=== PATIENT | male | born 1945 | race Caucasian/White ===

== ENCOUNTER 2022-07-24 19:42 | Emergency (ER) | payer OTHER, MEDICARE, SELFPAY ==
[2022-07-24] VITALS (28 sets, daily range): BP systolic 84–120; BP diastolic 57–84; PULSE 60–117; RESP 9–24; O2SAT 95–98; BMI 21.3
--- NOTE | 2022-07-24 20:47 | CRLHL7_ITS ---
For Patients: As a result of the Century Cures Act, medical imaging exams and procedure reports are released immediately into your electronic medical record. You may view this report before your referring provider. If you have questions, please contact your health care provider. INDICATION: Atrial fibrillation. TECHNIQUE: Chest 1 views. COMPARISON: December 2019. FINDINGS: Lungs: Normal lung volume. No consolidation. The tracheobronchial tree and hilar structures are unremarkable. Pleura: No pleural effusion or pneumothorax. Heart and Mediastinum: Normal heart size. The great vessels of the thorax are unremarkable. Bones: No acute displaced osseous process. IMPRESSION: No consolidation. Dictated by Hank Orr MD @ 07/24/2022 9:52:06 PM (Electronically Signed)
[2022-07-24 21:13] LABS: Basophils Absolute Auto 0.01 K/uL (0.00-0.30); Basophils Percent Auto 0.2 % (0.0-3.0); Eosinophils Absolute Auto 0.09 K/uL (0.00-0.50); Eosinophils Percent Auto 1.6 % (0.0-7.0); Hematocrit 46.2 % (37.0-53.0); Hemoglobin* 15.6 gm/dL (13.5-17.5); Lymphocytes Absolute Auto 1.78 K/uL (0.90-2.90); Lymphocytes Percent Auto 31.3 % (20-44); Mean Corpuscular HGB Conc 34 gm/dL (32-36); Mean Corpuscular Hemoglobin 31 pg (26-34); Mean Corpuscular Volume 92 fL (80-100); Monocytes Percent Auto 10.2 % (0.0-11.0); Neutrophils Absolute Auto 3.23 K/uL (1.7-7.0); Neutrophils Percent Auto 56.7 % (42.0-72.0); Platelet Count* 108 K/uL (140-440); RDW Coefficient of Variation % 12.1 % (11.5-15.5); Red Blood Count 5.05 m/uL (4.30-5.90); White Blood Count* 5.69 K/uL (4.50-11.00)
[2022-07-24 21:25] LABS: Chloride* 106 mmol/L (96-114); Sodium* 136 mmol/L (135-149)
[2022-07-24 21:26] LABS: Potassium* 4.2 mmol/L (3.6-5.1)
[2022-07-24 21:27] LABS: Slide Review Reflex No
[2022-07-24 21:28] LABS: Carbon Dioxide* 27 mmol/L (20-32); Creatinine* 0.8 mg/dL (0.5-1.5); Est. Creatinine Clearance* 54.68; Estimated Glomerular Filt Rate 91 ml/min
--- OUTSIDE RECORDS SUMMARY | 2022-07-24 21:28 | XMS_ITS | Clinical Summary ---
:1945 Author Organization [facility] [place] [address] Care Team Providers Name Role Phone Zachary Solano MD Primary Care Provider Allergies No known active allergies Medications Medication Sig Dispensed Refills Start Date End Date Status atorvastatin (LIPITOR) Take 1 tablet by 90 tablet 3 10/27/2019 Active 20 mg mouth at bedtime. tabletIndications: Other hyperlipidemia rivaroxaban (XARELTO) Take 1 tablet by 90 tablet 3 10/30/2019 Active 20 mg mouth once daily tabletIndications: with evening meal. Paroxysmal atrial fibrillation (HC), Anticoagulation monitoring, INR range 2-3 aspirin (ECOTRIN) 81 Take 1 tablet by 0 01/07/2020 Active mg enteric coated mouth once daily tablet with a meal. vit Take 1 capsule by 0 02/05/2020 A ctive C,L-Vm-gzmcm-lutein-ze mouth 2 times axan (PRESERVISION daily. AREDS-2) capsule metoprolol succinate Take 1 tablet by 90 tablet 3 02/06/2020 Active (TOPROL XL) 25 mg mouth once daily. Sustained-Release tabletIndications: Chronic atrial fibrillation (HC) furosemide (LASIX) 20 TAKE ONE TABLET BY 0 1 Active mg tablet MOUTH DAILY FOR HEART FAILURE. lisinopriL (PRINIVIL; TAKE ONE TABLET BY 0 1 Active ZESTRIL) 5 mg tablet MOUTH DAILY FOR HEART FAILURE. sildenafil citrate TAKE ONE-HALF 0 04/04/2021 Active (VIAGRA) 100 mg tablet TABLET BY MOUTH EVERY DAY NEEDED FOR ERECTIONS - TAKE 1 HOUR BEFORE ANTICIPATED SEXUAL ACTIVITY--MAXIMUM 4 DOSES FOR 30-DAY SUPPLY. Active Problems Problem Noted Date Agent orange exposure 10/27/2019 Overview: He had minimal exposure to Agent [place]. [facility] stated the following diseases are more likely with Agent [place] exposure: Amyloidosis, Chronic B-cell Leukemia, Chloracne, Type 2 Diabetes, Hogkin's Disease, Ischemic Heart Disease, Multiple Myel sabina, Non-Hodgkin's Lymphoma, Parkinson's Disease, Peripheral Neuropathy, Porphyria Cutanea Tarda, Prostate Cancer, Respiratory Cancers, Soft Tissue Sarcomas (other than osteosarcoma, chondrosarcoma, Kaposi's sarcoma or Mesothelioma). 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 Referral to sleep specialist generated. Hyperlipidemia 09/03/2015 Paroxysmal atrial fibrillation 08/27/2015 Overview: Armando reports he can tell when he is in atrial fibrillation and as of 10/27/2019 this happens 1-3 times per week and each episode lasts for a few seconds. 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 07/28/2013 Family history of colonic polyps 11/10/2010 Overview: Colonoscopy 10/2010 normal repeat in 5 ye ars Colonoscopy 12/2015 normal, no follow up needed Erectile dysfunction 10/15/2009 Resolved Problems Problem Noted Date Resolved Date Other chest pain 10/14/2008 Immunizations Name Administration Dates Next Due HepA-HepB (Twinrix) 12/11/2012, 07/12/2012, 07/05/2010 Hepatitis A (Adult) 10/16/2016, 11/04/2003 Influenza A (H1N1), Inactivated 08/25/2009 Influenza Virus, Unspecified 07/10/2017 Influenza, High-dose Inactivated 05/27/2019, 05/27/2018, 08/2015, 05/28/2015 Influenza, IIV3 (Age >=3 years) 07/14/2013, 04/23/2012, 05/13, 07/29/2004 Meningococcal Vaccine (Menomune) 06/13/2008 Pneumococcal Poly,23-Valent 10/16/2016, 08/13/2003 (Pneumovax) Pneumococcal conj 13-Valent (Prevnar 09/03/2015 13) Td (Age >=7 Years) 08/13/2005 Tdap 07/12/2012 Zoster (Shingrix-RZV, recombinant) 12/04/2018, 10/07/2018 Zoster (Zostavax-ZVL, live) 03/04/2012 Family History Medical History Relation Name Comments Heart Disease Brother 1 Hank Other Father embolism after f racture/ of Pneumonia at 88 Other Mother Aneurysm/ at 80 of weakness and old age Relation Name Status Comments Brother 1 Hank Alive Brother 2 Alive Father Mother Sister Alive Social History Tobacco Use Types Packs/Day Years Used Date Smoking Tobacco: Never Smokeless Tobacco: Never Tobacco Cessation: Counseling Given: Yes Alcohol Use Standard Drinks/Week Comments Yes 1.7 (1 standard drink = 0.6 oz pure alco hol) 2 drinks a month Sex Assigned at Date Recorded Not on file Obstetrics History Last Filed Vital Signs Vital Sign Reading Time Taken Comments Blood Pressure 124/76 06/16/2021 7:39 AM CDT Pulse 68 06/16/2021 7:39 AM CDT Temperature 36.8 ??C (98.2 ??F) 05/12/2020 2:37 PM CDT Respiratory Rate 12 06/20/2018 2:49 PM 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 Saturation 97% 06/16/2021 7:39 AM CDT Inhaled Oxygen Concentration - - Weight 68.5 kg (151 lb) 06/16/2021 7:39 AM CDT Height 172.7 cm (5' 8) 06/16/2021 7:39 AM CDT Body Mass Index 22.96 06/16/2021 7:39 AM CDT Plan of Treatment Health Maintenance Due Date Last Done Comments COVID-19 vaccine series (#1) 1945 Medicare Wellness for age 65+ 10/26/2020 10/27/2019, 2017, 10/16/2016 Depression screening for age 12+ 10/29/2020 10/30/2019, , 10/30/2019, Additional history exists Influenza for age 65+ 04/13/2022 05/27/2019, 05/27/2018, 07/10/2017, Additional history exists BMI (ht and wt on same day) for 06/16/2022 06/16/2021, 04/15, age 18+ 10/27/2019, Additional history exists Tetanus booster 07/12/2022 07/12/2012, 08/13/2005 Tdap Completed 07/12/2012 Hepatitis C screening for age Completed 10/16/2016 18-79 Pneumococcal series for age 65+ Completed 10/16/2016, 08/14, 08/13/2003 Zoster (shingles) series for age Completed 12/04/2018, , 50+ 03/04/2012 Results Not on filefrom Last 3 Months Insurance Payer Benefit Plan / Subscriber ID Effective Phone Address T ype Group Dates 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 [id number] 2008-Prese [phone] [id number] [place] [address] 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 [id number] 2010-[place] [address] [id number] [place] [address] MEDICARE PART MEDICARE PART B [id number] 2012-[place]S B - HB USE HB ONLY nt [address] [place] [facility] [address] MEDICARE PART MEDICARE PART A [id number] 2009-[place] - [place] USE [place] ONLY nt [address] [place] [address] BLUE CROSS MR BL[employer]OSS [id number] 2020-Prese [address] MEDICARE nt [id number] [employer] [address] EMERY SOLOMONALESHA [id number] (Home) W [phone] [place] ([place] [phone] ArnieArmando [employer] Workers Comp Self 1945 [address] (Home) W [phone] [place], [place] ([place]) [phone] Advance Directives Latest Code Status on File Code Status Date Activated Date Inactivated Comments Full Code 10/15/2014 9:14 AM 10/15/2014 3:07 PM Code Status History Code Status Date Activated Date Inactivated Comments Full Code 10/15/2014 6:33 AM 10/15/2014 9:14 AM Care Teams Solution Design Engineer Relationship Specialty Start Date End Date Zachary Solano MD PCP - General Family Practice 10/26/10 [address] [place], [place] [id number]
[2022-07-24 21:29] LABS: Blood Urea Nitrogen* 23 mg/dL (7-30); Calcium* 8.8 mg/dL (8.4-10.6); Glucose* 101 mg/dL (60-115)
--- OUTSIDE RECORDS SUMMARY | 2022-07-24 21:29 | XMS_ITS | Encounter Summary ---
:1945 Author Organization [facility] Address [address] [place] [id number] Support Name Relationship Address Phone BANG MANN Unavailable [address] [place] [address] BANG MANN MEENAKSHI Unavailable [address] [place] [address] Insurance Providers: All historical and current Section Date Range: From patient's date of to the date document was created.This section includes the names of all active insurance providers for the patient. Insurance Type of Plan Start of End of Group Member Insurance Policy P atient's Provider Coverage Name Policy Policy Number ID Provider's Tanner's Relationship Coverage Coverage Telephone Name to Policy Number Tanner [place] MEDIC Aug 13, [id number] VENESS,BECERRA P ATIENT [facility] (WNR) ADVANTAGE ARE 2020 5 [id number] [phone] ROLD ADVAN 1 MOUSTAPHA C [place] MED[place] MCR Aug 13, [id number] VENESS,BECERRA P ATIENT [facility] (WNR) ADVANTAGE (WNR) 2020 7 [id number] [phone] [place] 1 [place] Aug 13, [id number] [phone] VENESS ,BECERRA PATIENT [facility] (WNR) ADVANTAGE (WNR) 2021 5 [id number] ROLD 1 MEDICARE MEDICARE PART Sep 13, PART B [id number] Jesusita CONKLIN (WNR) (M) B 2012 [id number] [phone] [facility] MEDICARE MEDICARE PART Mar 13, PART A 800 Jesusita CONKLIN (WNR) (M) A [phone] [place] MEDIC[place] MEDICARE PART Mar 13, PART A [id number] Jesusita CONKLIN (WNR) (M) Rosalinda 2008 [id number] [phone] [place] Selected Encounter This section includes the information on record at [place] for the Encounter. Date/Time Encounter Type Encounter Reason Provider Source Description Dec 06, 2021 OFFICE O/P EST PRIMARY ICD-10-CM PANCHO GUTIERREZ 10:00 AM MOD 30-39 MIN CARE/MEDICINE M25.552 Pain N E in left hip with Provider Comments: Pain in left Hip IHE Encounter Template Text not used by [facility] Assessments - Encounter Diagnoses This section includes the primary and secondary diagnoses documented for the Encounter. Date/Time Primary/Secondary Diagnosis Name Provider Source Diagnosis Dec 06, 2021 PRIMARY Pain in left PANCHO GUTIERREZ [place] A 12:02 PM hip N E [facility] Plan of Treatment: Future Appointments (+ 6 months) and Future Tests (+/- 45 days) The Plan of Treatment section includes future care activities for the patient from all [place] treatmentfacilities. This section includes future appointments and future orders which are active, pending orscheduled.Future Appointments This section includes appointments that were scheduled to occur 6 months from the date of the Encounter, up to a maximum of 20 appointments. The data comes from all [place] treatment facilities. Appointment Date/Time Appointment Type Appointment Facili ty Name December 16, 2021 09:00 AM AMBULATORY - REHAB MEDICINE [facility] December 16, 2021 09:45 AM AMBULATORY - MEDICINE [facility] December 16, 2021 10:30 AM AMBULATORY - MEDICINE [facility] December 23, 2021 12:15 PM AMBULATORY - NONE [facility] December 23, 2021 12:16 PM AMBULATORY - NONE [facility] December 26, 2021 01:30 PM AMBULATORY - MEDICINE [facility] January 02, 2022 05:00 PM AMBULATORY - REHAB MEDICINE [facility] January 10, 2022 08:30 AM AMBULATORY - MEDICINE [facility] Feb 02, 2022 10:00 AM AMBULATORY - PSYCHIATRY [facility] Feb 03, 2022 12:12 PM AMBULATORY - NONE [facility] Feb 09, 2022 10:00 AM AMBULATORY - PSYCHIATRY [facility] Feb 09, 2022 01:30 PM AMBULATORY - SURGERY [facility] Feb 16, 2022 10:00 AM AMBULATORY - PSYCHIATRY [facility] Feb 23, 2022 10:00 AM AMBULATORY - PSYCHIATRY [facility] Mar 02, 2022 10:00 AM AMBULATORY - PSYCHIATRY [facility] Mar 08, 2022 08:45 AM AMBULATORY - MEDICINE [facility] Mar 08, 2022 09:00 AM AMBULATORY - MEDICINE [facility] Mar 08, 2022 09:30 AM AMBULATORY - MEDICINE [facility] Mar 08, 2022 10:00 AM AMBULATORY - MEDICINE [facility] Mar 13, 2022 09:00 AM AMBULATORY - MEDICINE [facility] Lab Results: +/- 30 days of the encounter This section includes the Chemistry and Hematology Lab Results on record with [place] for the patient. Radiology Reports and Pathology Reports are provided separately, in subsequent sections.Lab Results This section contains the Chemistry/Hematology Results that were resulted 30 days before or 30 daysafter the date of the Encounter. Date/Time Source Result Type Result - Unit Interpretation Reference Range Comment December 16, 2021 09:56 AM [facility] BNP Specim en Type: PLASMA No comment enter ed. Ordering Provid er: DRAKE MCNULTY Report Released Date/Time: Nov 08, 2021 10:58 AM Reporting Lab: [facility] [id number] Performing Lab: [facility] [id number] BNP 35 <99 December 16, 2021 [facility] COMPREHENSIVE Specimen Typ e: PLASMA 09:56 AM METABOLIC PANEL+MG No comment en tered. Ordering Provid er: DRAKE MCNULTY Report Released Date/Time: Nov 08, 2021 10:58 AM Reporting Lab: [facility] [id number] Performing Lab: [facility] [id number] CREATININE 0.8 0.7-1.2 UREA NITROGEN 14 8-26 GLUCOSE 75 74-100 SODIUM 137 136-145 POTASSIUM 4.4 3.5-5.1 CHLORIDE 106 98-107 CO2 28 22-29 CALCIUM 9.2 8.4-10.2 PROTEIN,TOTAL 6.6 6.0-8.3 ALBUMIN 3.9 3.5-5.2 BILIRUBIN, TOTAL 0.8 0.2-1.2 MAGNESIUM 2.3 1.6-2.6 ANION GAP 3 L 5-15 ALKALINE PHOSPHATASE 60 40-150 ALT/SGPT 26 <55 AST/SGOT 28 <34 CREAT EGFR(CKD-EPI) >90 >60 Nov 11, 2021 [facility] COVID-19 AND FLU/RSV DIAG Sp ecimen Type: NASOPHARYNGEAL 09:34 AM PANEL(CEPHEID) Comment: Rufus rhoades GeneXpert (618) Ordering Provid er: JEREMIAH ACKERMAN Report Released Date/Time: Nov 08, 2021 02:19 PM Reporting Lab: [facility] [id number] Performing Lab: [facility] [address] [facility] [address] COVID-19 (CEPHEID) Not Detected Not Dete cted INFLUENZA A (PCR) Not Detected Not Detec heydi INFLUENZA B (PCR) Not Detected Not Detec heydi RSV (PCR) Not Detected Not Detected Nov 08, 2021 10:11 AM [facility] BNP Specim en Type: PLASMA No comment enter ed. Ordering Provid er: DRAKE MCNULTY Report Released Date/Time: Sep 05, 2021 10:57 AM Reporting Lab: [facility] [id number] Performing Lab: [facility] [id number] BNP 28 <99 Nov 08, 2021 10:11 AM [facility] CBC Specim en Type: BLOOD No comment enter ed. Ordering Provid er: DRAKE MCNULTY Report Released Date/Time: Sep 05, 2021 10:57 AM Reporting Lab: [facility] [address] [facility] [address] Performing Lab: [facility] [address] WBC 4.77 4.0-11.0 RBC 4.33 L 4.6-6.2 HGB 13.7 13.5-17.9 HCT 41.0 41-54 MCV 94.7 80-100 MCH 31.6 27-33 MCHC 33.4 32.0-37.5 PLT 128 L 150-400 MPV 9.4 7.4-10.4 RDW 13.0 11.5-14.5 Nov 08, 2021 [facility] COMPREHENSIVE Specimen Typ e: PLASMA 10:11 AM METABOLIC PANEL+MG No comment en tered. Ordering Provid er: DRAKE MCNULTY Report Released Date/Time: Sep 05, 2021 10:57 AM Reporting Lab: [facility] [address] [facility] [address] Performing Lab: [facility] [address] [facility] [address] CREATININE 0.8 0.7-1.2 UREA NITROGEN 20 8-26 GLUCOSE 85 74-100 SODIUM 136 136-145 POTASSIUM 4.0 3.5-5.1 CHLORIDE 105 98-107 CO2 28 22-29 CALCIUM 9.4 8.4-10.2 PROTEIN,TOTAL 6.7 6.0-8.3 ALBUMIN 4.0 3.5-5.2 BILIRUBIN, TOTAL 0.9 0.2-1.2 MAGNESIUM 2.0 1.6-2.6 ANION GAP 3 L 5-15 ALKALINE PHOSPHATASE 68 40-150 ALT/SGPT 27 <55 AST/SGOT 25 <34 CREAT EGFR(CKD-EPI) >90 >60 Vital Signs: All taken on the encounter date This section contains inpatient and outpatient Vital Signs collected on the date of the Encounter. Date/Time Temperature Pulse Blood Respiratory SP02 Pain Height Weight Dionisio dy Source Pressure Rate Mass Index Dec 06, 97.6 F 66 119/68 16 /min 97 % 2 68 in 155 lb 24 [place] 2021 09:58 /min mm[Hg] [facility] Social History: Smoking Status (Most current) and Tobacco Use (All prior to encounter date) This section includes the most current, and the historical, smoking and tobacco-related health factors from the [place] facility where the Encounter took place.Current Smoking Status This section includes the most current smoking, or tobacco-related health factor, from the [place] facility where the Encounter took place. Date/Time Current Smoking Status Comment Facility Apr 04, 2021 10:00 AM [place]-TOBACCO NEVER USED [facility] Encounter Notes: All associated encounter notes This section contains the clinical notes associated to the Encounter. Date/Time Encounter Note(s) Provider Source Dec 06, 2021 11:33 INTERNAL MEDICINE NOTE: KVNG GONZALEZDanny [facility] TITLE: MEDICINE CLINIC NOTE STANDARD TITLE: INTERNAL MEDICINE NOTE DATE OF NOTE: DEC 06, 2021@11:33 ENTRY DATE: DEC 06, 2021@11:33:44 AUTHOR: KVNG GONZALEZ EXP COSIGNER: URGENCY: STATUS: COMPLETED MEDICINE CLINIC NOTE Has ADDENDA YOUSIF MANN is a 76 year old MALE here today with the following complaints: left hip pain Nurse's note and prior clinic notes reviewed. Current concerns/HPI: Patient states since October 2020 he has had left hip pain at night. Initially pain was bilateral but always more intesnse on l eft side. Right side pain has since resolved after a coupl e of months. Onset was not related to any injury or change in activity. He does state it occured 3 d ays after his first COVID vaccine. The pain is located on lateral left hip is dull ache in nature. Occasionally radiates down leg. Denies any weakness in leg. P ain only occurs at night when lying on his left side. It r esolves with changing of position to right side. He does not have pain at any other times du ring day. He can not reproduce pain on palpating his hip. He has never had imaging of his hip. No previous injuries to his hip. He is not taking anything for the pain. No brusing, erythe ma, edema of hip. No knee issues. He has recently changed his bed mattress . He also for past 6 months becerra s had sensation of hockey puck in his LLQ. This is a sharp pain that is deeper in his abdomen. It o nly occurs at night and never during day. Pain is relieved with changing posit ion in bed. The pain can wake hip up from sleep. Frequency is occasional (1-2 times per week). No change in nature or frequency in past 6 months. States he has BM 1-2x per day and these are normal for him. No melen a or hematochezia. No change in pain with BM. No n/v or changes in dietary habits. No weight changes. He had colon cancer screening completed prior to transitioning care to [place]. Per [facility] appears his last colonoscopy was normal and then aged out of rout ine screening. Review of Systems: Complete ROS negative except for as noted above. Past medical history/Active Problems: Active problems - Computerized Problem List is t he source for the followin. Atrial fibrillation 2. Hyperlipidemia 3. Age related macular degeneration 4. Hearing loss 5. Tinnitus 6. Tremor 7. Obstructive sleep apnea - Non-compliant with CPAP. 8. Erectile dysfunction 9. Heart failure with reduced ejection fraction 10. Ingrown toenail Surgical History: SURGERIES - NONE FOUND Allergies: Patient has answered NKA Active Outpatient Medications (excluding Supplie s): Outpatient Medications Status 1) ATORVASTATIN CALCIUM 20MG TAB TAKE ONE TABLET BY ACTIVE MOUTH AT BEDTIME FOR CHOLESTEROL 2) CARVEDILOL 3.125MG TAB TAKE ONE TABLET BY OMER TH TWO ACTIVE TIMES A DAY WITH FOOD. FOR HEART. 3) DOFETILIDE 500MCG CAP TAKE ONE CAPSULE BY OMER TH TWO ACTIVE TIMES A DAY TO KEEP A NORMAL HEART BEAT 4) EMPAGLIFLOZIN 25MG TAB TAKE ONE-HALF TABLET B Y MOUTH ACTIVE EVERY MORNING 5) LISINOPRIL 5MG TAB TAKE ONE TABLET BY MOUTH T WO TIMES ACTIVE A DAY FOR HEART FAILURE. 6) PEG 400 0.4%/PROP GLYCOL 0.3% OPH SOLN INSTIL L 1 DROP ACTIVE IN BOTH EYES FOUR TIMES A DAY FOR EYE IRRITATION/DRYNESS 7) RIVAROXABAN 20MG TAB TAKE ONE TABLET BY MOUTH EVERY ACTIVE DAY WITH THE LARGEST MEAL OF THE DAY TO PREVENT BLOOD CLOTS & STROKE 8) SILDENAFIL CITRATE 100MG TAB TAKE ONE-HALF TA BLET BY ACTIVE MOUTH EVERY DAY NEEDED FOR ERECTIONS - TAKE 1 HOUR BEFORE ANTICIPATED SEXUAL ACTIVITY--MAXIMU M 4 DOSES FOR 30-DAY SUPPLY. EXAM: VS: Temp: 97.6 F [36.4 C] (12/06/2021 09:58) BP: 119/68 (12/06/2021 09:58) Pulse:66 (12/06/2021 09:58) Resp: 16 (12/06/2021 09:58) Pain: 2 (12/06/2021 09:58) Weight: WEIGHTS IN LAST 6 MONTHS - NONE FOUND O2 sat: 97% (12/06/2021 09:58) General: Alert, well developed, NAD Abdomen: Soft, nontender, nondistended, no tomás s palpated, no rebound or guarding MSK: Left hip without any sk in changes or edema. No pain on palpation of greater trochanter. Passive ROM full without any pain in bilateral hips. Knees non- tender to palpation with full ROM. Hip strenght 5/5 bilaterally. Gait normal Data/Labs Reviewed: . LAB RESULTS LAST 48 HRS - NONE FOUND ASSESSMENT & PLAN: YOUSIF MANN is a 76 year old MALE with the following active issues today: #Left hip pain, likely brusitis Pain for past 1+ year in left hip only w ith lying on left hip at night. Unable to reproduce pain on palpation today in clinic. Most concerning for bursitis, less likely OA. Recommend physical therapy which patient is in agreement. Did briefly discuss steroid injection but wi thout pain on palpation on examination unsure of benefit of injection. No indication fo r imaging, could consider if does not improve with treatment of brusitis. - [facility] ([facility]ner and walk-in option) - Per patient request will p [facility] referral for PT. They understand their drive time may not qualify them for this option. #LLQ Pain Pain is only nocturnal and unchanged over past 6 months. No changes in bowel movemetns or weight. No conc erning findings on examination. Last colonoscopy in [facility] reported as normal (prio r to discontinuation of screening 2/2 age). Does not appear to be related to left hip pain. Since this is unchanged in past 6 months, only nocturnal and no red flag symptoms do not feel that imaging is warranted. Etiology of symptoms could be related to bowels/ constipation. - Encouraged patient to increase fiber intake an d water intake - Monitor bowel movements, weight, and any roach e in symptoms. Follow-up with PCP if changes occcur Advanced Directive: None Future Appointments: DEC 06, 2021@10:00 Clinic: [facility] APACT F RES 01 WH 4F DECEMBER 16, 2021@09:45 Clinic: [facility] 3[facility] BLOOD DRAW CLI ALBA DECEMBER 16, 2021@10:30 Clinic: [facility] CHF PERIDOT 3D Patient staffed with Dr. Rhys Gonzalez MD Internal Medicine Resident Physician MEDICATION RECONCILIATION: The medication list above was reviewed with the patient/surrogate at today's visit. I have indicated discrepanci es under each medication that is not being taken as prescribed. I have reviewed the medication list for possible drug:drug interactions or contraindications prior to ordering NEW medicati ons during this visit. (x) Patient ( )Family Member ( )Caregiver indica heydi readiness to learn and has been instructed on action, dose, frequency and side effects of the new medication and I noted new medication on pa los's copy of the medication list. (x) Verbalizes understanding of instructions. ( ) Needs additional reinforcement of instructi ons(sent to Pharmacist). EDUCATION ON TREATMENT PLAN: Patient indicates readiness to learn, verbalizes understanding, agreement and satisfaction with the treatment plan. All questi ons addressed. /tanner/ KVNG GONZALEZ MD RESIDENT Signed: 12/06/2021 11:58 Receipt Acknowledged By: 12/06/2021 12:02 /tanner/ HERNANDEZ GUTIERREZ MD PHYSICIAN * AWAITING SIGNATURE * ELAN RODRIGUEZ 12/06/2021 ADDENDUM STATUS: COMPLETED Does not qualify for community care due to his d rive distance. Called and updated patient that he will need to be seen at [place] for his PT /es/ KVNG GONZALEZ MD RESIDENT Signed: 12/06/2021 12:04 Dec 06, 2021 10:37 INTERNAL MEDICINE NOTE: HERNANDEZ GUTIERREZ [facility] LOCAL TITLE: MEDICINE CLINIC NOTE STANDARD TITLE: INTERNAL MEDICINE NOTE DATE OF NOTE: DEC 06, 2021@10:37 ENTRY DATE: DEC 06, 2021@10:37:18 AUTHOR: HERNANDEZ GUTIERREZ EXP COSIGNER: URGENCY: STATUS: COMPLETED I have reviewed this patient's history (obtained by the resident), pertinent physical examination (performed by the resident) , and, when obtained and available, pertinent laboratory, radiologic or o ther diagnostic tests with the Internal Medicine Resident evaluating this p atient. I agree with the treatment plan as outlined. This plan was review ed with the resident on the date of the clinical encounter. PT for hip/leg sx; reassuran ce + caution about red flag sx for ill defined rare overnight abd discomforts wi thotu associated n/v, stool changes, weight loss, or any other concerning features. f/u with PCP if b ecomes more frequent or bothersome. /tanner/ HERNANDEZ GUTIERREZ MD PHYSICIAN Signed: 12/06/2021 12:02 Dec 06, 2021 09:59 INTERNAL MEDICINE OUTPATIENT NOTE: LUCI BEDOLLA [facility] LOCAL TITLE: MEDICINE CLINIC NURSING NOTE STANDARD TITLE: INTERNAL MEDICINE OUTPATIENT NOT E DATE OF NOTE: DEC 06, 2021@09:59 ENTRY DATE: DEC 06, 2021@09:59:58 AUTHOR: DC BEDOLLA EXP COSIGNER: URGENCY: STATUS: COMPLETED TYPE OF VISIT: Appointment Check In Type of appointment: In-person appointment REASON FOR VISIT: left hip pain ALLERGIES: Patient has answered NKA VITAL SIGNS: Blood Pressure: 119/68 (12/06/2021 09:58) Pulse: 66 (12/06/2021 09:58) Respiration: 16 (12/06/2021 09:58) Temperature: 97.6 F [36.4 C] (12/06/2021 09:58) Weight: 155 lb [70.31 kg] (12/06/2021 09:58) Height: 68 in [172.7 cm] (12/06/2021 09:58) BMI: 23.6 O2 Sat: 97% (12/06/2021 09:58) Pain: 2 (12/06/2021 09:58) PAIN SCREEN: Patient is not having significant pain that the y wish to discuss with their provider today. MEDICATION Over the Counter/Herbal Medications: The patient denies taking any outside medicatio ns or herbals. COVID-19 Immunization: The patient declines an additional dose of vacc ine at this time. Comment: personal preference /es/ DC BEDOLLA LPN Signed: 12/06/2021 10:03 Dec 06, 2021 09:55 ADVANCE DIRECTIVE: MADDIE SMITH [facility] TITLE: AD NOTIFICATION AND SCREENING STANDARD TITLE: ADVANCE DIRECTIVE DATE OF NOTE: DEC 06, 2021@09:55 ENTRY DATE: DEC 06, 2021@09:55:22 AUTHOR: MADDIE SMITH EXP COSIGNER: URGENCY: STATUS: COMPLETED ADVANCE DIRECTIVE NOTIFICATION: I was unable to give the patient written notifi cation of the following rights because: Comment: declined ADVANCE DIRECTIVE SCREENING: Does patient have an Advance Directive? Unknown to Patient and/or textiles sales representative. Socia l work consult will be placed to assist . /tanner/ MADDIE SMITH ADVANCED MSA Signed: 12/06/2021 09:55
--- OUTSIDE RECORDS SUMMARY | 2022-07-24 21:29 | XMS_ITS | Continuity of Care Document ---
:[address] [facility] Care Team Providers Name Role Phone [facility] Unavailable Unavailable Problems Combined list of problems from Department of Defense and [facility] Affairs facilities. It does not include entries that were removed or entered in error. 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 Heart failure with Active Condition [place] reduced ejection [facility] fraction Hyperlipidemia [facility] Ingrown [facility]enail Active Condition [place] [facility] Obstructive sleep Active Condition Apr 04 M [place] apnea 2020 [facility] Entered By: ALBA RODRIGUEZ Comment: Non-compli ant with CPAP. [facility]inn[facility] Tremor [facility] Diagnosis: ICD-10-CM Active Diagnosis [place] I48.91 Unspecified V A [facility] atrial fibrillationwith Provider Comments: Atrial fibrillation ([facility] [id number]) Diagnosis: ICD-10-CM Active Diagnosis [place] Z13.6 Encounter for [facility] screening for cardiovascular disorderswith Provider Comments: Encounter for Screening for Cardiovascular Disorders Diagnosis: ICD-10-CM Active Diagnosis [place] [facility], Z01.01 Encounter for [place] exam of eyes and [place] vision w abnormal findingswith Provider Comments: Eye/Vision Exam w/ Abnormal Findings Diagnosis: ICD-10-CM Active Diagnosis [place] Z01.00 Encounter for [facility] exam of eyes and vision w/o abnormal findingswith Provider Comments: Encounter for Examination of Eyes and Vision without Abnormal Findings Diagnosis: ICD-10-CM Active Diagnosis [place] I50.20 Unspecified V A [facility] systolic (congestive) heart failurewith Provider Comments: Heart failure with reduced ejection fraction (SCT [id number]) Diagnosis: ICD-10-CM Active Diagnosis [place] F51.04 [facility] Psychophysiologic insomniawith Provider Comments: Psychophysiologic insomnia Diagnosis: ICD-10-CM Active Diagnosis [place] F51.04 [facility] Psychophysiologic insomniawith Provider Comments: Psychophysiologic Insomnia (ICD-10-CM F51.04) Diagnosis: ICD-10-CM Active Diagnosis [place] L60.0 Ingrowing [facility] nailwith Provider Comments: Ingrowing nail Diagnosis: ICD-10-CM Active Diagnosis [place] F51.04 [facility] Psychophysiologic insomniawith Provider Comments: Psychophysiologic Insomnia Diagnosis: ICD-10-CM Active Diagnosis [place] G47.33 Obstructive V A [facility] sleep apnea (adult) (pediatric)with Provider Comments: Obstructive sleep apnea (SCT [id number]) Diagnosis: ICD-10-CM Active Diagnosis [place] M25.552 Pain in left [facility] hipwith Provider Comments: Pain in left Hip Diagnosis: ICD-10-CM Active Diagnosis [place] G47.33 Obstructive V A [facility] sleep apnea (adult) (pediatric)with Provider Comments: Obstructive sleep apnea (adult) (pediatric) Diagnosis: ICD-10-CM Active Diagnosis [place] L60.0 Ingrowing [facility] nailwith Provider Comments: Ingrown toenail (SCT [id number]) Diagnosis: ICD-10-CM Active Diagnosis [place] L60.0 [facility]growing [facility] nailwith Provider Comments: Ingrown toenail (SNOMED CT [id number]) Diagnosis: ICD-10-CM Active Diagnosis [place] Z01.01 Encounter for [facility] exam of eyes and vision w abnormal findingswith Provider Comments: Encounter for Examination of Eyes and Vision with Abnormal Findings Diagnosis: ICD-10-CM Active Diagnosis [place] Z71.89 Other [facility] specified counselingwith Provider Comments: Other specified counseling Diagnosis: ICD-10-CM Active Diagnosis [place] 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: 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 Diagnosis: ICD-10-CM Active Diagnosis [place] Z71.81 Spiritual or [facility] rastafari counselingwith Provider Comments: Spiritual or rastafari counseling Admit Reason: A-FIB Active Diagnosis [place] DOFETILIDE LOADING V A HCS Diagnosis: ICD-10-CM Active Diagnosis [place] R06.00 Dyspnea, [facility] unspecifiedwith Provider Comments: Dyspnea, unspecified Diagnosis: ICD-10-CM Active Diagnosis [place] N52.9 Male erectile [facility] dysfunction, unspecifiedwith Provider Comments: Erectile dysfunction ([facility] [id number]) Diagnosis: ICD-10-CM Active Diagnosis [place] Z46.1 Encounter for [facility] fitting and adjustment of hearing aidwith Provider Comments: Encounter for fitting and adjustment of hearing aid Medications Combined list of outpatient medications from Department of Defense and Veterans Affairs facilities. Medications provided include 1) outpatient medications from the last 15 months, and 2) patient-reported medications. Medication Details Route Status Patient Prescription Prescription Last Ordering Order Source Instructions Expires Number Dispense Provider Date Date ATORVASTATI TAKE ONE ORALLY ACTIVE 11/09/2022 [id number] CANDSterling,KECIA 11/08/ [place] 20MG TABLET 2 E 2021 [place] [facility] TAB BY [facility]TH H[facility] AT BEDTIME FOR CHOLESTE ROL ATORVASTATI TAKE ONE ORALLY DISCONT 04/05/2022 [id number] MICHAEL,NI 06/06/ [place] 20MG TABLET INUED 1 CHOLAS 2020 [place] [facility] TAB BY MOUTH GWEN HCS AT BEDTIME FOR CHOLESTE ROL CARVEDILOL TAKE ONE ORALLY ACTIVE 11/09/2022 [id number] K ASKAVITC 11/08/ [place] 3.125MG TAB TABLET 2 H,CAROL 2021 [facility] BY MOUTH IE K HCS TWO TIMES A DAY WITH FOOD. FOR HEART. CARVEDILOL TAKE ONE ORALLY DISCONT 11/08/2021 [id number] A TKINSON, 08/10/ [place] 3.125MG TAB TABLET INUED 1 TREVON2020 [place] [facility] BY MOUTH J HCS TWO TIMES A DAY WITH FOOD. FOR HEART. CARVEDILOL TAKE ONE ORALLY DISCONT 10/12/2021 [id number] A TKINSON, 07/14/ [place] 3.125MG TAB TABLET INUE 1 TREVON 2021 [place] [facility] BY MOUTH J HCS TWO TIMES A DAY WITH FOOD. FOR HEART. CARVEDILOL TAKE ORALLY DISCONT 10/12/2021 [id number] ATKINS ON, 07/14/ [place] 6.25MG TAB ONE-HALF INUED 1 2020 [place] [facility] TABLET (EDIT) J HCS BY MOUTH TWO TIMES A DAY WITH FOOD. FOR HEART. CEPHALEXIN TAKE ONE ORALLY 03/11/2022 [id number] R AMPETSRE 02/09/ [place] 500MG CAP CAPSULE 2 ITER,RACHELLE 2021 [place] [facility] BY MOUTH HEW C HCS THREE TIMES A DAY DOFETILIDE TAKE ONE ORALLY ACTIVE 11/05/2022 [id number] GL AUSER,N 11/07/ [place] 500MCG CAP CAPSULE 2 ORA N 2021 [place] [facility] BY MOUTH HCS TWO TIMES A DAY TO KEEP A NORMAL HEART BEAT DOFETILIDE TAKE ONE ORALLY DISCONT 07/16/2022 [id number] G LAUSER,N 07/15/ [place] 500MCG CAP CAPSULE INUED 1 ORA N 2020 [place] [facility] BY MOUTH (EDIT) HCS TWO TIMES A DAY TO KEEP A NORMAL HEART BEAT DOFETILIDE TAKE ONE ORALLY DISCONT 10/12/2021 [id number] A TKINSON, 07/14/ [place] 500MCG CAP CAPSULE INUED 1 TREVON 2020 [place] [facility] BY MOUTH (EDIT) J HCS TWO TIMES A DAY TO KEEP A NORMAL HEART BEAT EMPAGLIFLOZ TAKE ORALLY ACTIVE 11/09/2022 [id number] KASKAV ITC 11/08/ [place] IN 25MG TAB ONE-HALF 2 H,CAROL2021 [place] [facility] TABLET IE K HCS BY MOUTH EVERY MORNING FUROSEMIDE TAKE ONE ORALLY DISCONT 06/11/2022 [id number] H ALSTROM, 06/10/ [place] 20MG TAB TABLET INUED 1 ARAVIND D 2020 [place] [facility] BY MOUTH HCS DAILY FOR HEART FAILURE. LISINOPRIL TAKE ORALLY DISCONT 07/28/2022 [id number] KASKAV ITC 07/28/ [place] 10MG TAB ONE-HALF INUED 1 H,CAROL2020 [place] [facility] TABLET (EDIT) IE K HCS BY MOUTH TWO TIMES A DAY FOR HEART FAILURE. LISINOPRIL TAKE ONE ORALLY ACTIVE 07/11/2023 [id number] R AMAKRISH 07/26/ [place] 5MG TAB TABLET 2 NAN,PAVIT 2021 [place] [facility] BY MOUTH HRA HCS TWO TIMES A DAY FOR HEART FAILURE. LISINOPRIL TAKE ONE ORALLY DISCONT 08/11/2022 [id number] K ASKAVITC 08/10/ [place] 5MG TAB TABLET INUED 2 H,CAROL 2020 [place] [facility] BY MOUTH IE K HCS TWO TIMES A DAY FOR HEART FAILURE. LISINOPRIL TAKE ONE ORALLY DISCONT 06/11/2022 [id number] H ALSTROM, 07/21/ [place] 5MG TAB TABLET INUED 1 ARAVIND D 2020 [place] [facility] BY MOUTH (EDIT) HCS DAILY FOR HEART FAILURE. LISINOPRIL TAKE ONE ORALLY DISCONT 06/11/2022 [id number] H ALSTROM, 06/10/ [place] 5MG TAB TABLET INUE 1 ARAVIND D 2020 [place] [facility] BY MOUTH HCS DAILY FOR HEART FAILURE. METOPROLOL TAKE ORALLY DISCONT 06/28/2022 [id number] GLAUSE R,N 06/28/ [place] SUCCINATE ONE-HALF INUED 1 ORA N 2020 [place] [facility] 100MG TABLET HCS TAB,SA BY MOUTH EVERY DAY FOR ATRIAL FIBRILLA TION METOPROLOL TAKE ONE ORALLY DISCONT 04/05/2022 [id number] MICHAELVALERIA 06/06/ [place] SUCCINATE TABLET INUED 1 CHOLAS 2020 [place] 25MG TAB,SA BY MOUTH (EDIT) PSYCHIATRIC EVERY DAY FOR ATRIAL FIBRILLA TION MULTIVIT/OP TAKE 1 ORALLY ACTIVE 05/06/2023 [id number] SMI TH,[place] 05/09/ [place] HTH CAP/TAB 2 RGE R 2021 [place] [facility] AREDS2/LUTE BY MOUTH HCS IN/ZEAXANTH TWICE A IN CAP/TAB DAY PEG-400 INSTILL BOTH ACTIVE 05/06/2023 [id number] GURPREET KANG 05/09/ [place] 0.4%/PROPYL 1 DROP EYES 2 RGE R 2021 [place] [facility] ROBER GLYCOL IN BOTH HCS 0.3% EYES SOLN,OPH FOUR TIMES A DAY FOR EYE IRRITATI ON/DRYNE SS PEG-400 INSTILL BOTH DISCONT 11/05/2022 [id number] Marek DOUGHERTY 11/07/ [place] 0.4%/PROPYL 1 DROP EYES INUED 2 ENDRA C 2021 [place] ROBER GLYCOL IN BOTH HCS 0.3% EYES SOLN,OPH FOUR TIMES A DAY FOR EYE IRRITATI ON/DRYNE SS RIVAROXABAN TAKE ONE ORALLY ACTIVE 07/12/2023 [id number] Esther BARRIOS 07/12/ [place] 20MG TAB TABLET 2 INAH 2021 [place] [facility] BY [facility]TH HCS EVERY DAY WITH THE LARGEST MEAL OF THE DAY TO PREVENT BLOOD CLOTS and STROKE RIVAROXABAN TAKE ONE ORALLY DISCONT 08/04/2022 [id number] DEMARIO VILLEDA 08/10/ [place] 20MG TAB TABLET INUED 2 NIFER MEENAKSHI 2020 [place] A BY MOUTH HCS EVERY DAY WITH THE LARGEST MEAL OF THE DAY TO PREVENT BLOOD CLOTS and STROKE RIVAROXABAN TAKE ONE ORALLY DISCONT 08/06/2021 [id number] DESLAURIE 08/05/ [place] 20MG TAB TABLET INUE 1 RS,CATRACHITO 2019 [place] [facility] BY [facility]TH M HCS EVERY DAY WITH THE LARGEST MEAL OF THE DAY TO PREVENT BLOOD CLOTS and STROKE SILVER APPLY TO [place] ACTIVE 02/10/2023 [id number] RAMPETSR E 02/09/ [place] SULFADIAZIN AFFECTED LLY 2 ITER,RACHELLE 2021 [place] [facility] E 1% AREA HEW C HCS CREAM,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 [place] UNSPECIFIED 2021 ed [facility] [place] [facility] TDAP complet [place] 2021 ed [place] [facility] INFLUENZA, complet [place] UNSPECIFIED 2020 ed [place] [facility] FOR[facility] COVID-19 2 complet PFR; [place] (Garden Mate), 2020 ed [id number]; [place] [facility] MRNA, LNP-S, 02 HCS PF, 30 1 MCG/0.3 ML DOSE COVID-19 1 complet PFR; [place] (Garden Mate), 2020 ed [id number]; [place] [facility] MRNA, LNP-S, 02 HCS PF, 30 1 MCG/0.3 ML DOSE INFLUENZA, complet [place] UNSPECIFIED 2019 ed [place] [facility] ZOSTER 2 complet PER ROSALINDA VILLAR RECOMBINANT 2019 ed RECORD [facility] [place] [facility] ZOSTER 1 complet PER ROSALINDA Mota [place] RECOMBINANT 2019 ed RECORD [place] [facility] PNEUMOCOCCAL complet [place] POLYSACCHARID 2017 ed [place] [facility] E PPV23 HCS PNEUMOCOCCAL complet rosalinda IRELANDAP CONJUGATE PCV 2016 ed [place] [facility] 13 HCS Results Combined list of recent chemistry, hematology and other laboratory results from Department of Defense and Veterans Affairs, ranging from 15 months to all on record, depending upon the facility. Order Results Value Reference Date Interpretation Specimen Commen ts Source Name Range HEMOGLOB HEMOGLOBIN 5.3 4.0 - 6.0 07/10 Specimen T ype: BLOOD [place] IN A1C A1C/HEMOGL /2021 Comment: Hanny ues obtained from A1C measurements can vary. For typical A1C assays, a reported value of 7.0 could actually be between 6.7 and 7.3 if measured by a reference method. A reported value of 9.0 IS [facility] OBIN.TOTAL could actual ly be between 8.7 and 9.3. Ref: http://www.ngsp.org/CAPdata.asp IN BLOOD Ordering Provi keaton: KECIA COTTO Report Released Date/Time: January 10, 2022 09:00 AM Reporting Lab: [facility] [address] [place] [address] Performing Lab: [facility] [address] [place] [address] LIPID CHOLESTERO 150 <199 - 199 07/10 Specimen T ype: PLASMA [place] PANEL,NO L /2021 No comment ente red. IS [facility] N-FASTIN [MASS/VOLU Ordering Pr ovider: KECIA COTTO] IN Report Released Date/Time: January 10, 2022 09:00 AM SERUM OR Reporting Lab: [facility] [address] [place] [address] Performing Lab: [facility] [address] [place] [address] LIPID CHOLESTERO 47 40 07/10 Specimen Type : PLASMA [place] PANEL,NO L IN HDL /2021 No comment ent ered. IS [facility] N-FASTIN [MASS/VOLU Ordering Pr ovider: KECIA COTTO] IN Report Released Date/Time: January 10, 2022 09:00 AM SERUM OR Reporting Lab: [facility] PL[facility]MA [address] [place] [address] Performing Lab: [facility] [place] [address] LIPID CHOLESTERO 74 <99 - 99 07/10 Specimen Typ e: PLASMA [place] PANEL,NO L IN LDL /2021 No comment ent ered. IS [facility] N-FASTIN [MASS/VOLU Ordering Pr ovider: KECIA COTTO] IN Report Released Date/Time: January 10, 2022 09:00 AM SERUM OR Reporting Lab: [facility] BY [facility] [address] CALCULATIO Performing L ab: [facility] N [address] [facility] [address] LIPID CHOLESTERO 29 <29 - 29 07/10 Specimen Typ e: PLASMA [place] PANEL,NO L IN VLDL /2021 No comment en tered. IS [facility] N-FASTIN [MASS/VOLU Ordering Pr ovider: KECIA COTTO] IN Report Released Date/Time: January 10, 2022 09:00 AM SERUM OR Reporting Lab: [facility] [address] CALCULATIO Performing L ab: [facility] N [address] [facility] [address] LIPID CHOLESTERO 103 <129 - 129 07/10 Specimen T ype: PLASMA [place] PANEL,NO L NON HDL /2021 No comment en tered. IS [facility] N-FASTIN [MASS/VOLU Ordering Pr ovider: KECIA COTTO] IN Report Released Date/Time: January 10, 2022 09:00 AM SERUM OR Reporting Lab: [facility] [address] [facility] [address] Performing Lab: [facility] [address] [facility] [address] LIPID TRIGLYCERI 145 <149 - 149 07/10 Specimen T ype: PLASMA [place] PANEL,NO DE /2021 No comment ente red. IS [facility] N-FASTIN [MASS/VOLU Ordering Pr ovider: KECIA COTTO] IN Report Released Date/Time: January 10, 2022 09:00 AM SERUM OR Reporting Lab: [facility] [address] [facility] [address] Performing Lab: [facility] [address] [facility] [address] BASIC CREATININE 1.0 0.7 - 1.2 07/10 Specimen Ty pe: PLASMA [place] METABOLI [MASS/VOLU /2021 No comment e ntered. IS [facility] C ME] IN Ordering Provid er: CANDY,KEICA E PANEL+MG SERUM OR Report Releas ed Date/Time: January 10, 2022 09:00 AM PLASMA Reporting Lab: [facility] [address] [place] [address] Performing Lab: [facility] [address] [place] [address] BASIC UREA 18 8 - 26 07/10 Specimen Type: P LASMA [place] METABOLI No comment ent ered. IS [facility] C [MASS/VOLU Ordering Pro vider: CANDYKECIA E PANEL+MG ME] IN Report Release d Date/Time: January 10, 2022 09:00 AM SERUM OR Reporting Lab: [facility] [place] [address] Performing Lab: [facility] [place] [address] BASIC GLUCOSE 86 70 - 100 07/10 Specimen Type: PLASMA [place] METABOLI [MASS/VOLU /2021 No comment e ntered. IS [facility] C ME] IN Ordering Provid er: CANDKECIA Katz E PANEL+MG SERUM OR Report Releas ed Date/Time: January 10, 2022 09:00 AM PLASMA Reporting Lab: [facility] [address] [place] [address] Performing Lab: [facility] [place] [address] BASIC SODIUM 135 136 - 145 07/10 L Specimen Type: PLASMA [place] METABOLI [MOLES/VOL /2021 No comment e ntered. IS [facility] C UME] IN Ordering Provid er: CANDKECIA Katz E PANEL+MG SERUM OR Report Releas ed Date/Time: January 10, 2022 09:00 AM PLASMA Reporting Lab: [facility] [address] [facility] [address] Performing Lab: [facility] [address] [facility] [address] BASIC POTASSIUM 4.2 3.5 - 5.1 07/10 Specimen Typ e: PLASMA [place] METABOLI [MOLES/VOL /2021 No comment e ntered. IS [facility] C UME] IN Ordering Provid er: CANDYKECIA E PANEL+MG SERUM OR Report Releas ed Date/Time: January 10, 2022 09:00 AM PLASMA Reporting Lab: [facility] [address] [place] [address] Performing Lab: [facility] [address] [place] [address] BASIC CHLORIDE 102 98 - 107 07/10 Specimen Type: PLASMA [place] METABOLI [MOLES/VOL /2021 No comment e ntered. IS [facility] C UME] IN Ordering Provid er: CANDY,KECIA E PANEL+MG SERUM OR Report Releas ed Date/Time: January 10, 2022 09:00 AM PLASMA Reporting Lab: [facility] [address] [place] [address] Performing Lab: [facility] [address] [place] [address] BASIC CARBON 30 22 - 29 07/10 H Specimen Type: P LASMA [place] METABOLI DIOXIDE, /2021 No comment ent ered. IS [facility] C TOTAL Ordering Provid er: CANDY,KECIA E PANEL+MG [MOLES/VOL Report Rele ased Date/Time: January 10, 2022 09:00 AM UME] IN Reporting Lab: [facility] SERUM OR [address] [place] [facility] [address] PLASMA Performing Lab: [facility] [address] [facility] [address] BASIC CALCIUM 9.3 8.4 - 10.2 07/10 Specimen Type : PLASMA [place] METABOLI [MASS/VOLU /2021 No comment e ntered. IS [facility] C ME] IN Ordering Provid er: CANDY,KECIA E PANEL+MG SERUM OR Report Releas ed Date/Time: January 10, 2022 09:00 AM PLASMA Reporting Lab: [facility] [place] [address] Performing Lab: [facility] [address] [facility] [address] BASIC MAGNESIUM 2.1 1.6 - 2.6 07/10 Specimen Typ e: PLASMA [place] METABOLI [MASS/VOLU /2021 No comment e ntered. IS [facility] C ME] IN Ordering Provid er: CANDY,KECIA E PANEL+MG SERUM OR Report Releas ed Date/Time: January 10, 2022 09:00 AM PLASMA Reporting Lab: [facility] [place] [address] Performing Lab: [facility] [address] [facility] [address] BASIC ANION GAP 3 5 - 15 07/10 L Specimen Type: PLASMA [place] METABOLI IN SERUM /2021 No comment ent ered. IS [facility] C OR PLASMA Ordering Prov ider: CANDKECIA Katz E PANEL+MG Report Release d Date/Time: January 10, 2022 09:00 AM Reporting Lab: [facility] [place] [address] Performing Lab: [facility] [place] [address] BASIC GLOMERULAR 77 60 07/10 Specimen Type : PLASMA [place] METABOLI FILTRATION /2021 No comment e ntered. IS [facility] C RATE/1.73 Ordering Prov ider: CANDYKECIA E PANEL+MG SQ Report Release d Date/Time: January 10, 2022 09:00 AM M.PREDICTE Reporting La b: [facility] D [VOLUME [address] [employer] [address] [facility] [address] RATE/AREA] Performing L ab: [facility] IN SERUM, [address] [employer] [facility] [address] PLASMA OR BLOOD BY CREATININE -BASED FORMULA (CKD-EPI) BASIC CREATININE 0.8 0.7 - 1.2 06/16 Specimen Ty pe: PLASMA [place] METABOLI [MASS/VOLU /2021 No comment e ntered. IS [facility] C ME] IN Ordering Provid er: GLAUSERJORGITOA N PANEL+MG SERUM OR Report Releas ed Date/Time: Mar 13, 2022 09:19 AM PLASMA Reporting Lab: [facility] [address] [place] [address] Performing Lab: [facility] [place] [address] BASIC UREA 21 8 - 26 06/16 Specimen Type: P LASMA [place] METABOLI NITROGEN /2021 No comment ent ered. IS [facility] C [MASS/VOLU Ordering Pro vider: GLAUSER,ANNMARIE N PANEL+MG ME] IN Report Release d Date/Time: Mar 13, 2022 09:19 AM SERUM OR Reporting Lab: [facility] [place] [address] Performing Lab: [facility] [place] [address] BASIC GLUCOSE 66 70 - 100 06/16 L Specimen Type: PLASMA [place] METABOLI [MASS/VOLU /2021 No comment e ntered. IS [facility] C ME] IN Ordering Provid er: GLAUSER,ANNMARIE N PANEL+MG SERUM OR Report Releas ed Date/Time: Mar 13, 2022 09:19 AM PLASMA Reporting Lab: [facility] [address] [facility] [address] Performing Lab: [facility] [address] [place] [address] BASIC SODIUM 137 136 - 145 06/16 Specimen Type: PLASMA [place] METABOLI [MOLES/VOL /2021 No comment e ntered. IS [facility] C UME] IN Ordering Provid er: GLAUSER,ANNMARIE N PANEL+MG SERUM OR Report Releas ed Date/Time: Mar 13, 2022 09:19 AM PLASMA Reporting Lab: [facility] [address] [facility] [address] Performing Lab: [facility] [address] [place] [address] BASIC POTASSIUM 4.1 3.5 - 5.1 06/16 Specimen Typ e: PLASMA [place] METABOLI [MOLES/VOL /2021 No comment e ntered. IS [facility] C UME] IN Ordering Provid er: GLAUSER,ANNMARIE N PANEL+MG SERUM OR Report Releas ed Date/Time: Mar 13, 2022 09:19 AM PLASMA Reporting Lab: [facility] [address] [facility] [address] Performing Lab: [facility] [place] [address] BASIC CHLORIDE 104 98 - 107 06/16 Specimen Type: PLASMA [place] METABOLI [MOLES/VOL /2021 No comment e ntered. IS [facility] C UME] IN Ordering Provid er: GLAUSER,ANNMARIE N PANEL+MG SERUM OR Report Releas ed Date/Time: Mar 13, 2022 09:19 AM PLASMA Reporting Lab: [facility] [address] [facility] [address] Performing Lab: [facility] [address] [facility] [address] BASIC CARBON 29 22 - 29 06/16 Specimen Type: P LASMA [place] METABOLI DIOXIDE, /2021 No comment ent ered. IS [facility] C TOTAL Ordering Provid er: GLAUSER,ANNMARIE N PANEL+MG [MOLES/VOL Report Rele ased Date/Time: Mar 13, 2022 09:19 AM UME] IN Reporting Lab: [facility] SERUM OR [address] [place] [facility] [address] PLASMA Performing Lab: [facility] [address] [place] [address] BASIC CALCIUM 9.5 8.4 - 10.2 06/16 Specimen Type : PLASMA [place] METABOLI [MASS/VOLU /2021 No comment e ntered. IS [facility] C ME] IN Ordering Provid er: GLAUSER,ANNMARIE N PANEL+MG SERUM OR Report Releas ed Date/Time: Mar 13, 2022 09:19 AM PLASMA Reporting Lab: [facility] [address] [facility] [facility] [address] Performing Lab: [facility] [address] [facility] [facility] [address] BASIC MAGNESIUM 2.2 1.6 - 2.6 06/16 Specimen Typ e: PLASMA [place] METABOLI [MASS/VOLU /2021 No comment e ntered. IS [facility]] IN Ordering Provid er: GLAUSER,ANNMARIE N PANEL+MG SERUM OR Report Releas ed Date/Time: Mar 13, 2022 09:19 AM PLASMA Reporting Lab: [facility] [address] [facility] [id number] Performing Lab: [facility] [place] [address] BASIC ANION GAP 4 5 - 15 06/16 L Specimen Type: PLASMA [place] METABOLI IN SERUM /2021 No comment ent ered. IS [facility] OR PLASMA Ordering Prov ider: GLAUSER,ANNMARIE N PANEL+MG Report Release d Date/Time: Mar 13, 2022 09:19 AM Reporting Lab: [facility] [address] [facility] [id number] Performing Lab: [facility] [address] [facility] [address] BASIC GLOMERULAR >90 60 06/16 Specimen Type : [place] FILTRATION /2021 No comment e ntered. IS [facility] RATE/1.73 Ordering Prov ider: GLAUSER,ANNMARIE N PANEL+MG SQ Report Release d Date/Time: Mar 13, 2022 09:19 AM M.PREDICTE Reporting La b: [facility] [VOLUME ONE [employer] [facility] [address] RATE/AREA] Performing L ab: [facility] IN SERUM, ONE [employer] [facility] [place] [address] PLASMA OR BLOOD BY CREATININE -BASED FORMULA (CKD-EPI) BASIC CREATININE 0.8 0.7 - 1.2 03/08 Specimen Ty pe: PLASMA [place] MET[place]I [MASS/VOLU /2021 No comment e ntered. IS [facility] ME] IN Ordering Provid er: GLAUSER,ANNMARIE N PANEL+MG SERUM OR Report Releas ed Date/Time: Nov 04, 2021 10:15 AM PLASMA Reporting Lab: [facility] [address] [place] [address] Performing Lab: [facility] [address] [place] [address] BASIC UREA 18 8 - 26 03/08 Specimen Type: P LAS[place] NITROGEN /2021 No comment ent ered. IS [facility] [MASS/VOLU Ordering Pro vider: GLAUSER,ANNMARIE N PANEL+MG ME] IN Report Release d Date/Time: Nov 04, 2021 10:15 AM SERUM OR Reporting Lab: [facility] [place] [address] Performing Lab: [facility] [place] [address] BASIC GLUCOSE 80 74 - 100 03/08 Specimen Type: PLASMA [place] MET[place]I [MASS/VOLU /2021 No comment e ntered. IS [facility] ME] IN Ordering Provid er: GLAUSER,ANNMARIE N PANEL+MG SERUM OR Report Releas ed Date/Time: Nov 04, 2021 10:15 AM PLASMA Reporting Lab: [facility] [address] [place] [address] Performing Lab: [facility] [place] [address] BASIC SODIUM 138 136 - 145 03/08 Specimen Type: PLASMA [place] MET[place]I [MOLES/VOL /2021 No comment e ntered. IS [facility] UME] IN Ordering Provid er: GLAUSER,ANNMARIE N PANEL+MG SERUM OR Report Releas ed Date/Time: Nov 04, 2021 10:15 AM PLASMA Reporting Lab: [facility] [address] [place] [address] Performing Lab: [facility] [address] [facility] [address] BASIC POTASSIUM 3.9 3.5 - 5.1 03/08 Specimen Typ e: PLASMA [place] MET[place]I [MOLES/VOL /2021 No comment e ntered. IS [facility] UME] IN Ordering Provid er: GLAUSER,ANNMARIE N PANEL+MG SERUM OR Report Releas ed Date/Time: Nov 04, 2021 10:15 AM PLASMA Reporting Lab: [facility] [address] [place] [address] Performing Lab: [facility] [address] [place] [address] BASIC CHLORIDE 106 98 - 107 03/08 Specimen Type: PLASMA [place] MET[place]OLI [MOLES/VOL /2021 No comment e ntered. IS [facility] UME] IN Ordering Provid er: GLAUSER,ANNMARIE N PANEL+MG SERUM OR Report Releas ed Date/Time: Nov 04, 2021 10:15 AM PLASMA Reporting Lab: [facility] [address] [place] [address] Performing Lab: [facility] [address] [place] [address] BASIC CARBON 27 22 - 29 03/08 Specimen Type: P LASMA [place] DIOXIDE, /2021 No comment ent ered. IS [facility] TOTAL Ordering Provid er: GLAUSER,ANNMARIE N PANEL+MG [MOLES/VOL Report Rele ased Date/Time: Nov 04, 2021 10:15 AM UME] IN Reporting Lab: [facility] SERUM OR [address] [place] [facility] [address] PLASMA Performing Lab: [facility] [place] [address] BASIC CALCIUM 9.1 8.4 - 10.2 03/08 Specimen Type : PLASMA [place] MET[place]I [MASS/VOLU /2021 No comment e ntered. IS [facility] ME] IN Ordering Provid er: GLAUSER,ANNMARIE N PANEL+MG SERUM OR Report Releas ed Date/Time: Nov 04, 2021 10:15 AM PLASMA Reporting Lab: [facility] [address] [facility] [address] Performing Lab: [facility] [address] [facility] [address] BASIC MAGNESIUM 2.2 1.6 - 2.6 03/08 Specimen Typ e: PLASMA [place] MET[place]OLI [MASS/VOLU /2021 No comment e ntered. IS [facility] ME] IN Ordering Provid er: GLAUSER,ANNMARIE N PANEL+MG SERUM OR Report Releas ed Date/Time: Nov 04, 2021 10:15 AM PLASMA Reporting Lab: [facility] [place] [address] Performing Lab: [facility] [address] [facility] [address] BASIC ANION GAP 5 5 - 15 03/08 Specimen Type: PLASMA [place] MET[place]OLI IN SERUM /2021 No comment ent ered. IS [facility] OR PLASMA Ordering Prov ider: GLAUSER,ANNMARIE N PANEL+MG Report Release d Date/Time: Nov 04, 2021 10:15 AM Reporting Lab: [facility] [address] [facility] [address] Performing Lab: [facility] [address] [facility] [address] BASIC GLOMERULAR >90 60 03/08 Specimen Type : PLASMA [place] METABOLI FILTRATION /2021 No comment e ntered. IS [facility] RATE/1.73 Ordering Prov ider: GLAUSER,ANNMARIE N PANEL+MG SQ Report Release d Date/Time: Nov 04, 2021 10:15 AM M.PREDICTE Reporting La b: [facility] [VOLUME ONE [employer] [address] [facility] [address] RATE/AREA] Performing L ab: [facility] IN SERUM, [facility] [employer] [facility] [address] PLASMA OR BLOOD BY CREATININE -BASED FORMULA (CKD-EPI) BNP NATRIURETI 27 <99 - 99 03/08 Specimen Typ e: PL[place]MA [place] C PEPTIDE /2021 No comment ent ered. IS [facility] B Ordering Provid er: DRAKE MCNULTY [MASS/VOLU Report Relea sed Date/Time: December 16, 2021 10:37 AM ME] IN Reporting Lab: [facility] SERUM OR [address] [facility] [address] PLASMA Performing Lab: [facility] [address] [facility] [address] COMPREHE CREATININE 0.8 0.7 - 1.2 03/08 Specimen T ype: PLASMA [place] NSIVE [MASS/VOLU /2021 No comment en tered. IS [facility] METABOLI ME] IN Ordering Provi keaton: DRAKE MCNULTY C SERUM OR Report Release d Date/Time: December 16, 2021 10:37 AM PANEL+MG PLASMA Reporting Lab: [facility] [address] [facility] [address] Performing Lab: [facility] [address] [facility] [address] COMPREHE UREA 18 8 - 26 03/08 Specimen Type: [place] NSIVE No comment ente red. [place] [facility] [place] [MASS/VOLU Ordering Pr ovider: DRAKE MCNULTY] IN Report Released Date/Time: December 16, 2021 10:37 AM PANEL+MG SERUM OR Reporting Lab : [facility] [address] [facility] [address] Performing Lab: [facility] [address] [place] [facility] [address] COMPREHE GLUCOSE 77 74 - 100 03/08 Specimen Type: PLASMA [place] NSIVE [MASS/VOLU /2021 No comment en tered. [place] [facility] [place] ME] IN Ordering Provi keaton: DRAKE MCNULTY SERUM OR Report Release d Date/Time: December 16, 2021 10:37 AM PANEL+MG PLASMA Reporting Lab: [facility] [address] [facility] [address] Performing Lab: [facility] [address] [facility] [address] COMPREHE SODIUM 138 136 - 145 03/08 Specimen Type : PLASMA [place] NSIVE [MOLES/VOL No comment en tered. IS [facility] METABOLI UME] IN Ordering Provi keaton: DRAKE MCNULTY SERUM OR Report Release d Date/Time: December 16, 2021 10:37 AM PANEL+MG PLASMA Reporting Lab: [facility] [address] [facility] [address] Performing Lab: [facility] [address] [facility] [address] COMPREHE POTASSIUM 3.9 3.5 - 5.1 03/08 Specimen Ty pe: PLASMA [place] NSIVE [MOLES/VOL /2021 No comment [place] tered. [place] [facility] [place] UME] IN Ordering Provi keaton: DRAKE MCNULTY SERUM OR Report Release d Date/Time: December 16, 2021 10:37 AM PANEL+MG PLASMA Reporting Lab: [facility] [address] [facility] [address] Performing Lab: [facility] [address] [facility] [address] COMPREHE CHLORIDE 106 98 - 107 03/08 Specimen Type : PLASMA [place] NSIVE [MOLES/VOL No comment en tered. [facility] UME] IN Ordering Provi keaton: DRAKE MCNULTY SERUM OR Report Release d Date/Time: December 16, 2021 10:37 AM PANEL+MG PLASMA Reporting Lab: [facility] [address] [place] [facility] [address] Performing Lab: [facility] [address] [place] [facility] [address] COMPREHE CARBON 27 22 - 29 03/08 Specimen Type: PLASMA [place] NSIVE DIOXIDE /2021 No comment ente red. IS [facility] METABOLI TOTAL Ordering Provi keaton: DRAKE MCNULTY [MOLES/VOL Report Relea sed Date/Time: December 16, 2021 10:37 AM PANEL+MG UME] IN Reporting Lab: [facility] SERUM OR [facility] [address] PLASMA Performing Lab: [facility] [address] [facility] [address] COMPREHE CALCIUM 9.0 8.4 - 10.2 03/08 Specimen Typ e: PLASMA [place] NSIVE [MASS/VOLU No comment en tered. IS [facility] METABOLI ME] IN Ordering Provi keaton: DRAKE MCNULTY SERUM OR Report Release d Date/Time: December 16, 2021 10:37 AM PANEL+MG PLASMA Reporting Lab: [facility] [address] [place] [address] Performing Lab: [facility] [address] [facility] [facility] [address] COMPREHE PROTEIN 6.6 6.0 - 8.3 03/08 Specimen Type : PLASMA [place] NSIVE [MASS/VOLU /2021 No comment en tered. IS [facility] METABOLI ME] IN Ordering Provi keaton: DRAKE MCNULTY SERUM OR Report Release d Date/Time: December 16, 2021 10:37 AM PANEL+MG PLASMA Reporting Lab: [facility] [address] [facility] [address] Performing Lab: [facility] [address] [facility] [facility] [address] COMPREHE ALBUMIN 3.8 3.5 - 5.2 03/08 Specimen Type : PLASMA [place] NSIVE [MASS/VOLU /2021 No comment en tered. IS [facility] METABOLI ME] IN Ordering Provi keaton: DRAKE MCNULTY SERUM OR Report Release d Date/Time: December 16, 2021 10:37 AM PANEL+MG PLASMA Reporting Lab: [facility] [address] [facility] [facility] [address] Performing Lab: [facility] [address] [facility] [address] COMPREHE BILIRUBIN. 0.8 0.2 - 1.2 03/08 Specimen T ype: PLASMA [place] NSIVE TOTAL /2021 No comment enter ed. IS [facility] METABOLI [MASS/VOLU Ordering Pr ovider: DRAKE MCNULTY ME] IN Report Released Date/Time: December 16, 2021 10:37 AM PANEL+MG SERUM OR Reporting Lab : [facility] PLASMA [address] [place] [facility] [address] Performing Lab: [facility] [address] [facility] [address] COMPREHE MAGNESIUM 2.2 1.6 - 2.6 03/08 Specimen Ty pe: PLASMA [place] NSIVE [MASS/VOLU /2021 No comment en tered. IS [facility] METABOLI ME] IN Ordering Provi keaton: DRAKE MCNULTY SERUM OR Report Release d Date/Time: December 16, 2021 10:37 AM PANEL+MG PLASMA Reporting Lab: [facility] [address] [place] [facility] [address] Performing Lab: [facility] [address] [place] [facility] [address] COMPREHE ANION GAP 5 5 - 15 03/08 Specimen Type : PLASMA [place] NSIVE IN SERUM /2021 No comment ente red. IS [facility] METABOLI OR PLASMA Ordering Pro vider: DRAKE MCNULTY Report Released Date/Time: December 16, 2021 10:37 AM PANEL+MG Reporting Lab: [facility] [address] [facility] [address] Performing Lab: [facility] [address] [place] [facility] [address] COMPREHE ALKALINE 62 40 - 150 03/08 Specimen Type : PLASMA [place] NSIVE PHOSPHATAS /2021 No comment en tered. IS [facility] METABOLI E Ordering Provi keaton: DRAKE MCNULTY [ENZYMATIC Report Relea sed Date/Time: December 16, 2021 10:37 AM PANEL+MG ACTIVITY/V Reporting L ab: [facility] OLUME] IN [facility] [address] SERUM OR Performing Lab : [facility] PLASMA [address] [facility] [address] COMPREHE ALANINE 27 <55 - 55 03/08 Specimen Type: PLASMA [place] NSIVE AMINOTRANS /2021 No comment [place] tered. [place] [facility] [place] FERASE Ordering Provi keaton: DRAKE MCNULTY [ENZYMATIC Report Relea sed Date/Time: December 16, 2021 10:37 AM PANEL+MG ACTIVITY/V Reporting L ab: [facility] OLUME] IN ONE [facility] [address] [facility] [address] SERUM OR Performing Lab : [facility] PLASMA [address] [facility] [address] COMPREHE ASPARTATE 25 <34 - 34 03/08 Specimen Typ e: PLASMA [place] NSIVE AMINOTRANS /2021 No comment [place] tered. [place] [facility] [place] FERASE Ordering Provi keaton: DRAKE MCNULTY [ENZYMATIC Report Relea sed Date/Time: December 16, 2021 10:37 AM PANEL+MG ACTIVITY/V Reporting L ab: [facility] OLUME] IN ONE [facility] [address] SERUM OR Performing Lab : [facility] PLASMA ONE [address] [facility] [address] COMPREHE GLOMERULAR >90 60 03/08 Specimen Typ e: PLASMA [place] NSIVE FILTRATION /2021 No comment [place] tered. [place] [facility] [place] RATE/1.73 Ordering Pro vider: DRAKE MCNULTY SQ Report Released Date/Time: December 16, 2021 10:37 AM PANEL+MG M.PREDICTE Reporting L ab: [facility] D [VOLUME [facility] [address] RATE/AREA] Performing L ab: [facility] IN SERUM, ONE [facility] [address] PLASMA OR BLOOD BY CREATININE -BASED FORMULA (CKD-EPI) BNP NATRIURETI 35 <99 - 99 12/16 Specimen Typ e: [place] C PEPTIDE /2021 No comment ent ered. [place] [facility] B Ordering Provid er: DRAKE MCNULTY [MASS/VOLU Report Relea sed Date/Time: Nov 08, 2021 10:58 AM ME] IN Reporting Lab: [facility] SERUM OR ONE [address] Santana [place] [facility] [address] PLASMA Performing Lab: [facility] [address] [facility] [address] COMPREHE CREATININE 0.8 0.7 - 1.2 05 Specimen T ype: PLASMA [place] NSIVE [MASS/VOLU /2021 No comment en tered. IS [facility] METABOLI ME] IN Ordering Provi keaton: DRAKE MCNULTY SERUM OR Report Release d Date/Time: Nov 08, 2021 10:58 AM PANEL+MG PLASMA Reporting Lab: [facility] [address] [place] [facility] [address] Performing Lab: [facility] [address] [facility] [address] COMPREHE UREA 14 8 - 26 05 Specimen Type: PLASMA [place] NSIVE NITROGEN /2021 No comment ente red. IS [facility] METABOLI [MASS/VOLU Ordering Pr ovider: DRAKE MCNULTY] IN Report Released Date/Time: Nov 08, 2021 10:58 AM PANEL+MG SERUM OR Reporting Lab : [facility] PLASMA [address] [place] [facility] [address] Performing Lab: [facility] [address] [facility] [address] COMPREHE GLUCOSE 75 74 - 100 05/ Specimen Type: PLASMA [place] NSIVE [MASS/VOLU /2021 No comment en tered. IS [facility] METABOLI ME] IN Ordering Provi keaton: DRAKE MCNULTY SERUM OR Report Release d Date/Time: Nov 08, 2021 10:58 AM PANEL+MG PLASMA Reporting Lab: [facility] [address] [facility] [address] Performing Lab: [facility] [address] [facility] [address] COMPREHE SODIUM 137 136 - 145 05/06 Specimen Type : PLASMA [place] NSIVE [MOLES/VOL /2021 No comment en tered. IS [facility] METABOLI UME] IN Ordering Provi keaton: DRAKE MCNULTY SERUM OR Report Release d Date/Time: Nov 08, 2021 10:58 AM PANEL+MG PLASMA Reporting Lab: [facility] [address] [place] [facility] [address] Performing Lab: [facility] [address] [facility] [address] COMPREHE POTASSIUM 4.4 3.5 - 5.1 05 Specimen Ty pe: PLASMA [place] NSIVE [MOLES/VOL /2021 No comment en tered. IS [facility] METABOLI UME] IN Ordering Provi ketaon: DRAKE MCNULTY SERUM OR Report Release d Date/Time: Nov 08, 2021 10:58 AM PANEL+MG PLASMA Reporting Lab: [facility] [address] [place] [facility] [address] Performing Lab: [facility] [place] [address] COMPREHE CHLORIDE 106 98 - 107 05 Specimen Type : PLASMA [place] NSIVE [MOLES/VOL /2021 No comment en tered. IS [facility] METABOLI UME] IN Ordering Provi keaton: DRAKE MCNULTY SERUM OR Report Release d Date/Time: Nov 08, 2021 10:58 AM PANEL+MG PLASMA Reporting Lab: [facility] ONE [facility] [address] [facility] [address] Performing Lab: [facility] [address] [facility] [facility] [address] COMPREHE CARBON 28 22 - 29 12/16 Specimen Type: PLASMA [place] NSIVE DIOXIDE, /2021 No comment ente red. IS [facility] METABOLI TOTAL Ordering Provi keaton: DRAKE MCNULTY [MOLES/VOL Report Relea sed Date/Time: Nov 08, 2021 10:58 AM PANEL+MG UME] IN Reporting Lab: [facility] SERUM OR [address] [facility] [address] PLASMA Performing Lab: [facility] ONE [facility] [address] [facility] [address] COMPREHE CALCIUM 9.2 8.4 - 10.2 12/16 Specimen Typ e: PLASMA [place] NSIVE [MASS/VOLU /2021 No comment en tered. IS [facility] METABOLI ME] IN Ordering Provi keaton: DRAKE MCNULTY SERUM OR Report Release d Date/Time: Nov 08, 2021 10:58 AM PANEL+MG PLASMA Reporting Lab: [facility] [place] [address] Performing Lab: [facility] [address] [facility] [address] COMPREHE PROTEIN 6.6 6.0 - 8.3 05 Specimen Type : PLASMA [place] NSIVE [MASS/VOLU /2021 No comment en tered. [place] [facility] [place] ME] IN Ordering Provi keaton: DRAKE MCNULTY SERUM OR Report Release d Date/Time: Nov 08, 2021 10:58 AM PANEL+MG PLASMA Reporting Lab: [facility] [address] [place] [facility] [address] Performing Lab: [facility] [address] [facility] [address] COMPREHE ALBUMIN 3.9 3.5 - 5.2 05/06 Specimen Type : PLASMA [place] NSIVE [MASS/VOLU /2021 No comment en tered. IS [facility] METABOLI ME] IN Ordering Provi keaton: DRAKE MCNULTY SERUM OR Report Release d Date/Time: Nov 08, 2021 10:58 AM PANEL+MG PLASMA Reporting Lab: [facility] [address] [facility] [facility] [address] Performing Lab: [facility] [address] [place] [facility] [address] COMPREHE BILIRUBIN. 0.8 0.2 - 1.2 05/ Specimen T ype: PLASMA [place] NSIVE TOTAL /2021 No comment enter ed. IS [facility] METABOLI [MASS/VOLU Ordering Pr ovider: DRAKE MCNULTY ME] IN Report Released Date/Time: Nov 08, 2021 10:58 AM PANEL+MG SERUM OR Reporting Lab : [facility] PLASMA [address] [facility] [address] Performing Lab: [facility] [address] [facility] [address] COMPREHE MAGNESIUM 2.3 1.6 - 2.6 05 Specimen Ty pe: PLASMA [place] NSIVE [MASS/VOLU /2021 No comment en tered. IS [facility] METABOLI ME] IN Ordering Provi keaton: DRAKE MCNULTY SERUM OR Report Release d Date/Time: Nov 08, 2021 10:58 AM PANEL+MG PLASMA Reporting Lab: [facility] [address] [facility] [facility] [address] Performing Lab: [facility] [address] [facility] [address] COMPREHE ANION GAP 3 5 - 15 05/06 L Specimen Type : PLASMA [place] NSIVE IN SERUM /2021 No comment ente red. IS [facility] METABOLI OR PLASMA Ordering Pro vider: DRAKE MCNULTY Report Released Date/Time: Nov 08, 2021 10:58 AM PANEL+MG Reporting Lab: [facility] [address] [place] [address] Performing Lab: [facility] [address] [facility] [address] COMPREHE ALKALINE 60 40 - 150 05/06 Specimen Type : PLASMA [place] NSIVE PHOSPHATAS /2021 No comment en tered. IS [facility] METABOLI E Ordering Provi keaton: DRAKE MCNULTY [ENZYMATIC Report Relea sed Date/Time: Nov 08, 2021 10:58 AM PANEL+MG ACTIVITY/V Reporting L ab: [facility] OLUME] IN [address] [facility] [address] SERUM OR Performing Lab : [facility] PLASMA [address] [facility] [address] COMPREHE ALANINE 26 <55 - 55 05 Specimen Type: PLASMA [place] NSIVE AMINOTRANS /2021 No comment en tered. IS [facility] METABOLI FERASE Ordering Provi keaton: DRAKE MCNULTY [ENZYMATIC Report Relea sed Date/Time: Nov 08, 2021 10:58 AM PANEL+MG ACTIVITY/V Reporting L ab: [facility] OLUME] IN [address] [facility] [address] SERUM OR Performing Lab : [facility] PLASMA [address] [facility] [address] COMPREHE ASPARTATE 28 <34 - 34 05 Specimen Typ e: [place] NSIVE AMINOTRANS /2021 No comment en tered. [place] [facility] [place] FERASE Ordering Provi keaton: DRAKE MCNULTY [ENZYMATIC Report Relea sed Date/Time: Nov 08, 2021 10:58 AM PANEL+MG ACTIVITY/V Reporting L ab: [facility] OLUME] IN [address] [facility] [address] SERUM OR Performing Lab : [facility] PLASMA [address] [facility] [address] COMPREHE CREAT >90 60 05/06 Specimen Type: PLASMA [place] NSIVE EGFR(CKD-E /2021 No comment en tered. IS [facility] METABOLI PI) Ordering Provi keaton: DRAKE MCNULTY Report Released Date/Time: Nov 08, 2021 10:58 AM PANEL+MG Reporting Lab: [facility] [address] [facility] [address] Performing Lab: [facility] [address] [facility] [address] COVID-19 SARS-RELAT Not 11/11 Specimen Typ e: NASOPHARYNGEAL [place] AND ED Detected /2021 Comment: CepX[employer]ala id GeneXpert ([id number]) IS [facility] FLU/RSV CORONAVIRU Ordering Pro vider: JEREMIAH ACKERMAN S RNA Report Released Date/Time: Nov 08, 2021 02:19 PM PANEL(CE [PRESENCE] Reporting L ab: [facility] PHEID) IN [address] [facility] [address] RESPIRATOR Performing L ab: [facility] Y SPECIMEN [facility] [address] BY NIKOLAI WITH PROBE DETECTION COVID-19 INFLUENZA Not 11/11 Specimen Type : NASOPHARYNGEAL [place] AND VIRUS A Detected /2021 Comment: [employer] id [employer]pert ([id number]) IS [facility] FLU/RSV RNA Ordering Provid er: JEREMIAH ACKERMAN [PRESENCE] Report Relea sed Date/Time: Nov 08, 2021 02:19 PM PANEL(CE IN UPPER Reporting Lab : [facility] PHEID) RESPIRATOR [facility] [id number] Y SPECIMEN Performing L ab: [facility] BY NIKOLAI [address] [facility] [phone] WITH PROBE DETECTION COVID-19 INFLUENZA Not 11/11 Specimen Type : NASOPHARYNGEAL [place] AND VIRUS B Detected /2021 Comment: [facility]ep[facility] id GeneXpert (618) IS [facility] FLU/RSV RNA Ordering Provid er: JEREMIAH ACKERMAN [PRESENCE] Report Relea sed Date/Time: Nov 08, 2021 02:19 PM PANEL(CE IN UPPER Reporting Lab : [facility] PHEID) RESPIRATOR [facility] [address] Y SPECIMEN Performing L ab: [facility] BY NIKOLAI [address] [facility] [address] WITH PROBE DETECTION COVID-19 RESPIRATOR Not 11/11 Specimen Typ e: NASOPHARYNGEAL [place] AND Y Detected /2021 Comment: [facility]ep[facility] id GeneXpert (618) IS [facility] FLU/RSV SYNCYTIAL Ordering Prov ider: JEREMIAH ACKERMAN VIRUS RNA Report Releas ed Date/Time: Nov 08, 2021 02:19 PM PANEL(CE [PRESENCE] Reporting L ab: [facility] PHEID) IN UPPER [address] [facility] [id number] RESPIRATOR Performing L ab: [facility] Y SPECIMEN [address] [facility] [address] BY NIKOLAI WITH PROBE DETECTION Vital Signs Combined list of inpatient and outpatient Vital Signs from [facility] of Defense and [facility] Affairs, ranging from 12 months to all on record, depending upon the facility. Vital Sign Value Date Comments Source SYSTOLIC BLOOD PRESSURE 115 07/10/2022 13:08:31 [facility] DIASTOLIC BLOOD PRESSURE 66 07/10/2022 13:08:31 [facility] PULSE OXIMETRY 96% 07/10/2022 13:08:31 [facility] WEIGHT 148 07/10/2022 13:08:31 [place] [facility] BMI 22kg/m2 07/10/2022 13:08:31 [place] [facility] PAIN 0 07/10/2022 13:08:31 [place] [facility] HEIGHT 68.8 07/10/2022 13:08:31 [place] [facility] PULSE 63 07/10/2022 13:08:31 [place] [facility] RESPIRATION 16 07/10/2022 13:08:31 [place] [facility] SYSTOLIC BLOOD PRESSURE 113 06/16/2022 09:53:38 [facility] DIASTOLIC BLOOD PRESSURE 68 06/16/2022 09:53:38 [facility] PULSE OXIMETRY 93% 06/16/2022 09:53:38 [place] [facility] WEIGHT 149.7 06/16/2022 09:53:38 [place] [facility] BMI 22kg/m2 06/16/2022 09:53:38 [place] [facility] PAIN 0 06/16/2022 09:53:38 [place] [facility] TEMPERATURE 97.6 06/16/2022 09:53:38 [place] [facility] PULSE 56 06/16/2022 09:53:38 [place] [facility] RESPIRATION 16 06/16/2022 09:53:38 [place] [facility] SYSTOLIC BLOOD PRESSURE 124 03/08/2022 09:08:33 [facility] DIASTOLIC BLOOD PRESSURE 74 03/08/2022 09:08:33 [facility] PULSE OXIMETRY 100% 03/08/2022 09:08:33 [place] [facility] WEIGHT 151.1 03/08/2022 09:08:33 [place] [facility] BMI 22kg/m2 03/08/2022 09:08:33 [place] [facility] PAIN 0 03/08/2022 09:08:33 [place] [facility] TEMPERATURE 96.8 03/08/2022 09:08:33 [place] [facility] PULSE 58 03/08/2022 09:08:33 [place] [facility] RESPIRATION 16 03/08/2022 09:08:33 [place] [facility] SYSTOLIC BLOOD PRESSURE 135 12/16/2021 10:03:43 [facility] DIASTOLIC BLOOD PRESSURE 76 12/16/2021 10:03:43 [facility] PULSE OXIMETRY 100% 12/16/2021 10:03:43 [place] [facility] WEIGHT 154.7 12/16/2021 10:03:43 [place] [facility] BMI 23kg/m2 12/16/2021 10:03:43 [place] [facility] PAIN 0 12/16/2021 10:03:43 [place] [facility] HEIGHT 68.898 12/16/2021 10:03:43 [place] [facility] TEMPERATURE 96.4 12/16/2021 10:03:43 [place] [facility] PULSE 57 12/16/2021 10:03:43 [place] [facility] RESPIRATION 16 12/16/2021 10:03:43 [place] [facility] SYSTOLIC BLOOD PRESSURE 119 12/06/2021 09:58:19 [facility] DIASTOLIC BLOOD PRESSURE 68 12/06/2021 09:58:19 [facility] PULSE OXIMETRY 97% 12/06/2021 09:58:19 [place] [facility] WEIGHT 155 12/06/2021 09:58:19 [place] [facility] BMI 24kg/m2 12/06/2021 09:58:19 [place] [facility] PAIN 2 12/06/2021 09:58:19 [place] [facility] HEIGHT 68 12/06/2021 09:58:19 [place] [facility] TEMPERATURE 97.6 12/06/2021 09:58:19 [place] [facility] PULSE 66 12/06/2021 09:58:19 [facility] RESPIRATION 16 12/06/2021 09:58:19 [facility] Encounters Combined list of: 1) Encounters from Department of Veterans Affairs facilities going back up to the last 18 months. 2) Encounters from the Department of Defense facilities going back up to 280 months. Location Location Encounter Encounter Reason Attending ADM DC Stat us Disposition Source Details Type Number For Provider Date Date Visit Outpatient 83156-3 ADÁN MORRELL 02/04 [place] Encounter [id number] MBLY [facility] SELF-MGMT 00099-6 Diagnos STEVE SOSA 03/28 [place] EDUC & [id number] is: EXANDRA E [facility] TRAIN 1 PT ICD-10- HCS CM Z46.1 Encount er for fitting and adjustm ent of hearing aid<br/ >with Provide r Comment s: Encount er for fitting and adjustm ent of hearing aid OFFICE O/P 96435-3 Diagnos ALBA RODRIGUEZ 04/04 [place] [id number] is: [facility] 40-54 MIN ICD-10- [facility] CM N52.9 Male erectil e dysfunc tion, unspeci fied
with Provide r Comment s: Erectil e dysfunc tion ([facility] [id number] 02) HC PRO 69335-0. Diagnos PARRISH SCHOFIELD 05[facility]20 [facility] [phone] is: AY [facility] 11-20 MIN ICD-10- HCS CM Z71.89 Other specifi ed admitting counselor ing<br/ >with Provide r Comment s: Other specifi ed admitting counselor ing Outpatient 50324-0 Diagnos ALBA RODRIGUEZ 05/30 [place] Encounter [id number] is: HOL [facility] ICD-10- [facility] CM I48.91 Unspeci fied atrial fibrill ation<b r/>with Provide r Comment s: Atrial fibrill ation (SCT 5370627 4) Outpatient 91595-3 10/ [place] Encounter [id number] [facility] HCS ELECTROCAR 65602-5.61 Diagnos CHANDRASHE 06/10 [place] DIOGRAM [id number] is: KHAR,Y S [facility] ICD-10- HCS CM Z13.6 Encount er for screeni ng for cardiov ascular disorde rs
with Provide r Comment s: Encount er for Screeni ng for Cardiov ascular Disorde rs Outpatient 39768-961 06/10 [place] Encounter [id number] /2021 [facility] Out[facility] 28273-461 06/10 [place] En[place] [id number] /2021 [facility] TTE 07455-161 Diagnos HUBERS,SCO 06/10 [place] W/DOPPLER [id number] is: TT A [facility] ICD-10- HCS CM R06.00 Dyspnea , unspeci fied
with Provide r Comment s: Dyspnea , unspeci fied OFFICE O/P 73207-761 Diagnos FLOREA,PASCUAL 06/10 [place] [id number] is: REL [facility] 60-74 MIN ICD-10- HCS CM I48.91 Unspeci fied atrial fibrill ation<b r/>with Provide r Comment s: Atrial fibrill ation (SCT 4685379 4) ELECTROCAR 13282-661 Diagnos MATTEO KOROMAE 06/24 [place] DIOGRAM [id number] is: [place] [facility] ICD-10- HCS CM Z13.6 Encount er for screeni ng for cardiov ascular disorde rs
with Provide r Comment s: Encount er for Screeni ng for Cardiov ascular Disorde rs OFFICE 23895-561 Diagnos GLAUSER,NO 06/24 [place] [facility] [id number] is: RA N [facility] ICD-10- HCS CM I50.20 Unspeci fied systoli c (conges tive) heart failure
Provide r Comment s: Heart failure with reduced ejectio n fractio n (SCT 2412742 07) Outpatient 29425-607/05 [place] Encounter [id number] [facility] Outpatient 71208-3.61 SYSTEM,CIS 07/10 [place] Encounter [id number] -[place] [facility] Outpatient 98844-0.61 SYSTEM,CIS 07/11 [place] Encounter [id number] -[place] [facility] Outpatient 12181-5.61 07/11 [place] En[place] [id number] /2020 [facility] ELECTROCAR 46025-5.61 Diagnos PREET KOROMA 07/11 [place] DIOGRAM [id number] is: [place] [facility] ICD-10- HCS CM Z13.6 Encount er for screeni ng for cardiov ascular disorde rs
with Provide r Comment s: Encount er for Screeni ng for Cardiov ascular Disorde rs Outpatient 63568-9.61 07/11 [place] En[place] [id number] /2020 [facility] Out[place] 23241-6.61 07/11 [place] En[place] [id number] /2020 [facility] OFFICE O/P 33705-8.61 Diagnos GLAUSER,NO 07/11 [place] EST LOW [id number] is: RA [facility] 20- MIN ICD-10- HCS CM I48.91 Unspeci fied atrial fibrill ation<b r/>with Provide r Comment s: Atrial fibrill ation (SCT 0247750 4) Inpatient 82416-2.61 Admit TEAM,CARDS 07/11 07/14 [place] Encounter [id number] Reason: ONE /2020 [facility] DOFETIL FRANCIE LOADING
Inpatient 64048-9.61 07/11 07/11 [place] En[place] [id number] /2020 [facility] Inpatient 78797-3.61 07/11 07/11 [place] Encounter [id number] /2020 [facility] Inpatient 00864-3.61 07/11 07/11 [place] Encounter [id number] /2020 [facility] INPATIENT 62080-3.61 Diagnos BENITO,Svetlana 07/11 07/11 [place] CONSULTATI [id number] is: HANANE M /2020 [facility] ICD-10- HCS CM I48.91 Unspeci fied atrial fibrill ation<b r/>with Provide r Comment s: Atrial fibrill ation (SCT 5957617 4) Inpatient 56724-9.61 07/11 07/11 [place] Encounter [id number] /2020 [facility] Inpatient 56516-7.61 SYSTEM,CIS 07/12 07/12 [place] En[place] [id number] -ARK /2020 [facility] Inpatient 54323-9.61 07/12 07/12 [place] Encounter [id number] /2020 [facility] Inpatient 00128-4.61 07/12 07/12 [place] Encounter [id number] /2020 [facility] Inpatient 72654-2.61 07/12 07/12 [place] Encounter [id number] /2020 [facility] [address]-0.61 Diagnos MARGARET POPE 07/12 07/12 [place] 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 [id number] is: EMERY O /2020 [facility] 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 ICD-10- HCS INDIVIDU CM Z71.81 Spiritu al or religio us admitting counselor ing<br/ >with Provide r Comment s: Spiritu al or religio us admitting counselor ing Inpatient 61947-6.61 07/12 07/12 [place] En[place] [id number] /2020 [facility] Inpatient 38833-0.61 SYSTEM,CIS 07/13 07/13 [place] Encounter [id number] -ARK /2020 [facility] Inpatient 27890-4.61 07/13 07/13 [place] Encounter [id number] /2020 [facility] Inpatient 11511-9.61 07/13 07/13 [place] Encounter [id number] /2020 [facility] Inpatient 69424-9.61 07/13 07/13 [place] Encounter [id number] /2020 [facility] Inpatient 95366-1.61 07/13 07/13 [place] Encounter [id number] /2020 [facility] Inpatient 22221-7.61 07/14 07/14 [place] Encounter [id number] /2020 [facility] Inpatient 27494-2.61 SYSTEM,CIS 07/14 07/14 [place] Encounter [id number] -ARK /2020 [facility] Inpatient 70406-9.61 07/14 07/14 [place] Encounter [id number] /2020 [facility] Inpatient 25984-9.61 07/14 [place] Encounter [id number] /2020 [facility] Inpatient 60619-4.61 07/14 07/14 [place] Encounter [id number] /2020 [facility] Inpatient 61238-4.61 07/14 07/14 [place] Encounter [id number] /2020 [facility] Inpatient 75745-9.61 07/14 07/14 [place] Encounter [id number] /2020 [facility] 82565-7.61 Diagnos ADABAG,GUILLERMINA 07/14 [place] DISCHARGE [id number] is: CUK /2020 [facility] DAY ICD-10- HCS CM I48.91 Unspeci fied atrial fibrill ation<b r/>with Provide r Comment s: Atrial fibrill ation (SCT 4804787 4) Outpatient 96980-1.61 07/15 [place] En[place] [id number] /2020 [facility] Outpatient 69896-8.61 Diagnos PARADISE,H 07/18 [place] Encounter [id number] is: SUE CASTELLANO /2020 [facility] ICD-10- HCS CM I48.91 Unspeci fied atrial fibrill ation<b r/>with Provide r Comment s: Atrial fibrill ation (SCT 1939317 4) [place] [address]-3.61 Diagnos SINNER,KIR 07/19 [place] DIG [id number] is: GAYLA Mota [facility] ASSMT&MGMT ICD-10- HCS 11-20 CM Z79.01 nursing home (curren t) use of anticoa gulants
wi th Provide r Comment s: nursing home (curren t) use of anticoa gulants OFFICE O/P Diagnos LIZZETTE RODRÍGUEZ 07/27 [place] EST [id number] is: LLE [facility] MINIMAL ICD-10- HCS PROB CM I50.20 Unspeci fied systoli c (conges tive) heart failure
wi th Provide r Comment s: Heart failure with reduced ejectio n fractio n (SCT 3698759 07) OFFICE O/P Diagnos KASLILAVITCH 07/27 [place] [id number] is: , [facility] 60-74 MIN ICD-10- K HCS CM I50.20 Unspeci fied systoli c (conges tive) heart failure
wi th Provide r Comment s: Heart failure with reduced ejectio n fractio n (SCT 9380600 07) Outpatient Diagnos RAYSHAWNTCH 09/05 [place] Encounter [id number] is: , [facility] ICD-10- [facility] HCS CM I50.20 Unspeci fied systoli c (conges tive) heart failure
wi th Provide r Comment s: Heart failure with reduced ejectio n fractio n (SCT 5136611 07) HC PRO 28862-2 Diagnos ANKUR KHOURY 10/31 M [facility] PHONE CALL [id number] is: ZAYNAB [facility] 5-10 MIN ICD-10- HCS CM Z71.89 Other specifi ed admitting counselor ing<br/ >with Provide r Comment s: Other specifi ed admitting counselor ing ELECTROCAR 93254-3 Diagnos PREET KOROMA 11/04 [place] DIOGRAM 8.27880266 is: [facility] ICD-10- HCS CM Z13.6 Encount er for screeni ng for cardiov ascular disorde rs
with Provide r Comment s: Encount er for Screeni ng for Cardiov ascular Disorde rs OFFICE O/P 59568-7.61 Diagnos GLAUSER,NO 11/04 [place] [id number] is: RA N /2021 [facility] 40-54 MIN ICD-10- HCS CM I50.20 Unspeci fied systoli c (conges tive) heart failure
Provide r Comment s: Heart failure with reduced ejectio n fractio n (SCT 9395474 07) IMG RTA 48359-0. Diagnos VO,LUCI V 11/04 [place] DETC/MNTR 8.63771011 is: /2021 [facility] DS PHY/QHP ICD-10- HCS CM Z01.01 Encount er for exam of eyes and vision w abnorma l finding s
w ith Provide r Comment s: Encount er for Examina tion of Eyes and Vision with Abnorma l Finding s CPTR OPHTH 58914-5.63 Diagnos POLO DOUGHERTY 11/04 [place] 6.06672141 is: NDRA C [facility], POST SEGMT 8 ICD-10- [place] CM DIVISIO Z01.01 N Encount er for exam of eyes and vision w abnorma l finding s
w ith Provide r Comment s: Eye/Vis ion Exam w/ Abnorma l Finding s OFFICE O/P Diagnos SUSAN, 11/08 [place] EST LOW [id number] is: TIM F [facility] 20-29 MIN ICD-10- HCS CM L60.0 Ingrowi ng nail
with Provide r Comment s: Ingrown toenail (SNOMED CT 1253367 09) OFFICE O/P Diagnos KASKAVITCH 11/08 [place] EST MOD [id number] is: CAROLDRAKE [facility] 30-39 MIN ICD-10- K HCS CM I50.20 Unspeci fied systoli c (conges tive) heart failure
wi Provide r Comment s: Heart failure with reduced ejectio n fractio n (SCT 3712930 07) OFFICE Diagnos LISANDRA SANCHEZ 11/08 [place] [facility] 8.43741329 is: /2021 [facility] ICD-10- HCS CM G47.33 Obstruc tive sleep apnea (adult) ([facility])
with Provide r Comment s: Obstruc tive sleep apnea (adult) ([facility]) OFFICE 61481-5 Diagnos NEELAREI 11/11 [facility] CONSULTATI [id number] is: ARABELLA KEITA /2021 [facility] ICD-10- W C HCS CM L60.0 Ingrowi ng nail
with Provide r Comment s: Ingrown toenail ([facility] 3551115 09) Outpatient 44371-9.61 11/11 [place] Encounter [id number] /2021 [facility] Outpatient 82560-911/14 [place] Encounter [id number] /2021 [facility] POLYSOM 53740-0 Diagnos CARLTON SNELL 11/14 [place] 6/> YRS 8.36519411 is: AHAT [facility] 4/> BRAULIO ICD-10- HCS CM G47.33 Obstruc tive sleep apnea (adult) ([facility])
with Provide r Comment s: Obstruc tive sleep apnea (adult) ([facility]) HC PRO 81299-9 Diagnos MICHELLE SAWYER 11/17 [facility] PHONE CALL [id number] is: R MARLON O [facility] 11-20 MIN ICD-10- HCS CM G47.33 Obstruc tive sleep apnea (adult) ([facility])
with Provide r Comment s: Obstruc tive sleep apnea (adult) ([facility]) Outpatient 46315-5 Diagnos ALBA RODRIGUEZ 11/28 [place] Encounter [id number] is: HOLAS [facility] ICD-10- [facility] HCS CM I50.20 Unspeci fied systoli c (conges tive) heart failure
th Provide r Comment s: Heart failure with reduced ejectio n fractio n (SCT 8712442 07) Outpatient 89007-2. 04 [place] En[place] [id number] /2021 [facility] HC PRO 94722-6.61 Diagnos JENNY SAWYERAngela 12/02 [place] PHONE CALL [id number] is: R MARLON /2021 [facility] 21-30 MIN ICD-10- HCS CM G47.33 Obstruc tive sleep apnea (adult) ([facility])
with Provide r Comment s: Obstruc tive sleep apnea (adult) ([facility]) OFFICE O/P 85002-661 Diagnos CELESTINO GUTIERREZ 12/06 [place] EST MOD [id number] is: RTSON E /2021 [facility] 30-39 MIN ICD-10- HCS CM M25.552 Pain in left hip<br/ >with Provide r Comment s: Pain in left Hip THERAPEUTI 18025-361 Diagnos Xi VINCENT 12/16 [place] C [id number] is: ENNIFER E [facility] EXERCISES ICD-10- HCS CM M25.552 Pain in left hip<br/ >with Provide r Comment s: Pain in left Hip OFFICE O/P 66855-561 Diagnos KASKAVITCH 12/16 [place] EST MOD [id number] is: ,DRAKE /2021 [facility] 30-39 MIN ICD-10- K HCS CM I50.20 Unspeci fied systoli c (conges tive) heart failure
Provide r Comment s: Heart failure with reduced ejectio n fractio n (SCT 9501691 07) Outpatient 83430-8.61 12/19 [place] Encounter [id number] /2021 [facility] Outpatient 78145-0.61 12/23 [place] Encounter [id number] /2021 [facility] Outpatient 29711-3.61 Michelle BYRNES 12/23 [place] Encounter [id number] ERRY /2021 [facility] Outpatient 80832-4.61 12/23 [place] Encounter [id number] /2021 [facility] Outpatient 12703-3.61 Diagnos LISANDRA SANCHEZ 12/26 [place] Encounter [id number] is: /2021 [facility] ICD-10- HCS CM G47.33 Obstruc tive sleep apnea (adult) (pediat [facility])
with Provide r Comment s: Obstruc tive sleep apnea ([facility] 2954022 9) HC PRO 27266-4.61 Diagnos VAN 12/28 [place] PHONE CALL [id number] is: ZHANE PEDRAZA /2021 [facility] 21-30 MIN ICD-10- L HCS CM I50.20 Unspeci fied systoli c (conges tive) heart failure
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
w ith Provide r Comment s: Psychop hysiolo gic Insomni a Outpatient 79466-6.61 01/02 [place] En[place] [id number] /2021 [facility] 44028-3.61 05/24 [place] Encounter [id number] /2021 [facility] Out[facility] 01166-0.61 05/ [place] Encounter [id number] /2021 [facility] Outpatient 53598-861 Diagnos KECIA OCTTO 01/10 [place] Encounter [id number] is: E /2021 [place] ICD-10- HCS CM I50.20 Unspeci fied systoli c (conges tive) heart failure
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
w ith Provide r Comment s: Psychop [place] [address]-8.61 Diagnos RAMPETSREI 02/09 [place] NAIL BED 8.95598906 is: ARABELLA KEITA /2021 [facility] ICD-10- W C HCS CM L60.0 Ingrowi ng nail
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
w ith Provide r Comment s: Psychop hysiolo gic insomni a ELECTROCAR Diagnos BURKE,PEG 03/08 [place] DIOGRAM [id number] is: FAN [facility] COMPLETE ICD-10- HCS CM Z13.6 Encount er for screeni ng for cardiov ascular disorde rs
with Provide r Comment s: Encount er for Screeni ng for Cardiov ascular Disorde rs OFFICE O/P 88960-5 Diagnos KASKAVITCH 03/08 [place] EST MOD 8.76606479 is: ,DRAKE [facility] 30-39 MIN ICD-10- K HCS CM I50.20 Unspeci fied systoli c (conges tive) heart failure
wi Provide r Comment s: Heart failure with reduced ejectio n fractio n ([facility] 1347579 07) Outpatient 86877-803/08 [place] Encounter [id number] [facility] TTE 19153-2 Diagnos MBAI,PREET 03/08 [place] W/DOPPLER 8.90053223 is: [place] [facility] COMPLETE ICD-10- HCS CM I50.20 Unspeci fied systoli c (conges tive) heart failure
wi Provide r Comment s: Heart failure with reduced ejectio n fractio n ([facility] 7696804 07) Outpatient 76375-503/09 [place] Encounter [id number] [facility] Outpatient 74490-4 Diagnos GLAUSER,NO 03/13 [place] Encounter [id number] is: RA N [place] ICD-10- HCS CM I48.91 Unspeci fied atrial fibrill ation<b r/>with Provide r Comment s: Atrial fibrill ation (SCT 8483058 4) Outpatient 55303-761 04/18 [place] Encounter [id number] [facility] IMG RTA 41053-5 Diagnos SHIMON,ANG 05/03 [place] DETCJ/MNTR 8.09509183 is: GERHARD L /2021 [facility] DS STAFF ICD-10- HCS CM Z01.00 Encount er for exam of eyes and vision w/o abnorma l finding s
w ith Provide r Comment s: Encount er for Examina tion of Eyes and Vision without Abnorma l Finding s CPTR OPHTH 30556-9.63 Diagnos JORGE LUISKRISSY 05/05 [place] 6.90130852 is: GE R /2021 [facility], POST SEGMT 0 ICD-10- [place] CM DIVISIO Z01.01 N Encount er for exam of eyes and vision w abnorma l finding s
w ith Provide r Comment s: Eye/Vis ion Exam w/ Abnorma l Finding s Outpatient 96070-7.61 05/11 [place] Encounter [id number] /2022 [facility] 62249-3.61 05/29 [place] Encounter [id number] /2022 [facility] ELECTROCAR 16160-3.61 Diagnos AGUILERA,SE 06/16 [place] DIOGRAM 8.03912932 is: LMA D /2021 [facility] COMPLETE ICD-10- HCS CM Z13.6 Encount er for screeni ng for cardiov ascular disorde rs
with Provide r Comment s: Encount er for Screeni ng for Cardiov ascular Disorde rs OFFICE O/P [id number] Diagnos GLAUSER,NO 06/16 [place] EST HI [id number] is: RA N [facility] 40-54 MIN ICD-10- HCS CM I48.91 Unspeci fied atrial fibrill ation<b r/>with Provide r Comment s: Atrial fibrill ation (SCT [id number]) OFFICE O/P 30539-5.61 Diagnos RAMAKRISHN 07/10 [place] EST SF [id number] is: TANYA SIDDIQIR /2021 [facility] 10-19 MIN ICD-10- A HCS CM I48.91 Unspeci fied atrial fibrill ation<b r/>with Provide r Comment s: Atrial fibrill ation (SCT [id number]) Outpatient [id number] LISANDRA SANCHEZ 07/24 [place] Encounter [id number] [facility] Outpatient [id number] Vianney RAI 07/24 [place] Encounter [id number] [facility] Social History Combined list of available smoking, tobacco, and other social [facility]. Social History Type Response Date Comment Source Tobacco smoking status [facility]-TOBACCO NEVER USED 07/10/2022 [facility] History of tobacco use [place]-TOBACCO NEVER USED 04/04/2021 [facility] Plan of Care List of future care activities from [facility] facilities. Additional future care activities may be listed in the Assessment and Plan section. Date/Time Care Activity Care Activity Detail Facility 07/24/2022 AMB[facility] - MEDICINE [facility]
--- OUTSIDE RECORDS SUMMARY | 2022-07-24 21:29 | XMS_ITS | Encounter Summary ---
:1945 Author Organization [facility] Address [address] [place] [address] Support Name Relationship Address Phone BANG MANN MEENAKSHI Unavailable [phone] [facility] [phone] [place] [address] BANG MANN MEENAKSHI Unavailable [phone] [facility] [phone] [place] [address] Insurance Providers: All historical and current Section Date Range: From patient's date of to the date document was created.This section includes the names of all active insurance providers for the patient. Insurance Type of Plan Start of End of Group Member Insurance Policy P atient's Provider Coverage Name Policy Policy Number ID Provider's Tanner's Relationship Coverage Coverage Telephone Name to Policy Number Tanner [facility] MEDICARE MEDIC Aug 13, [id number] VENESS,BECERRA P ATIENT [facility] (WNR) ADVANTAGE ARE 2020 5 [id number] [phone] [place] ADVAN 1 TAGE C [place] MEDICARE MCR Aug 13, [id number] VENESS,BECERRA P ATIENT [facility] (WNR) ADVANTAGE (WNR) 2020 7 [id number] [phone] ROLD 1 [facility] MEDICARE [facility] Aug 13, [id number] [phone] VENESS ,BECERRA PATIENT MCR (WNR) ADVANTAGE (WNR) 2021 5 [id number] ROLD 1 MEDICARE MEDICARE PART Sep 13, PART B [id number] 800 Jesusita CONKLIN (WNR) (M) B 2012 [id number] [phone] [facility] MEDIC[facility] MEDICARE PART Mar 13, PART A 800 Jesusita CONKLIN (WNR) (M) A [phone] [facility] MEDICARE MEDICARE PART Mar 13, PART A [id number] 800 Jesusita CONKLIN (WNR) (M) Rosalinda 2008 [id number] [phone] [facility] Selected Encounter This section includes the information on record at [place] for the Encounter. Date/Time Encounter Type Encounter Reason Provider Source Description Nov 04, 2021 CPTR OPHTH DX OPHTHALMOLOGY ICD-10-CM KARLENE DOUGHERTY 12:35 PM IMG POST SEGMT Z01.01 C Encounter for exam of eyes and vision w abnormal findings with Provider Comments: Eye/Vision Exam w/ Abnormal Findings IHE Encounter Template Text not used by [place] Assessments - Encounter Diagnoses This section includes the primary and secondary diagnoses documented for the Encounter. Date/Time Primary/Secondary Diagnosis Name Provider Source Diagnosis Nov 04, 2021 PRIMARY Encounter for KARLENE DOUGHERTY [facility], 01:03 PM exam of eyes and [place] vision w abnormal findings Nov 04, 2021 SECONDARY Cataract KARLENE DOUGHERTY [facility], 01:03 PM extraction [place] status, left eye Nov 04, 2021 SECONDARY Cataract KARLENE DOUGHERTY [facility], 01:03 PM extraction [place] status, right eye Nov 04, 2021 SECONDARY [facility] of bilateral [place] lacrimal glands Nov 04, 2021 SECONDARY [facility] 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 This section includes future appointments and future orders which are active, pending orscheduled.Future Appointments This section includes appointments that were scheduled to occur 6 months from the date of the Encounter, up to a maximum of 20 appointments. The data comes from all [place] treatment facilities. Appointment Date/Time Appointment Type Appointment Facili ty Name Nov 08, 2021 09:00 AM AMBULATORY - MEDICINE [facility] Nov 08, 2021 11:00 AM AMBULATORY - MEDICINE [facility] Nov 08, 2021 12:00 PM AMBULATORY - MEDICINE [facility] Nov 08, 2021 01:00 PM AMBULATORY - MEDICINE [facility] Nov 11, 2021 08:30 AM AMBULATORY - SURGERY [facility] S Nov 11, 2021 10:01 AM AMBULATORY - NEUROLOGY [facility] Nov 14, 2021 09:00 PM AMBULATORY - MEDICINE [facility] Nov 28, 2021 03:30 PM AMBULATORY - MEDICINE [facility] Dec 06, 2021 10:00 AM AMBULATORY - MEDICINE [facility] December 16, 2021 09:00 AM AMBULATORY - REHAB [facility] December 16, 2021 09:45 AM AMBULATORY - MEDICINE [facility] December 16, 2021 10:30 AM AMBULATORY - MEDICINE [facility] December 23, 2021 12:15 PM AMBULATORY - NONE [facility] December 23, 2021 12:16 PM AMBULATORY - NONE [facility] December 26, 2021 01:30 PM AMBULATORY - MEDICINE [facility] January 02, 2022 05:00 PM AMBULATORY - REHAB MEDIC[facility] January 10, 2022 08:30 AM AMBULATORY - MEDICINE [facility] Feb 02, 2022 10:00 AM AMBULATORY - PSYCHIATRY [facility] Feb 03, 2022 12:12 PM AMBULATORY - NONE [facility] Feb 09, 2022 10:00 AM AMBULATORY - PSYCHIATRY [facility] Lab Results: +/- 30 days of the encounter This section includes the Chemistry and Hematology Lab Results on record with [facility] for the patient. Radiology Reports and Pathology Reports are provided separately, in subsequent sections.Lab Results This section contains the Chemistry/Hematology Results that were resulted 30 days before or 30 daysafter the date of the Encounter. Date/Time Source Result Type Result - Unit Interpretation Reference Range Comment Nov 11, 2021 [facility] COVID-19 AND FLU/RSV DIAG Sp ecimen Type: NASOPHARYNGEAL 09:34 AM PANEL(CEPHEID) Comment: Rufus rhoades GeneXpert (618) Ordering Provid er: JEREMIAH ACKERMAN Report Released Date/Time: Nov 08, 2021 02:19 PM Reporting Lab: [facility] [address] [facility] [address] [facility] [address] Performing Lab: [facility] [address] COVID-19 (CEPHEID) Not Detected Not Dete cted INFLUENZA A (PCR) Not Detected Not Detec heydi INFLUENZA B (PCR) Not Detected Not Detec heydi RSV (PCR) Not Detected Not Detected Nov 08, 2021 10:11 AM [facility] BNP Specim en Type: PLASMA No comment enter ed. Ordering Provid er: DRAKE MCNULTY Report Released Date/Time: Sep 05, 2021 10:57 AM Reporting Lab: [facility] [address] [facility] [address] Performing Lab: [facility] [address] BNP 28 <99 Nov 08, 2021 10:11 AM [facility] CBC Specim en Type: BLOOD No comment enter ed. Ordering Provid er: DRAKE MCNULTY Report Released Date/Time: Sep 05, 2021 10:57 AM Reporting Lab: [facility] [address] Performing Lab: [facility] [address] WBC 4.77 4.0-11.0 RBC 4.33 L 4.6-6.2 HGB 13.7 13.5-17.9 HCT 41.0 41-54 MCV 94.7 80-100 MCH 31.6 27-33 MCHC 33.4 32.0-37.5 PLT 128 L 150-400 MPV 9.4 7.4-10.4 RDW 13.0 11.5-14.5 Nov 08, 2021 [facility] COMPREHENSIVE Specimen Typ e: PLASMA 10:11 AM METABOLIC PANEL+MG No comment en tered. Ordering Provid er: DRAKE MCNULTY Report Released Date/Time: Sep 05, 2021 10:57 AM Reporting Lab: [facility] [address] [facility] [address] Performing Lab: [facility] [address] CREATININE 0.8 0.7-1.2 UREA NITROGEN 20 8-26 GLUCOSE 85 74-100 SODIUM 136 136-145 POTASSIUM 4.0 3.5-5.1 CHLORIDE 105 98-107 CO2 28 22-29 CALCIUM 9.4 8.4-10.2 PROTEIN,TOTAL 6.7 6.0-8.3 ALBUMIN 4.0 3.5-5.2 BILIRUBIN, TOTAL 0.9 0.2-1.2 MAGNESIUM 2.0 1.6-2.6 ANION GAP 3 L 5-15 ALKALINE PHOSPHATASE 68 40-150 ALT/SGPT 27 <55 AST/SGOT 25 <34 CREAT EGFR(CKD-EPI) >90 >60 Nov 04, 2021 08:59 [facility] BASIC METABOLIC Specimen Type: PLASMA AM PANEL+MG No comment enter ed. Ordering Provid er: ANNMARIE WALKER Report Released Date/Time: Jul 15, 2021 08:27 AM Reporting Lab: [facility] [address] [facility] [address] Performing Lab: [facility] [address] [facility] [address] [facility] [address] CREATININE 0.8 0.7-1.2 UREA NITROGEN 15 8-26 GLUCOSE 69 L 74-100 SODIUM 141 136-145 POTASSIUM 4.0 3.5-5.1 CHLORIDE 106 98-107 CO2 29 22-29 CALCIUM 9.1 8.4-10.2 MAGNESIUM 2.0 1.6-2.6 ANION GAP 6 5-15 CREAT EGFR(CKD-EPI) >90 >60 Encounter Notes: All associated encounter notes This section contains the clinical notes associated to the Encounter. Date/Time Encounter Note(s) Provider Source Nov 04, 2021 01:02 PM OPHTHALMOLOGY ATTENDING NOTE: YVETTE DOUGHERTY RA [facility] [place] LOCAL TITLE: OPHTHALMOLOGY ATTENDING NOTE DIVISION STANDARD TITLE: OPHTHALMOLOGY ATTENDING NOTE DATE OF NOTE: NOV 04, 2021@13:02 ENTRY DATE: NOV 04, 2021@13:02:19 AUTHOR: KARLENE DOUGHERTY EXP COSIGNER: URGENCY: STATUS: COMPLETED See [place] notes for this date available in [facility]. /es/ KARLENE DOUGHERTY Clinical Nurse Occupational Medicine Signed: 11/04/2021 13:03
--- OUTSIDE RECORDS SUMMARY | 2022-07-24 21:29 | XMS_ITS | Encounter Summary ---
:1945 Author Organization [facility] Address [address] [place] [address] Support Name Relationship Address Phone BANG MANN Unavailable [address] [facility] [place] [address] BANG MANN MEENAKSHI Unavailable [phone] [facility] [phone] [place] [address] Insurance Providers: All historical and current Section [...] Tanner [place] MED[place] Aug 13, [id number] VENESS,BECERRA P ATIENT [facility] (WNR) ADVANTAGE ARE 2020 5 [id number] [phone] [place] ADVAN 1 [place] C BC[place] MEDICARE MCR Aug 13, [id number] VENESS,BECERRA P ATIENT M[facility] (WNR) ADVANTAGE (WNR) 2020 7 [id number] [phone] [place] 1 [place] MED[place] M[place] Aug 13, [id number] [phone] VENESS ,BECERRA PATIENT MCR (WNR) ADVANTAGE (WNR) 2022 5 [id number] 2 ROLD 1 MEDICARE MEDICARE PART Sep 13, PART B [id number] 800 Jesusita CONKLIN (WNR) (M) B 2012 VN81 [phone] [facility] MEDICARE MEDICARE PART Mar 13, PART A 800 Jesusita CONKLIN (WNR) (M) A [phone] [facility] MEDICARE MEDICARE PART Mar 13, PART A [id number] 800 Jesusita CONKLIN (WNR) (M) A 2008 VN81 [phone] [facility] Selected Encounter This section includes the information on record at [place] for the Encounter. Date/Time Encounter Type Encounter Reason Provider Source Description Dec 02, 2021 HC PRO PHONE TELEPHONE/MEDICIN ICD-10-CM G47.33 PATO SAWYER MARGIE 09:07 AM CALL 21-30 MIN E Obstructive sleep MARLON apnea (adult) (pediatric) with Provider Comments: Obstructive sleep apnea (adult) (pediatric) IHE Encounter Template Text not used by [facility] Assessments - Encounter Diagnoses This section includes the primary and secondary diagnoses documented for the Encounter. Date/Time Primary/Secondary Diagnosis Name Provider Source Diagnosis Dec 02, 2021 PRIMARY Obstructive sleep MAGGIE SAWYER [facility] 09:07 AM apnea (adult) [facility] Plan of Treatment: Future Appointments (+ 6 months) and Future Tests (+/- 45 days) The Plan of Treatment section includes future care activities for the patient from all [place] treatmentfacilities. This section includes future appointments and future orders which are active, pending orscheduled.Future Appointments This section includes appointments that were scheduled to occur 6 months from the date of the Encounter, up to a maximum of 20 appointments. The data comes from all [place] treatment facilities. Appointment Date/Time Appointment Type Appointment Facili ty Name Dec 06, 2021 10:00 AM AMBULATORY - MEDICINE [facility] December 16, 2021 09:00 AM AMBULATORY - REHAB MEDICINE [facility] December 16, 2021 09:45 AM AMBULATORY - MEDICINE [facility] December 16, 2021 10:30 AM AMBULATORY - MEDICINE [facility] December 23, 2021 12:15 PM AMBULATORY - NONE [facility] December 23, 2021 12:16 PM AMBULATORY - NONE [facility] December 26, 2021 01:30 PM AMBULATORY - MEDICINE [facility] January 02, 2022 05:00 PM AMBULATORY - REHAB MEDICINE [facility] January 10, 2022 08:30 AM AMBULATORY - MEDICINE [facility] Feb 02, 2022 10:00 AM AMBULATORY - PSYCHIATRY [facility] Feb 03, 2022 12:12 PM AMBULATORY - NONE [facility] Feb 09, 2022 10:00 AM AMBULATORY - PSYCHIATRY [facility] Feb 09, 2022 01:30 PM AMBULATORY - SURGERY [facility] S Feb 16, 2022 10:00 AM AMBULATORY - PSYCHIATRY [facility] Feb 23, 2022 10:00 AM AMBULATORY - PSYCHIATRY [facility] Mar 02, 2022 10:00 AM AMBULATORY - PSYCHIATRY [facility] Mar 08, 2022 08:45 AM AMBULATORY - MEDICINE [facility] CS Mar 08, 2022 09:00 AM AMBULATORY - MEDICINE [facility] Mar 08, 2022 09:30 AM AMBULATORY - MEDICINE [facility] Mar 08, 2022 10:00 AM AMBULATORY - MEDICINE [facility] Lab Results: +/- 30 days of the encounter This section includes the Chemistry and Hematology Lab Results on record with [place] for the patient. Radiology Reports and Pathology Reports are provided separately, in subsequent sections.Lab Results This section contains the Chemistry/Hematology Results that were resulted 30 days before or 30 daysafter the date of the Encounter. Date/Time Source Result Type Result - Unit Interpretation Reference Range Comment December 16, 2021 09:56 AM [facility] BNP Specim en Type: PLASMA No comment enter ed. Ordering Provid er: DRAKE MCNULTY Report Released Date/Time: Nov 08, 2021 10:58 AM Reporting [facility] [address] Performing Lab: [facility] [address] BNP 35 <99 December 16, 2021 [facility] COMPREHENSIVE Specimen Typ e: PLASMA 09:56 AM METABOLIC PANEL+MG No comment en tered. Ordering Provid er: DRAKE MCNULTY Report Released Date/Time: Nov 08, 2021 10:58 AM Reporting Lab: [facility] [address] Performing Lab: [facility] [address] CREATININE 0.8 0.7-1.2 UREA NITROGEN 14 8-26 GLUCOSE 75 74-100 SODIUM 137 136-145 POTASSIUM 4.4 3.5-5.1 CHLORIDE 106 98-107 CO2 28 22-29 CALCIUM 9.2 8.4-10.2 PROTEIN,TOTAL 6.6 6.0-8.3 ALBUMIN 3.9 3.5-5.2 BILIRUBIN, TOTAL 0.8 0.2-1.2 MAGNESIUM 2.3 1.6-2.6 ANION GAP 3 L 5-15 ALKALINE PHOSPHATASE 60 40-150 ALT/SGPT 26 <55 AST/SGOT 28 <34 CREAT EGFR(CKD-EPI) >90 >60 Nov 11, 2021 [facility] COVID-19 AND FLU/RSV DIAG Sp ecimen Type: NASOPHARYNGEAL 09:34 AM PANEL(CEPHEID) Comment: Rufus rhoades GeneXpert (618) Ordering Provid er: JEREMIAH ACKERMAN Report Released Date/Time: Nov 08, 2021 02:19 PM Reporting Lab: [facility] [address] [facility] [address] Performing Lab: [facility] [address] [facility] [address] COVID-19 (CEPHEID) Not Detected Not Dete cted INFLUENZA A (PCR) Not Detected Not Detec heydi INFLUENZA B (PCR) Not Detected Not Detec heydi RSV (PCR) Not Detected Not Detected Nov 08, 2021 10:11 AM [facility] BNP Specim en Type: PLASMA No comment enter ed. Ordering Provid er: DRAKE MCNULTY Report Released Date/Time: Sep 05, 2021 10:57 AM Reporting Lab: [facility] [address] [facility] [address] Performing Lab: [facility] [address] [facility] [address] BNP 28 <99 Nov 08, 2021 10:11 AM [facility] CBC Specim en Type: BLOOD No comment enter ed. Ordering Provid er: DRAKE MCNULTY Report Released Date/Time: Sep 05, 2021 10:57 AM Reporting Lab: [facility] [address] [facility] [address] Performing Lab: [facility] [address] [facility] [address] WBC 4.77 4.0-11.0 RBC 4.33 L 4.6-6.2 HGB 13.7 13.5-17.9 HCT 41.0 41-54 MCV 94.7 80-100 MCH 31.6 27-33 MCHC 33.4 32.0-37.5 PLT 128 L 150-400 MPV 9.4 7.4-10.4 RDW 13.0 11.5-14.5 Nov 08, 2021 [facility] COMPREHENSIVE Specimen Typ e: PLASMA 10:11 AM METABOLIC PANEL+MG No comment en tered. Ordering Provid er: DRAKE MCNULTY Report Released Date/Time: Sep 05, 2021 10:57 AM Reporting Lab: [facility] [address] [facility] [address] Performing Lab: [facility] [address] CREATININE 0.8 0.7-1.2 UREA NITROGEN 20 8-26 GLUCOSE 85 74-100 SODIUM 136 136-145 POTASSIUM 4.0 3.5-5.1 CHLORIDE 105 98-107 CO2 28 22-29 CALCIUM 9.4 8.4-10.2 PROTEIN,TOTAL 6.7 6.0-8.3 ALBUMIN 4.0 3.5-5.2 BILIRUBIN, TOTAL 0.9 0.2-1.2 MAGNESIUM 2.0 1.6-2.6 ANION GAP 3 L 5-15 ALKALINE PHOSPHATASE 68 40-150 ALT/SGPT 27 <55 AST/SGOT 25 <34 CREAT EGFR(CKD-EPI) >90 >60 Nov 04, 2021 08:59 [facility] BASIC METABOLIC Specimen Type: PLASMA AM PANEL+MG No comment enter ed. Ordering Provid er: ANNMARIE WALKER Report Released Date/Time: Jul 15, 2021 08:27 AM Reporting Lab: [facility] [address] Performing Lab: [facility] [address] CREATININE 0.8 0.7-1.2 UREA NITROGEN 15 8-26 GLUCOSE 69 L 74-100 SODIUM 141 136-145 POTASSIUM 4.0 3.5-5.1 CHLORIDE 106 98-107 CO2 29 22-29 CALCIUM 9.1 8.4-10.2 MAGNESIUM 2.0 1.6-2.6 ANION GAP 6 5-15 CREAT EGFR(CKD-EPI) >90 >60 Social History: Smoking Status (Most current) and Tobacco Use (All prior to encounter date) This section includes the most current, and the historical, smoking and tobacco-related health factors from the [place] facility where the Encounter took place.Current Smoking Status This section includes the most current smoking, or tobacco-related health factor, from the [place] facility where the Encounter took place. Date/Time Current Smoking Status Comment Facility Apr 04, 2021 10:00 AM VA-TOBACCO NEVER USED [facility] Encounter Notes: All associated encounter notes This section contains the clinical notes associated to the Encounter. Date/Time Encounter Note(s) Provider Source Dec 02, 2021 09:07 AM SLEEP MEDICINE NOTE: MAGGIE SAWYER [place] [facility] LOCAL TITLE: SLEEP MEDICINE NOTE STANDARD TITLE: SLEEP MEDICINE NOTE DATE OF NOTE: DEC 02, 2021@09:07 ENTRY DATE: DEC 02, 2021@09:07:57 AUTHOR: MAGGIE SAWYER EXP COSIGNER: URGENCY: STATUS: COMPLETED Received voicemail from patient requesting call back. Patient reports he has been trying his positional bumper belt for the treatment of his sleep apnea. States it's a little hard to get used to, whenever I try to roll to my other side at night it's uncomfortabl e. Insists that he will continue to try it out. Reviewed results of sleep st udy, as patient had several questions. Interested to know what other treatments m ay be available for him. Encouraged patient to make a follow-up appointment with his sleep provider. Patient agreeable. -Co-signing MSA to assist patient in scheduling. /tanner/ MAGGIE SAWYER RN REGISTERED NURSE Signed: 12/02/2021 09:21 Receipt Acknowledged By: * AWAITING SIGNATURE * PADMINI STEPHENS
--- OUTSIDE RECORDS SUMMARY | 2022-07-24 21:29 | XMS_ITS | Encounter Summary ---
:1945 Author Organization [facility] Address [address] [place] [address] Support Name Relationship Address Phone BANG MANN MEENAKSHI Unavailable [phone] [place] [address] BANG MANN MEENAKSHI Unavailable [address] [place] [address] Insurance Providers: All historical and current Section [...] Tanner [place] Aug 13, [id number] VENESS,BECERRA P ATIENT [facility] (WNR) ADVANTAGE ARE 2020 5 [id number] [phone] ROLD ADVAN 1 MOUSTAPHA C [place] Aug 13, [id number] VENESS,BECERRA P ATIENT MCR (WNR) ADVANTAGE (WNR) 2020 7 [id number] [phone] ROLD 1 [place] Aug 13, [id number] [phone] VENESS ,BECERRA PATIENT MCR (WNR) ADVANTAGE (WNR) 2022 5 [id number] ROLD 1 MEDICARE MEDICARE PART Sep 13, PART B [id number] 800 Jesusita CONKLIN (WNR) (M) B 2012 [id number] [phone] [facility] MEDICARE MEDICARE PART Mar 13, PART A [id number] 800 Jesusita CONKLIN (WNR) (M) A 2008 [id number] [phone] [facility] MEDICARE MEDICARE PART Mar 13, PART A 800 Jesusita CONKLIN (WNR) (M) A [phone] [facility] Selected Encounter This section includes the information on record at [place] for the Encounter. Date/Time Encounter Type Encounter Description Reason Provider Source December 19, 2021 02:59 Outpatient Encounter PHYSICAL THERAPY PM IHE Encounter Template Text not used by [place] Plan of Treatment: Future Appointments (+ 6 months) and Future Tests (+/- 45 days) The Plan of Treatment section includes future care activities for the patient from all [place] treatmentfacilities. This section includes future appointments and future orders which are active, pending orscheduled.Future Appointments This section includes appointments that were scheduled to occur 6 months from the date of the Encounter, up to a maximum of 20 appointments. The data comes from all [place] treatment facilities. Appointment Date/Time Appointment Type Appointment Facili ty Name December 23, 2021 12:15 PM AMBULATORY - NONE [facility] December 23, 2021 12:16 PM AMBULATORY - NONE [facility] December 26, 2021 01:30 PM AMBULATORY - MEDICINE [facility] January 02, 2022 05:00 PM AMBULATORY - REHAB MEDICINE [facility] January 10, 2022 08:30 AM AMBULATORY - MEDICINE [facility] Feb 02, 2022 10:00 AM AMBULATORY - PSYCHIATRY [facility] Feb 03, 2022 12:12 PM AMBULATORY - NONE [facility] Feb 09, 2022 10:00 AM AMBULATORY - PSYCHIATRY [facility] Feb 09, 2022 01:30 PM AMBULATORY - SURGERY [facility] Feb 16, 2022 10:00 AM AMBULATORY - PSYCHIATRY [facility] Feb 23, 2022 10:00 AM AMBULATORY - PSYCHIATRY [facility] Mar 02, 2022 10:00 AM AMBULATORY - PSYCHIATRY [facility] Mar 08, 2022 08:45 AM AMBULATORY - MEDICINE [facility] Mar 08, 2022 09:00 AM AMBULATORY - MEDICINE [facility] Mar 08, 2022 09:30 AM AMBULATORY - MEDICINE [facility] Mar 08, 2022 10:00 AM AMBULATORY - MEDICINE [facility] Mar 13, 2022 09:00 AM AMBULATORY - MEDICINE [facility] May 03, 2022 09:00 AM AMBULATORY - NONE [facility] Jun 16, 2022 09:30 AM AMBULATORY - MEDICINE [facility] Jun 16, 2022 10:00 AM AMBULATORY - MEDICINE [facility] Lab Results: +/- 30 days of the encounter This section includes the Chemistry and Hematology Lab Results on record with [place] for the patient. Radiology Reports and Pathology Reports are provided separately, in subsequent sections.Lab Results This section contains the Chemistry/Hematology Results that were resulted 30 days before or 30 daysafter the date of the Encounter. Date/Time Source Result Type Result - Unit Interpretation Reference Range Comment December 16, 2021 09:56 AM [facility] BNP Specim en Type: PLASMA No comment enter ed. Ordering Provid er: DRAKE MCNULTY Report Released Date/Time: Nov 08, 2021 10:58 AM Reporting Lab: [facility] [address] [facility] [id number] Performing Lab: [facility] [address] [facility] [id number] BNP 35 <99 December 16, 2021 [facility] COMPREHENSIVE Specimen Typ e: PLASMA 09:56 AM METABOLIC PANEL+MG No comment en tered. Ordering Provid er: DRAKE MCNULTY Report Released Date/Time: Nov 08, 2021 10:58 AM Reporting Lab: [facility] [address] [facility] [id number] Performing Lab: [facility] [address] [facility] [address] CREATININE 0.8 0.7-1.2 UREA NITROGEN 14 8-26 GLUCOSE 75 74-100 SODIUM 137 136-145 POTASSIUM 4.4 3.5-5.1 CHLORIDE 106 98-107 CO2 28 22-29 CALCIUM 9.2 8.4-10.2 PROTEIN,TOTAL 6.6 6.0-8.3 ALBUMIN 3.9 3.5-5.2 BILIRUBIN, TOTAL 0.8 0.2-1.2 MAGNESIUM 2.3 1.6-2.6 ANION GAP 3 L 5-15 ALKALINE PHOSPHATASE 60 40-150 ALT/SGPT 26 <55 AST/SGOT 28 <34 CREAT EGFR(CKD-EPI) >90 >60 Social History: Smoking Status (Most current) and Tobacco Use (All prior to encounter date) This section includes the most current, and the historical, smoking and tobacco-related health factors from the [place] facility where the Encounter took place.Current Smoking Status This section includes the most current smoking, or tobacco-related health factor, from the [place] facility where the Encounter took place. Date/Time Current Smoking Status Comment Facility Apr 04, 2021 10:00 AM [place]-TOBACCO NEVER USED [facility] Encounter Notes: All associated encounter notes This section contains the clinical notes associated to the Encounter. Date/Time Encounter Note(s) Provider Source December 19, 2021 02:59 PM REPORT OF CONTACT: BRYANT REGAN LOVEDanny [facility] LOCAL TITLE: APPOINTMENT SCHEDULING NOTE STANDARD TITLE: REPORT OF CONTACT DATE OF NOTE: DECEMBER 19, 2021@14:59 ENTRY DATE: DECEMBER 19, 2021@14:59:33 AUTHOR: BRYANT REGAN EXP COSIGNER: URGENCY: STATUS: COMPLETED Attempt to schedule return to clinic 1st Contact: Called [place] at: M [place] wants to call back to schedule. 2nd Contact: Sent letter by regular [place] mail to address on YOUSIF Johnson [address] [place] [address] Additional information/contact attempts: Appointment added to [facility] for scheduli ng reminder. If calls back, schedule appointment for : Return to [facility] on or around ( Milagro azar 2021 ) for a total of 1 appointment(s) 30 min Is the RTC marked as no later than? Valorie /tanner/ Bryant MAI 23 PM&R MSA Signed: 12/19/2021 15:00
--- OUTSIDE RECORDS SUMMARY | 2022-07-24 21:29 | XMS_ITS | Encounter Summary ---
:1945 Author Organization [facility] Address [address] [place] [address] Support Name Relationship Address Phone BANG MANN MEENAKSHI Unavailable [address] [facility] [place] [address] BANG MANN MEENAKSHI Unavailable [address] [facility] [place] [address] Insurance Providers: All historical and current Section [...] [place]anner [place] Aug 13, [id number] VENESS,BECERRA P ATIENT [facility] (WNR) ADVANTAGE ARE 2020 5 [id number] [phone] [place] ADVAN 1 MOUSTAPHA C [place] Aug 13, [id number] VENESS,BECERRA P ATIENT [facility] (WNR) ADVANTAGE (WNR) 2020 7 [id number] [phone] R[place] 1 [place] Aug 13, [id number] [phone] VENESS ,BECERRA PATIENT MCR (WNR) ADVANTAGE (WNR) 2022 5 [id number] 2 ROLD 1 MEDICARE MEDICARE PART Sep 13, PART B [id number] 800 Jesusita CONKLIN (WNR) (M) B 2012 VN81 [phone] [facility] MEDICARE MEDICARE PART Mar 13, PART A 800 Jesusita CONKLIN (WNR) (M) A [phone] [facility] MEDICARE MEDICARE PART Mar 13, PART A [id number] 800 Jesusita CONKLIN (WNR) (M) A 2008 VN81 [phone] [facility] Selected Encounter This section includes the information on record at [place] for the Encounter. Date/Time Encounter Type Encounter Reason Provider Source Description December 16, 2021 THERAPEUTIC PHYSICAL THERAPY ICD-10-CM RASHAAD VINCENT 09:00 AM EXERCISES M25.552 Pain CONSTANTINE E in left hip with Provider Comments: Pain in left Hip IHE Encounter Template Text not used by [facility] Assessments - Encounter Diagnoses This section includes the primary and secondary diagnoses documented for the Encounter. Date/Time Primary/Secondary Diagnosis Name Provider Source Diagnosis December 16, 2021 PRIMARY Pain in left RASHAAD VINCENT V A 12:12 PM hip CONSTANTINE E [facility] Plan of Treatment: Future Appointments (+ 6 months) and Future Tests (+/- 45 days) The Plan of Treatment section includes future care activities for the patient from all [place] treatmentfacilities. This section includes future appointments and future orders which are active, pending orscheduled.Future Appointments This section includes appointments that were scheduled to occur 6 months from the date of the Encounter, up to a maximum of 20 appointments. The data comes from all [place] treatment facilities. Appointment Date/Time Appointment Type Appointment Facili ty Name December 23, 2021 12:15 PM AMBULATORY - NONE [facility] December 23, 2021 12:16 PM AMBULATORY - NONE [facility] December 26, 2021 01:30 PM AMBULATORY - MEDICINE [facility] January 02, 2022 05:00 PM AMBULATORY - REHAB MEDICINE [facility] January 10, 2022 08:30 AM AMBULATORY - MEDICINE [facility] Feb 02, 2022 10:00 AM AMBULATORY - PSYCHIATRY [facility] Feb 03, 2022 12:12 PM AMBULATORY - NONE [facility] Feb 09, 2022 10:00 AM AMBULATORY - PSYCHIATRY [facility] Feb 09, 2022 01:30 PM AMBULATORY - SURGERY [facility] Feb 16, 2022 10:00 AM AMBULATORY - PSYCHIATRY [facility] Feb 23, 2022 10:00 AM AMBULATORY - PSYCHIATRY [facility] Mar 02, 2022 10:00 AM AMBULATORY - PSYCHIATRY [facility] Mar 08, 2022 08:45 AM AMBULATORY - MEDICINE [facility] Mar 08, 2022 09:00 AM AMBULATORY - MEDICINE [facility] Mar 08, 2022 09:30 AM AMBULATORY - MEDICINE [facility] Mar 08, 2022 10:00 AM AMBULATORY - MEDICINE [facility] Mar 13, 2022 09:00 AM AMBULATORY - MEDICINE [facility] May 03, 2022 09:00 AM AMBULATORY - NONE [facility] Jun 16, 2022 09:30 AM AMBULATORY - MEDICINE [facility] Jun 16, 2022 10:00 AM AMBULATORY - MEDICINE [facility] Lab Results: +/- 30 days of the encounter This section includes the Chemistry and Hematology Lab Results on record with [place] for the patient. Radiology Reports and Pathology Reports are provided separately, in subsequent sections.Lab Results This section contains the Chemistry/Hematology Results that were resulted 30 days before or 30 daysafter the date of the Encounter. Date/Time Source Result Type Result - Unit Interpretation Reference Range Comment December 16, 2021 09:56 AM [facility] BNP Specim en Type: PLASMA No comment enter ed. Ordering Provid er: DRAKE MCNULTY Report Released Date/Time: Nov 08, 2021 10:58 AM Reporting Lab: [facility] [address] [facility] [id number] Performing Lab: [facility] [address] BNP 35 <99 December 16, 2021 [facility] COMPREHENSIVE Specimen Typ e: PLASMA 09:56 AM METABOLIC PANEL+MG No comment en tered. Ordering Provid er: DRAKE MCNULTY Report Released Date/Time: Nov 08, 2021 10:58 AM Reporting Lab: [facility] [address] [facility] [address] Performing Lab: [facility] [address] CREATININE 0.8 0.7-1.2 UREA NITROGEN 14 8-26 GLUCOSE 75 74-100 SODIUM 137 136-145 POTASSIUM 4.4 3.5-5.1 CHLORIDE 106 98-107 CO2 28 22-29 CALCIUM 9.2 8.4-10.2 PROTEIN,TOTAL 6.6 6.0-8.3 ALBUMIN 3.9 3.5-5.2 BILIRUBIN, TOTAL 0.8 0.2-1.2 MAGNESIUM 2.3 1.6-2.6 ANION GAP 3 L 5-15 ALKALINE PHOSPHATASE 60 40-150 ALT/SGPT 26 <55 AST/SGOT 28 <34 CREAT EGFR(CKD-EPI) >90 >60 Vital Signs: All taken on the encounter date This section contains inpatient and outpatient Vital Signs collected on the date of the Encounter. Date/Time Temperature Pulse Blood Respiratory SP02 Pain Height Weight Dionisio dy Source Pressure Rate Mass Index December 16 96.4 F 57 135/76 16 /min 100 % 0 68.898 154.7 MINNE2021 10:03 /min mm[Hg] in lb [facility] Social History: Smoking Status (Most current) and Tobacco Use (All prior to encounter date) This section includes the most current, and the historical, smoking and tobacco-related health factors from the [place] facility where the Encounter took place.Current Smoking Status This section includes the most current smoking, or tobacco-related health factor, from the [place] facility where the Encounter took place. Date/Time Current Smoking Status Comment Facility Apr 04, 2021 10:00 AM [place]-TOBACCO NEVER USED [facility] Encounter Notes: All associated encounter notes This section contains the clinical notes associated to the Encounter. Date/Time Encounter Note(s) Provider Source December 16, 2021 08:28 AM PHYSICAL THERAPY INITIAL EVALUATION NO TE: [facility] VINCENT [facility] LOCAL TITLE: PT-EVALUATION NOTE STANDARD TITLE: PHYSICAL THERAPY INITIAL EVALUAT ION NOTE DATE OF NOTE: DECEMBER 16, 2021@08:28 ENTRY DATE: DECEMBER 16, 2021@08:28:06 AUTHOR: [facility] VINCENT EXP COSIGNER: URGENCY: STATUS: COMPLETED PT tx: PT eval- low complex 20', Ther ex 15' PT dx: L hip pain Evaluation Date: December Direct Access/ Date: 03/16/22 # of VISITS: 1 # of CX/NS: 0 [place] Screen Due: NO Name Used: Yousif SUBJECTIVE: Relevant PMH/personal factors impacting rehab: A -Fib, age related macular degeneration, hearing loss, tremor, 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 Initially pain was located BL hips but the righ t one improved and left one has not. Does not bother him to walk. Only at night w hen laying on it. Denies any back pain. Occasionally pain travels to mid lateral thigh. 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 Denies any UE or LE progressive weakness, unexplained weight loss, loss of bowel /bladder control, pain with rest, fevers, chills, infections. (+) numbness R UE 2/2 CTS Patient's Goal: to be pain free RELEVANT IMAGING: none OBJECTIVE: - PROMIS 6B: 8 Baseline PROMIS Pain Interference 6b PROMIS Pain Interference - short form 6b In the past 7 days... How much did pain interfere with your enjoyment of life? A little bit (2) How much did pain interfere with your ability t o concentrate? A little bit (2) How much did pain interfere with your day to da y activities? Not at all (1) How much did pain interfere with your enjoyment of recreational activities? Not at all (1) How much did pain interfere with doing your tas ks away from home (e.g., getting groceries, running errands)? Not at all (1) How often did pain keep you from socializing wi th others? Never (1) Total RAW Score: 8 RAW SCORE CONVERSION TO T-SCORE: T-score value indicates how score relates to no rmative samples (a standardized score with a mean of 50 and a alissa dard deviation (SD)of 10). T-Scores >=60 indicate patient is outsi de the normal range, being 1+ SD worse than average. RAW T-SCORE RAW T-SCORE 6 41 19 62.7 7 48.5 20 63.6 8 50.8 21 64.5 9 52.5 22 65.5 10 53.8 23 66.4 11 55 24 67.4 12 56.1 25 68.5 13 57.1 26 69.6 14 58.1 27 70.9 15 59.1 28 72.4 16 60 29 74.4 17 60.9 30 78.3 18 61.8 T-Score: 50.8 - PSFS: (patient specific functional scale) 1. Sleep quality, 3 Total Score: 3 OBSERVATION: - ambulates to PT without AD, normal nancy VITALS: Taken by PACT nursing prior tp PC and PT appointment Blood Pressure: 119/68 Heart Rate: 64 O2 Sats: 97 FOCUSED NEUROMUSCULAR EXAM: myotomes 5/5 B LEs, dermatomes intact to light touch B LEs. No neurological concern, will compl ete further neuro exam as indicated. RANGE OF MOTION: Standing Lumbar AROM: Flexion: WFL Extension: WFL Sidebend: WFL Rotation: WFL Quality of Motion: no guarding or hesit ation to movement; spinal movements do not reproduce hip symptoms PALPATION: no tenderness to palpation L hip or lumbar spine; mild tendereness L piriformis region in comparrison to R. SEGMENTAL MOBILITY: n/t Hip screen ROM: WFL BL FADIR: (-) BL HEENA: (-) BL Weight-bearing hip rotation: (-) BL PT INTERVENTIONS: risks/benefits reviewed and ve rbal consent obtained for interventions Ther ex: - education on HEP with handout provided with r ecs for sets, reps, frequency and appropriate response/progression for exercis e. - supine twist/lateral hip stretch; recs for 3 x 10 sec hold 2 x/day - supine bridge w/ green band; recs for 12 reps 2 x/day 4 x/wk - s/l clamshell w/ green band; recs for 12 reps 2 x/day 4 x/wk - standing hip abd w/ green band around knees; recs for 12 reps 2 x/day 4 x/wk - discussed with an ticipated pathophysiology, role of initial HEP, and POC going forward with PT. Response to Treatment: correct return demo of ex ercises without c/o inc pain GOALS: 1. Pt will be I in HEP for self-management of lo w back pain in 4 visits. 2. Pt will demonstrate impro vita sleep quality as evident by increase in PSFS by 2 points for total score in 3-4 visits. ASSESSMENT: is a 76 y/o M presenting to PT with concern for chronic L hip pain for over a year. Pain focal to lateral hip and only bothering him at night predominantly when laying on his left side . No difficulty with ADLs/walking. Unable to spec ifically reproduce symptoms in clinic but anticipate hip pain to be related to some degree of muscle imbalances. Provided HEP to focus on hip strength/mobili ty without adverse effect. If no change in symptoms, may refer back to PC for further medical screen. REHAB POTENTIAL: good CLINICAL PRESENTATION: stable PLAN: Follow up in ~ 1 month over [facility]. Assess HE P in symptom management and progress as indicated. -Will obtain orders from PCP for ongoing PT if P OC should exceed 90 days -Present note will serve as d/c note if vet does not present for follow-up within 8 wks Patient Education on Treatment Plan: PT role, PO C, rehab expectations. Patient indicated readiness to learn, verbalizes understanding, agreement and satisfaction with the treatment plan. Denies fur ther questions. /tanner/ [facility] VINCENT PT, DPT Signed: 12/16/2021 12:12
--- OUTSIDE RECORDS SUMMARY | 2022-07-24 21:29 | XMS_ITS | Encounter Summary ---
:1945 Author Organization [facility] Address [address] [place] [address] Support Name Relationship Address Phone BANG MANN MEENAKSHI Unavailable [address] [facility] [place] [address] BANG MANN MEENAKSHI Unavailable [address] [facility] [phone] [place] [address] Insurance Providers: All historical and current Section [...] to Policy Number Tanner [place] Aug 13, [id number] VENESS,BECERRA P ATIENT [facility] (WNR) ADVANTAGE (WNR) 2020 7 [id number] [phone] ROLD 1 [place] MED[place] Aug 13, [id number] VENESS,BECERRA P ATIENT [facility] (WNR) ADVANTAGE ARE 2020 5 [id number] [phone] ROLD ADVAN 1 TAGE C [place] Aug 13, [id number] [phone] VENESS ,BECERRA PATIENT MCR (WNR) ADVANTAGE (WNR) 2022 5 [id number] ROLD 1 MEDICARE MEDICARE PART Sep 13, PART B [id number] 800 Jesusita CONKLIN (WNR) (M) B 2012 [id number] [phone] [facility] MEDICARE MEDICARE PART Mar 13, PART A 800 Jesusita CONKLIN (WNR) (M) A [phone] [place] MEDICARE MEDICARE PART Mar 13, PART A [id number] 800 Jesusita CONKLIN (WNR) (M) A 2008 [id number] [phone] AR[place] Selected Encounter This section includes the information on record at [place] for the Encounter. Date/Time Encounter Type Encounter Description Reason Provider Source Nov 30, 2021 02:21 Outpatient Encounter TELEPHONE TRIAGE PM IHE Encounter Template Text not used by [place] Plan of Treatment: Future Appointments (+ 6 months) and Future Tests (+/- 45 days) The Plan of Treatment section includes future care activities for the patient from all [place] treatmentfacilities. This section includes future appointments and future orders which are active, pending orscheduled.Future Appointments This section includes appointments that were scheduled to occur 6 months from the date of the Encounter, up to a maximum of 20 appointments. The data comes from all [place] treatment facilities. Appointment Date/Time Appointment Type Appointment Facili ty Name Dec 06, 2021 10:00 AM AMBULATORY - MEDICINE [facility] December 16, 2021 09:00 AM AMBULATORY - REHAB MEDICINE [facility] December 16, 2021 09:45 AM AMBULATORY - MEDICINE [facility] December 16, 2021 10:30 AM AMBULATORY - MEDICINE [facility] December 23, 2021 12:15 PM AMBULATORY - NONE [facility] December 23, 2021 12:16 PM AMBULATORY - NONE [facility] December 26, 2021 01:30 PM AMBULATORY - MEDICINE [facility] January 02, 2022 05:00 PM AMBULATORY - REHAB MEDICINE [facility] January 10, 2022 08:30 AM AMBULATORY - MEDICINE [facility] Feb 02, 2022 10:00 AM AMBULATORY - PSYCHIATRY [facility] Feb 03, 2022 12:12 PM AMBULATORY - NONE [facility] Feb 09, 2022 10:00 AM AMBULATORY - PSYCHIATRY [facility] Feb 09, 2022 01:30 PM AMBULATORY - SURGERY [facility] Feb 16, 2022 10:00 AM AMBULATORY - PSYCHIATRY [facility] Feb 23, 2022 10:00 AM AMBULATORY - PSYCHIATRY [facility] Mar 02, 2022 10:00 AM AMBULATORY - PSYCHIATRY [facility] Mar 08, 2022 08:45 AM AMBULATORY - MEDICINE [facility] Mar 08, 2022 09:00 AM AMBULATORY - MEDICINE [facility] Mar 08, 2022 09:30 AM AMBULATORY - MEDICINE [facility] Mar 08, 2022 10:00 AM AMBULATORY - MEDICINE [facility] Lab Results: +/- 30 days of the encounter This section includes the Chemistry and Hematology Lab Results on record with [place] for the patient. Radiology Reports and Pathology Reports are provided separately, in subsequent sections.Lab Results This section contains the Chemistry/Hematology Results that were resulted 30 days before or 30 daysafter the date of the Encounter. Date/Time Source Result Type Result - Unit Interpretation Reference Range Comment December 16, 2021 09:56 AM [facility] BNP Specim en Type: PLASMA No comment enter ed. Ordering Provid er: DRAKE MCNULTY Report Released Date/Time: Nov 08, 2021 10:58 AM Reporting Lab: [facility] [address] [facility] [address] Performing Lab: [facility] [address] BNP 35 <99 December 16, 2021 [facility] COMPREHENSIVE Specimen Typ e: PLASMA 09:56 AM METABOLIC PANEL+MG No comment en tered. Ordering Provid er: DRAKE MCNULTY Report Released Date/Time: Nov 08, 2021 10:58 AM Reporting Lab: [facility] [address] [facility] [address] CREATININE 0.8 0.7-1.2 UREA NITROGEN 14 8-26 GLUCOSE 75 74-100 SODIUM 137 136-145 POTASSIUM 4.4 3.5-5.1 CHLORIDE 106 98-107 CO2 28 22-29 CALCIUM 9.2 8.4-10.2 PROTEIN,TOTAL 6.6 6.0-8.3 ALBUMIN 3.9 3.5-5.2 BILIRUBIN, TOTAL 0.8 0.2-1.2 MAGNESIUM 2.3 1.6-2.6 ANION GAP 3 L 5-15 ALKALINE PHOSPHATASE 60 40-150 ALT/SGPT 26 <55 AST/SGOT 28 <34 CREAT EGFR(CKD-EPI) >90 >60 Nov 11, 2021 [facility] COVID-19 AND FLU/RSV DIAG Sp ecimen Type: NASOPHARYNGEAL 09:34 AM PANEL(CEPHEID) Comment: Rufus rhoades GeneXpert (618) Ordering Provid er: JEREMIAH ACKERMAN Report Released Date/Time: Nov 08, 2021 02:19 PM Reporting Lab[facility] [address] Performing Lab: [facility] [place] [address] COVID-19 (CEPHEID) Not Detected Not Dete cted INFLUENZA A (PCR) Not Detected Not Detec heydi INFLUENZA B (PCR) Not Detected Not Detec heydi RSV (PCR) Not Detected Not Detected Nov 08, 2021 10:11 AM [facility] BNP Specim en Type: PLASMA No comment enter ed. Ordering Provid er: DRAKE MCNULTY Report Released Date/Time: Sep 05, 2021 10:57 AM Reporting Lab: [facility] [address] Performing Lab: [facility] [address] BNP 28 <99 Nov 08, 2021 10:11 AM [facility] CBC Specim en Type: BLOOD No comment enter ed. Ordering Provid er: DRAKE MCNULTY Report Released Date/Time: Sep 05, 2021 10:57 AM Reporting Lab: [facility] [address] Performing Lab: [facility] [address] WBC 4.77 4.0-11.0 RBC 4.33 L 4.6-6.2 HGB 13.7 13.5-17.9 HCT 41.0 41-54 MCV 94.7 80-100 MCH 31.6 27-33 MCHC 33.4 32.0-37.5 PLT 128 L 150-400 MPV 9.4 7.4-10.4 RDW 13.0 11.5-14.5 Nov 08, 2021 [facility] COMPREHENSIVE Specimen Typ e: PLASMA 10:11 AM METABOLIC PANEL+MG No comment en tered. Ordering Provid er: DRAKE MCNULTY Report Released Date/Time: Sep 05, 2021 10:57 AM Reporting Lab: [facility] [address] Performing Lab: [facility] [address] CREATININE 0.8 0.7-1.2 UREA NITROGEN 20 8-26 GLUCOSE 85 74-100 SODIUM 136 136-145 POTASSIUM 4.0 3.5-5.1 CHLORIDE 105 98-107 CO2 28 22-29 CALCIUM 9.4 8.4-10.2 PROTEIN,TOTAL 6.7 6.0-8.3 ALBUMIN 4.0 3.5-5.2 BILIRUBIN, TOTAL 0.9 0.2-1.2 MAGNESIUM 2.0 1.6-2.6 ANION GAP 3 L 5-15 ALKALINE PHOSPHATASE 68 40-150 ALT/SGPT 27 <55 AST/SGOT 25 <34 CREAT EGFR(CKD-EPI) >90 >60 Nov 04, 2021 08:59 [facility] BASIC METABOLIC Specimen Type: PLASMA AM PANEL+MG No comment enter ed. Ordering Provid er: ANNMARIE WALKER Report Released Date/Time: Jul 15, 2021 08:27 AM Reporting Lab: [facility] [address] [facility] [address] Performing Lab: [facility] [address] [facility] [address] CREATININE 0.8 0.7-1.2 UREA NITROGEN 15 8-26 [...] smoking and tobacco-related health factors from the [place] facility where the Encounter took place.Current Smoking Status This section includes the most current smoking, or tobacco-related health factor, from the [place] facility where the Encounter took place. Date/Time Current Smoking Status Comment Facility Apr 04, 2021 10:00 AM [place]-TOBACCO NEVER USED [facility] Encounter Notes: All associated encounter notes This section contains the clinical notes associated to the Encounter. Date/Time Encounter Note(s) Provider Source Nov 30, 2021 02:21 PM REPORT OF CONTACT: EVERETT SALAMANCA [facility] LOCAL TITLE: PATIENT CONTACT NOTE STANDARD TITLE: REPORT OF CONTACT DATE OF NOTE: NOV 30, 2021@14:21 ENTRY DATE: NOV 30, 2021@14:21:34 AUTHOR: EVERETT SALAMANCA EXP COSIGNER: URGENCY: STATUS: COMPLETED PATIENT CONTACT NOTE Has ADDENDA Primary Care Call Center Phone number verified as correct. [phone] calling with follow up questions regardi ng possible X-ray for hip. [place] can be reached at number above. Thank yo u! /es/ EVERETT MAI [address] [facility] AMSA Signed: 11/30/2021 14:23 Receipt Acknowledged By: 11/30/2021 15:32 /es/ Jyotsna Tsang RN Registered Nurse 11/30/2021 ADDENDUM STATUS: COMPLETED Returned call to pt, he continues to be bothered by hip pain and is requesting xray. Reviewed PCP note, [facility] recommends in person eval and will consider xray if appropriate. Reviewed pt' s s/sx, seems there has not any trauma or reason to believe the hip was fractured or broken, especia lly since pain is relieved entirely with repositioning. Explained t hat xray would not be most appropriate type of imaging for soft tis patrick injuries and he would be best served by having a provider evaluation to deter mine next steps and imaging if appropriate. Pt v/u, would like to be seen sooner than PCP's first av ailable appt on 12/19. Pt agreeable to see another pro vider, was rescheduled for 12/[address] Gonzalez. Pt will call back with any othe r questions or concerns. FYI to providers. 12/[address] Rodriguez cancelled. /es/ Jyotsna Tsang, RN Registered Nurse Signed: 11/30/2021 16:36 Receipt Acknowledged By: * AWAITING SIGNATURE * KVNG GONZALEZ * AWAITING SIGNATURE * ELAN RODRIGUEZ
--- OUTSIDE RECORDS SUMMARY | 2022-07-24 21:29 | XMS_ITS | Encounter Summary ---
:1945 Author Organization [facility] Address [address] [place] [address] Support Name Relationship Address Phone BANG MANN Unavailable [address] [facility] [phone] [place] [address] BANG MANN MEENAKSHI Unavailable [address] [place] [address] Insurance Providers: All historical and current Section [...] Tanner [place] Aug 13, [id number] VENESS,BECERRA P ATIENT [facility] (WNR) ADVANTAGE ARE 2020 5 [id number] [phone] ROLD ADVAN 1 MOUSTAPHA C [place] MED[place] MCR Aug 13, [id number] VENESS,BECERRA P ATIENT [facility] (WNR) ADVANTAGE (WNR) 2020 7 [id number] [phone] R[place] 1 [place] Aug 13, [id number] [phone] VENESS ,BECERRA PATIENT [facility] (WNR) ADVANTAGE (WNR) 2021 5 [id number] 2 ROLD 1 MEDICARE MEDICARE PART Sep 13, PART B [id number] 800 Jesusita CONKLIN (WNR) (M) B 2012 [id number] [phone] [facility] MEDICARE MEDICARE PART Mar 13, PART A 800 Jesusita CONKLIN (WNR) (M) A [phone] [place] MEDICARE MEDICARE PART Mar 13, PART A [id number] 800 Jesusita CONKLIN (WNR) (M) Rosalinda 2008 [id number] [phone] [place] Selected Encounter This section includes the information on record at [place] for the Encounter. Date/Time Encounter Type Encounter Reason Provider Source Description December 16, 2021 OFFICE O/P EST CARDIOLOGY ICD-10-CM I50.20 ST Angela MCNULTY 10:30 AM MOD 30-39 MIN Unspecified PHANIE K systolic (congestive) heart failure with Provider Comments: Heart failure with reduced ejection fraction ([facility] [id number]) IHE Encounter Template Text not used by [place] Assessments - Encounter Diagnoses This section includes the primary and secondary diagnoses documented for the Encounter. Date/Time Primary/Secondary Diagnosis Name Provider Source Diagnosis December 16, [address] COTY MCNULTY [place] 02:38 PM systolic EPHANIE K [facility] (congestive) heart failure December 16, 2021 SECONDARY Hyperlipidemia, [facility] C[facility] [place] 02:38 PM unspecified EPHANIE K [facility] December 16, [address] [facility] [place] [facility] PM apnea (adult) EPHANIE K [facility] (pediatric) December 16, [address] [facility] [place] 02:38 PM fibrillation EPHANIE K [facility] Plan of Treatment: Future Appointments (+ 6 months) and Future Tests (+/- 45 days) The Plan of Treatment section includes future care activities for the patient from all [place] treatmentfacilities. This section includes future appointments and future orders which are active, pending orscheduled.Future Appointments This section includes appointments that were scheduled to occur 6 months from the date of the Encounter, up to a maximum of 20 appointments. The data comes from all [place] treatment facilities. Appointment Date/Time Appointment Type Appointment Facili ty Name December 23, 2021 12:15 PM AMBULATORY - NONE [facility] December 23, 2021 12:16 PM AMBULATORY - NONE [facility] December 26, 2021 01:30 PM AMBULATORY - MEDICINE [facility] January 02, 2022 05:00 PM AMBULATORY - REHAB MEDICINE [facility] January 10, 2022 08:30 AM AMBULATORY - MEDICINE [facility] Feb 02, 2022 10:00 AM AMBULATORY - PSYCHIATRY [facility] Feb 03, 2022 12:12 PM AMBULATORY - NONE [facility] Feb 09, 2022 10:00 AM AMBULATORY - PSYCHIATRY [facility] Feb 09, 2022 01:30 PM AMBULATORY - SURGERY [facility] Feb 16, 2022 10:00 AM AMBULATORY - PSYCHIATRY [facility] Feb 23, 2022 10:00 AM AMBULATORY - PSYCHIATRY [facility] Mar 02, 2022 10:00 AM AMBULATORY - PSYCHIATRY [facility] Mar 08, 2022 08:45 AM AMBULATORY - MEDICINE [facility] Mar 08, 2022 09:00 AM AMBULATORY - MEDICINE [facility] Mar 08, 2022 09:30 AM AMBULATORY - MEDICINE [facility] Mar 08, 2022 10:00 AM AMBULATORY - MEDICINE [facility] Mar 13, 2022 09:00 AM AMBULATORY - MEDICINE [facility] May 03, 2022 09:00 AM AMBULATORY - NONE [facility] Jun 16, 2022 09:30 AM AMBULATORY - MEDICINE [facility] Jun 16, 2022 10:00 AM AMBULATORY - MEDICINE [facility] Lab Results: +/- 30 days of the [...] Range Comment December 16, 2021 09:[address] [facility] BNP Specim en Type: PLASMA No comment enter ed. Ordering Provid er: LILIANA MCNULTY Report Released Date/Time: Nov 08, 2021 10:58 AM Reporting Lab: [facility] [address] [facility] [address] Performing Lab: [facility] [address] [facility] [address] BNP 35 <99 December 16, 2021 [facility] COMPREHENSIVE Specimen Typ e: PLASMA 09:56 AM METABOLIC PANEL+MG No comment en tered. Ordering Provid er: LILIANA MCNULTY Report Released Date/Time: Nov 08, 2021 10:58 AM Reporting Lab: [facility] [address] [facility] [address] Performing Lab: [facility] [address] [facility] [address] CREATININE 0.8 0.7-1.2 UREA NITROGEN 14 8-26 [...] 16 /min 100 % 0 68.898 154.7 23 [place] 2021 10:03 /min mm[Hg] in lb [facility] Social History: Smoking Status (Most current) and Tobacco Use (All prior to encounter date) This section includes the most current, and the historical, smoking and tobacco-related health factors from the [place] facility where the Encounter took place.Current Smoking Status This section includes the most current smoking, or tobacco-related health factor, from the [place] facility where the Encounter took place. Date/Time Current Smoking Status Comment Facility Apr 04, 2021 10:00 AM [place]TOBACCO [facility] Encounter Notes: All associated encounter notes This section contains the clinical notes associated to the Encounter. Date/Time Encounter Note(s) Provider Source December 16, 2021 10:45 AM CARDIOLOGY ATTENDING OUTPATIENT NOTE: ALANA LAY [facility] LOCAL TITLE: CARDIOLOGY CLINIC NOTE E K STANDARD TITLE: CARDIOLOGY ATTENDING OUTPATIENT NOTE DATE OF NOTE: DECEMBER 16, 2021@10:45 ENTRY DATE: DECEMBER 16, 2021@10:45:17 AUTHOR: ALANA MCNULTY EXP COSIGNER: URGENCY: STATUS: COMPLETED CHF Clinic Follow Up HPI:YOUSIF MANN 76y/o male w ith a past medical history significant for heart failure with reduced EF, NICM, chronic atrial fibrillation on anticoagulation, hearing loss, ROSA non-compliant with CPAP, HLD and ED who presents to the heart failure clinic today for c ontinued medication optimization. He presents to clinic today ambulatory in good spirits. At her last visit about a month ago we initiated emp agliflozin 12.5 mg daily and stopped his furosemide. He is tolerating this withou t issue. He brings in his blood pressure and weight logs today, both of been stable. His blood press ure ranges between 100-115 systolic, he denies any orthostatic symptoms. 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 He denies any limiting sym ptoms. He lives with his who is also independent. He has been watching hi s overall sodium and fluid intake. He denies any chest pains, p alpitations, PND, orthopnea, lower leg edema, early satiety or syncope. He has no concerns today. ROS: All other systems were reviewed and are neg ative other than in the HPI. Active Problems: Active problems - Computerized Problem List is t he source for the followin. Atrial fibrillation 2. Hyperlipidemia 3. Age related macular degeneration 4. Hearing loss 5. Tinnitus 6. Tremor 7. Obstructive sleep apnea - Non-compliant with CPAP. 8. Erectile dysfunction 9. Heart failure with reduced ejection fraction 10. Ingrown toenail Allergies: Patient has answered NKA Medications: Active Outpatient Medications (incl uding Supplies): Active Outpatient Medications Status 1) ATORVASTATIN CALCIUM 20MG [...] ACTIVITY--MAXIMU M 4 DOSES FOR 30-DAY SUPPLY. MEDICATION RECONCILIATION: The medication list above was reviewed with the patient/surrogate and if changes are indicated they are listed ab ove. Vitals: Temperature: 96.4 F [35.8 C] (12/16/2021 10:03) Pulse: 57 (12/16/2021 10:03) Respirations: 16 (12/16/2021 10:03) Blood Pressure: 135/76 (12/16/2021 10:03) Pain: 0 (12/16/2021 10:03) RR: unlabored at rest O2 Sat:100% (12/16/2021 10:03) Weight: 154.7 lb [70.17 kg] (12/16/2021 10:03) PERTINENT EXAM: General: NAD, A/Ox3 HEENT: Atraumatic and normocephalic. NECK: Supple. Neck veins flat. LUNGS: clear throughout, normal expansion HEART: s1, s2, no murmur, rub or gallop ABDOMEN: Soft and nontender. EXTREMITIES: no edema, pulses present bilaterall y PSYCHOLOGICAL: Normal affect. LABS: GLUCOSE: 75 UREA NITROGEN: 14 CREATININE: 0.8 SODIUM: 137 POTASSIUM: 4.4 CHLORIDE: 106 CO2: 28 CALCIUM: 9.2 PROTEIN,TOTAL: 6.6 ALBUMIN: 3.9 BILIRUBIN,TOTAL: 0.8 MAGNESIUM: 2.3 ANION GAP: 3 L ALKALINE PHOSPHATASE(37C): 60 SGOT(37C): 28 SGPT(37C): 26 CREATININE EGFR (CKD-EPI): >90 B-TYPE NATRIURETIC PEPTIDE: 35 ------- Assessment/Plan: ------- # Heart failure: Currently stable without eviden ce of decompensation on exam. His blood pressure log today shows borderline hy potension will hold off on further medication titration at this time MRA not indicated with EF greater than 40. Plans for repeat echocardiogram next month a fter rhythm control. We will follow up in 2 months to determine next steps. 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 -- Instructed patient to monitor weight at home, advised to notify CHF clinic with weight gain of >3lbs overnight or >5 lbs in a week or increased signs/symptoms of fluid retention -- Reviewed signs/symptoms of worsening HF and i nstructed to notify clinic if any develop. Assessment and plan discussed with in fu ll detail with all questions answered. Total time spent with gloria leon including chart review/diagnostic and testing review, patient interview/examination, counselin g and documentation was @31 minutes. Thank you for allowing me to participate in the care of YOUSIF MANN. Please contact me with any q uestions or concerns. Liliana Mcnulty NP [facility] Failure [facility] // LILIANA MCNULTY APRN NURSE PRACTITIONER Signed: 12/16/2021 14:38 December 16, 2021 10:06 AM INTERNAL MEDICINE OUTPATIENT NOTE: Arabella STANLEY [facility] LOCAL TITLE: MEDICINE CLINIC NURSING NOTE STANDARD TITLE: INTERNAL MEDICINE OUTPATIENT NOT E DATE OF NOTE: DECEMBER 16, 2021@10:06 ENTRY DATE: DECEMBER 16, 2021@10:06:42 AUTHOR: MAGDA STANLEY EXP COSIGNER: URGENCY: STATUS: COMPLETED TYPE OF VISIT: Appointment Check In Type of appointment: In-person appointment REASON FOR VISIT: scheduled ALLERGIES: Patient has answered NKA VITAL SIGNS: Blood Pressure: 135/76 (12/16/2021 10:03) Pulse: 57 (12/16/2021 10:03) Respiration: 16 (12/16/2021 10:03) Temperature: 96.4 F [35.8 C] (12/16/2021 10:03) Weight: 154.7 lb [70.17 kg] (12/16/2021 10:03) Height: 68.898 in [175.0 cm] (12/16/2021 10:03) BMI: 23.0 O2 Sat: 100% (12/16/2021 10:03) Pain: 0 (12/16/2021 10:03) PAIN SCREEN: Patient is not having significant pain that the y wish to discuss with their provider today. MEDICATION Over the Counter/Herbal Medications: The patient denies taking any outside medicatio ns or herbals. Congestive Heart Failture (CHF) Clinic Does have a home scale? Yes Cal[place]'s weight this mornin lbs Does [place] weigh themselves every morning? Ye s Does have shortness of breath? No How many pillows are under the Calhan's head a t night? 1 Does sleep in a recliner? No Does [place] use a wedge while sleeping? No Does [place] wake up during the night due to sh ortness of breath? No Does [place] have a cough? No Does [place] ever notice fluid in their legs? No Does [place] have chest pain? No Does [place] experience lightheadedness/dizzine ss? No Does use a salt shaker at the table/whe n cooking? No Does [place] have Home Telehealth CHF monitorin g: No: Given Home Telehealth brochure to review an d discuss with provider /tanner/ MAGDA STANLEY LPN, LPN Signed: 12/16/2021 10:11
--- OUTSIDE RECORDS SUMMARY | 2022-07-24 21:30 | XMS_ITS | Encounter Summary ---
:1945 Author Organization [facility] Address [address] [place] [id number] Support Name Relationship Address Phone BANG MANN MEENAKSHI Unavailable [id number] [place] [address] BANG MANN MEENAKSHI Unavailable [id number] [place] [address] Insurance Providers: All historical and current Section [...] [place]anner [place] Aug 13, [id number] VENESS,BECERRA P ATIENT MCR (WNR) ADVANTAGE ARE 2020 5 [id number] [phone] ROLD ADVAN 1 MOUSTAPHA C [place] Aug 13, [id number] VENESS,BECERRA P ATIENT MCR (WNR) ADVANTAGE (WNR) 2020 7 [id number] [phone] ROLD 1 [place] Aug 13, [id number] [phone] VENESS ,BECERRA PATIENT MCR (WNR) ADVANTAGE (WNR) 2022 5 [id number] ROLD 1 MEDICARE MEDICARE PART Sep 13, PART B [id number] Jesusita CONKLIN (WNR) (M) B 2012 [id number] [phone] [facility] MEDICARE MEDICARE PART Mar 13, PART A [id number] 800 Jesusita CONKLIN (WNR) (M) A 2008 [id number] [phone] [facility] MEDICARE MEDICARE PART Mar 13, PART A 800 Jesusita CONKLIN (WNR) (M) A [phone] AROLD Selected Encounter This section includes the information on record at ME for the Encounter. Date/Time Encounter Type Encounter Reason Provider Source Description Nov 14, 2021 POLYSOM 6/> YRS SLEEP STUDY ICD-10-CM G47.33 FIOR SNELL 09:00 PM 4/> BRAULIO Obstructive sleep apnea (adult) (pediatric) with Provider Comments: Obstructive sleep apnea (adult) (pediatric) IHE Encounter Template Text not used by [facility] Assessments - Encounter Diagnoses This section includes the primary and secondary diagnoses documented for the Encounter. Date/Time Primary/Secondary Diagnosis Name Provider Source Diagnosis Nov 15, 2021 PRIMARY Obstructive sleep KHANH SNELL [facility] 10:28 AM apnea (adult) T HCS (pediatric) Nov 15, 2021 SECONDARY Other KHANH SNELL [facility] 10:28 AM abnormalities of T HCS breathing Plan of Treatment: Future Appointments (+ 6 months) and Future Tests (+/- 45 days) The Plan of Treatment section includes future care activities for the patient from all [facility] treatmentfacilities. This section includes future appointments and future orders which are active, pending orscheduled.Future Appointments This section includes appointments that were scheduled to occur 6 months from the date of the Encounter, up to a maximum of 20 appointments. The data comes from all [place] treatment facilities. Appointment Date/Time Appointment Type Appointment Facili ty Name Nov 28, 2021 03:30 PM AMBULATORY - MEDICINE [facility] Dec 06, 2021 10:00 AM AMBULATORY - MEDICINE [facility] December 16, 2021 09:00 AM AMBULATORY - REHAB MEDICINE [facility] December 16, 2021 09:45 AM AMBULATORY - MEDICINE [facility] December 16, 2021 10:30 AM AMBULATORY - MEDICINE [facility] December 23, 2021 12:15 PM AMBULATORY - NONE [facility] December 23, 2021 12:16 PM AMBULATORY - NONE [facility] December 26, 2021 01:30 PM AMBULATORY - MEDICINE [facility] January 02, 2022 05:00 PM AMBULATORY - REHAB MEDICINE [facility] January 10, 2022 08:30 AM AMBULATORY - MEDICINE [facility] Feb 02, 2022 10:00 AM AMBULATORY - PSYCHIATRY [facility] Feb 03, 2022 12:12 PM AMBULATORY - NONE [facility] Feb 09, 2022 10:00 AM AMBULATORY - PSYCHIATRY [facility] Feb 09, 2022 01:30 PM AMBULATORY - SURGERY [facility] Feb 16, 2022 10:00 AM AMBULATORY - PSYCHIATRY [facility] Feb 23, 2022 10:00 AM AMBULATORY - PSYCHIATRY [facility] Mar 02, 2022 10:00 AM AMBULATORY - PSYCHIATRY [facility] Mar 08, 2022 08:45 AM AMBULATORY - MEDICINE [facility] Mar 08, 2022 09:00 AM AMBULATORY - MEDICINE [facility] Mar 08, 2022 09:30 AM AMBULATORY - MEDICINE [facility] Lab Results: +/- 30 days of the encounter This section includes the Chemistry and Hematology Lab Results on record with ME for the patient. Radiology Reports and Pathology Reports are provided separately, in subsequent sections.Lab Results This section contains the Chemistry/Hematology Results that were resulted 30 days before or 30 daysafter the date of the Encounter. Date/Time Source Result Type Result - Unit Interpretation Reference Range Comment Nov 11, 2021 [facility] COVID-19 AND FLU/RSV DIAG Sp ecimen Type: NASOPHARYNGEAL 09:34 AM PANEL(CEPHEID) Comment: Cephei d GeneXpert (618) Ordering Provid er: JEREMIAH MAE Report Released Date/Time: Nov 08, 2021 02:19 PM Reporting Lab: [facility] [address] [facility] [address] Performing Lab: [facility] [address] [facility] [address] COVID-19 (CEPHEID) Not Detected Not Dete cted INFLUENZA A (PCR) Not Detected Not Detec heydi INFLUENZA B (PCR) Not Detected Not Detec heydi RSV (PCR) Not Detected Not Detected Nov 08, 2021 10:11 AM [facility] BNP Specim en Type: PLASMA No comment enter ed. Ordering Provid er: DRAKE MCNULTY Report Released Date/Time: Sep 05, 2021 10:57 AM Reporting Lab: [facility] [address] [facility] [address] Performing Lab: [facility] [address] [facility] [address] BNP 28 <99 Nov 08, 2021 10:11 AM [facility] CBC Specim en Type: BLOOD No comment enter ed. Ordering Provid er: DRAKE MCNULTY Report Released Date/Time: Sep 05, 2021 10:57 AM Reporting Lab: [facility] [address] Performing Lab: [facility] [id number] WBC 4.77 4.0-11.0 RBC 4.33 L 4.6-6.2 HGB 13.7 13.5-17.9 HCT 41.0 41-54 MCV 94.7 80-100 MCH 31.6 27-33 MCHC 33.4 32.0-37.5 PLT 128 L 150-400 MPV 9.4 7.4-10.4 RDW 13.0 11.5-14.5 Nov 08, 2021 [facility] COMPREHENSIVE Specimen Typ e: PLASMA 10:11 AM METABOLIC PANEL+MG No comment en tered. Ordering Provid er: DRAKE MCNULTY Report Released Date/Time: Sep 05, 2021 10:57 AM Reporting Lab: [facility] [address] Performing Lab: [facility] [address] CREATININE 0.8 0.7-1.2 UREA NITROGEN 20 8-26 GLUCOSE 85 74-100 SODIUM 136 136-145 POTASSIUM 4.0 3.5-5.1 CHLORIDE 105 98-107 CO2 28 22-29 CALCIUM 9.4 8.4-10.2 PROTEIN,TOTAL 6.7 6.0-8.3 ALBUMIN 4.0 3.5-5.2 BILIRUBIN, TOTAL 0.9 0.2-1.2 MAGNESIUM 2.0 1.6-2.6 ANION GAP 3 L 5-15 ALKALINE PHOSPHATASE 68 40-150 ALT/SGPT 27 <55 AST/SGOT 25 <34 CREAT EGFR(CKD-EPI) >90 >60 Nov 04, 2021 08:59 [facility] BASIC METABOLIC Specimen Type: PLASMA AM PANEL+MG No comment enter ed. Ordering Provid er: ANNMARIE WALKER Report Released Date/Time: Jul 15, 2021 08:27 AM Reporting Lab: [facility] [address] Performing Lab: [facility] [address] CREATININE 0.8 0.7-1.2 UREA NITROGEN 15 8-26 [...] smoking and tobacco-related health factors from the ME facility where the Encounter took place.Current Smoking Status This section includes the most current smoking, or tobacco-related health factor, from the ME facility where the Encounter took place. Date/Time Current Smoking Status Comment Facility Apr 04, 2021 10:00 AM ME-TOBACCO NEVER USED [facility] Encounter Notes: All associated encounter notes This section contains the clinical notes associated to the Encounter. Date/Time Encounter Note(s) Provider Source Nov 15, 2021 12:33 PM PULMONARY PROCEDURE NOTE: [facility] LOCAL TITLE: CP SLEEP STUDY PROCEDURE STANDARD TITLE: PULMONARY PROCEDURE NOTE DATE OF NOTE: NOV 15, 2021@12:33:21 ENTRY DATE: NOV 15, 2021@12:33:21 AUTHOR: CLINICAL,DEVICE PRO EXP COSIGNER: URGENCY: STATUS: COMPLETED PROCEDURE SUMMARY CODE: Machine Resulted DATE/TIME PERFORMED: NOV 14, 2021@22:59:2 DOCUMENT IN VISTA IMAGING SEE FULL REPORT IN VISTA IMAGING SIGNATURE NOT REQUIRED SEE SIGNATURE IN VISTA IMAGING ([employer] PSG Bi) AUTO-INSTRUMENT DIAGNOS IS Procedure: PSG POLYSOMNOGRAM REPORT (DIAGNOSTIC STUDY) Date of Study: 11/14/2021 23:04:55 Requesting Provider: JEREMIAH MAE, Interpreting Physician: RICHARD SNELL MD, Rhoda Mae MD Scoring Technologist: Eric Veloz, ------CLINICAL PRESENTATION------ The [age] year [age] male with a BMI o f 23.6, and Ogema Sleepiness Scale value of 6 who presents with th e following indications for PSG: Sleep-related disordered breathing. ------ASSESSMENT------ - This is a diagnostic study. - Sleep architecture is significant for decrease d sleep efficiency and increased wake after onset of sleep. Elevated pe riodic limb movements were observed that did not correlated with arousals. - Mild sleep apnea predominently seen during pat kavon's supine sleep in later half of the study with AHI of 8.29 with dense pr evalence of central and transitional centrals associated with arousals a nd sleep stage cycling between N1 and N2 seen in to 802 along with sleep fragmentation and duration of these events is suggestive of period ic breathing/Alex-Oconnell. Clinical correlation is advised. - Sleep-related hypoxemia and/or hypoventilation was not present. ------RECOMMENDATIONS------ - Recommend nightly use of positional therapy to control sleep-related breathing disorder for the entire duration of sl eep - clinical significance and correlation is indic ated - Suggest optimizing sleep hygiene, avoiding sle ep deprivation, and advise against drowsy driving/hazardous situations. - The results of the sleep study will be discuss ed with the patient. Follow-up in Sleep Clinic will be recommended to assess response to therapy. ------POLYSOMNOGRAPHIC DATA------ Full-night diagnostic study with standard montag e. ------SLEEP ARCHITECTURE------ - The total sleep time was 354 minutes . Sleep l atency was 20 minutes . REM latency was 37 minutes . There were 122 arousals with an arousal index of 17.6. Sleep efficiency was 83.2%. Wake after sle ep onset was 51 minutes. The patient spent 10.0% of total sleep time in Stage N1, 63.0% in Stage N2, 8.5% in Stage N3, and 18.3% in REM. ------CARDIORESPIRATORY PARAMETERS------ - Average SpO2 during sleep was 96.0% on room ai r, and SpO2 ole was 88.0% during sleep on room air. - Events: Apnea/Hypopnea index was 8.3. With res piratory effort related arousals (RERAs) added, the total respiratory di sturbance index (RDI) was 8.3. The obstructive apnea/hypopnea index was 1. 9, central apnea/hypopnea index was 6.4, and the mixed apnea/hypopnea inde x was 0.0. - Sustained sleep associated hypoventilation was not assessed with transcutaneous CO2 monitoring during this PSG. - Cardiac Summary: The heart rate ranged from 57 to 94 with the following dysrhythmias noted 0.0. ------MOVEMENT ACTIVITY------ - Limb activity: There were 452 limb movements r ecorded. The PLM index was76.5 per hour, and the PLM arousal index was 5.8. - Behavior: None was observed. Stage REM sleep w as expressed with normal muscle atonia. - Bruxism: None was observed. ------SLEEP ARCHITECTURE------ Start Time: 11/14/2021 22:59:25 End Time: 11/15/2021 06:10:59 Total Recording Time 426 minutes Sleep Efficiency 83.22% Initial sleep latency 20 minutes Initial REM latency 37 minutes Wake after sleep onset 51 minutes % TST Stage N1 35 minutes 10.0% Stage N2 223 minutes 63.0% Stage N3 30 minutes 8.5% Stage REM 65 minutes 18.3% Supine Sleep 96 minutes 27.2% Total Sleep Time (TST) 354 minutes ------DISORDERED BREATHING PROFILE------ NREM REM TST Obstructive Events Index 1.5 3.7 1.86 Apnea Index 0.6 0.0 0.51 Hypopnea Index 0.8 3.7 1.35 Central Events Index 7.9 0.0 6.43 Apnea Index 7.9 0.0 6.43 Hypopnea Index 0.0 0.0 0.00 Mixed Events Index 0.0 0.0 0.00 Apnea Index 0.0 0.0 0.00 Hypopnea Index 0.0 0.0 0.00 Overall Apnea/Hypopnea Index 9.33 3.69 8.29 RERA 0.0 0.0 0.0 Respiratory Disturbance Index 9.3 3.7 8.3 -----POSITION PROFILE------ Supine Left Right Prone AHI 24.9 0.0 2.2 0.0 RDI 24.9 0.0 2.2 0.0 ------AROUSAL PROFILE------ Arousal Index (#/hr) Movement Related (%) Breath ing Related (%) 17.6 0.3 0.4 NREM Index 19.1 REM Index 11.1 ------PERIODIC LIMB MOVEMENT PROFILE------ PLM Index 76.5 PLM Arousal Index 5.8 ------OXYGEN SATURATION------ Awake Baseline 96.0% Sleep Baseline 96.0% NREM Ole 88.0% REM Ole 92.0% Overall Ole 88.0% > 90% 81 ?? 90% 71 ?? 80% 61 ?? 70% < 61% %TST 99.6% 0.4% 0.0% 0.0% 0.0% Time Spent < 88% 0.0% 0.1 Minutes ------HEART RATE------ Max HR (Wake) 100bpm Max HR (TST) 94bpm Mean HR (TST) 69bpm -----TCM OF CO2 WAS NOT UTILIZED DURING THIS PSG ----- 0.0 TECHNOLOGIST COMMENTS: Patient was scheduled for a split night study. He did not qualify for PAP therapy. He has an AHI of 1. 8 lateral obstructive in nature and transitional centrals when asked to g o supine. All stages of sleep are seen with increased WASO. Patient slept on h is right side and slept supine when asked. No sleep aide was taken. Covi d screening was conducted and patient denies any related symptoms. Juan Pablo piña reviewed chart and a covid negative test was posted. Monitored: Frontal, central and occipital EEG, E OG, submentalis EMG, oronasal thermocouple, nasal pressure, ECG, thoracic and abdominal inductance plethysmography, right and left anterior tibiali s EMG, snore sensor, plethysmography, pulse oximetry, and audio and v ideo recording. An epoch by epoch review of the entire study was performed sara nelson a board-certified/board-eligible sleep physician francisco grossman signature appears below the interpretation.Scoring: The AASM Manual for the Scoring of Sleep and Associated Events: Rules, Terminology and Techni gertrude Specifications v 2.4.0 2017. The AHI in this report uses a hypopnea def inition of 4% SpO2 desaturation. The AHI is consistent with the tom murrietat hypopnea definition according to AASM criteria Report Digitally Signed By: RICHARD SNELL MD (11/15/2021 12:29:42 PM) [INVALI D SIGNATURE] RICHARD SNELL MD (11/15/2021 12:33:13 PM) Administrative Closure: 11/15/2021 by: CLINICAL,DEVICE PROXY SERVICE Nov 15, 2021 12:29 PM PULMONARY PROCEDURE NOTE: [facility] LOCAL TITLE: CP SLEEP STUDY PROCEDURE STANDARD TITLE: PULMONARY PROCEDURE NOTE DATE OF NOTE: NOV 15, 2021@12:29:49 ENTRY DATE: NOV 15, 2021@12:29:49 AUTHOR: CLINICAL,DEVICE PRO EXP COSIGNER: URGENCY: STATUS: COMPLETED PROCEDURE SUMMARY CODE: Machine Resulted DATE/TIME PERFORMED: NOV 14, 2021@22:59:2 DOCUMENT IN VISTA IMAGING SEE FULL REPORT IN VISTA IMAGING SIGNATURE NOT REQUIRED SEE SIGNATURE IN VISTA IMAGING ([employer] PSG Bi) AUTO-INSTRUMENT DIAGNOS IS Procedure: PSG POLYSOMNOGRAM REPORT (DIAGNOSTIC STUDY) Date of Study: 11/14/2021 23:04:55 Requesting Provider: JEREMIAH MAE, Interpreting Physician: RICHARD SNELL MD, Rhoda Mae MD Scoring Technologist: Eric Veloz, ------CLINICAL PRESENTATION------ The patient is a 76.6 year old male with a BMI o f 23.6, and Ogema Sleepiness Scale value of 6 who presents with th e following indications for PSG: Sleep-related disordered breathing. ------ASSESSMENT------ - This is a diagnostic study. - Sleep architecture is significant for decrease d sleep efficiency and increased wake after onset of sleep. Elevated pe riodic limb movements were observed that did not correlated with arousals. - Mild sleep apnea predominently seen during pat ient's supine sleep in later half of the study with AHI of 8.29 with dense pr evalence of central and transitional centrals associated with arousals a nd sleep stage cycling between N1 and N2 seen in [id number] to 802 along with sleep fragmentation - Sleep-related hypoxemia and/or hypoventilation was not present. ------RECOMMENDATIONS------ - Recommend nightly use of positional therapy to control sleep-related breathing disorder for the entire duration of sl eep - clinical significance and correlation is indic ated - Suggest optimizing sleep hygiene, avoiding sle ep deprivation, and advise against drowsy driving/hazardous situations. - The results of the sleep study will be discuss ed with the patient. Follow-up in Sleep Clinic will be recommended to assess response to therapy. ------POLYSOMNOGRAPHIC DATA------ Full-night diagnostic study with standard montag e. ------SLEEP ARCHITECTURE------ - The total sleep time was 354 minutes . Sleep l atency was 20 minutes . REM latency was 37 minutes . There were 122 arousals with an arousal index of 17.6. Sleep efficiency was 83.2%. Wake after sle ep onset was 51 minutes. The patient spent 10.0% of total sleep time in Stage N1, 63.0% in Stage N2, 8.5% in Stage N3, and 18.3% in REM. ------CARDIORESPIRATORY PARAMETERS------ - Average SpO2 during sleep was 96.0% on room ai r, and SpO2 ole was 88.0% during sleep on room air. - Events: Apnea/Hypopnea index was 8.3. With res piratory effort related arousals (RERAs) added, the total respiratory di sturbance index (RDI) was 8.3. The obstructive apnea/hypopnea index was 1. 9, central apnea/hypopnea index was 6.4, and the mixed apnea/hypopnea inde x was 0.0. - Sustained sleep associated hypoventilation was not assessed with transcutaneous CO2 monitoring during this PSG. - Cardiac Summary: The heart rate ranged from 57 to 94 with the following dysrhythmias noted 0.0. ------MOVEMENT ACTIVITY------ - Limb activity: There were 452 limb movements r ecorded. The PLM index was76.5 per hour, and the PLM arousal index was 5.8. - Behavior: None was observed. Stage REM sleep w as expressed with normal muscle atonia. - Bruxism: None was observed. ------SLEEP ARCHITECTURE------ Start Time: 11/14/2021 22:59:25 End Time: 11/15/2021 06:10:59 Total Recording Time 426 minutes Sleep Efficiency 83.22% Initial sleep latency 20 minutes Initial REM latency 37 minutes Wake after sleep onset 51 minutes % TST Stage N1 35 minutes 10.0% Stage N2 223 minutes 63.0% Stage N3 30 minutes 8.5% Stage REM 65 minutes 18.3% Supine Sleep 96 minutes 27.2% Total Sleep Time (TST) 354 minutes ------DISORDERED BREATHING PROFILE------ NREM REM TST Obstructive Events Index 1.5 3.7 1.86 Apnea Index 0.6 0.0 0.51 Hypopnea Index 0.8 3.7 1.35 Central Events Index 7.9 0.0 6.43 Apnea Index 7.9 0.0 6.43 Hypopnea Index 0.0 0.0 0.00 Mixed Events Index 0.0 0.0 0.00 Apnea Index 0.0 0.0 0.00 Hypopnea Index 0.0 0.0 0.00 Overall Apnea/Hypopnea Index 9.33 3.69 8.29 RERA 0.0 0.0 0.0 Respiratory Disturbance Index 9.3 3.7 8.3 -----POSITION PROFILE------ Supine Left Right Prone AHI 24.9 0.0 2.2 0.0 RDI 24.9 0.0 2.2 0.0 ------AROUSAL PROFILE------ Arousal Index (#/hr) Movement Related (%) Breath ing Related (%) 17.6 0.3 0.4 NREM Index 19.1 REM Index 11.1 ------PERIODIC LIMB MOVEMENT PROFILE------ PLM Index 76.5 PLM Arousal Index 5.8 ------OXYGEN SATURATION------ Awake Baseline 96.0% Sleep Baseline 96.0% NREM Ole 88.0% REM Ole 92.0% Overall Ole 88.0% > 90% 81 ?? 90% 71 ?? 80% 61 ?? 70% < 61% %TST 99.6% 0.4% 0.0% 0.0% 0.0% Time Spent < 88% 0.0% 0.1 Minutes ------HEART RATE------ Max HR (Wake) 100bpm Max HR (TST) 94bpm Mean HR (TST) 69bpm -----TCM OF CO2 WAS NOT UTILIZED DURING THIS PSG ----- 0.0 TECHNOLOGIST COMMENTS: Patient was scheduled for a split night study. He did not qualify for PAP therapy. He has an AHI of 1. 8 lateral obstructive in nature and transitional centrals when asked to g o supine. All stages of sleep are seen with increased WASO. Patient slept on h is right side and slept supine when asked. No sleep aide was taken. Covi d screening was conducted and patient denies any related symptoms. Eric and Rosalinda piña reviewed chart and a covid negative test was posted. Monitored: Frontal, central and occipital EEG, E OG, submentalis EMG, oronasal thermocouple, nasal pressure, ECG, thoracic and abdominal inductance plethysmography, right and left anterior tibiali s EMG, snore sensor, plethysmography, pulse oximetry, and audio and v ideo recording. An epoch by epoch review of the entire study was performed b leslie a board-certified/board-eligible sleep physician francisco grossman signature appears below the interpretation.Scoring: The AASM Manual for the Scoring of Sleep and Associated Events: Rules, Terminology and Techni gertrude Specifications v 2.4.0 2017. The AHI in this report uses a hypopnea def inition of 4% SpO2 desaturation. The AHI is consistent with the tom murrietat hypopnea definition according to AASM criteria Report Digitally Signed By: RICHARD SNELL MD (11/15/2021 12:29:42 PM) Administrative Closure: 11/15/2021 by: CLINICAL,DEVICE PROXY SERVICE Nov 15, 2021 07:16 AM SLEEP MEDICINE NOTE: [facility]IC [facility]EL[facility] LOCAL TITLE: SLEEP PSG HANDOFF STANDARD TITLE: SLEEP MEDICINE NOTE DATE OF NOTE: NOV 15, 2021@07:16 ENTRY DATE: NOV 15, 2021@07:16:57 AUTHOR: ERIC VELOZ EXP COSIGNER: URGENCY: STATUS: COMPLETED SLEEP PSG HANDOFF Has ADDENDA Sleep Lab to CPAP Clinic Polysomnography (PSG) H and-Off -Diagnostic Apnea-Hypopnea Index (AHI) 8.29 -Chief complaint/indication for PSG A-fib, heart failure, nonadherant to CPAP in past. Patient did not qualify for treatment. Comments: Split night study. He did not qualify for therapy. AHI lateral with obstructive events 1.8 N1, N2, N3 and REM were seen. Increased WASO SPO2 ole: 88%, average 96% Slept right lateral and supine when asked. Sayra marti does not sleep supine. No sleep aide was taken. Covid prescreening was condu cted and patient denies any covid related symptoms. Covid test was noted in [facility] as negative prior to admitting, this was verified by Beverly. /tanner/ ERIC VELOZ CUSHION BUILDER Signed: 11/15/2021 07:20 Receipt Acknowledged By: 11/15/2021 14:10 /tanner/ MAGGIE SAWYER RN REGISTERED NURSE 11/15/2021 10:26 /tanner/ RICHARD SNELL MD Staff: Pulmonary, Critical Care & Sleep Medicin e 11/15/2021 12:29 /tanner/ JEREMIAH MAE MD SLEEP MEDICINE FELLOW 11/16/2021 13:57 /tanner/ RASHID HIGHTOWER RRT REGISTERED RESPIRATORY THERAPIST 11/15/2021 ADDENDUM STATUS: COMPLETED Reviewed PSG. Mild sleep apnea predominently seen during patie nt's supine sleep in later half of the study with AHI of 8.29 with dense pr evalence of central and transitional centrals associated with arousals a nd sleep stage cycling between N1 and N2 seen in [id number] to 802 along with sleep fragmentation and duration of these events is suggestive of period ic breathing/Alex-Oconnell. Clinical correlation is advised. Recommend the following plan: - Positional therapy Formal polysomnography repor t will follow in the EMR. Please refer to the formal PSG report for details. Sleep CM will call discuss results with patient /tanner/ JEREMIAH MAE MD SLEEP MEDICINE FELLOW Signed: 11/15/2021 12:37 Receipt Acknowledged By: 11/17/2021 14:58 /tanner/ MAGGIE SAWYER RN REGISTERED NURSE 11/15/2021 14:03 /tanner/ RICHARD SNELL MD Staff: Pulmonary, Critical Care & Sleep Medicin e 11/17/2021 ADDENDUM STATUS: COMPLETED Attempted to call patient with PSG resul ts. Left message requesting call back. /ken SAWYER RN REGISTERED NURSE Signed: 11/17/2021 14:59
--- OUTSIDE RECORDS SUMMARY | 2022-07-24 21:30 | XMS_ITS | Encounter Summary ---
:1945 Author Organization [facility] Address [address] [place] [address] Support Name Relationship Address Phone BANG MANN MEENAKSHI Unavailable [id number] [facility] [place] [address] BANG MANN MEENAKSHI Unavailable [id number] [facility] [phone] [place] [address] Insurance Providers: All historical and current Section [...] [place]anner [place] MEDIC Aug 13, [id number] VENESS,BECERRA P ATIENT [facility] (WNR) ADVANTAGE ARE 2020 5 [id number] [phone] ROLD ADVAN 1 [place] C [place] MEDICARE MCR Aug 13, [id number] VENESS,BECERRA P ATIENT [facility] (WNR) ADVANTAGE (WNR) 2020 7 [id number] [phone] [place] 1 [place] Aug 13, [id number] [phone] VENESS ,BECERRA PATIENT [facility] (WNR) ADVANTAGE (WNR) 2022 5 [id number] ROLD 1 MEDICARE MEDICARE PART Sep 13, PART B [id number] Jesusita CONKLIN (WNR) (M) B 2012 [id number] [phone] [facility] MEDICARE MEDICARE PART Mar 13, PART A 800 Jesusita CONKLIN (WNR) (M) A [phone] [facility] MEDICARE MEDICARE PART Mar 13, PART A [id number] Jesusita CONKLIN (WNR) (Mandi Tellez 2008 [id number] [phone] [facility] Selected Encounter This section includes the information on record at [place] for the Encounter. Date/Time Encounter Type Encounter Reason Provider Source Description Nov 04, 2021 IMG RTA OPHTHALMOLOGY ICD-10-CM Z01.01 LUCI WHITING V 11:00 AM DETC/MNTR DS Encounter for PHY/QHP exam of eyes and vision w abnormal findings with Provider Comments: Encounter for Examination of Eyes and Vision with Abnormal Findings IHE Encounter Template Text not used by [facility] Assessments - Encounter Diagnoses This section includes the primary and secondary diagnoses documented for the Encounter. Date/Time Primary/Secondary Diagnosis Name Provider Source Diagnosis Nov 04, 2021 PRIMARY Encounter for LUCI WHITING V [facility] 11:00 AM exam of eyes and vision w abnormal findings Plan of Treatment: Future Appointments (+ 6 months) and Future Tests (+/- 45 days) The Plan of Treatment section includes future care activities for the patient from all [place] treatmentfacilities. This section includes future appointments and future orders which are active, pending orscheduled.Future Appointments This section includes appointments that were scheduled to occur 6 months from the date of the Encounter, up to a maximum of 20 appointments. The data comes from all [place] treatment facilities. Appointment Date/Time Appointment Type Appointment Facili ty Name Nov 08, 2021 09:00 AM AMBULATORY - MEDICINE [facility] Nov 08, 2021 11:00 AM AMBULATORY - MEDICINE [facility] Nov 08, 2021 12:00 PM AMBULATORY - MEDICINE [facility] Nov 08, 2021 01:00 PM AMBULATORY - MEDICINE [facility] Nov 11, 2021 08:30 AM AMBULATORY - SURGERY [facility] Nov 11, 2021 10:01 AM AMBULATORY - NEUROLOGY [facility] Nov 14, 2021 09:00 PM AMBULATORY - MEDICINE [facility] Nov 28, 2021 03:30 PM AMBULATORY - MEDICINE [facility] Dec 06, 2021 10:00 AM AMBULATORY - MEDICINE [facility] December 16, 2021 09:00 AM AMBULATORY - REHAB MEDICINE [facility] December 16, 2021 09:45 AM AMBULATORY - MEDICINE [facility] December 16, 2021 10:30 AM AMBULATORY - MEDICINE [facility] December 23, 2021 12:15 PM AMBULATORY - NONE [facility] December 23, 2021 12:16 PM AMBULATORY - NONE [facility] December 26, 2021 01:30 PM AMBULATORY - MEDICINE [facility] January 02, 2022 05:00 PM AMBULATORY - RE[facility] January 10, 2022 08:30 AM AMBULATORY - MEDICINE [facility] Feb 02, 2022 10:00 AM AMBULATORY - PSYCHIATRY [facility] Feb 03, 2022 12:12 PM AMBULATORY - NONE [facility] Feb 09, 2022 10:00 AM AMBULATORY - PSYCHIATRY [facility] Lab Results: +/- 30 days of the encounter This section includes the Chemistry and Hematology Lab Results on record with [place] for the patient. Radiology Reports and Pathology Reports are provided separately, in subsequent sections.Lab Results This section contains the Chemistry/Hematology Results that were resulted 30 days before or 30 daysafter the date of the Encounter. Date/Time Source Result Type Result - Unit Interpretation Reference Range Comment Nov 11, 2021 [facility] COVID-19 AND FLU/RSV DIAG Sp ecimen Type: NASOPHARYNGEAL 09:34 AM PANEL(CEPHEID) Comment: Cepbrooklyni d GeneXpert (618) Ordering Provid er: JEREMIAH ACKERMAN Report Released Date/Time: Nov 08, 2021 02:19 PM Reporting Lab: [facility] [address] [facility] [address] Performing Lab: [facility] [address] [facility] [address] COVID-19 (CEPHEID) Not Detected Not Dete cted INFLUENZA A (PCR) Not Detected Not Detec heydi INFLUENZA B (PCR) Not Detected Not Detec heydi RSV (PCR) Not Detected Not Detected Nov 08, 2021 10:11 AM [facility] BNP Specim en Type: PLASMA No comment enter ed. Ordering Provid er: DRAKE MCNULTY Report Released Date/Time: Sep 05, 2021 10:57 AM Reporting Lab: [facility] [address] [facility] [address] Performing Lab: [facility] [address] [facility] [address] BNP 28 <99 Nov 08, 2021 [facility] COMPREHENSIVE Specimen Typ e: PLASMA 10:11 AM METABOLIC PANEL+MG No comment en tered. Ordering Provid er: DRAKE MCNULTY Report Released Date/Time: Sep 05, 2021 10:57 AM Reporting Lab: [facility] [address] [facility] [address] Performing Lab: [facility] [address] CREATININE 0.8 0.7-1.2 UREA NITROGEN 20 8-26 GLUCOSE 85 74-100 SODIUM 136 136-145 POTASSIUM 4.0 3.5-5.1 CHLORIDE 105 98-107 CO2 28 22-29 CALCIUM 9.4 8.4-10.2 PROTEIN,TOTAL 6.7 6.0-8.3 ALBUMIN 4.0 3.5-5.2 BILIRUBIN, TOTAL 0.9 0.2-1.2 MAGNESIUM 2.0 1.6-2.6 ANION GAP 3 L 5-15 ALKALINE PHOSPHATASE 68 40-150 ALT/SGPT 27 <55 AST/SGOT 25 <34 CREAT EGFR(CKD-EPI) >90 >60 Nov 08, 2021 10:11 AM [facility] CBC Specim en Type: BLOOD No comment enter ed. Ordering Provid er: DRAKE MCNULTY Report Released Date/Time: Sep 05, 2021 10:57 AM Reporting Lab: [facility] [address] Performing Lab: [facility] [address] WBC 4.77 4.0-11.0 RBC 4.33 L 4.6-6.2 HGB 13.7 13.5-17.9 HCT 41.0 41-54 MCV 94.7 80-100 MCH 31.6 27-33 MCHC 33.4 32.0-37.5 PLT 128 L 150-400 MPV 9.4 7.4-10.4 RDW 13.0 11.5-14.5 Nov 04, 2021 08:59 [facility] BASIC METABOLIC Specimen Type: PLASMA AM PANEL+MG No comment enter ed. Ordering Provid er: ANNMARIE WALKER Report Released Date/Time: Jul 15, 2021 08:27 AM Reporting Lab: [facility] [address] Performing Lab: [facility] [address] CREATININE 0.8 0.7-1.2 UREA NITROGEN 15 8-26 GLUCOSE 69 L 74-100 SODIUM 141 136-145 POTASSIUM 4.0 3.5-5.1 CHLORIDE 106 98-107 CO2 29 22-29 CALCIUM 9.1 8.4-10.2 MAGNESIUM 2.0 1.6-2.6 ANION GAP 6 5-15 CREAT EGFR(CKD-EPI) >90 >60 Vital Signs: All taken on the encounter date This section contains inpatient and outpatient Vital Signs collected on the date of the Encounter. Date/Time Temperature Pulse Blood Respiratory SP02 Pain Height Weight Dionisio dy Source Pressure Rate Mass Index Nov 04, 98.6 F 61 100/61 16 /min 99 % 0 156.7 24 [place] 2021 09:51 /min mm[Hg] lb [facility] Social History: Smoking Status (Most current) and Tobacco Use (All prior to encounter date) This section includes the most current, and the historical, smoking and tobacco-related health factors from the [place] facility where the Encounter took place.Current Smoking Status This section includes the most current smoking, or tobacco-related health factor, from the [place] facility where the Encounter took place. Date/Time Current Smoking Status Comment Facility Apr 04, 2021 10:00 AM [place]-TOBACCO NEVER USED [facility] Encounter Notes: All associated encounter notes This section contains the clinical notes associated to the Encounter. Date/Time Encounter Note(s) Provider Source Nov 04, 2021 01:01 PM LETTERS: KARLENE DOUGHERTY ELISA IS [facility] LOCAL TITLE: EYE TECS LETTERS STANDARD TITLE: LETTERS DATE OF NOTE: NOV 04, 2021@13:01 ENTRY DATE: NOV 04, 2021@13:01:23 AUTHOR: KARLENE DOUGHERTY EXP COSIGNER: URGENCY: STATUS: COMPLETED Oct YOUSIF MANN [address], [place] [address] Dear [place], Thank you for your recent visit to the Technolog y-Based Eye Care Services (TECS) Program visit at your local [facility] facility. The main goal of the TECS program is to screen for visually si gnificant eye conditions. Based on the review of your eye informat ion and the photos that were taken, we recommend an in-person follow-up evaluation by a n eye care provider. (Please see TECS exam note for this visit for full exam details. You can access this on My Pcssoet at [email or web address] if you w daleld like). You will receive a phone call from one of our [facility] members to schedule a follow-up evaluation. However, if you have not b een contacted within 30 days, please contact the clinic to schedule this follo w-up evaluation. If you notice any sudden changes in your vision, please contact the eye clinic immediately for earlier or urgent referral or go to the Emergency Department for urgent evaluation. If you have been seen by a non-VA eye ca re provider, please bring your records to your next [facility] appointment. Please try to keep your foll ow-up VA eye appointment or notify us if you cannot attend so other Veterans can receive access to e care services. Please contact [facility] [place]: [phone] if you have questions or require changes to your appointment date. We appreciate the opportunity to serve you. Nov 04, 2021 10:44 AM [facility]YE TECS ASSOCIATE PROFESSOR OF GEOLOGY CONSULT STANDARD TITLE: TELEHEALTH CONSULT DATE OF NOTE: NOV 04, 2021@10:44 ENTRY DATE: NOV 04, 2021@10:45:06 AUTHOR: LUCI WHITING V EXP COSIGNER: URGENCY: STATUS: COMPLETED EYE TECS ASSOCIATE PROFESSOR OF GEOLOGY CONSULT Has ADDENDA Technology-based Eye Care Services (TECS) Techni antonia Note PATIENT DEMOGRAPHICS: Patient Name: YOUSIF MANN SSN: [id number] Age: 76 TECH-UP AND VISION Chief Complaint: Patient presents for a routine eye exam, pt reports mild FB sensation OS since last eye exam ~ February 2021 an d mild decreased vision OU. History of Present Illness: Date of last eye exam: Less than 1 year ago Location of last eye exam: Outside of [place] System TECS HISTORY AND REVIEW OF SYSTEMS Decrease in vision Gradual- OU for 2 Years or more DIABETES Last A1c: No data available for: HEMOGLOBIN A1C TP HEMOGLOBIN A1C [place] HGB A1C POC HGB A1C The patient does NOT have diabetes EYE DISEASE HISTORY Cataracts - OU Macular Degeneration - DRY - OU PROCEDURE HISTORY Cataract Surgery with IOL - OU TRAUMA HISTORY No history of ocular trauma FAMILY HISTORY No family history of glaucoma, macular degenera tion, or blindness. MEDICATION HISTORY Active Outpatient Medications (including Supplie s): Active Outpatient Medications Status 1) ATORVASTATIN CALCIUM 20MG TAB TAKE ONE TABLET BY ACTIVE MOUTH AT BEDTIME FOR CHOLESTEROL 2) CARVEDILOL 3.125MG TAB TAKE ONE TABLET BY OMER TH TWO ACTIVE TIMES A DAY WITH FOOD. FOR HEART. 3) DOFETILIDE 500MCG CAP TAKE ONE CAPSULE BY OMER TH TWO ACTIVE TIMES A DAY TO KEEP A NORMAL HEART BEAT 4) FUROSEMIDE 20MG TAB TAKE ONE TABLET BY MOUTH DAILY ACTIVE FOR HEART FAILURE. 5) LISINOPRIL 5MG TAB TAKE ONE TABLET BY MOUTH T WO TIMES ACTIVE A DAY FOR HEART FAILURE. 6) RIVAROXABAN 20MG TAB TAKE ONE TABLET BY MOUTH EVERY ACTIVE DAY WITH THE LARGEST MEAL OF THE DAY TO PREVENT BLOOD CLOTS & STROKE 7) SILDENAFIL CITRATE 100MG TAB TAKE ONE-HALF TA BLET BY ACTIVE MOUTH EVERY DAY NEEDED FOR ERECTIONS - TAKE 1 HOUR BEFORE ANTICIPATED SEXUAL ACTIVITY--MAXIMU M 4 DOSES FOR 30-DAY SUPPLY. EYE MEDICATION(S): AREDS Vitamins - OU SOCIAL HISTORY No history of tobacco use Never REFRACTION AND VISION Wearing Rx (WRx): OD: -2.75 +2.25 x007 ADD: +2.50 OS: -2.50 +2.00 x170 ADD: +2.50 WRx VA: OD: 20/30+2 OS: 20/20-2 Auto Refraction (ARx): OD: -3.00 +3.00 x002 OS: -2.75 +2.50 x166 K Readings: K1 OD 40.50 @96 K2 OD 42.25 @006 K1 OS 40.50 @80 K2 OS 42.25 @170 Manifest Refraction (MRx): OD: -2.50 +2.75 x005 ADD: +2.50 OS: -2.50 +2.25 x165 ADD: +2.50 Final MRx VA: OD: 20/20 OS: 20/20 Final MRx: OD: -2.50 +2.75 x005 ADD: +2.50 OS: -2.50 +2.25 x165 ADD: +2.50 Pachymetry Past Results: No data available Intraocular Pressure (IOP) Method: Date/Time: Oct@10:59 Rebound Tonometer OD: 15 OS: 15 PUPILS/ANTERIOR CHAMBER (AC) Penlight or slit lamp (if available) exam unrem arkable Pupils are equal, round, and reactive to light No afferent defect Pupils are dilated Dilation and driving precautions reviewed with patient and patient expresses understanding. Medication: 1% Tropicamide, 2.5% Phenylephrine, 0.5% Propar acaine Which Eye? OU Data Management Comment: CVF: Full OU, oblique flashlight test : Open an gles OU Cataract surgery evaluation is not applicable fo r this patient The patient desires community care if needed Per , okay to leave message regarding res ults and plan of care. Telephone number and address verified. Yes /es/ LUCI Jarad WHITING SHUTTLER Signed: 11/04/2021 11:00 11/04/2021 ADDENDUM STATUS: COMPLETED Are pupils adequately dilated? Yes PHOTOGRAPHS Fundus photographs taken? Yes Are photos adequate for interpretation? Yes NERVE INTERPRETATION Cup-to-Disc ratio: OD: 0.3 OS: 0.2 Optic nerves appear unremarkable bilaterally. MACULA INTERPRETATION Findings: Macula shows drusen. OU greater than 15 soft drusen with some confluenc e OD; confluent soft drusen OS RETINA INTERPRETATION Retina appears to be unremarkable bilaterally. VESSELS INTERPRETATION Findings: Other vessels pathology: mild arteriolar attenuation OU EXTERNAL PHOTOGRAPH INTERPRETATION Yes Findings: External photo shows intraocular lens. OU OCT OCT done? Yes OCT Macula Abnormal: Drusen OU no fluid/CNVM PHYSICIAN ASSESSMENT/PLAN Intraocular Pressure(past entry): No data available TECS Exam Shows: Patient evaluated in Technology-based Eye Care Services (TECS). This assessment is based on an extensive history, di agnostic technology, and imaging. The TECS exam does not replace a face- to-face exam. Greater than 5 minutes but less than 30 minutes of time spent in care of this patient. Previous images and studies reviewed. Cataract: Presence of Intraocular Lens-Pseudophakia. OU Diabetes: No history of diabetes. Macular Degeneration: Intermediate OU - pt is on AREDS formula without zinc per pr ior recommendation. Recommend monocular home Amsler grid monitoring , no smoking, balanced diet, Optimal BP control, UV protection. f/u 6 months with mOCT Refractive error: A spectacle prescription was dispensed. Other (Physician Assess/Plan): foreign body sensation OS - no trichiasis or ap parent pathology on photos, trial ATs QID - will order today Follow Up: Follow up in TECS for 6 months v/t/d OCT macula Called patient and reviewed findings and treatm ent plan. All questions answered. Patient expresses understanding and c onsents to treatment plan. Letter sent. RTC order and /or consult placed a s needed for follow up. Appendix (abbreviations): AC (Anterior Chamber); AREDS (Age Related Eye Di sease Study); ARX (Auto Refraction); BID (Two Times Daily); C:D (Cup-to- Disc); CIC (Care In The Community); LEVERS LACE MACHINE OPERATOR (Cyclophotocoagulation); CSME (C linically Significant Macular Edema); DFE (Dilated Fundus Exam); Dorz/Timol (D orzolamide/Timolol); DSEK (Descemet's Stripping Endothelial Keratoplasty); FAF (Fundus Autofluorescence); F/U (Follow up); GCC (Ganglion Cell Complex); Go nio (Gonioscopy); H/O (History Of); HTN (Hypertension); HVF (Leon Visual Fi eld); IOL (Intraocular Lens); IOP (Intraocular Pressure); K (Keratometry); LAS IK (Laser-Assisted In Situ Keratomileusis); MD (Mean Deviation when used wi th visual field); dB (decibels); MRx (Manifest Refraction); NeoPolyDe x/Erythro (Neomycin Polymyxin B Dexamethasone/Erythromycin); NFL (Nerve Fiber La kimberly); NPDR (Nonproliferative Diabetic Retinopathy); OCT (Optical Coherence To [facility]); OD (Right Eye); OS (Left Eye); OU (Both Eyes); PDR (Proliferative D iabetic Retinopathy); PFATs (Preservative Free Artificial Tears); RK (Radial Keratotomy); RNFL (Retinal Nerve Fiber Layer); RTC (Return To Clinic); scVA (Visual Acuity Without Correction/Glasses); ISHMAEL (Thai Interactive T hreshold Algorithm); TID (Three Times Daily); UV (Ultraviolet); VA (Visual Acuit y); WRx (Prescription glasses currently worn); WRx VA (Visual Acuity With Pres cription Glasses); YAG (Yttrium Aluminum [place]) /tanner/ KARLENE DOUGHERTY Golf Cart Maker Signed: 11/04/2021 13:01 Receipt Acknowledged By: 11/04/2021 13:10 /tanner/ LUCI WHITING SHUTTLER
--- OUTSIDE RECORDS SUMMARY | 2022-07-24 21:30 | XMS_ITS | Encounter Summary ---
:1945 Author Organization [facility] Address [address] [place] [address] Support Name Relationship Address Phone BANG MANN Unavailable [address] [phone] [place] [address] BANG MANN MEENAKSHI Unavailable [address] [place] [address] Insurance Providers: All historical and current Section [...] Tanner [place] Aug 13, [id number] VENESS,BECER[place] P ATIENT [facility] (WNR) ADVANTAGE ARE 2020 5 [id number] [phone] ROLD ADVAN 1 MOUSTAPHA C [place] MCR Aug 13, [id number] VENESS,BECERRA P ATIENT [facility] (WNR) ADVANTAGE (WNR) 2020 7 [id number] [phone] [place] 1 [place] Aug 13, [id number] [phone] VENESS ,BECERRA PATIENT [facility] (WNR) ADVANTAGE (WNR) 2021 5 [id number] ROLD 1 MEDICARE MEDICARE PART Sep 13, PART B [id number] 800 Jesusita CONKLIN (WNR) (M) B 2012 [id number] [phone] [facility] MEDICARE MEDICARE PART Mar 13, PART A 800 Jesusita CONKLIN (WNR) (M) A [phone] [facility] MEDICARE MEDICARE PART Mar 13, PART A [id number] 800 Jesusita CONKLIN (WNR) (M) Rosalinda 2008 [id number] [phone] [place] Selected Encounter This section includes the information on record at [place] for the Encounter. Date/Time Encounter Type Encounter Reason Provider Source Description Nov 04, 2021 OFFICE O/P EST CARDIOLOGY ICD-10-CM I50.20 ANNMARIE WALKER 10:00 AM HI 40-54 MIN Unspecified systolic (congestive) heart failure with Provider Comments: Heart failure with reduced ejection fraction ([facility] [id number]) IHE Encounter Template Text not used by [place] Assessments - Encounter Diagnoses This section includes the primary and secondary diagnoses documented for the Encounter. Date/Time Primary/Secondary Diagnosis Name Provider Source Diagnosis Nov 04, 2021 PRIMARY Unspecified ANNMARIE WALKER [place] 02:29 PM systolic N HCS (congestive) heart failure Nov 04, 2021 SECONDARY Unspecified atrial ANNMARIE WALKER [place] 02:29 PM fibrillation N HCS Plan of Treatment: Future Appointments (+ 6 months) and Future Tests (+/- 45 days) The Plan of Treatment section includes future care activities for the patient from all [place] treatmentfacilities. This section includes future appointments and future orders which are active, pending orscheduled.Future Appointments This section includes appointments that were scheduled to occur 6 months from the date of the Encounter, up to a maximum of 20 appointments. The data comes from all [place] treatment facilities. Appointment Date/Time Appointment Type Appointment Facili ty Name Nov 08, 2021 09:00 AM AMBULATORY - MEDICINE [facility] Nov 08, 2021 11:00 AM AMBULATORY - MEDICINE [facility] Nov 08, 2021 12:00 PM AMBULATORY - MEDICINE [facility] Nov 08, 2021 01:00 PM AMBULATORY - MEDICINE [facility] CS Nov 11, 2021 08:30 AM AMBULATORY - SURGERY [facility] Nov 11, 2021 10:01 AM AMBULATORY - NEUROLOGY [facility] Nov 14, 2021 09:00 PM AMBULATORY - MEDICINE [facility] Nov 28, 2021 03:30 PM AMBULATORY - MEDICINE [facility] Dec 06, 2021 10:00 AM AMBULATORY - MEDICINE [facility] December 16, 2021 09:00 AM AMBULATORY - REHAB MEDICINE [facility] S [facility] December 16, 2021 09:45 AM AMBULATORY - MEDICINE [facility] CS December 16, 2021 10:30 AM AMBULATORY - MEDICINE [facility] December 23, 2021 12:15 PM AMBULATORY - NONE [facility] December 23, 2021 12:16 PM AMBULATORY - NONE [facility] December 26, 2021 01:30 PM AMBULATORY - MEDICINE [facility] January 02, 2022 05:00 PM AMBULATORY - REHAB MEDICINE [facility] January 10, 2022 08:30 AM AMBULATORY - MEDICINE [facility] Feb 02, 2022 10:00 AM AMBULATORY - PSYCHIATRY [facility] Feb 03, 2022 12:12 PM AMBULATORY - NONE [facility] Feb 09, 2022 10:00 AM AMBULATORY - PSYCHIATRY [facility] Lab Results: +/- 30 days of the encounter This section includes the Chemistry and Hematology Lab Results on record with [place] for the patient. Radiology Reports and Pathology Reports are provided separately, in subsequent sections.Lab Results This section contains the Chemistry/Hematology Results that were resulted 30 days before or 30 daysafter the date of the Encounter. Date/Time Source Result Type Result - Unit Interpretation Reference Range Comment Nov 11, 2021 [facility] COVID-19 AND FLU/RSV DIAG Sp ecimen Type: NASOPHARYNGEAL 09:34 AM PANEL(CEPHEID) Comment: Cephei d GeneXpert (618) Ordering Provid er: JEREMIAH ACKERMAN Report Released Date/Time: Nov 08, 2021 02:19 PM Reporting Lab: [facility] [address] [facility] [address] Performing Lab: [facility] [address] [facility] [address] COVID-19 (CEPHEID) Not Detected Not Dete cted INFLUENZA A (PCR) Not Detected Not Detec heydi INFLUENZA B (PCR) Not Detected Not Detec heydi RSV (PCR) Not Detected Not Detected Nov 08, 2021 10:11 AM [facility] BNP Specim en Type: PLASMA No comment enter ed. Ordering Provid er: DRAKE MCNULTY Report Released Date/Time: Sep 05, 2021 10:57 AM Reporting Lab: [facility] [address] [facility] [address] Performing Lab: [facility] [address] [facility] [address] BNP 28 <99 Nov 08, 2021 10:11 AM [facility] CBC Specim en Type: BLOOD No comment enter ed. Ordering Provid er: DRAKE MCNULTY Report Released Date/Time: Sep 05, 2021 10:57 AM Reporting Lab: [facility] [address] Performing Lab: [facility] [address] WBC 4.77 4.0-11.0 RBC 4.33 L 4.6-6.2 HGB 13.7 13.5-17.9 HCT 41.0 41-54 MCV 94.7 80-100 MCH 31.6 27-33 MCHC 33.4 32.0-37.5 PLT 128 L 150-400 MPV 9.4 7.4-10.4 RDW 13.0 11.5-14.5 Nov 08, 2021 [facility] COMPREHENSIVE Specimen Typ e: PLASMA 10:11 AM METABOLIC PANEL+MG No comment en tered. Ordering Provid er: DRAKE MCNULTY Report Released Date/Time: Sep 05, 2021 10:57 AM Reporting Lab: [facility] [address] Performing Lab: [facility] [address] CREATININE 0.8 0.7-1.2 UREA NITROGEN 20 8-26 GLUCOSE 85 74-100 SODIUM 136 136-145 POTASSIUM 4.0 3.5-5.1 CHLORIDE 105 98-107 CO2 28 22-29 CALCIUM 9.4 8.4-10.2 PROTEIN,TOTAL 6.7 6.0-8.3 ALBUMIN 4.0 3.5-5.2 BILIRUBIN, TOTAL 0.9 0.2-1.2 MAGNESIUM 2.0 1.6-2.6 ANION GAP 3 L 5-15 ALKALINE PHOSPHATASE 68 40-150 ALT/SGPT 27 <55 AST/SGOT 25 <34 CREAT EGFR(CKD-EPI) >90 >60 Nov 04, 2021 08:59 [facility] BASIC METABOLIC Specimen Type: PLASMA AM PANEL+MG No comment enter ed. Ordering Provid er: ANNMARIE WALKER Report Released Date/Time: Jul 15, 2021 08:27 AM Reporting Lab: [facility] [address] Performing Lab: [facility] [address] CREATININE 0.8 0.7-1.2 UREA NITROGEN 15 8-26 [...] dy Source Pressure Rate Mass Index Nov 04.6 F 61 100/61 16 /min 99 % 0 156.7 24 [place] 2021 09:51 /min mm[Hg] lb [facility] Social History: Smoking Status (Most current) and Tobacco Use (All prior to encounter date) This section includes the most current, and the historical, smoking and tobacco-related health factors from the [place] facility where the Encounter took place.Current Smoking Status This section includes the most current smoking, or tobacco-related health factor, from the [place] facility where the Encounter took place. Date/Time Current Smoking Status Comment Facility Apr 04, 2021 10:00 AM [place]-TOBACCO NEVER USED [facility] Encounter Notes: All associated encounter notes This section contains the clinical notes associated to the Encounter. Date/Time Encounter Note(s) Provider Source Nov 04, 2021 10:01 AM CARDIOLOGY DIAGNOSTIC STUDY NOTE: ANNMARIE WALKER [facility] LOCAL TITLE: CARDIOLOGY ELECTROPHYSIOLOGY NOTE STANDARD TITLE: CARDIOLOGY DIAGNOSTIC STUDY NOTE DATE OF NOTE: NOV 04, 2021@10:01 ENTRY DATE: NOV 04, 2021@10:01:10 AUTHOR: ANNMARIE WALKER EXP COSIGNER: URGENCY: STATUS: COMPLETED CARDIAC ELECTROPHYSIOLOGY CLINIC NOTE CC: F/U persistent atrial fibrillation, cardiomy opathy, dofetilide HPI: Patient is a 76 year-old male with past med ical history including HFmrEF, persistent atrial fibrillation, ROSA not on CPAP, HLD, macular degeneration, hearing loss and tinnitus. 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 He denies any hx antiarrhythmic drug use, cardioversions, or abla tions. He has been on anticoagulation with rivarox aban. He was having issues with shortness of breath fall 2020 and TTE was ordered showing mild-moder ately reduced LVEF. He was referred to EP for rhythm control and dofetilide was initiated during hospitalization 07/11-07/14/21. He converted to s inus rhythm after 1 dose of dofetilide and tolerate 500 mcg bid dosing. He returns to clinic today for routine dofetilid e f/u. He reports noticing perhaps some slightly improvement in energy and breathing. He denies current palpitations, chest pain/pressure, lightheadedne ss, dizziness, presyncope, syncope, orthopnea, PND, or LE edema. PAST MEDICAL HISTORY Active problems - Computerized Problem List is t he source for the followin. Atrial fibrillation 2. Hyperlipidemia 3. Age related macular degeneration 4. Hearing loss 5. Tinnitus 6. Tremor 7. Obstructive sleep apnea - Non-compliant with CPAP. 8. Erectile dysfunction 9. Heart failure with reduced ejection fraction -----PRIOR CARDIAC TESTING----- -TTE (06/10/21): 1. Normal left ventricular size with mildly redu olga systolic function. Estimated left ventricular ejection fraction 40- 45% with czgh-hi-[id number] variability due to atrial fibrillation. 2. Mild global hypokinesis. 3. Mild right ventricular enlargement with mildl y reduced systolic function. Estimated right ventricular systolic pressure 37 mm Hg. 4. Bi-atrial enlargement. 5. Mild mitral valve regurgitation. 6. Dilated inferior vena cava with reduced inspi ratory collapse. 7. Tiny posterior pericardial effusion. 8. No prior study for comparison. -Echocardiogram OSH 2019: 1. Normal LV size, mildly increased wall thickne ss, mildly reduced global systolic function with an estimated EF of 45%. 2. Right ventricular cavity size is normal, glob al systolic RV function is borderline reduced. 3. Trivial pericardial effusion. -PFTs OSH 2020: Normal spirometry. -Latest EKG (11/04/21): Sinus rhythm 66 bpm QTc 454 msecs ALLERGIES Patient has answered A FACILITY ALLERGY/ADR -------- No Remote Allergy/ADR Data available for this [facility] No Known Allergies MEDICATIONS Active and Recently Outpatient Medicatio ns (excluding Supplies): Active Outpatient Medications Status 1) ATORVASTATIN [...] ACTIVITY--MAXIMU M 4 DOSES FOR 30-DAY SUPPLY. No Active Remote Medications for this patient LABS SODIUM 141 (11/04/21) POTASSIUM 4.0 (11/04/21) MAGNESIUM 2.0 (11/04/21) UREA NITROGEN 15 (11/04/21) CREATININE 0.8 (11/04/21) GLUCOSE 69 L (11/04/21) WBC 4.39 (07/27/21) HGB 15.3 (07/27/21) PLT 111 L (07/27/21) Collection DT Specimen Test Name Result Units Re f Range 07/27/2021 10:32 PLASMA TSH 0.50 uIU/mL 0.35 - 4 .94 Collection DT Specimen Test Name Result Units Re f Range 04/04/2021 08:46 PLASMA BILIRUBIN, TOTAL 1.3 H m g/dL 0.2 - 1.2 04/04/2021 08:46 PLASMA ALKALINE PHOSPHAT 65 U/L 40 - 150 04/04/2021 08:46 PLASMA AST/SGOT 24 U/L Ref: <=3 4 04/04/2021 08:46 PLASMA ALT/SGPT 30 U/L Ref: <=5 5 VITALS Temp: 98.6 F [37.0 C] (11/04/2021 09:51) Pulse:61 (11/04/2021 09:51) BP: 100/61 (11/04/2021 09:51) Resp: 16 (11/04/2021 09:51) Weight: 156.7 lb [71.2 kg] (11/04/2021 09:51) Pain: 0 (11/04/2021 09:51) O2 Sat: 99% (11/04/2021 09:51) BMI: 23.8 EXAM GA: very pleasant, well-appearing, NAD; LUNGS: CTAB, no crackles, wheezes, or rhonchi CV: RRR; no murmurs, rubs, or gallops; no JVD EXT: no cyanosis, clubbing, or edema ASSESSMENT/PLAN 1. H/O persistent atrial fibrillation: S/P dofet ilide loading during admit 07/11-07/14/21 - converted with 1 dose dofetilide , discharged on 500 mcg bid. -He is maintaining sinus rhythm on dofetilide 50 0 mcg bid - EKG today with stable QTc WNL, labs stable with CrCl > 60 -His CHADSVASC score is 3 (a ge, CHF) and he is anticoagulated with rivaroxaban. He denies bleeding concerns -We had a long discussion about retirement treatme nt options including ongoing dofetilide vs PVI - for now happy to continue on dofetilide -We discussed risk factor modification for AFib including weight management, regular exercise, moderation of alcohol intake, control of blood pressure and treatment of any underlying ROSA - has upcoming a ppt w/ sleep medicine 2. Cardiomyopathy: Suspect tachycardia mediated LVEF 40-45%. Following in CHF clinic, no clinical CHF issu es. Continue lisinopril and carvedilol. F/U TTE January 2022 to see if LV function has normalized with r estoration of sinus rhythm. Follow up: 3 months or sooner as needed with ech o prior I spent a total of 45 minutes between preparat ion, review of testing, discussion with patient and documentation of enc emily /tanner/ ANNMARIE WALKER PA-C PHYSICIAN MAGNETO REPAIRER Signed: 11/04/2021 14:29 Nov 04, 2021 09:52 AM INTERNAL MEDICINE OUTPATIENT NOTE: SHERYL PERLA [facility] LOCAL TITLE: MEDICINE CLINIC NURSING NOTE STANDARD TITLE: INTERNAL MEDICINE OUTPATIENT NOT E DATE OF NOTE: NOV 04, 2021@09:52 ENTRY DATE: NOV 04, 2021@09:52:48 AUTHOR: SHERYL PERLA EXP COSIGNER: URGENCY: STATUS: COMPLETED TYPE OF VISIT: Appointment Check In Type of appointment: In-person appointment REASON FOR VISIT: Scheduled clinic visit ALLERGIES: Patient has answered NKA VITAL SIGNS: Blood Pressure: 100/61 (11/04/2021 09:51) Pulse: 61 (11/04/2021 09:51) Respiration: 16 (11/04/2021 09:51) Temperature: 98.6 F [37.0 C] (11/04/2021 09:51) Weight: 156.7 lb [71.2 kg] (11/04/2021 09:51) Height: 68.11 in [173.0 cm] (06/24/2021 09:58) BMI: 23.8 O2 Sat: 99% (11/04/2021 09:51) Pain: 0 (11/04/2021 09:51) PAIN SCREEN: Patient is not having significant pain that the y wish to discuss with their provider today. MEDICATION Active Outpatient Medications (including Suppli es): ATORVASTATIN CALCIUM 20MG TAB TAKE ONE TABLET B Y MOUTH AT ACTIVE BEDTIME FOR CHOLESTEROL CARVEDILOL 3.125MG TAB TAKE ONE TABLET BY MOUTH TWO TIMES ACTIVE A DAY WITH FOOD. FOR HEART. DOFETILIDE 500MCG CAP TAKE ONE CAPSULE BY MOUTH TWO TIMES ACTIVE A DAY TO KEEP A NORMAL HEART BEAT FUROSEMIDE 20MG TAB TAKE ONE TABLET BY MOUTH DA JEISON FOR ACTIVE HEART FAILURE. LISINOPRIL 5MG TAB TAKE ONE TABLET BY MOUTH TWO TIMES A ACTIVE DAY FOR HEART FAILURE. RIVAROXABAN 20MG TAB TAKE ONE TABLET BY MOUTH E VERY DAY ACTIVE WITH THE LARGEST MEAL OF THE DAY TO PREVENT BLO OD CLOTS & STROKE SILDENAFIL CITRATE 100MG TAB TAKE ONE-HALF TABL ET BY MOUTH ACTIVE EVERY DAY NEEDED FOR ERECTIONS - TAKE 1 HOUR BEFORE ANTICIPATED SEXUAL ACTIVITY--MAXIMUM 4 DOSES FO R 30-DAY SUPPLY. Over the Counter/Herbal Medications: The patient states that they take some outside medications and/or herbals. /tanner/ SHERYL PERLA LPN Licensed Practical Nurse Signed: 11/04/2021 09:54
--- OUTSIDE RECORDS SUMMARY | 2022-07-24 21:30 | XMS_ITS | Encounter Summary ---
:1945 Author Organization [facility] Address [address] [place] [address] Support Name Relationship Address Phone BANG MANN MEENAKSHI Unavailable [phone] [facility] [phone] [place] [address] BANG MANN MEENAKSHI Unavailable [address] [facility] [phone] [place] [address] Insurance Providers: All historical and current Section [...] Tanner [place] MED[place] Aug 13, [id number] VENESS,BECERRA P ATIENT [facility] (WNR) ADVANTAGE ARE 2020 5 [id number] [phone] [place] ADVAN 1 MOUSTAPHA C [place] MCR Aug 13, [id number] VENESS,BECERRA P ATIENT [facility] (WNR) ADVANTAGE (WNR) 2020 7 [id number] [phone] [place] 1 [place] Aug 13, [id number] [phone] VENESS ,BECERRA PATIENT [facility] (WNR) ADVANTAGE (WNR) 2022 5 [id number] ROLD 1 MEDICARE MEDICARE PART Sep 13, PART B [id number] 800 Jesusita CONKLIN (WNR) (M) B 2012 [id number] [phone] [facility] MEDICARE MEDICARE PART Mar 13, PART A 800 Jesusita CONKLIN (WNR) (M) A [phone] [facility] MEDICARE MEDICARE PART Mar 13, PART A [id number] 800 Jesusita CONKLIN (WNR) (M) A 2008 [id number] [phone] [place] Selected Encounter This section includes the information on record at [place] for the Encounter. Date/Time Encounter Type Encounter Reason Provider Source Description Nov 04, 2021 ELECTROCARDIOGRAM EKG ICD-10-CM Z13.6 MERE KOROMA 09:30 AM COMPLETE Encounter for screening for cardiovascular disorders with Provider Comments: Encounter for Screening for Cardiovascular Disorders IHE Encounter Template Text not used by [facility] Assessments - Encounter Diagnoses This section includes the primary and secondary diagnoses documented for the Encounter. Date/Time Primary/Secondary Diagnosis Name Provider Source Diagnosis Nov 04, 2021 PRIMARY Encounter for JOY CIFUENTES 02:21 PM screening for HCS cardiovascular disorders Plan of Treatment: Future Appointments (+ 6 months) and Future Tests (+/- 45 days) The Plan of Treatment section includes future care activities for the patient from all [place] treatmentfacilities. This section includes future appointments and future orders which are active, pending orscheduled.Future Appointments This section includes appointments that were scheduled to occur 6 months from the date of the Encounter, up to a maximum of 20 appointments. The data comes from all [place] treatment facilities. Appointment Date/Time Appointment Type Appointment Facili ty Name Nov 08, 2021 09:00 AM AMBULATORY - MEDICINE [facility] Nov 08, 2021 11:00 AM AMBULATORY - MEDICINE [facility] Nov 08, 2021 12:00 PM AMBULATORY - MEDICINE [facility] Nov 08, 2021 01:00 PM AMBULATORY - MEDICINE [facility] Nov 11, 2021 08:30 AM AMBULATORY - SURGERY [facility] Nov 11, 2021 10:01 AM AMBULATORY - NEUROLOGY [facility] Nov 14, 2021 09:00 PM [facility] Nov 28, 2021 03:30 PM [facility] Dec 06, 2021 10:00 AM [facility] December 16, 2021 09:00 AM AMBULATORY - REHAB [facility]ICINE [facility] December 16, 2021 09:45 AM [facility] December 16, 2021 10:30 AM AMBULATORY - MEDICINE [facility] December 23, 2021 12:15 PM AMBULATORY - NONE [facility] December 23, 2021 12:16 PM AMBULATORY - NONE [facility] December 26, 2021 01:30 PM [facility] January 02, 2022 05:00 PM [facility] January 10, 2022 08:30 AM AMBULATORY - MEDICINE [facility] Feb 02, 2022 10:00 AM AMBULATORY - PSYCHIATRY [facility] Feb 03, 2022 12:12 PM AMBULATORY - NONE [facility] Feb 09, 2022 10:00 AM AMBULATORY - PSYCHIATRY [facility] Lab Results: +/- 30 days of the encounter This section includes the Chemistry and Hematology Lab Results on record with [place] for the patient. Radiology Reports and Pathology Reports are provided separately, in subsequent sections.Lab Results This section contains the Chemistry/Hematology Results that were resulted 30 days before or 30 daysafter the date of the Encounter. Date/Time Source Result Type Result - Unit Interpretation Reference Range Comment Nov 11, 2021 [facility] COVID-19 AND FLU/RSV DIAG Sp ecimen Type: NASOPHARYNGEAL 09:34 AM PANEL(CEPHEID) Comment: Rufus rhoades GeneXpert (618) Ordering Provid er: JEREMIAH ACKERMAN Report Released Date/Time: Nov 08, 2021 02:19 PM Reporting Lab: [facility] [address] [facility] [address] Performing Lab: [facility] [address] [facility] [address] COVID-19 (CEPHEID) Not Detected Not Dete cted INFLUENZA A (PCR) Not Detected Not Detec heydi INFLUENZA B (PCR) Not Detected Not Detec heydi RSV (PCR) Not Detected Not Detected Nov 08, 2021 10:11 AM [facility] BNP Specim en Type: PLASMA No comment enter ed. Ordering Provid er: DRAKE MCNULTY Report Released Date/Time: Sep 05, 2021 10:57 AM Reporting Lab: [facility] [address] [facility] [address] Performing Lab: [facility] [address] [facility] [address] BNP 28 <99 Nov 08, 2021 10:11 AM [facility] CBC Specim en Type: BLOOD No comment enter ed. Ordering Provid er: DRAKE MCNULTY Report Released Date/Time: Sep 05, 2021 10:57 AM Reporting Lab: [facility] [address] [facility] [address] Performing Lab: [facility] [address] [facility] [address] WBC 4.77 4.0-11.0 RBC 4.33 L 4.6-6.2 HGB 13.7 13.5-17.9 HCT 41.0 41-54 MCV 94.7 80-100 MCH 31.6 27-33 MCHC 33.4 32.0-37.5 PLT 128 L 150-400 MPV 9.4 7.4-10.4 RDW 13.0 11.5-14.5 Nov 08, 2021 [facility] COMPREHENSIVE Specimen Typ e: PLASMA 10:11 AM METABOLIC PANEL+MG No comment en tered. Ordering Provid er: DRAKE MCNULTY Report Released Date/Time: Sep 05, 2021 10:57 AM Reporting Lab: [facility] [address] [facility] [address] Performing Lab: [facility] [address] CREATININE 0.8 0.7-1.2 UREA NITROGEN 20 8-26 GLUCOSE 85 74-100 SODIUM 136 136-145 POTASSIUM 4.0 3.5-5.1 CHLORIDE 105 98-107 CO2 28 22-29 CALCIUM 9.4 8.4-10.2 PROTEIN,TOTAL 6.7 6.0-8.3 ALBUMIN 4.0 3.5-5.2 BILIRUBIN, TOTAL 0.9 0.2-1.2 MAGNESIUM 2.0 1.6-2.6 ANION GAP 3 L 5-15 ALKALINE PHOSPHATASE 68 40-150 ALT/SGPT 27 <55 AST/SGOT 25 <34 CREAT EGFR(CKD-EPI) >90 >60 Nov 04, 2021 08:59 [facility] BASIC METABOLIC Specimen Type: PLASMA AM PANEL+MG No comment enter ed. Ordering Provid er: ANNMARIE WALKER Report Released Date/Time: Jul 15, 2021 08:27 AM Reporting Lab: [facility] [address] [facility] [address] Performing Lab: [facility] [address] [facility] [address] CREATININE 0.8 0.7-1.2 UREA NITROGEN 15 8-26 [...] Dionisio dy Source Pressure Rate Mass Index Mar 25, 98.6 F 61 100/61 16 /min 99 % 0 156.7 24 [place] 2021 09:51 /min mm[Hg] lb [facility] Social History: Smoking Status (Most current) and Tobacco Use (All prior to encounter date) This section includes the most current, and the historical, smoking and tobacco-related health factors from the [place] facility where the Encounter took place.Current Smoking Status This section includes the most current smoking, or tobacco-related health factor, from the [place] facility where the Encounter took place. Date/Time Current Smoking Status Comment Facility Apr 04, 2021 10:00 AM [place]-TOBACCO NEVER USED [facility]
--- OUTSIDE RECORDS SUMMARY | 2022-07-24 21:30 | XMS_ITS | Encounter Summary ---
:1945 Author Organization [facility] Address [address] [place] [id number] Support Name Relationship Address Phone BANG MANN Unavailable [id number] [facility] [place] [address] BANG MANN MEENAKSHI Unavailable [id number] [facility] [place] [address] Insurance Providers: All historical and current Section [...] Tanner [place] MEDIC Aug 13, [id number] VENESS,BECERRA P ATIENT [facility] (WNR) ADVANTAGE ARE 2020 5 [id number] [phone] ROLD ADVAN 1 MOUST[place] C [place] MEDICARE MCR Aug 13, [id number] VENESS,BECERRA P ATIENT MCR (WNR) ADVANTAGE (WNR) 2020 7 [id number] [phone] R[place] 1 [place] Aug 13, [id number] [phone] VENESS ,BECERRA PATIENT MCR (WNR) ADVANTAGE (WNR) 2022 5 [id number] ROLD 1 MEDICARE MEDICARE PART Sep 13, PART B [id number] Jesusita CONKLIN (WNR) (M) B 2012 [id number] [phone] [facility] MEDICARE MEDICARE PART Mar 13, PART A 800 Jesusita CONKLIN (WNR) (M) A [phone] [facility] MEDICARE MEDICARE PART Mar 13, PART A [id number] 800 Jesusita CONKLIN (WNR) (M) Rosalinda 2008 [id number] [phone] [place] Selected Encounter This section includes the information on record at [place] for the Encounter. Date/Time Encounter Type Encounter Reason Provider Source Description Sep 05, 2021 Outpatient TELEPHONE/MEDICIN ICD-10-CM I50.20 [facility] ,[facility] 10:30 AM Encounter E Unspecified DESIE K systolic (congestive) heart failure with Provider Comments: Heart failure with reduced ejection fraction ([facility] [id number]) IHE Encounter Template Text not used by [place] Assessments - Encounter Diagnoses This section includes the primary and secondary diagnoses documented for the Encounter. Date/Time Primary/Secondary Diagnosis Name Provider Source Diagnosis Sep 05, 2021 PRIMARY Unspecified [facility] [place] [facility] 10[place] AM systolic EPHANIE K [facility] (congestive) heart failure Sep 05, 2021 SECONDARY Obstructive sleep [facility] [place] [facility] 10:30 AM apnea (adult) E[facility]ANIE K [facility] (pediatric) Sep 05, 2021 SECONDARY Unspecified atrial [facility] [place] 10:30 AM fibrillation EPHANIE K [facility] Plan of Treatment: Future Appointments (+ 6 months) and Future Tests (+/- 45 days) The Plan of Treatment section includes future care activities for the patient from all [place] treatmentfacilities. This section includes future appointments and future orders which are active, pending orscheduled.Future Appointments This section includes appointments that were scheduled to occur 6 months from the date of the Encounter, up to a maximum of 20 appointments. The data comes from all [place] treatment facilities. Appointment Date/Time Appointment Type Appointment Facili ty Name Nov 04, 2021 08:45 AM AMBULATORY - MEDICINE [facility] Nov 04, 2021 09:30 AM AMBULATORY - MEDICINE [facility] Nov 04, 2021 10:00 AM AMBULATORY - MEDICINE [facility] Nov 04, 2021 11:00 AM AMBULATORY - NONE [facility] Nov 08, 2021 09:00 AM AMBULATORY - MEDICINE [facility] Nov 08, 2021 11:00 AM AMBULATORY - MEDICINE [facility] Nov 08, 2021 12:00 PM AMBULATORY - MEDICINE [facility] Nov 08, 2021 01:00 PM AMBULATORY - MEDICINE [facility] Nov 11, 2021 08:30 AM AM[facility]ULATORY - SURGERY [facility] Nov 11, 2021 10:01 AM AMBULATORY - NEUROLOGY [facility] Nov 14, 2021 09:00 PM AMBULATORY - MEDICINE [facility] Nov 28, 2021 03:30 PM AMBULATORY - MEDICINE [facility] Dec 06, 2021 10:00 AM AMBULATORY - MEDICINE [facility] December 16, 2021 09:00 AM AMBULATORY - REHAB [facility]IC[facility] December 16, 2021 09:45 AM AMBULATORY - MEDICINE [facility] December 16, 2021 10:30 AM AMBULATORY - MEDICINE [facility] December 23, 2021 12:15 PM AMBULATORY - NONE [facility] December 23, 2021 12:16 PM AMBULATORY - NONE [facility] December 26, 2021 01:30 PM AMBULATORY - MEDICINE [facility] January 02, 2022 05:00 PM AMBULATORY - REHAB MEDICINE [facility] Lab Results: +/- 30 days of the encounter This section includes the Chemistry and Hematology Lab Results on record with [place] for the patient. Radiology Reports and Pathology Reports are provided separately, in subsequent sections.Lab Results This section contains the Chemistry/Hematology Results that were resulted 30 days before or 30 daysafter the date of the Encounter. Date/Time Source Result Type Result - Unit Interpretation Reference Range Comment Aug 10, 2021 [facility] BASIC METABOLIC Specimen Typ e: PLASMA 10:04 AM PANEL+MG No comment enter ed. Ordering Provid er: DRAKE MCNULTY Report Released Date/Time: Jul 27, 2021 11:37 AM Reporting Lab: [facility] [id number] Performing Lab: [facility] [id number] CREATININE 0.8 0.7-1.2 UREA NITROGEN 17 8-26 GLUCOSE 82 74-100 SODIUM 141 136-145 POTASSIUM 4.1 3.5-5.1 CHLORIDE 105 98-107 CO2 32 H 22-29 CALCIUM 9.4 8.4-10.2 MAGNESIUM 2.0 1.6-2.6 ANION GAP 4 L 5-15 ESTIMATED GFR(eGFR) 94 >60 Social History: Smoking Status (Most current) and Tobacco Use (All prior to encounter date) This section includes the most current, and the historical, smoking and tobacco-related health factors from the [place] facility where the Encounter took place.Current Smoking Status This section includes the most current smoking, or tobacco-related health factor, from the [place] facility where the Encounter took place. Date/Time Current Smoking Status Comment Facility Apr 04, 2021 10:00 AM [place]-TOBACCO NEVER USED [facility] Encounter Notes: All associated encounter notes This section contains the clinical notes associated to the Encounter. Date/Time Encounter Note(s) Provider Source Sep 05, 2021 10:28 AM CARDIOLOGY ATTENDING OUTPATIENT NOTE: ALANA LAY [facility] LOCAL TITLE: CARDIOLOGY CLINIC NOTE E K STANDARD TITLE: CARDIOLOGY ATTENDING OUTPATIENT NOTE DATE OF NOTE: SEP 05, 2021@10:28 ENTRY DATE: SEP 05, 2021@10:28:25 AUTHOR: ALANA MCNULTY EXP COSIGNER: URGENCY: STATUS: COMPLETED CHF Clinic Phone Follow Up HPI:YOUSIF MANN 76y/o male w ith a past medical history significant for heart failure with reduced EF, NICM, chronic atr ial fibrillation on anticoagulation, hearing loss, ROSA non-compliant with CPAP, HLD and ED who was phoned today for continued heart failure man agement. Mr. Mann was seen in the cardiology consult cl [facility] in late May with Dr Pearson for dyspnea on exertion. He states he fee ls like over the last year he isn't able to get all him a ir out. An echocardiogram done showed an EF of 40- 45% in atrial fibrillation, EP was consulted for considerations of rhythm control. He was able to EP and was recen tly admitted for dofetilide initiation which was successful for con verting him to sinus rhythm. He states he thinks his dyspnea has improved with rhythm control. At our last visit, we increased his lisinopril w hich he has been tolerating without issue. He states his blood pressure has been 100-110 systolic. 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 He denies any chest pains, palpitatio ns, PND, orthpnea, lower leg edema or syncope. He has been closely monitoring his sodium and fl uid intake. His weights are stable. He has no concerns today. ROS: All [...] 9. Heart failure with reduced ejection fraction Allergies: Patient has answered NKA Medications: Active [...] are indicated they are listed ab ove. LABS: LAB RESULTS TODAY - NONE FOUND Collection DT Spec WBC HGB HCT PLT MCV NEUT LYMP HS 07/27/2021 10:32 BLOOD 4.39 15.3 45.8 111 L 93.3 63.3 25.3 07/12/2021 05:30 BLOOD 5.46 15.0 41.7 102 L 95.2 61.3 28.0 06/10/2021 08:57 BLOOD 4.79 14.6 45.1 102 L 94.7 ------- Assessment/Plan: ------- ------- # Heart failure: Currently stable without eviden ce of decompensation on exam. Will work to further optimize medical therapies. [place] is [place] Will hold off on changes until he returns in October. Plan to start SGlT2i and DC furosemide at next visit. 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 # AFib: Stable Follow up: 2 months, when he returns from [place] Assessment and plan discussed with in fu ll detail with all questions answered. Time spent on phone call was between 11-20 minut tanner Thank you for allowing me to participate in the care of YOUSIF MANN. Please contact me with any q uestions or concerns. Drake Mcnulty NP [facility] /tanner/ DRAKE MCNULTY APRN NURSE PRACTITIONER Signed: 09/05/2021 10:56
--- OUTSIDE RECORDS SUMMARY | 2022-07-24 21:30 | XMS_ITS | Encounter Summary ---
:1945 Author Organization [facility] Address [address] [place] [address] Support Name Relationship Address Phone BANG MANN Unavailable [id number] [facility] [address] BANG MANN MEENAKSHI Unavailable [id number] [phone] [place] [address] Insurance Providers: All historical and current Section [...] Tanner [place] MEDIC Aug 13, [id number] VENESS,BECERRA P ATIENT [facility] (WNR) ADVANTAGE ARE 2020 5 [id number] [phone] ROLD ADVAN 1 MOUSTAPHA C [place] MEDICARE MCR Aug 13, [id number] VENESS,BECERRA P ATIENT [facility] (WNR) ADVANTAGE (WNR) 2020 7 [id number] [phone] R[place] 1 [place] M[place] Aug 13, [id number] [phone] VENESS ,BECERRA PATIENT [facility] (WNR) ADVANTAGE (WNR) 2021 5 [id number] ROLD 1 MEDICARE MEDICARE PART Sep 13, PART B [id number] 800 Jesusita CONKLIN (WNR) (M) B 2012 [id number] [phone] [facility] MEDICARE MEDICARE PART Mar 13, PART A 800 Jesusita CONKLIN (WNR) (M) A [phone] [place] MEDICARE MEDICARE PART Mar 13, PART A [id number] 800 Jesusita CONKLIN (WNR) (M) Rosalinda 2008 [id number] [phone] [place] Selected Encounter This section includes the information on record at [place] for the Encounter. Date/Time Encounter Type Encounter Reason Provider Source Description Nov 08, 2021 OFFICE O/P EST CARDIOLOGY ICD-10-CM I50.20 ST Angela MCNULT[facility] 12:00 PM MOD 30-39 MIN Unspecified PHANIE K systolic (congestive) heart failure with Provider Comments: Heart failure with reduced ejection fraction ([facility] [id number]) IHE Encounter Template Text not used by [place] Assessments - Encounter Diagnoses This section includes the primary and secondary diagnoses documented for the Encounter. Date/Time Primary/Secondary Diagnosis Name Provider Source Diagnosis Nov 08, [address] [facility]OTY [facility] [place] 11:29 AM systolic EPHANIE K [facility] (congestive) heart failure Nov 08, 2021 SECONDARY Hyperlipidemia, [facility] [place] 11:29 AM unspecified EPHANIE K [facility] Nov 08, [address] [facility] [place] 11:29 AM apnea (adult) EPHANIE K H[facility] (pediatric) Nov 08, 2021 SECONDARY Unspecified atrial HAMLET,[facility] [place] 11:29 AM fibrillation EPHANIE K [facility] Plan of Treatment: Future Appointments (+ 6 months) and Future Tests (+/- 45 days) The Plan of Treatment section includes future care activities for the patient from all [place] treatmentfacilities. This section includes future appointments and future orders which are active, pending orscheduled.Future Appointments This section includes appointments that were scheduled to occur 6 months from the date of the Encounter, up to a maximum of 20 appointments. The data comes from all [place] treatment facilities. Appointment Date/Time Appointment Type Appointment Facili ty Name Nov 11, 2021 08:30 AM AMBULATORY - SURGERY [facility] Nov 11, 2021 10:01 AM AMBULATORY - NEUROLOGY [facility] Nov 14, 2021 09:00 PM AMBULATORY - MEDICINE [facility] Nov 28, 2021 03:30 PM AMBULATORY - MEDICINE [facility] Dec 06, 2021 10:00 AM AMBULATORY - MEDICINE [facility] December 16, 2021 09:00 AM AMBULATORY - REHAB [facility]IC[facility] December 16, 2021 09:45 AM AMBULATORY - MEDICINE [facility] December 16, 2021 10:30 AM AMBULATORY - MEDICINE [facility] CS December 23, 2021 12:15 PM AMBULATORY - NONE [facility] December 23, 2021 12:16 PM AMBULATORY - NONE [facility] December 26, 2021 01:30 PM AMBULATORY - MEDICINE [facility] January 02, 2022 05:00 PM AMBULATORY - REHAB MEDICINE [facility] January 10, 2022 08:30 AM AMBULATORY - MEDICINE [facility] Feb 02, 2022 10:00 AM AMBULATORY - PSYCHIATRY [facility] Feb 03, 2022 12:12 PM AMBULATORY - NONE [facility] Feb 09, 2022 10:00 AM AMBULATORY - PSYCHIATRY [facility] Feb 09, 2022 01:30 PM AMBULATORY - SURGERY [facility] Feb 16, 2022 10:00 AM AMBULATORY - PSYCHIATRY [facility] Feb 23, 2022 10:00 AM AMBULATORY - PSYCHIATRY [facility] Mar 02, 2022 10:00 AM AMBULATORY - PSYCHIATRY [facility] Lab Results: +/- 30 days of the encounter This section includes the Chemistry and Hematology Lab Results on record with [place] for the patient. Radiology Reports and Pathology Reports are provided separately, in subsequent sections.Lab Results This section contains the Chemistry/Hematology Results that were resulted 30 days before or 30 daysafter the date of the Encounter. Date/Time Source Result Type Result - Unit Interpretation Reference Range Comment Nov 11, 2021 [facility] COVID-19 AND FLU/RSV DIAG Sp ecimen Type: NASOPHARYNGEAL 09:34 AM PANEL(CEPHEID) Comment: Rufus rhoades GeneXpert (618) Ordering Provid er: JEREMIAH ACKERMAN Report Released Date/Time: Nov 08, 2021 02:19 PM Reporting Lab: [facility] [address] [facility] [address] Performing Lab: [facility] [address] [facility] [address] COVID-19 (CEPHEID) Not Detected Not Dete cted INFLUENZA A (PCR) Not Detected Not Detec heydi INFLUENZA B (PCR) Not Detected Not Detec heydi RSV (PCR) Not Detected Not Detected Nov 08, 2021 10:11 AM [facility] BNP Specim en Type: PLASMA No comment enter ed. Ordering Provid er: LILIANA MCNULTY Report Released Date/Time: Sep 05, 2021 10:57 AM Reporting Lab: [facility] [address] [facility] [address] Performing Lab: [facility] [address] [facility] [address] BNP 28 <99 Nov 08, 2021 10:11 AM [facility] CBC Specim en Type: BLOOD No comment enter ed. Ordering Provid er: LILIANA MCNULTY Report Released Date/Time: Sep 05, 2021 10:57 AM Reporting Lab: [facility] [address] Performing Lab: [facility] [address] WBC 4.77 4.0-11.0 RBC 4.33 L 4.6-6.2 HGB 13.7 13.5-17.9 HCT 41.0 41-54 MCV 94.7 80-100 MCH 31.6 27-33 MCHC 33.4 32.0-37.5 PLT 128 L 150-400 MPV 9.4 7.4-10.4 RDW 13.0 11.5-14.5 Nov 08, 2021 [facility] COMPREHENSIVE Specimen Typ e: PLASMA 10:11 AM METABOLIC PANEL+MG No comment en tered. Ordering Provid er: LILIANA MCNULTY Report Released Date/Time: Sep 05, 2021 10:57 AM Reporting Lab: [facility] [address] Performing Lab: [facility] [address] CREATININE 0.8 0.7-1.2 UREA NITROGEN 20 8-26 GLUCOSE 85 74-100 SODIUM 136 136-145 POTASSIUM 4.0 3.5-5.1 CHLORIDE 105 98-107 CO2 28 22-29 CALCIUM 9.4 8.4-10.2 PROTEIN,TOTAL 6.7 6.0-8.3 ALBUMIN 4.0 3.5-5.2 BILIRUBIN, TOTAL 0.9 0.2-1.2 MAGNESIUM 2.0 1.6-2.6 ANION GAP 3 L 5-15 ALKALINE PHOSPHATASE 68 40-150 ALT/SGPT 27 <55 AST/SGOT 25 <34 CREAT EGFR(CKD-EPI) >90 >60 Nov 04, 2021 08:59 [facility] BASIC METABOLIC Specimen Type: PLASMA AM PANEL+MG No comment enter ed. Ordering Provid er: ANNMARIE WALKER Report Released Date/Time: Jul 15, 2021 08:27 AM Reporting Lab: [facility] [address] [facility] [address] Performing Lab: [facility] [address] [facility] [address] CREATININE 0.8 0.7-1.2 UREA NITROGEN 15 8-26 [...] dy Source Pressure Rate Mass Index Nov 08 110/68 18 /min 98 % 156 lb 24 [place] 2021 10:40 /min mm[Hg] [facility] Nov 08 110/67 14 /min 98 % 0 68.11 156 lb 24 [place] 2021 09:07 /min mm[Hg] in [facility] Social History: Smoking Status (Most current) and Tobacco Use (All prior to encounter date) This section includes the most current, and the historical, smoking and tobacco-related health factors from the [place] facility where the Encounter took place.Current Smoking Status This section includes the most current smoking, or tobacco-related health factor, from the [place] facility where the Encounter took place. Date/Time Current Smoking Status Comment Facility Apr 04, 2021 10:00 AM VA-TOBACCO NEVER USED [facility] Encounter Notes: All associated encounter notes This section contains the clinical notes associated to the Encounter. Date/Time Encounter Note(s) Provider Source Nov 08, 2021 11:25 CARDIOLOGY ATTENDING OUTPATIENT NOTE: CAROL ESCALANTE [facility] LOCAL TITLE: CARDIOLOGY CLINIC NOTE IE K STANDARD TITLE: CARDIOLOGY ATTENDING OUTPATIENT NOTE DATE OF NOTE: NOV 08, 2021@11:25 ENTRY DATE: NOV 08, 2021@11:25:08 AUTHOR: ALANA MCNULTY EXP COSIGNER: URGENCY: STATUS: COMPLETED CHF Clinic Follow Up HPI:YOUSIF Rosalinda VENESS 76y/o male w ith a past medical history significant for heart failure with reduced EF, NICM, chronic atrial fibrillation on anticoagulation, hearing loss, ROSA non-compliant with CPAP, HLD and ED who presents to the heart failure clinic today for c ontinued medication optimization. Since our last visit, he has been doing well overall. He recently returned from [place] where he wang. He continues to closely monitor his blood pressure and weights, both have been stable. He bring s his blood pressure check in with him showing systolic blood pressures ranging from 11 0120s. He denies any postural lightheadedness or dizziness. He has no limiting symptoms, denies shortness of breath. Is able to ambulate from the parking gar age without issue. He has been closely monitored with electrophysio logy team, he is taking dofetilide for rhythm control. He denies any pal pitations or syncope. He continues to monitor his fluid and sodium intake . He has no concerns today. ROS: All [...] TO KEEP A NORMAL HEART BEAT 4) LISINOPRIL 5MG TAB TAKE ONE TABLET BY MOUTH T WO TIMES ACTIVE (S) A DAY FOR HEART FAILURE. 5) PEG 400 0.4%/PROP GLYCOL 0.3% OPH SOLN INSTIL L 1 DROP ACTIVE IN BOTH EYES FOUR TIMES A DAY FOR EYE IRRITATION/DRYNESS 6) RIVAROXABAN 20MG TAB TAKE ONE TABLET BY MOUTH EVERY ACTIVE (S) DAY WITH THE LARGEST MEAL OF THE DAY TO PREVENT BLOOD CLOTS & STROKE 7) SILDENAFIL CITRATE 100MG TAB TAKE ONE-HALF TA BLET BY ACTIVE MOUTH EVERY DAY NEEDED FOR ERECTIONS - TAKE 1 HOUR BEFORE ANTICIPATED SEXUAL ACTIVITY--MAXIMU M 4 DOSES FOR 30-DAY SUPPLY. Pending Outpatient Medications Status 1) ATORVASTATIN CALCIUM 20MG TAB TAKE ONE TABLET BY PENDING MOUTH AT BEDTIME FOR CHOLESTEROL 2) CARVEDILOL 3.125MG TAB TAKE ONE TABLET BY OMER TH TWO PENDING TIMES A DAY WITH FOOD. FOR HEART. 3) EMPAGLIFLOZIN 25MG TAB TAKE ONE-HALF TABLET B Y MOUTH PENDING EVERY MORNING 10 Total Medications MEDICATION RECONCILIATION: The medication list above was reviewed with the patient/surrogate and if changes are indicated they are listed ab ove. Vitals: Temperature: 98.6 F [37.0 C] (11/04/2021 09:51) Pulse: 63 (11/08/2021 10:40) Respirations: 18 (11/08/2021 10:40) Blood Pressure: 110/68 (11/08/2021 10:40) Pain: 0 (11/08/2021 09:07) RR: unlabored at rest O2 Sat:98% (11/08/2021 10:40) Weight: 156 lb [70.76 kg] (11/08/2021 10:40) PERTINENT EXAM: General: NAD, A/Ox3 HEENT: Atraumatic and normocephalic. NECK: Supple. Neck veins flat. LUNGS: clear throughout, normal expansion HEART: s1, s2, no murmur, rub or gallop ABDOMEN: Soft and nontender. EXTREMITIES: no edema, pulses present bilaterall y PSYCHOLOGICAL: Normal affect. LABS: WBC: 4.77 RBC: 4.33 L HGB: 13.7 HCT: 41.0 MCV: 94.7 MCH: 31.6 MCHC: 33.4 RDW: 13.0 PLT: 128 L MPV: 9.4 GLUCOSE: 85 UREA NITROGEN: 20 CREATININE: 0.8 SODIUM: 136 POTASSIUM: 4.0 CHLORIDE: 105 CO2: 28 CALCIUM: 9.4 PROTEIN,TOTAL: 6.7 ALBUMIN: 4.0 BILIRUBIN,TOTAL: 0.9 MAGNESIUM: 2.0 ANION GAP: 3 L ALKALINE PHOSPHATASE(37C): 68 SGOT(37C): 25 SGPT(37C): 27 CREATININE EGFR (CKD-EPI): >90 B-TYPE NATRIURETIC PEPTIDE: 28 Collection DT Spec WBC HGB HCT PLT MCV NEUT LYMP HS 11/08/2021 10:11 BLOOD 4.77 13.7 41.0 128 L 94.7 07/27/2021 10:32 BLOOD 4.39 15.3 45.8 111 L 93.3 63.3 25.3 07/12/2021 05:30 BLOOD 5.46 15.0 41.7 102 L 95.2 61.3 28.0 ------- Assessment/Plan: ------- # Heart failure: Currently stable without eviden ce of decompensation on exam. Will work to further optimize medical th erapies. Today we will stop furosemide in favor of starting empagliflozin 12.5 mg daily. Follow-up in 1 month. Unable to further titrate beta-bloc ker to bradycardia, heart rate readings at home 50s. 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 Time spent in person 30 minutes with over 50% sp ent in counseling and coordination of care. Thank you for allowing me to participate in the care of YOUSIF MANN. Please contact me with any q uestions or concerns. Liliana Mcnulty NP Heart Failure Clinic /es/ LILIANA MCNULTY APRN NURSE PRACTITIONER Signed: 11/08/2021 11:29 Nov 08, 2021 10:41 INTERNAL MEDICINE OUTPATIENT NOTE: DEVANG OLIVIER [facility] LOCAL TITLE: MEDICINE CLINIC NURSING NOTE STANDARD TITLE: INTERNAL MEDICINE OUTPATIENT NOT E DATE OF NOTE: NOV 08, 2021@10:41 ENTRY DATE: NOV 08, 2021@10:42 AUTHOR: AMADEO OLIVIER EXP COSIGNER: URGENCY: STATUS: COMPLETED TYPE OF VISIT: Appointment Check In Type of appointment: In-person appointment REASON FOR VISIT: follow up ALLERGIES: Patient has answered NKA VITAL SIGNS: Blood Pressure: 110/68 (11/08/2021 10:40) Pulse: 63 (11/08/2021 10:40) Respiration: 18 (11/08/2021 10:40) Temperature: 98.6 F [37.0 C] (11/04/2021 09:51) Weight: 156 lb [70.76 kg] (11/08/2021 10:40) Height: 68.11 in [173.0 cm] (11/08/2021 09:07) BMI: 23.7 O2 Sat: 98% (11/08/2021 10:40) Pain: 0 (11/08/2021 09:07) PAIN SCREEN: Patient is not having significant pain that the y wish to discuss with their provider today. MEDICATION Over the Counter/Herbal Medications: The patient denies taking any outside medicatio ns or herbals. Congestive Heart Failture (CHF) Clinic Does [place] have a home scale? Yes [place]'s weight this mornin lbs Does weigh themselves every morning? Ye s Does have shortness of breath? No How many pillows are under the 's head a t night? 1 Does [place] sleep in a recliner? No Does [place] use a wedge while sleeping? No Does wake up during the night due to sh ortness of breath? No Does [place] have a cough? No Does [place] ever notice fluid in their legs? Yes When? now Does ever wear support hose? No Does have chest pain? No Does experience lightheadedness/dizzine ss? No Does use a salt shaker at the table/whe n cooking? No Does [place] have Home Telehealth CHF monitorin g: No: Given Home Telehealth brochure to review an d discuss with provider /tanner/ AMADEO OLIVIER LPN LPN Signed: 11/08/2021 10:45
--- OUTSIDE RECORDS SUMMARY | 2022-07-24 21:30 | XMS_ITS | Encounter Summary ---
:1945 Author Organization [facility] Address [address] [place] [id number] Support Name Relationship Address Phone BANG MANN MEENAKSHI Unavailable [phone] [facility] [phone] [place] [address] BANG MANN MEENAKSHI Unavailable [phone] [facility] [place] [address] Insurance Providers: All historical and current Section [...] Tanner [place] Aug 13, [id number] VENESS,BECERRA P ATIENT MCR (WNR) ADVANTAGE ARE 2020 5 [id number] [phone] ROLD ADVAN 1 MOUSTAPHA C [place] Aug 13, [id number] VENESS,BECERRA P ATIENT MCR (WNR) ADVANTAGE (WNR) 2020 7 [id number] [phone] R[place] 1 [place] Aug 13, [id number] [phone] VENESS ,BECERRA PATIENT MCR (WNR) ADVANTAGE (WNR) 2022 5 [id number] ROLD 1 MEDICARE MEDICARE PART Sep 13, PART B [id number] 800 Merari CONKLIN (WNR) (M) B 2012 [id number] [phone] [facility] MEDICARE MEDICARE PART Mar 13, PART A [id number] 800 Merari CONKLIN (WNR) (M) A 2008 [id number] [phone] [facility] MEDICARE MEDICARE PART Mar 13, PART A 800 Merari CONKLIN (WNR) (M) A [phone] AROLD Selected Encounter This section includes the information on record at ID for the Encounter. Date/Time Encounter Type Encounter Reason Provider Source Description Nov 08, 2021 OFFICE SLEEP MEDICINE ICD-10-CM G47.33 LISANDRA SANCHEZ 01:00 PM CONSULTATION Obstructive sleep apnea (adult) (pediatric) with Provider Comments: Obstructive sleep apnea (adult) (pediatric) IHE Encounter Template Text not used by [facility] Assessments - Encounter Diagnoses This section includes the primary and secondary diagnoses documented for the Encounter. 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 This section includes future appointments and future orders which are active, pending orscheduled.Future Appointments This section includes appointments that were scheduled to occur 6 months from the date of the Encounter, up to a maximum of 20 appointments. The data comes from all ID treatment facilities. Appointment Date/Time Appointment Type Appointment Facili ty Name Nov 11, 2021 08:30 AM AMBULATORY - SURGERY [facility] S Nov 11, 2021 10:01 AM AMBULATORY - NEUROLOGY [facility] Nov 14, 2021 09:00 PM AMBULATORY - MEDICINE [facility] CS Nov 28, 2021 03:30 PM AMBULATORY - MEDICINE [facility] Dec 06, 2021 10:00 AM AMBULATORY - MEDICINE [facility] CS December 16, 2021 09:00 AM AMBULATORY - REHAB [facility] December 16, 2021 09:45 AM AMBULATORY - MEDICINE [facility] CS December 16, 2021 10:30 AM AMBULATORY - MEDICINE [facility] December 23, 2021 12:15 PM AMBULATORY - NONE [facility] December 23, 2021 12:16 PM AMBULATORY - NONE [facility] December 26, 2021 01:30 PM AMBULATORY - MEDICINE [facility] January 02, 2022 05:00 PM [facility] January 10, 2022 08:30 AM AMBULATORY - MEDICINE [facility] Feb 02, 2022 10:00 AM AMBULATORY - PSYCHIATRY [facility] Feb 03, 2022 12:12 PM AMBULATORY - NONE [facility] Feb 09, 2022 10:00 AM AMBULATORY - PSYCHIATRY [facility] Feb 09, 2022 01:30 PM AMBULATORY - SURGERY [facility] S Feb 16, 2022 10:00 AM AMBULATORY - PSYCHIATRY [facility] Feb 23, 2022 10:00 AM AMBULATORY - PSYCHIATRY [facility] Mar 02, 2022 10:00 AM AMBULATORY - PSYCHIATRY [facility] Lab Results: +/- 30 days of the encounter This section includes the Chemistry and Hematology Lab Results on record with ID for the patient. Radiology Reports and Pathology Reports are provided separately, in subsequent sections.Lab Results This section contains the Chemistry/Hematology Results that were resulted 30 days before or 30 daysafter the date of the Encounter. Date/Time Source Result Type Result - Unit Interpretation Reference Range Comment Nov 11, 2021 [facility] COVID-19 AND FLU/RSV DIAG Sp ecimen Type: NASOPHARYNGEAL 09:34 AM PANEL(CEPHEID) Comment: Cephei d GeneXpert (618) Ordering Provid er: JEREMIAH MAE Report Released Date/Time: Nov 08, 2021 02:19 PM Reporting Lab: [facility] [address] [facility] [id number] Performing Lab: [facility] [address] [facility] [address] COVID-19 (CEPHEID) Not Detected Not Dete cted INFLUENZA A (PCR) Not Detected Not Detec heydi INFLUENZA B (PCR) Not Detected Not Detec heydi RSV (PCR) Not Detected Not Detected Nov 08, 2021 10:11 AM [facility] BNP Specim en Type: PLASMA No comment enter ed. Ordering Provid er: DRAKE MCNULTY Report Released Date/Time: Sep 05, 2021 10:57 AM Reporting Lab: [facility] [address] [facility] [address] Performing Lab: [facility] [address] [facility] [address] BNP 28 <99 Nov 08, 2021 10:11 AM [facility] CBC Specim en Type: BLOOD No comment enter ed. Ordering Provid er: DRAKE MCNULTY Report Released Date/Time: Sep 05, 2021 10:57 AM Reporting Lab: [facility] [address] Performing Lab: [facility] [id number] WBC 4.77 4.0-11.0 RBC 4.33 L 4.6-6.2 HGB 13.7 13.5-17.9 HCT 41.0 41-54 MCV 94.7 80-100 MCH 31.6 27-33 MCHC 33.4 32.0-37.5 PLT 128 L 150-400 MPV 9.4 7.4-10.4 RDW 13.0 11.5-14.5 Nov 08, 2021 [facility] COMPREHENSIVE Specimen Typ e: PLASMA 10:11 AM METABOLIC PANEL+MG No comment en tered. Ordering Provid er: DRAKE MCNULTY Report Released Date/Time: Sep 05, 2021 10:57 AM Reporting Lab: [facility] [id number] Performing Lab: [facility] [address] CREATININE 0.8 0.7-1.2 UREA NITROGEN 20 8-26 GLUCOSE 85 74-100 SODIUM 136 136-145 POTASSIUM 4.0 3.5-5.1 CHLORIDE 105 98-107 CO2 28 22-29 CALCIUM 9.4 8.4-10.2 PROTEIN,TOTAL 6.7 6.0-8.3 ALBUMIN 4.0 3.5-5.2 BILIRUBIN, TOTAL 0.9 0.2-1.2 MAGNESIUM 2.0 1.6-2.6 ANION GAP 3 L 5-15 ALKALINE PHOSPHATASE 68 40-150 ALT/SGPT 27 <55 AST/SGOT 25 <34 CREAT EGFR(CKD-EPI) >90 >60 Nov 04, 2021 08:59 [facility] BASIC METABOLIC Specimen Type: PLASMA AM PANEL+MG No comment enter ed. Ordering Provid er: ANNMARIE WALKER Report Released Date/Time: Jul 15, 2021 08:27 AM Reporting Lab: [facility] [id number] Performing Lab: [facility] [address] CREATININE 0.8 0.7-1.2 UREA NITROGEN 15 8-26 [...] lb 24 [place] 2021 10:40 /min mm[Hg] [facility] Nov 08 110/67 14 /min 98 % 0 68.11 156 lb 24 [place] 2021 09:07 /min mm[Hg] in [facility] Social History: Smoking Status (Most current) and Tobacco Use (All prior to encounter date) This section includes the most current, and the historical, smoking and tobacco-related health factors from the ID facility where the Encounter took place.Current Smoking Status This section includes the most current smoking, or tobacco-related health factor, from the ID facility where the Encounter took place. Date/Time Current Smoking Status Comment Facility Apr 04, 2021 10:00 AM ID-TOBACCO NEVER USED [facility] Encounter Notes: All associated encounter notes This section contains the clinical notes associated to the Encounter. Date/Time Encounter Note(s) Provider Source Nov 08, 2021 12:54 PM INTERNAL MEDICINE OUTPATIENT NOTE: AMADEO OLIVIER [facility] LOCAL TITLE: MEDICINE CLINIC NURSING NOTE STANDARD TITLE: INTERNAL MEDICINE OUTPATIENT NOT E DATE OF NOTE: NOV 08, 2021@12:54 ENTRY DATE: NOV 08, 2021@12:54:33 AUTHOR: AMADEO OLIVIER EXP COSIGNER: URGENCY: STATUS: COMPLETED TYPE OF VISIT: Appointment Check In Type of appointment: In-person appointment REASON FOR VISIT: sleep consult ALLERGIES: Patient has answered NKA VITAL SIGNS: [...] taking any outside medicatio ns or herbals. Sleep Clinic C-SSRS Screening [place] Suicide Severity Rating Scale (C-SSRS) screener 1. Over the past month, have you wished you wer e or wished you could go to sleep and not wake up? No 2. Over the past month, have you had any actual thoughts of killing yourself? No 3. Over the past month, have you been thinking about how you might do this? Response not required due to responses to other questions. 4. Over the past month, have you had these thou ghts and had some intention of acting on them? Response not required due to responses to other questions. 5. Over the past month, have you started to wor k out or worked out the details of how to kill yourself? Response not required due to responses to other questions. 6. If yes, at any time in the past month did yo u intend to carry out this plan? Response not required due to responses to other questions. 7. In your lifetime, have you ever done anythin g, started to do anything, or prepared to do anything to end you r life (for example, collected pills, obtained a gun, gave away valuables, went to the roof but didn't jump)? No 8. If YES, was this within the past 3 months? Response not required due to responses to other questions. /tanner/ AMADEO OLIVIER LPN LPN Signed: 11/08/2021 12:55 Nov 08, 2021 08:48 AM SLEEP MEDICINE CONSULT: [facility]EMIAH [facility]E [facility] LOCAL TITLE: SLEEP MEDICINE CONSULT STANDARD TITLE: SLEEP MEDICINE CONSULT DATE OF NOTE: NOV 08, 2021@08:48 ENTRY DATE: NOV 08, 2021@08:48:50 AUTHOR: JEREMIAH MAE EXP COSIGNER: URGENCY: STATUS: COMPLETED SLEEP MEDICINE CONSULT Has ADDENDA Sleep Clinic Encounter Provider: Jeremiah Mae MD - Sleep Medicine Zachery kwan CC: HPI: YOUSIF MANN A 76 MALE with past medical histor y of a fib, reduced ejection fraction heart failure [40-45%], ROSA non adheren t with CPAP, hyperlipidemia presents with difficulty with staying asleep. of 30 years was called during the appointm ent to provide collateral information. A. SYMPTOMS SUGGESTIVE OF SLEEP RELATED DISORDE RED BREATHIN years ago he had difficul ty with sleep- sleep apnea workup done at [facility] and was told he had sleep apnea,unclear of the severity [unable to review previous study]. CPAP prescribed, used it for 1.5 years consistently and he didnt find any benefit. He has not used CPAP since then. Now he occasionally has snort arousals. - states that he snores on his L si de but not when on his R side. overall he has less snoring now than before and attributes to decreased stres level - denies morning headaches, - feeks refreshed after first 1.5 hour o f sleep but then when wakes up and has more awakenings in night, he feels like he has n on restorative sleep. B.INSOMNIA/SLEEP SCHEDULE: -Bedtime: 1030 pm -Sleep latency: 15 mins -Sleep aids: -Prior: melatonin - used once but didnt continu e. didnt find benefit -Nocturnal awakenings: 3-4 times or more -someti mes to urinate, other times unclear why he wakes up - 15 mins to 3 hours to return to sleep -Activities when can't fall asleep: thinking abo ut things he can be doing instead of laying in bed, making checklists of w hat to in the day. -Wake time: 2-5sm. 7 am get out of bed. patient doesnt get out of bed when he wakes up or goes into bed later due to i t being cold in his house and he feels comfortable in bed. -Sleep inertia: no -Naps: no -Sleep hygiene: -caffeine: tea -screens: TV to watch -Preferred sleeping position: R side sleeps with 1 pillow- no orthopnea no dyspnea on ambulation Previous work shcedule: [employer] - 24 hour on and 24 swathi r off alternating shifts in [place]. 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 - In 1994, he got a job- hours were 10 pm - 6am then got a job 10pm-8am. then job 4:15pm-415am until he retired 2012. He would nt get called for jobs if he said he wanted first shift. 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 ESS: 1. Sitting and reading 2 2. Watching TV 2 3. Sitting inactive in a public place 0 4. As a passenger in a car for an hour without a break 1 5. Lying down to rest in afternoon if circumsta nces permit1 6. Sitting and talking to someone 0 7. Sitting quietly after lunch without alcohol 0 8. In a car while stopped for a few minutes in traffic 0 TOTAL: 02/03 C. SLEEP-RELATED MOVEMENTS/BEHAVIORS -no sleep walking, sleep eating, somniloquy -no disruptive/vivid dreams, nightmares, night t errors -no dream enactment behavior -No restless legs symptoms. mentions that merari doan moves occasionally in his sleep but patient was not aware of this movement . PAST MEDICAL HISTORY: Active problems - Computerized Problem List is t he source for the followin. Atrial fibrillation 2. Hyperlipidemia 3. Age related macular degeneration 4. Hearing loss 5. Tinnitus 6. Tremor 7. Obstructive sleep apnea - Non-compliant with CPAP. 8. Erectile dysfunction 9. Heart failure with reduced ejection fraction Medications: Active Outpatient Medications (including Supplie s): Outpatient Medications Status 1) ATORVASTATIN [...] ACTIVITY--MAXIMU M 4 DOSES FOR 30-DAY SUPPLY. Allergies: Patient has answered NKA PHYSICAL EXAM: Vitals: Temperature: 98.6 F [37.0 C] (11/04/2021 09:51) Blood Pressure: 100/61 (11/04/2021 09:51) Pulse: 61 (11/04/2021 09:51) Respiration: 16 (11/04/2021 09:51) Pain: 0 (11/04/2021 09:51) BP: 100/61 (11/04/2021 09:51) P: 61 (11/04/2021 09:51) R: 16 (11/04/2021 09:51) T: 98.6 F [37.0 C] (11/04/2021 09:51) WT: 156.7 lb [71.08 kg] (11/04/2021 09:51) Pain: 0 (11/04/2021 09:51) O2 Sat: BMI: 23.8 General Appearance: Well nourished, NAD Pulmonary: CTA bilaterally. No wheezes, crackles or rhonchi Neuro: Alert and Oriented x3 ROS: 14 point review of system was negative other too n listed in HPI. SH: SMOKING HISTORY (HS) FH: Reviewed and unremarkable Investigations: Ferritin: FERRITIN 430.8 H (07/27/21) IRON 149 (07/27/21) TRANSFERRIN 226 (07/27/21) TIBC,CALCULATED 283 (07/27/21) Echo: 06/10/2021 1. Normal left ventricular size with mildly redu olga systolic function. Estimated left ventricular ejection fraction 40- 45% with bliq-hq-byxz variability due to atrial fibrillation. 2. Mild global hypokinesis. 3. Mild right ventricular enlargement with mildl y reduced systolic function. Estimated right ventricular systolic pressure 37 mm Hg. 4. Bi-atrial enlargement. 5. Mild mitral valve regurgitation. 6. Dilated inferior vena cava with reduced inspi ratory collapse. 7. Tiny posterior pericardial effusion. 8. No prior study for comparison. Assessment and Plan: YOUSIF MANN A 76 MALE with past medical histor y of a fib, reduced ejection fraction heart failure [40-45%], ROSA non adheren t with CPAP, hyperlipidemia presents with difficulty with staying asleep. 1. History of obstructive sleep apnea 2. 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 History of obstructive sleep apnea - Patient was diagnosed 20 years ago with sleep apnea that required CPAP treatment. Patient tolerated it for 1.5 year but found no benefit. Unable to review previous study - Due to patient having significant sleep fragme ntation and multiple night awakenings, there could be a concern of sleep disordered breathing respiratory events being the cause. -Since last sleep study patient has been diagnos ed wtih reduced ejection fraction heart failure and atrial fibrillation, so there could be concern for central sleep apnea as a cause. -we are ordering Split night polysomnogram for t he patient to evaluate for sleep related disordered breathing and to attemp t optimal titration. ASV and BIPAP ST would be contraindicated for this patie nt. - The was provided w ith detailed education regarding the conduction of a diagnostic Type 1 sleep study with audio and vid eo recording. All potential therapeutic options including positive a irway pressure therapy were discussed. All questions were answers to the patients sati sfaction. gave verbal consent to proceed with the sleep study. - Also advised regarding sleep and drivi ng and other situations requiring high alertness. 2. Insomnia - Difficulty with sleep maintenance - There could be multifactorial causes that can contribute to sleep fragmentation- untreated sleep apnea and once aw andrew, patient has active mind thinking about tasks that can be done -We discussed about the 4P model of insomnia, pr edisposing, precipitating and perpetuating factors, contribu ting to sleep onset issues and discussed about various CBTI strategies incl uding sleep restriction and stimulus control mainly. - Provided patient with information for online [employer] Path to better sleep for patient to further learn about what we discu ssed in the appointment. - At some point CBT-I referral may need to be co nsidered on next visit. 3. 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 It was not a preference that luis alberto kathleen chose the night shifts but he was assigned to them. 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 He wou ld usually get about 5 hours of sleep. - HE currently feels like he gets 4 hour s of sleep although he is in bed for 9 hours and can still function during the day. - Once ROSA workup and CBT-I techniques implement ed, can discuss this further Return to clinic for follow up in 3 months but a fter night of study will be given results before appointment with me for ass essment in the future. Plan was given to patient. Patient was reviewed with supervising physician Dr. Sanchez. /tanner/ JEREMIAH MAE MD SLEEP MEDICINE FELLOW Signed: 11/08/2021 16:49 Receipt Acknowledged By: 11/09/2021 17:10 /tanner/ LISANDRA SANCHEZ MD SLEEP PHYSICIAN 11/09/2021 ADDENDUM STATUS: COMPLETED Patient was seen, examined, and discussed with t he fellow and the above note reflects our mutual assessmen t and recommendations. Thank you. Lisandra Sanchez MD Staff Physician,Sleep Medicine /tanner/ LISANDRA SANCHEZ MD SLEEP PHYSICIAN Signed: 11/09/2021 17:10
--- OUTSIDE RECORDS SUMMARY | 2022-07-24 21:30 | XMS_ITS | Encounter Summary ---
:1945 Author Organization [facility] Address [address] [place] [id number] Support Name Relationship Address Phone BANG MANN MEENAKSHI Unavailable [id number] [facility] [address] BANG MANN MEENAKSHI Unavailable [id number] [facility] [place] [address] Insurance Providers: All historical and current Section [...] [place] Aug 13, [id number] VENESS,BECERRA P ATIENT [facility] (WNR) ADVANTAGE ARE 2020 5 [id number] [phone] ROLD ADVAN 1 [place] C [place] MCR Aug 13, [id number] VENESS,BECERRA P ATIENT [facility] (WNR) ADVANTAGE (WNR) 2020 7 [id number] [phone] [place] 1 [place] Aug 13, [id number] [phone] VENESS ,BECERRA PATIENT MCR (WNR) ADVANTAGE (WNR) 2022 5 [id number] ROLD 1 MEDICARE MEDICARE PART Sep 13, PART B [id number] Jesusita CONKLIN (WNR) (M) B 2012 [id number] [phone] [facility] MEDICARE MEDICARE PART Mar 13, PART A 800 Jesusita CONKLIN (WNR) (M) A [phone] [facility] MEDICARE MEDICARE PART Mar 13, PART A [id number] Jesusita CONKLIN (WNR) (M) A 2008 [id number] [phone] [facility] Selected Encounter This section includes the information on record at [place] for the Encounter. Date/Time Encounter Type Encounter Description Reason Provider Source Nov 14, 2021 09:00 Outpatient Encounter SLEEP STUDY PM IHE Encounter Template Text not used by [place] Plan of Treatment: Future Appointments (+ 6 months) and Future Tests (+/- 45 days) The Plan of Treatment section includes future care activities for the patient from all [place] treatmentfacilities. This section includes future appointments and future orders which are active, pending orscheduled.Future Appointments This section includes appointments that were scheduled to occur 6 months from the date of the Encounter, up to a maximum of 20 appointments. The data comes from all [place] treatment facilities. Appointment Date/Time Appointment Type Appointment Facili ty Name Nov 28, 2021 03:30 PM AMBULATORY - MEDICINE [facility] Dec 06, 2021 10:00 AM AMBULATORY - MEDICINE [facility] December 16, 2021 09:00 AM AM[facility]ULATORY - [facility]AB [facility] December 16, 2021 09:45 AM AMBULATORY - MEDICINE [facility] December 16, 2021 10:30 AM AMBULATORY - MEDICINE [facility] December 23, 2021 12:15 PM AMBULATORY - NONE [facility] December 23, 2021 12:16 PM AMBULATORY - NONE [facility] December 26, 2021 01:30 PM AMBULATORY - MEDICINE [facility] January 02, 2022 05:00 PM AMBULATORY - REHAB [facility] January 10, 2022 08:30 AM AMBULATORY - MEDICINE [facility] Feb 02, 2022 10:00 AM AMBULATORY - PSYCHIATRY [facility] Feb 03, 2022 12:12 PM AMBULATORY - NONE [facility] Feb 09, 2022 10:00 AM AMBULATORY - PSYCHIATRY [facility] Feb 09, 2022 01:30 PM AMBULATORY - SURGERY [facility] Feb 16, 2022 10:00 AM AMBULATORY - PSYCHIATRY [facility] Feb 23, 2022 10:00 AM AMBULATORY - PSYCHIATRY [facility] Mar 02, 2022 10:00 AM AMBULATORY - PSYCHIATRY [facility] Mar 08, 2022 08:45 AM AMBULATORY - MEDICINE [facility] Mar 08, 2022 09:00 AM AMBULATORY - MEDICINE [facility] Mar 08, 2022 09:30 AM AMBULATORY - MEDICINE [facility] Lab Results: +/- 30 days of the encounter This section includes the Chemistry and Hematology Lab Results on record with [place] for the patient. Radiology Reports and Pathology Reports are provided separately, in subsequent sections.Lab Results This section contains the Chemistry/Hematology Results that were resulted 30 days before or 30 daysafter the date of the Encounter. Date/Time Source Result Type Result - Unit Interpretation Reference Range Comment Nov 11, 2021 [facility] COVID-19 AND FLU/RSV DIAG Sp ecimen Type: NASOPHARYNGEAL 09:34 AM PANEL(CEPHEID) Comment: [place] d GeneXpert (618) Ordering Provid er: JEREMIAH ACKERMAN Report Released Date/Time: Nov 08, 2021 02:19 PM Reporting Lab: [facility] [address] Performing Lab: [facility] [address] COVID-19 (CEPHEID) Not Detected Not Dete cted INFLUENZA A (PCR) Not Detected Not Detec heydi INFLUENZA B (PCR) Not Detected Not Detec heydi RSV (PCR) Not Detected Not Detected Nov 08, 2021 10:11 AM [facility] BNP Specim en Type: PLASMA No comment enter ed. Ordering Provid er: DRAKE MCNULTY Report Released Date/Time: Sep 05, 2021 10:57 AM [facility] [address] Performing Lab: [facility] [address] BNP 28 <99 Nov 08, 2021 [facility] COMPREHENSIVE Specimen Typ e: PLASMA 10:11 AM METABOLIC PANEL+MG No comment en tered. Ordering Provid er: DRAKE MCNULTY Report Released Date/Time: Sep 05, 2021 10:57 AM Reporting Lab: [facility] [address] Performing Lab: [facility] [address] CREATININE 0.8 0.7-1.2 UREA NITROGEN 20 8-26 GLUCOSE 85 74-100 SODIUM 136 136-145 POTASSIUM 4.0 3.5-5.1 CHLORIDE 105 98-107 CO2 28 22-29 CALCIUM 9.4 8.4-10.2 PROTEIN,TOTAL 6.7 6.0-8.3 ALBUMIN 4.0 3.5-5.2 BILIRUBIN, TOTAL 0.9 0.2-1.2 MAGNESIUM 2.0 1.6-2.6 ANION GAP 3 L 5-15 ALKALINE PHOSPHATASE 68 40-150 ALT/SGPT 27 <55 AST/SGOT 25 <34 CREAT EGFR(CKD-EPI) >90 >60 Nov 08, 2021 10:11 AM [facility] CBC Specim en Type: BLOOD No comment enter ed. Ordering Provid er: DRAKE MCNULTY Report Released Date/Time: Sep 05, 2021 10:57 AM Reporting Lab: [facility] [address] [facility] [address] Performing Lab: [facility] [address] WBC 4.77 4.0-11.0 RBC 4.33 L 4.6-6.2 HGB 13.7 13.5-17.9 HCT 41.0 41-54 MCV 94.7 80-100 MCH 31.6 27-33 MCHC 33.4 32.0-37.5 PLT 128 L 150-400 MPV 9.4 7.4-10.4 RDW 13.0 11.5-14.5 Nov 04, 2021 08:59 [facility] BASIC METABOLIC Specimen Type: PLASMA AM PANEL+MG No comment enter ed. Ordering Provid er: ANNMARIE WALKER Report Released Date/Time: Jul 15, 2021 08:27 AM Reporting Lab: [facility] [address] [facility] AT [facility] [address] Performing Lab: [facility] [address] CREATININE 0.8 0.7-1.2 UREA NITROGEN 15 8-26 [...] smoking and tobacco-related health factors from the [facility] where the Encounter took place.Current Smoking Status This section includes the most current smoking, or tobacco-related health factor, from the [place] facility where the Encounter took place. Date/Time Current Smoking Status Comment Facility Apr 04, 2021 10:00 AM [place] NEVER USED [facility] [place] [facility]
--- OUTSIDE RECORDS SUMMARY | 2022-07-24 21:30 | XMS_ITS | Encounter Summary ---
:1945 Author Organization [facility] Address [address] [place] [id number] Support Name Relationship Address Phone BANG MANN Unavailable [id number] [facility] [place] [address] BANG MANN MEENAKSHI Unavailable [address] [facility] [place] [address] Insurance Providers: All historical and current Section Date Range: From patient's date of to the date document was created.This section includes the names of all active insurance providers for the patient. Insurance Type of Plan Start of End of Group Member Insurance Policy P atient's Provider Coverage Name Policy Policy Number ID Provider's Tanner's Relationship Coverage Coverage Telephone Name to Policy Number Tanner [facility] MEDICARE MEDIC Aug 13, [id number] VENESS,BECERRA P ATIENT [facility] (WNR) ADVANTAGE ARE 2020 5 [id number] [phone] [place] ADVAN 1 TAGE C [place] MEDICARE MCR Aug 13, [id number] VENESS,BECERRA P ATIENT [facility] (WNR) ADVANTAGE (WNR) 2020 7 [id number] [phone] [place] 1 [place] Aug 13, [id number] [phone] VENESS ,BECERRA PATIENT MCR (WNR) ADVANTAGE (WNR) 2022 5 [id number] ROLD 1 MEDICARE MEDICARE PART Sep 13, PART B [id number] Jesusita CONKLIN (WNR) (M) B 2012 [id number] [phone] [facility] MED[facility] MEDICARE PART Mar 13, PART A 800 Jesusita CONKLIN (WNR) (M) A [phone] [facility] MEDICARE MEDICARE PART Mar 13, PART A [id number] Jesusita CONKLIN (WNR) (M) Rosalinda 2008 [id number] [phone] [facility] Selected Encounter This section includes the information on record at [place] for the Encounter. Date/Time Encounter Type Encounter Reason Provider Source Description Jul 27, 2021 OFFICE O/P EST CARDIOLOGY ICD-10-CM I50.20 FELICITY RODRÍGUEZ 10:30 AM MINIMAL PROB Unspecified M systolic (congestive) heart failure with Provider Comments: Heart failure with reduced ejection fraction ([facility] [id number]) IHE Encounter Template Text not used by [place] Assessments - Encounter Diagnoses This section includes the primary and secondary diagnoses documented for the Encounter. Date/Time Primary/Secondary Diagnosis Name Provider Source Diagnosis Jul 27, 2021 PRIMARY Unspecified FELICITY RODRÍGUEZ [facility] 11:50 AM systolic M HCS (congestive) heart failure Jul 27, 2021 SECONDARY Other chest pain FELICITY RODR[facility]GUEZ [facility] 11:50 AM M HCS Jul 27, 2021 SECONDARY Other fatigue FELICITY RODRÍGUEZ [facility] 11:50 AM M [facility] Plan of Treatment: Future Appointments (+ 6 months) and Future Tests (+/- 45 days) The Plan of Treatment section includes future care activities for the patient from all [place] treatmentfacilities. This section includes future appointments and future orders which are active, pending orscheduled.Future Appointments This section includes appointments that were scheduled to occur 6 months from the date of the Encounter, up to a maximum of 20 appointments. The data comes from all [place] treatment facilities. Appointment Date/Time Appointment Type Appointment Facili ty Name Aug 10, 2021 10:00 AM AMBULATORY - NONE [facility] Sep 05, 2021 10:30 AM AMBULATORY - MEDICINE [facility] Nov 04, 2021 08:45 AM AMBULATORY - MEDICINE [facility] Nov 04, 2021 09:30 AM AMBULATORY - MEDICINE [facility] Nov 04, 2021 10:00 AM AMBULATORY - MEDICINE [facility] Nov 04, 2021 11:00 AM AMBULATORY - NONE [facility] Nov 08, 2021 09:00 AM AMBULATORY - MEDICINE [facility] Nov 08, 2021 11:00 AM AMBULATORY - MEDICINE [facility] Nov 08, 2021 12:00 PM AMBULATORY - MEDICINE [facility] Nov 08, 2021 01:00 PM AMBULATORY - MEDICINE [facility] Nov 11, 2021 08:30 AM AMBULATORY - SURGERY [facility] Nov 11, 2021 10:01 AM AMBULATORY - NEUROLOGY [facility] Nov 14, 2021 09:00 PM AMBULATORY - MEDICINE [facility] Nov 28, 2021 03:30 PM AMBULATORY - MEDICINE [facility] Dec 06, 2021 10:00 AM AMBULATORY - MEDICINE [facility] December 16, 2021 09:00 AM AMBULATORY - REHAB [facility] December 16, 2021 09:45 AM AMBULATORY - MEDICINE [facility] December 16, 2021 10:30 AM AMBULATORY - MEDICINE [facility] December 23, 2021 12:15 PM AMBULATORY - NONE [facility] December 23, 2021 12:16 PM AMBULATORY - NONE [facility] Active, Pending, and Scheduled Orders This section includes a listing of several types of active, pending, and scheduled orders, including clinic medications orders, diagnostic test orders, procedure orders and consult orders; where the start date of the order is 45 days before the date of the Encounter or 45 days after the date of the Encounter. The data comes from all [facility]. Test Date/Time Test Type Test Details Facility Name Jul 11, 2021 12:00 Laboratory - COVID-19 DIAGNOSTIC PANEL [facility] AM Chemistry Order (CEPHEID) NASOPHARYNGEAL SWAB STAT SP ONCE Jul 11, 2021 11:41 Laboratory - CBC & DIFF BLOOD STAT WC [facility] AM Chemistry Order ONCE Lab Results: +/- 30 days of the encounter This section includes the Chemistry and Hematology Lab Results on record with [place] for the patient. Radiology Reports and Pathology Reports are provided separately, in subsequent sections.Lab Results This section contains the Chemistry/Hematology Results that were resulted 30 days before or 30 daysafter the date of the Encounter. Date/Time Source Result Type Result - Unit Interpretation Reference Range Comment Aug 10, 2021 [facility] BASIC METABOLIC Specimen Typ e: PLASMA 10:04 AM PANEL+MG No comment enter ed. Ordering Provid er: LILIANA ELCHUGA Report Released Date/Time: Jul 27, 2021 11:37 AM Reporting Lab: [facility] HERBIE ROBERTS [facility] [address] Performing Lab: [facility] [address] CREATININE 0.8 0.7-1.2 UREA NITROGEN 17 8-26 GLUCOSE 82 74-100 SODIUM 141 136-145 POTASSIUM 4.1 3.5-5.1 CHLORIDE 105 98-107 CO2 32 H 22-29 CALCIUM 9.4 8.4-10.2 MAGNESIUM 2.0 1.6-2.6 ANION GAP 4 L 5-15 ESTIMATED GFR(eGFR) 94 >60 Jul 27, 2021 10:32 [facility] BASIC METABOLIC Specimen Type: PLASMA AM PANEL+MG No comment enter ed. Ordering Provid er: ARAVIND MEMBRENO Report Released Date/Time: Jul 11, 2021 10:13 AM Reporting Lab: [facility] [address] [facility] [address] Performing Lab: [facility] [address] [facility] [address] CREATININE 0.8 0.7-1.2 UREA NITROGEN 18 8-26 GLUCOSE 89 74-100 SODIUM 138 136-145 POTASSIUM 4.2 3.5-5.1 CHLORIDE 106 98-107 CO2 28 22-29 CALCIUM 9.2 8.4-10.2 MAGNESIUM 1.9 1.6-2.6 ANION GAP 4 L 5-15 ESTIMATED GFR(eGFR) 94 >60 Jul 27, 2021 10:32 AM [facility] BNP Specim en Type: PLASMA No comment enter ed. Ordering Provid er: LILIANA LECHUGA Report Released Date/Time: Jul 27, 2021 10:10 AM Reporting Lab: [facility] [address] [facility] [address] Performing Lab: [facility] [address] [facility] [address] BNP 46 <99 Jul 27, 2021 10:32 [facility] IRON GROUP Specimen Type: SERUM AM No comment enter ed. Ordering Provid er: LILIANA LECHUGA Report Released Date/Time: Jul 27, 2021 10:10 AM Reporting Lab: [facility] [address] [facility] [address] Performing Lab: [facility] [address] [facility] [address] IRON 149 65-175 TIBC,CALCULATED 283 250-425 FERRITIN 430.8 H 21.8-274.7 IRON SATURATION 53 H 20-50 TRANSFERRIN 226 163-382 Jul 27, 2021 [facility] TSH W/REFLEX TO Specimen Typ e: PLASMA 10:32 AM FREE T4 No comment enter ed. Ordering Provid er: LILIANA LECHUGA Report Released Date/Time: Jul 27, 2021 10:10 AM Reporting Lab: [facility] [address] [facility] [address] Performing Lab: [facility] [address] [facility] [address] TSH 0.50 0.35-4.94 Jul 27, 2021 10:32 [facility] CBC & DIFF Specimen Type: BLOOD AM Comment: Automa heydi Differential Performed Ordering Provid er: LILIANA LECHUGA Report Released Date/Time: Jul 27, 2021 10:10 AM Reporting Lab: [facility] [address] Performing Lab: [facility] [address] WBC 4.39 4.0-11.0 RBC 4.91 4.6-6.2 HGB 15.3 13.5-17.9 HCT 45.8 41-54 MCV 93.3 80-100 MCH 31.2 27-33 MCHC 33.4 32.0-37.5 PLT 111 L 150-400 MPV 9.7 7.4-10.4 NEUT 63.3 LYMPHS 25.3 MONO 9.1 EOSINO 1.8 BASO 0.5 RDW 12.1 11.5-14.5 ABS LYMPH 1.11 1.0-4.0 ABS MONO 0.40 0.1-1.0 ABS NEUT 2.78 2.0-7.7 ABS EOS 0.08 0-0.5 ABS BASO 0.02 0-0.2 IG(META,MYELO,PRO) 0.0 ABS IMMATURE GRAN 0.00 0-0.1 IPF 2.9 0-10 Jul 27, 2021 10:29 [facility] BASIC METABOLIC Specimen Type: PLASMA AM PANEL+MG No comment enter ed. Ordering Provid er: ANNMARIE WALKER Report Released Date/Time: Jun 27, 2021 10:04 AM Reporting Lab: [facility] [address] [facility] [address] Performing Lab: [facility] [address] CREATININE 0.9 0.7-1.2 UREA NITROGEN 19 8-26 GLUCOSE 81 74-100 SODIUM 140 136-145 POTASSIUM 4.2 3.5-5.1 CHLORIDE 106 98-107 CO2 27 22-29 CALCIUM 9.0 8.4-10.2 MAGNESIUM 2.0 1.6-2.6 ANION GAP 7 5-15 ESTIMATED GFR(eGFR) 82 >60 Jul 12, 2021 07:17 AM [facility] ALBUMIN Specim en Type: PLASMA No comment enter ed. Ordering Provid er: TREVON MENDENHALL Report Released Date/Time: Jul 11, 2021 11:41 AM Reporting Lab: [facility] [address] [facility] [address] Performing Lab: [facility] [address] ALBUMIN 3.4 L 3.5-5.2 Jul 12, 2021 07:17 AM [facility] MAGNESIUM Specim en Type: PLASMA No comment enter ed. Ordering Provid er: TREVON MENDENHALL Report Released Date/Time: Jul 11, 2021 11:41 AM Reporting Lab: [facility] [address] Performing Lab: [facility] [address] MAGNESIUM 1.8 1.6-2.6 Jul 12, 2021 [facility] BASIC METABOLIC Specimen Typ e: PLASMA 07:17 AM PANEL+MG No comment enter ed. Ordering Provid er: TREVON MENDENHALL Report Released Date/Time: Jul 11, 2021 11:41 AM Reporting Lab: [facility] [address] [facility] [address] Performing Lab: [facility] [address] CREATININE 0.8 0.7-1.2 UREA NITROGEN 17 8-26 GLUCOSE 88 74-100 SODIUM 138 136-145 POTASSIUM 4.0 3.5-5.1 CHLORIDE 107 98-107 CO2 25 22-29 CALCIUM 9.0 8.4-10.2 MAGNESIUM 1.8 1.6-2.6 ANION GAP 6 5-15 ESTIMATED GFR(eGFR) 94 >60 Jul 12, 2021 07:17 AM [facility] PHOSPHORUS Specim en Type: PLASMA No comment enter ed. Ordering Provid er: TREVON MENDENHALL Report Released Date/Time: Jul 11, 2021 11:41 AM Reporting Lab: [facility] [address] [facility] [address] Performing Lab: [facility] [address] PHOSPHORUS 2.8 2.3-4.7 Jul 12, 2021 07:17 AM [facility] CBC & DIFF Specim en Type: BLOOD No comment enter ed. Ordering Provid er: MENDENHALLTREVON ANDERSON Report Released Date/Time: Jul 11, 2021 05:49 PM Reporting Lab: [facility] [address] Performing Lab: [facility] [address] WBC 5.46 4.0-11.0 RBC 4.38 L 4.6-6.2 HGB 15.0 13.5-17.9 HCT 41.7 41-54 MCV 95.2 80-100 MCH 34.2 H 27-33 MCHC 36.0 32.0-37.5 PLT pending MPV pending NEUT 61.3 LYMPHS 28.0 MONO 7.9 EOSINO 2.0 BASO 0.4 RDW 14.4 11.5-14.5 ABS LYMPH 1.53 1.0-4.0 ABS MONO 0.43 0.1-1.0 ABS NEUT 3.35 2.0-7.7 ABS EOS 0.11 0-0.5 ABS BASO 0.02 0-0.2 IG(META,MYELO,PRO) 0.4 ABS IMMATURE GRAN 0.02 0-0.1 Jul 11, 2021 [facility] COVID-19 AND FLU/RSV DIAG Sp ecimen Type: NASOPHARYNGEAL 09:47 AM PANEL(CEPHEID) Comment: Rufus rhoades GeneXpert (618) Ordering Provid er: ANNMARIE WALKER Report Released Date/Time: Jul 11, 2021 09:47 AM Reporting Lab: [facility] [address] Performing Lab: [facility] [address] COVID-19 (CEPHEID) Not Detected Not Dete cted INFLUENZA A (PCR) Not Detected Not Detec heydi INFLUENZA B (PCR) Not Detected Not Detec heydi RSV (PCR) Not Detected Not Detected Social History: Smoking Status (Most current) and Tobacco Use (All prior to encounter date) This section includes the most current, and the historical, smoking and tobacco-related health factors from the [facility] where the Encounter took place.Current Smoking Status This section includes the most current smoking, or tobacco-related health factor, from the [facility] where the Encounter took place. Date/Time Current Smoking Status Comment Facility Apr 04, 2021 10:00 AM VA-TOBACCO NEVER USED [facility] Encounter Notes: All associated encounter notes This section contains the clinical notes associated to the Encounter. 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 Patient presents to clinic am bulatory and in fair to good spirirs. present during the discussion/eval uation. Patient was admitted on July 11, 2021 for Do fetilide loading protocol as treatment for his persistent atrial fib which wa s causing shortness of breath which primarily occured during exertion, althoug h he has felt it occasionally while laying down, though never needs pillows to sleep at night. Was started on the Dofetilide protocol of 500mcg on the even ing of 07/11/21. At 0634 on 07/12/21, he spontaneously cardioverted to sinus bradycardia without symtpoms. Discharged to home on July 14, 2021 . He is feeling better from a cardiac standpoint s juan j completion of successful cardioversion. [place] and is always fin ding something to do. After [place] are heading [place]. Physical exam (done at 1100): Wt: 150.2# (144# at home) BP: 108/60 (manual cuff after 20 minutes rest) Pulse: 68 (apical) Resp: 16 SpO2 = 97% Cardiac: s1s2 regular without s3 or murmur Lungs: clear bilaterally JVD: no; no HJR or hepatomegaly Extremities: no edema Chest pain: occasionally with experience a sharp pain in the upper left chest which will be there for a short period of time and go away Lightheadedness/dizziness: denies Orthopnea: 1 pillow PND: denies / getting up to use the restroom, or as his says, watch the clock GI: no nausea, vomiting or diarrhea Cough: feels like I have a frog in my throat SOB: able to walk a mile without difficulty / do es not have any flights of steps to do Fatigue: scale 0 (nothing) t o 10 (severe) -> hard for him to define / will doze in his easy chair at times when watching TV NYHA Class: II Cardiac medications (taken at 0800): Atorvastatin CA 20mg HS Carvedilol 3.125mg BID Dofetilide 500mcg BID Furosemide 20mg Q Day Lisinopril 5mg Q Day Rivaroxaban 20mg HS Completed during today's visit: 1) CHF Clinic: - described to patient and the rationale b ehind the CHF Clinic and request of the PCP he be initially evaluated by the clinical staff and then routinely followed for treatment of his heart condition 2) Cardiomyopathy status: - described to patient and the pumping act ion of his heart muscle in comparison to that of a normal functioning heart muscle explained it is not the pumping action of th e heart muscle which is adversely affected, but instead it is the relaxation of the muscle, so it is stiffened and not being allowed to expand as far as it should leading to the same symptoms - explained patients are not treated according to the EF, but instead by the symptoms described and physical exam sin ce each patient tolerates his/her pumping action differ ently - stressed to patient of the need to provide cl inical staff with all information related to his cardiac status whene lorin in clinic or during phone conversations so the proper adj ustments in his medical therapy can be made - routine assessment of his heart rate and BP does not have a blood pressure monitor --> consult to Prosthetics for a new monitor wh ich was provided to patient from [employer] told much of the time, RN's will be calling him to obtain information to prevent the need to added travel 3) Standard of Care: - diuretic -> taking Furosemide - ABHILASH/ARB/ARNI -> taking Lisinopril - beta-karl -> taking Carvedilol - aldosterone antagonist -> no data to support the use of in the HFpEF patients - SGLT-2 -> not presently taking - ICD/DIRECTOR CUSTOMER -> not required in patients with EF g reater than 35% reviewed with patient and the rationale behind the use of each medication in the treatment of heart failure explained doses of the medications may need to be adjusted over the course of time to meet his specific treatment n eeds and to aid in improving his overall Quality of Life 4) Daily weights: - in the morning after voiding and before eatin g or drinking anything has a scale and has been using on a daily ba sis scale needs to be on a flat surface - not ca rpet booklet provided to patient to document weig hts - explained this is a way for the clinical staf f to assess for possible fluid retention, so he needs to be doi ng on a daily basis - told if his weight goes up 2-3# in 24 hours, or 5# in a week, then this is likely to be water he is holding o nto and he can take Furosemide as needed and directed by MIRROR FINISHING MACHINE OPERATOR - instructed if his weight does not come down b y the following morning, or should continue to rise, then he ne eds to contact clinical staff to discuss 5) Dietary: does the cooking with c lose monitoring of the sodium content. - salt use: denies salt is being used at the table denies salt is being used in food preparatio n trying to avoid and/or moderate his intake o f high hidden sodium foods - explained the relationship between added sodi um in the diet and possible fluid retention - stressed the need to keep his daily sodium in take to less than 2000mg and the need to be reading labels when g rocery shopping for the per serving amount of sodium since most items are more than one serving has been doing this - reviewed with them those foods which are high in hidden sodium and need to be refrained from whenever possible (ham, montoya, sausage, weiners, brats, deli meats, TV dinners , Thai foods, brined items, beers, processed cheeses a nd dairy products in general, canned soups and canned/ja rred items in general, seasonings with sodium in the content listing, potato chips and other salty snacks, etc.) - spoke with them about the high sodium content possibly leading to worsening of fluid retention, so recommended he be diligent in keeping the hidden sodium to a minimum 6) Exercise: anything is better than nothing at all. 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 - explained aerobic is the best since this allo ws the heart to beat freely within the chest cavity - encouraged light weights with more reps for m uscle strengthening and toning - DO NOT recommend heavy weights or heavy lifti ng since this places added stress on the cardiac functioning - told would like to see at least 30 minutes of aerobic exercise 6 times per week - does not need to be done all a t once, but can be divided over the course of the day to pr event too much fatigue 7) Education: - provided patient with a direct phone number f or Felicity Rodríguez RN, as a reference - provided a copy of Heart Failure Zones whic h reviews: definitions of Green, Yellow and Red zones a nd when to contact clinical staff to discuss his status guidelines for weighing self, and when to co ntact clinical staff to discuss a weight gain definition of heart failure, causes of and h ow it is diagnosed signs of dehydration need to maintain less than a 2000mg per day low sodium diet and to read labels when grocery shopping f or the per serving amount of sodium multiple monthly calenders to document his w eights and vitals, as a reference when seen in clinic or contacted by phone - provided with Living Well with Heart Failure booklet - MIRROR FINISHING MACHINE OPERATOR will speak with him about his cardiac stat us when he is seen in clinic following this appt. - instructed on proper way to assess his blood pressure instructed to sit for 5 minutes prior to malvin ing assessment take blood pressure at different times of e day and document - answered appropriate questions related to his cardiac status Patient and stated understanding of the above discussion and in agreement with plan. 8) LABS: Na = 138 K+ = 4.2 BUN = 18 creat = 0.8 Mg = 1.9 BNP = 46 MIRROR FINISHING MACHINE OPERATOR can discuss with patient during their leeann t. 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 Patient and receptive to the teaching, zohra azar though has a strong grasp on what needs to be done. - daily weights - monitoring of heart rate and blood pressure consult to Prosthetics and provided with jessenia houston from [employer] - daily low sodium dietary intake of less than 2000mg - exercise, as tolerated - provided with: direct phone number for contract technical writer copy of Heart Failure Zones Living Well with Heart Failure booklet - contact clinic staff PRN if notes status carson shine prior to next appt./phone contact and/or having question s or concerns - to be seen by Ms. Lechuga following this a ppt. with blood draw before /es/ FELICITY RODRÍGUEZ, JOHN CHF Clinical Nurse Coordinator Signed: 07/27/2021 11:49 Receipt Acknowledged By: * AWAITING SIGNATURE * LILIANA LECHUGA
--- OUTSIDE RECORDS SUMMARY | 2022-07-24 21:30 | XMS_ITS | Encounter Summary ---
:1945 Author Organization [facility] Address [address] [place] [address] Support Name Relationship Address Phone BANG MANN MEENAKSHI Unavailable [id number] [facility] [place] [address] BANG MANN MEENAKSHI Unavailable [address] [facility] [place] [address] Insurance Providers: All historical and current Section [...] [place] MED[place] Aug 13, [id number] VENESS,BECERRA P ATIENT [facility] (WNR) ADVANTAGE ARE 2020 5 [id number] [phone] ROLD ADVAN 1 [place]OU[place] C [place] MED[place] MCR Aug 13, [id number] VENESS,BECERRA P ATIENT [facility] (WNR) ADVANTAGE (WNR) 2020 7 [id number] [phone] R[place] 1 [place] Aug 13, [id number] [phone] VENESS ,BECERRA PATIENT MCR (WNR) ADVANTAGE (WNR) 2022 5 [id number] ROLD 1 MEDICARE MEDICARE PART Sep 13, PART B [id number] 800 Jesusita CONKLIN (WNR) (M) B 2012 [id number] [phone] [facility] MEDICARE MEDICARE PART Mar 13, PART A 800 Jesusita CONKLIN (WNR) (M) A [phone] [facility] MEDICARE MEDICARE PART Mar 13, PART A [id number] 800 Jesusita CONKLIN (WNR) (M) A 2008 [id number] [phone] [place] Selected Encounter This section includes the information on record at [place] for the Encounter. Date/Time Encounter Type Encounter Reason Provider Source Description Oct 31, 2021 HC PRO PHONE TELEPHONE TRIAGE ICD-10-CM Z71.89 RUSSELL KHOURY 03:27 PM CALL 5-10 MIN Other specified J counseling with Provider Comments: Other specified counseling IHE Encounter Template Text not used by [facility] Assessments - Encounter Diagnoses This section includes the primary and secondary diagnoses documented for the Encounter. Date/Time Primary/Secondary Diagnosis Name Provider Source Diagnosis Oct 31, 2021 PRIMARY Other specified TATICHRISS PAPPAS [place] 03:27 PM counseling J [facility] Plan of Treatment: Future Appointments (+ 6 months) and Future Tests (+/- 45 days) The Plan of Treatment section includes future care activities for the patient from all [place] treatmentfacilities. This section includes future appointments and future orders which are active, pending orscheduled.Future Appointments This section includes appointments that were scheduled to occur 6 months from the date of the Encounter, up to a maximum of 20 appointments. The data comes from all [place] treatment facilities. Appointment Date/Time Appointment Type Appointment Facili ty Name Nov 04, 2021 08:45 AM AMBULATORY - MEDICINE [facility] Nov 04, 2021 09:30 AM AMBULATORY - MEDICINE [facility] Nov 04, 2021 10:00 AM AMBULATORY - MEDICINE [facility] Nov 04, 2021 11:00 AM AMBULATORY - NONE [facility] Nov 08, 2021 09:00 AM AMBULATORY - MEDICINE [facility] Nov 08, 2021 11:00 AM AMBULATORY - MEDICINE [facility] Nov 08, 2021 12:00 PM AMBULATORY - MEDICINE [facility] Nov 08, 2021 01:00 PM AMBULATORY - MEDICINE [facility] Nov 11, 2021 08:30 AM AMBULATORY - SURGERY [facility] Nov 11, 2021 10:01 AM AMBULATORY - NEUROLOGY [facility] Nov 14, 2021 09:00 PM AMBULATORY - MEDICINE [facility] Nov 28, 2021 03:30 PM AMBULATORY - MEDICINE [facility] Dec 06, 2021 10:00 AM AMBULATORY - MEDICINE [facility] CS December 16, 2021 09:00 AM AMBULATORY - REHAB MEDICINE [facility] December 16, 2021 09:45 AM AMBULATORY - MEDICINE [facility] CS December 16, 2021 10:30 AM AMBULATORY - MEDICINE [facility] December 23, 2021 12:15 PM AMBULATORY - NONE [facility] December 23, 2021 12:16 PM AMBULATORY - NONE [facility] December 26, 2021 01:30 PM AMBULATORY - MEDICINE [facility] January 02, 2022 05:00 PM AMBULATORY - REHAB MEDICINE [facility] Lab Results: +/- 30 days of the encounter This section includes the Chemistry and Hematology Lab Results on record with [place] for the patient. Radiology Reports and Pathology Reports are provided separately, in subsequent sections.Lab Results This section contains the Chemistry/Hematology Results that were resulted 30 days before or 30 daysafter the date of the Encounter. Date/Time Source Result Type Result - Unit Interpretation Reference Range Comment Nov 11, 2021 [facility] COVID-19 AND FLU/RSV DIAG Sp ecimen Type: NASOPHARYNGEAL 09:34 AM PANEL(CEPHEID) Comment: Cephei d GeneXpert (618) Ordering Provid er: JEREMIAH ACKERMAN Report Released Date/Time: Nov 08, 2021 02:19 PM Reporting Lab: [facility] [address] [facility] [address] Performing Lab: [facility] [address] [facility] [address] COVID-19 (CEPHEID) Not Detected Not Dete cted INFLUENZA A (PCR) Not Detected Not Detec heydi INFLUENZA B (PCR) Not Detected Not Detec heydi RSV (PCR) Not Detected Not Detected Nov 08, 2021 10:[address] [facility] BNP Specim en Type: PLASMA No comment enter ed. Ordering Provid er: DRAKE MCNULTY Report Released Date/Time: Sep 05, 2021 10:57 AM Reporting Lab: [facility] [address] [facility] [address] Performing Lab: [facility] [address] [facility] [address] BNP 28 <99 Nov 08, 2021 10:[address] [facility] CBC Specim en Type: BLOOD No comment enter ed. Ordering Provid er: DRAKE MCNULTY Report Released Date/Time: Sep 05, 2021 10:57 AM Reporting Lab: [facility] [address] [facility] [address] Performing Lab: [facility] [address] [facility] [address] WBC 4.77 4.0-11.0 RBC 4.33 L 4.6-6.2 HGB 13.7 13.5-17.9 HCT 41.0 41-54 MCV 94.7 80-100 MCH 31.6 27-33 MCHC 33.4 32.0-37.5 PLT 128 L 150-400 MPV 9.4 7.4-10.4 RDW 13.0 11.5-14.5 Nov 08, 2021 [facility] COMPREHENSIVE Specimen Typ e: PLASMA 10:11 AM METABOLIC PANEL+MG No comment en tered. Ordering Provid er: DRAKE MCNULTY Report Released Date/Time: Sep 05, 2021 10:57 AM Reporting Lab: [facility] [address] Performing Lab: [facility] [address] CREATININE 0.8 0.7-1.2 UREA NITROGEN 20 8-26 GLUCOSE 85 74-100 SODIUM 136 136-145 POTASSIUM 4.0 3.5-5.1 CHLORIDE 105 98-107 CO2 28 22-29 CALCIUM 9.4 8.4-10.2 PROTEIN,TOTAL 6.7 6.0-8.3 ALBUMIN 4.0 3.5-5.2 BILIRUBIN, TOTAL 0.9 0.2-1.2 MAGNESIUM 2.0 1.6-2.6 ANION GAP 3 L 5-15 ALKALINE PHOSPHATASE 68 40-150 ALT/SGPT 27 <55 AST/SGOT 25 <34 CREAT EGFR(CKD-EPI) >90 >60 Nov 04, 2021 08:59 [facility] BASIC METABOLIC Specimen Type: PLASMA AM PANEL+MG No comment enter ed. Ordering Provid er: ANNMARIE WALKER Report Released Date/Time: Jul 15, 2021 08:27 AM Reporting Lab: [facility] [address] [facility] [address] Performing Lab: [facility] [address] CREATININE 0.8 0.7-1.2 UREA NITROGEN 15 8-26 [...] smoking and tobacco-related health factors from the [place] facility where the Encounter took place.Current Smoking Status This section includes the most current smoking, or tobacco-related health factor, from the [place] facility where the Encounter took place. Date/Time Current Smoking Status Comment Facility Apr 04, 2021 10:00 AM VA-TOBACCO NEVER USED [facility] Encounter Notes: All associated encounter notes This section contains the clinical notes associated to the Encounter. Date/Time Encounter Note(s) Provider Source Oct 31, 2021 03:27 PM NURSING TELEPHONE ENCOUNTER NOTE: Demetria KHOURY [facility] LOCAL TITLE: TELEPHONE CARE NURSE TRIAGE STANDARD TITLE: NURSING TELEPHONE ENCOUNTER NOTE DATE OF NOTE: OCT 31, 2021@15:27:20 ENTRY DATE: OCT 31, 2021@15:37:47 AUTHOR: CHRISS KHOURY EXP COSIGNER: URGENCY: STATUS: COMPLETED Chief Complaint: Toenail - Ingrown The following identifiers were used to verify th is patient: . SSN. Comments: Clinical Contact/Call Center Coronavirus Disease 2019 (COVID-19) Screen, lorin. December 2020 DIAGNOSIS AND TESTING STATUS: Has been diagnosed with COVID-19: () Yes* Date: (continue screening) (xx) No (Continue Screening) Comment(s): Is waiting for COVID-19 test results: () Yes (Continue Screening) (xx) No (Continue Screening) Comment: SCREEN: Signs and Symptoms: a. Fever or chills: () Yes Check all that apply: () Fever () Chills (xx) No Comment(s): b. New or worsening cough or shortness of breat h: () Yes Check all that apply: () Cough () Shortness of breath (Dyspnea) (xx) No Comment(s): c. Any cold or flu-like symptoms: () Yes Check all that apply: () Cold like symptoms () Runny Nose (Rhinorrhea) () Sore Throat () Flu-like symptoms () Fatigue () Muscle Pain (Myalgia) (xx) No Comment(s): d. New onset diarrhea, nausea or vomiting: () Yes Check all that apply: () Diarrhea () Nausea () Vomiting (xx) No Comment(s): e. New onset headache, loss of taste or loss of smell () Yes Check all that apply: () Headache () Loss of taste () Loss of smell (xx) No Comment(s): EXPOSURE: Exposure (within 6 feet for more than 15 minute s) in the last two weeks (14 days) to someone with known or rajwinder pected case of COVID-19: () Yes (xx) No Comment(s): SCREEN RESULT: Any symptom or exposure= positiv e screen () POSITIVE SCREEN: Patient has a Positive symp vaughn and/or exposure. Follow- up required. (xx) Negative Screen NURSES NOTES PATIENT CONCERN/DURATION/ONSET: c/o ingrown toenails to both toes that he is unable to manage on his own. WHAT HAS PATIENT TRIED TO TR EAT THE SYMPTOMS: tried cutting his toenails but is unable to . HISTORY/PREVIOUS TREATMENT: Has not been seen by Podiatry. WHAT IS PATIENT GOAL FOR THE CALL: Evaluation of toes. 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 Scheduled for 11/08/21 at 0900 Best contact for is [phone](Ap rhoades). (Caller could accurately sum marize the agreed upon plan of care as discussed in the education log portion of this note.) Per policy, automated recommendations for an leeann ointment indicates an interaction (virtual or in-person) with the care team. Author: CHRISS KHOURY Caller Area: *[facility] The patient, YOUSIF MANN ([id number]) called the call center. Caller Response: APPT GREATER THAN 24 HOURS Class Code: Other specified counseling. Contact Advised to contact Telephone Care for any questions, concerns, new or worsening symptoms; services available 05/03. Evaluation/Management Code: HC PRO PHONE CALL 5- 10 MIN ([id number]). Starting at: 10/31/2021 @ 3:27:20 PM Ending at: 10/31/2021 @ 3:35:07 PM Length: 7 minutes. Nurse Notes: ingrown toenails Protocol Used: Toenail - Ingrown Protocol-Based Disposition: See PCP or Video Vis it within 2 Weeks Video visit offer not recorded Positive Triage Question: * Ingrown toenail is a chronic symptom (recurren t or ongoing AND present > 4 weeks) Care Advice Discussed: * Treatment of Ingrown Toenail - Clean Area - Soak the toe in warm water for 20 minutes onc e a day. - Dry the toe and foot completely. - Apply a small amount of antibiotic ointment t o area. * Reasons To Call Back - Fever occurs - Spreading redness or pus occur - You become worse. Negative Triage Questions: * Patient sounds very sick or weak to the triage r * [1] Looks infected (e.g., spreading redness, r ed streak, pus) AND [2] fever * [1] Red streaking AND [2] longer than 1 inch ( 2.5 cm) * [1] Skin around the nail has become red AND [2 ] larger than 2 inches (5 cm) * Entire toe is red * Entire toe is swollen * Yellow pus seen in skin around toenail (cuticl e area), or pus seen under toenail * [1] MODERATE pain (e.g., limping, inte rferes with normal activities) AND [2] present > 3 days * [1] MODERATE pain (e.g., limping, inte rferes with normal activities) AND [2] can't locate corner of toenail * [1] Using Care Advice for ingrown toenail > 7 days AND [2] not improved * Diabetes mellitus or peripheral vascular disea se (poor circulation) Patient's Email Address: PCMM Provider Info: LOCAL - [facility] (122) PACT: KYLE APACT A (Focus: Academic) Designated Pcp: KECIA COTTO PHONE:[phone] PAGER:[phone] Associate Provider: ELAN RODRIGUEZ INDIGO:[id number] PAGER: Grain Packer: NUNO BARNHART PHONE: Clinical Associate: OL PITT PHONE: [phone] Flatwork Feeder: NGHIA SMITH NE: PACT Clinical Pharmacist: JARRED GARCIA PHONE:[phone] Clinical POC: Administrative POC: Type of call: *TC SYMPTOM APPT. /es/ Chriss DUARTE, RN VISN 23 Daytime instrument repairer Signed: 10/31/2021 15:37
--- OUTSIDE RECORDS SUMMARY | 2022-07-24 21:30 | XMS_ITS | Encounter Summary ---
:1945 Author Organization [facility] Address [address] [place] [id number] Support Name Relationship Address Phone BANG MANN MEENAKSHI Unavailable [phone] [facility] [place] [address] BANG MANN MEENAKSHI Unavailable [address] [facility] [place] [address] Insurance Providers: All historical and current Section [...] Tanner [place] Aug 13, [id number] VENESS,BECERRA P ATIENT [facility] (WNR) ADVANTAGE ARE 2020 5 [id number] [phone] ROLD ADVAN 1 MOUSTAPHA C [place] MEDICARE MCR Aug 13, [id number] VENESS,BECERRA P ATIENT [facility] (WNR) ADVANTAGE (WNR) 2020 7 [id number] [phone] ROLD 1 [place] Aug 13, [id number] [phone] VENESS ,BECERRA PATIENT MCR (WNR) ADVANTAGE (WNR) 2022 5 [id number] ROLD 1 MEDICARE MEDICARE PART Sep 13, PART B [id number] 800 Jesusita CONKLIN (WNR) (M) B 2012 [id number] [phone] [facility] MEDICARE MEDICARE PART Mar 13, PART A 800 Jesusita CONKLIN (WNR) (M) A [id number] [facility] MEDICARE MEDICARE PART Mar 13, PART A [id number] 800 Jesusita CONKLIN (WNR) (M) Rosalinda 2008 [id number] [phone] AR[place] Selected Encounter This section includes the information on record at [place] for the Encounter. Date/Time Encounter Type Encounter Reason Provider Source Description Nov 28, 2021 Outpatient TELEPHONE PRIMARY ICD-10-CM I50.20 ALBA MANRIQUEZ 03:30 PM Encounter CARE Unspecified GWEN systolic (congestive) heart failure with Provider Comments: Heart failure with reduced ejection fraction ([facility] [id number]) IHE Encounter Template Text not used by [facility] Assessments - Encounter Diagnoses This section includes the primary and secondary diagnoses documented for the Encounter. Date/Time Primary/Secondary Diagnosis Name Provider Source Diagnosis Nov 28, 2021 PRIMARY Unspecified REHAN MANRIQUEZ 03:30 PM systolic S GWEN HCS (congestive) heart failure Plan of Treatment: Future Appointments (+ 6 [...] 06, 2021 10:00 AM AMBULATORY - MEDICINE [facility] December 16, 2021 09:00 AM AMBULATORY - REHAB MEDICINE [facility] December 16, 2021 09:45 AM AMBULATORY - MEDICINE [facility] December 16, 2021 10:30 AM AMBULATORY - MEDICINE [facility] December 23, 2021 12:15 PM AMBULATORY - NONE [facility] December 23, 2021 12:16 PM AMBULATORY - NONE [facility] December 26, 2021 01:30 PM AMBULATORY - MEDICINE [facility] January 02, 2022 05:00 PM AMBULATORY - REHAB MEDICINE [facility] January 10, 2022 08:30 AM AMBULATORY - MEDICINE [facility] Feb 02, 2022 10:00 AM AMBULATORY - PSYCHIATRY [facility] Feb 03, 2022 12:12 PM AMBULATORY - NONE [facility] Feb 09, 2022 10:00 AM AMBULATORY - PSYCHIATRY [facility] Feb 09, 2022 01:30 PM AMBULATORY - SURGERY [facility] Feb 16, 2022 10:00 AM AMBULATORY - PSYCHIATRY [facility] Feb 23, 2022 10:00 AM AMBULATORY - PSYCHIATRY [facility] Mar 02, 2022 10:00 AM AMBULATORY - PSYCHIATRY [facility] Mar 08, 2022 08:45 AM AMBULATORY - MEDICINE [facility] Mar 08, 2022 09:00 AM AMBULATORY - MEDICINE [facility] Mar 08, 2022 09:30 AM AMBULATORY - MEDICINE [facility] Mar 08, 2022 10:00 AM AMBULATORY - MEDICINE [facility] Lab Results: +/- 30 days [...] Range Comment December 16, 2021 09:56 AM [facility] BNP Specim en Type: PLASMA No comment enter ed. Ordering Provid er: DRAKE MNCULTY Report Released Date/Time: Nov 08, 2021 10:58 AM Reporting Lab: [facility] [address] Performing Lab: [facility] [address] BNP 35 <99 December 16, 2021 [facility] COMPREHENSIVE Specimen Typ e: PLASMA 09:56 AM METABOLIC PANEL+MG No comment en tered. Ordering Provid er: DRAKE MCNULTY Report Released Date/Time: Nov 08, 2021 10:58 AM Reporting Lab: [facility] [address] Performing Lab: [facility] [address] CREATININE 0.8 0.7-1.2 UREA NITROGEN 14 8-26 GLUCOSE 75 74-100 SODIUM 137 136-145 POTASSIUM 4.4 3.5-5.1 CHLORIDE 106 98-107 CO2 28 22-29 CALCIUM 9.2 8.4-10.2 PROTEIN,TOTAL 6.6 6.0-8.3 ALBUMIN 3.9 3.5-5.2 BILIRUBIN, TOTAL 0.8 0.2-1.2 MAGNESIUM 2.3 1.6-2.6 ANION GAP 3 L 5-15 ALKALINE PHOSPHATASE 60 40-150 ALT/SGPT 26 <55 AST/SGOT 28 <34 CREAT EGFR(CKD-EPI) >90 >60 Nov 11, 2021 [facility] COVID-19 AND FLU/RSV DIAG Sp ecimen Type: NASOPHARYNGEAL 09:34 AM PANEL(CEPHEID) Comment: Rufus rhoades GeneXpert (618) Ordering Provid er: JEREMIAH ACKERMAN Report Released Date/Time: Nov 08, 2021 02:19 PM Reporting Lab: [facility] [address] Performing Lab: [facility] [address] [facility] [address] COVID-19 (CEPHEID) Not Detected Not Dete cted INFLUENZA A (PCR) Not Detected Not Detec heydi INFLUENZA B (PCR) Not Detected Not Detec heydi RSV (PCR) Not Detected Not Detected Nov 08, 2021 10:11 AM [facility] BNP Specim en Type: PLASMA No comment enter ed. Ordering Provid er: DRAKE MCNULTY Report Released Date/Time: Sep 05, 2021 10:57 AM Reporting Lab: [facility] [address] Performing Lab: [facility] [address] BNP 28 <99 Nov 08, 2021 [facility] COMPREHENSIVE Specimen Typ e: PLASMA 10:11 AM METABOLIC PANEL+MG No comment en tered. Ordering Provid er: DRAKE MCNULTY Report Released Date/Time: Sep 05, 2021 10:57 AM Reporting Lab: [facility] [address] Performing Lab: [facility] [address] CREATININE 0.8 0.7-1.2 UREA NITROGEN 20 8-26 GLUCOSE 85 74-100 SODIUM 136 136-145 POTASSIUM 4.0 3.5-5.1 CHLORIDE 105 98-107 CO2 28 22-29 CALCIUM 9.4 8.4-10.2 PROTEIN,TOTAL 6.7 6.0-8.3 ALBUMIN 4.0 3.5-5.2 BILIRUBIN, TOTAL 0.9 0.2-1.2 MAGNESIUM 2.0 1.6-2.6 ANION GAP 3 L 5-15 ALKALINE PHOSPHATASE 68 40-150 ALT/SGPT 27 <55 AST/SGOT 25 <34 CREAT EGFR(CKD-EPI) >90 >60 Nov 08, 2021 10:11 AM [facility] CBC Specim en Type: BLOOD No comment enter ed. Ordering Provid er: DRAKE MCNULTY Report Released Date/Time: Sep 05, 2021 10:57 AM Reporting Lab: [facility] [address] [facility] [address] Performing Lab: [facility] [address] WBC 4.77 4.0-11.0 RBC 4.33 L 4.6-6.2 HGB 13.7 13.5-17.9 HCT 41.0 41-54 MCV 94.7 80-100 MCH 31.6 27-33 MCHC 33.4 32.0-37.5 PLT 128 L 150-400 MPV 9.4 7.4-10.4 RDW 13.0 11.5-14.5 Nov 04, 2021 08:59 [facility] BASIC METABOLIC Specimen Type: PLASMA AM PANEL+MG No comment enter ed. Ordering Provid er: ANNMARIE WALKER Report Released Date/Time: Jul 15, 2021 08:27 AM Reporting Lab: [facility] [address] [facility] [address] Performing Lab: [facility] [address] [facility] [address] CREATININE 0.8 0.7-1.2 UREA NITROGEN 15 8-26 [...] 04, 2021 10:00 AM [place]-TOBACCO NEVER USED OLIVIER [facility]EL[facility] Encounter Notes: All associated encounter notes This section contains the clinical notes associated to the Encounter. Date/Time Encounter Note(s) Provider Source Nov 28, 2021 08:26 PACT NOTE: ELAN MANRIQUEZ V A HCS AM [facility] TITLE: MEDICINE CLINIC PROVIDER TELEPHONE NOTE [facility] TITLE: PACT NOTE DATE OF NOTE: NOV 28, 2021@08:26 ENTRY DATE: NOV 28, 2021@08:26:05 AUTHOR: ELAN MANRIQUEZ EXP COSIGNER: URGENCY: STATUS: COMPLETED MEDICINE CLINIC PROVIDER TELEPHONE NOTE Has ADDENDA Subjective: YOUSIF MANN is a 76 y.o. M w/ history of HFr EF, atrial fibrillation, ROSA, HLD, macular degeneration, hearing loss and tinn itus who presents for 6-month f/u. Last visit w/ me was 05/30/21. Since then: - 07/11-07/14/21: hospitalized at the [place] for dofe tilide loading for A-fib --> converted to NSR - 11/01: primary care visit w/ Dr. Hernandez --> referred to podiatry for ingrown toenail - 11/01: cards visit --> Lasix stopped, empaglif lohanyn started - 12/02: ingrown toenails treated by podiatry cl inic - 12/02: sleep study revealed Alex-Oconnell andrew thing, recommended to use positonal bumper belt Shortness of breath has improved since he conver heydi to NSR from A-fib. Very occasional chest pain for 1- 2 seconds, more often on the R side -- this resolves spontaneously and does not have a pattern. Sleep is an issue for him. Was told to u se a bumper belt at night to force him to sleep on his side since h e has less apneic episodes in this position. He has not taken it out of the box yet. Wonders why he has numbness/tingling in his hands bilaterally while lyin g in bed -- this never occurs while using his hands and quickly resolves by moving or shaking them. He has L > R hip pain and L- sided abdominal pain which seems to be positional in bed. Started 3 days after ge tting one of the COVID-19 vaccines. Worse when lying on L side. Tries to sleep on R side as a result. Goes away immediately after moving/re-adjusting. Wants an x-ray to make sure nothing has happened to his hip. No change in bowel or urinary habits. No pa lpable hernia. Has had sensation of phlegm in the throat for a couple of months. No cough, and only spitting helps. 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 Atrial fibrillation 2. Hyperlipidemia 3. Age related macular degeneration 4. Hearing loss 5. Tinnitus 6. Tremor 7. Obstructive sleep apnea - Non-compliant with CPAP. 8. Erectile dysfunction 9. Heart failure with reduced ejection fraction 10. Ingrown toenail Allergies: Patient has answered NKA Active Outpatient [...] ACTIVITY--MAXIMU M 4 DOSES FOR 30-DAY SUPPLY. Exam: ----- This was a phone visit due to COVID-19 pandemic restrictions. General: pleasant, cooperative. Alert and orient ed. Respiratory: no audible cough or SOB. Psychiatric: normal affect Assessment and Plan: Yousif Mann is a 75 y.o. M w/ history of HFr EF, atrial fibrillation, ROSA, HLD, macular degeneration, h earing loss and tinnitus who presents for follow-up on shortness of breath. #A-fib s/p pharmacologic cardioversion Dofetilide loaded during 07/02-07/14/21 a dmission and quickly converted to NSR. Chadsvasc is 3. 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 - c/t dofetilide 500 mg BID - c/t carvedilol 3.125 mg BID - c/t rivaroxaban 20 mg qday - [facility] now on carvedilol 3.125 mg BID now on dofetilide 500 mg BID #HFrEF Likely tachycardia-mediated. Switched of f Lasix and onto empagliflozin at last HF clinic appt. Last echo showed EF 45%. - [facility] - plan for repeat echo in ~ 02/01 to ass ess for improvement in EF while in NSR - c/t lisinopril 5 mg BID - c/t carvedilol 3.125 mg BID - c/t empagliflozin 12.5 mg qday #Phlegm Sensation of needing to clear phlegm fro m throat recently. Possibly related to ABHILASH-i as this was recently initiated. - if phlegm is persistent or severely bothersome , consider switching from lisinopril to losartan in the future to see if i t could be ABHILASH-i side effect #HLD Lipids stable. - c/t atorvastatin 20 mg qhs #L > R hip pain During sleep and improves w/ re-adjustme nts. Also has LLQ abdominal pain which could be referred. - RTC for F2F visit, consider hip x-ray pending exam findings #Early macular degeneration I am unable to order refill on his AREDS2 (must be done by the eye clinic). - c/t AREDS2 w/o zinc (per outside eye clinic's recommendations) #Hearing loss #Tinnitus - encouraged self-referral to audiology #Subjective tremor #B/L wrist tingling/numbness Noticing poor penmanship. Do es have a brother with PD. No rigidity, bradykinesia or tremor on exam today. Hand numbness improves w/ movement. - no indication for further work-up for now #ROSA Used CPAP for 1.5 years, and tried multiple masks but had trouble tolerating it and stopped on his own. - [facility] - recommended bumper belt to force him to sleep on his side and reduce number of apneic events overnight #Mild indirect hyperbilirubinemia Present on the last several lab draws. 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 No other LFT elevations, and no abdominal symptoms. #Onchomycosis #In-grown toenail - conservative treatment with regular foot soaks - re-referral podiatry PRN #Erectile dysfunction - c/t sildenafil PRN -- has not tried using it y et #Routine health maintenance - RTC: F2F clinic for L hip exam as soon as can be scheduled in A1 resident clinic - non-[facility] care: [facility] ( doe [place]), co-managed PCP Dr. Solano at [facility] (transitioning primary care solely to the [place]) - substance use: no concerns - CRC screen: agrees to discontinue screening gi kristine age - AAA/lung CA screen: N/A - HIV screen: unknown - HCV screen: unknown - ASCVD risk: on statin - vaccinations: - influenza: done - [facility] - Shingrix: done, per pt - TDAP: due in 2031 - Pneumovax: done, per pt Time spent nutritionist: 22 minutes Patient staffed with Dr. Nando Manriquez MD PGY-3, Internal Medicine [phone] [facility] /tanner/ ELAN MANRIQUEZ MD RESIDENT Signed: 11/28/2021 21:18 Receipt Acknowledged By: 11/29/2021 10:42 /tanner/ Sofie Collier MD Physician 11/29/2021 ADDENDUM STATUS: COMPLETED I have reviewed this patient's history (obtained by resident) and when appropriate, pertinent physical examination (obt ained by resident), laboratory, and radiologic o r other diagnostic tests with the Internal Medicine Resident evaluating this patient. I agree with t he treatment plan as outlined. This plan was reviewed with marlena doan resident on the date of resident note. /es/ Sofie Collier MD Physician Signed: 11/29/2021 10:42
--- OUTSIDE RECORDS SUMMARY | 2022-07-24 21:30 | XMS_ITS | Encounter Summary ---
:1945 Author Organization [facility] Address [address] [place] [address] Support Name Relationship Address Phone BANG MANN Unavailable [address] [facility] [phone] [place] [address] BANG MANN MEENAKSHI Unavailable [address] [facility] [address] Insurance Providers: All historical and current Section [...] Tanner [place] MED[place] Aug 13, [id number] VENESS,BECERRA P ATIENT [facility] (WNR) ADVANTAGE ARE 2020 5 [id number] [phone] R[place] ADVAN 1 MOUSTAPHA C [place] MED[place] MCR Aug 13, [id number] VENESS,BECERRA P ATIENT MCR (WNR) ADVANTAGE (WNR) 2020 7 [id number] [phone] R[place] 1 [place] Aug 13, [id number] [phone] VENESS ,BECERRA PATIENT MCR (WNR) ADVANTAGE (WNR) 2022 5 [id number] ROLD 1 MEDICARE MEDICARE PART Sep 13, PART B [id number] 800 Jesusita CONKLIN (WNR) (M) B 2012 [id number] [phone] [facility] MEDICARE MEDICARE PART Mar 13, PART A 800 Jesusita CONKLIN (WNR) (M) A [id number] [facility] MEDICARE MEDICARE PART Mar 13, PART A [id number] 800 Jesusita CONKLIN (WNR) (M) A 2008 [id number] [phone] [place] Selected Encounter This section includes the information on record at [place] for the Encounter. Date/Time Encounter Type Encounter Reason Provider Source Description Nov 17, 2021 HC PRO PHONE TELEPHONE/MEDICIN ICD-10-CM G47.33 DIGNA,PATO MARGIE 04:01 PM CALL 11-20 MIN E Obstructive sleep MARLON apnea (adult) (pediatric) with Provider Comments: Obstructive sleep apnea (adult) (pediatric) IHE Encounter Template Text not used by [facility] Assessments - Encounter Diagnoses This section includes the primary and secondary diagnoses documented for the Encounter. Date/Time Primary/Secondary Diagnosis Name Provider Source Diagnosis Nov 17, 2021 PRIMARY Obstructive sleep MAGGIE SAWYER [facility] [place] 04:01 PM apnea (adult) MARLON [facility] (pediatric) Plan of Treatment: Future Appointments [...] 2021 03:30 PM AMBULATORY - MEDICINE [facility] Dec 06, 2021 10:00 AM AMBULATORY - MEDICINE [facility] December 16, 2021 09:00 AM AMBULATORY - REHAB MEDICINE [facility] December 16, 2021 09:45 AM AMBULATORY - MEDICINE [facility] December 16, 2021 10:30 AM AMBULATORY - MEDICINE [facility] December 23, 2021 12:15 PM AMBULATORY - NONE [facility] December 23, 2021 12:16 PM AMBULATORY - NONE [facility] December 26, 2021 01:30 PM AMBULATORY - MEDICINE [facility] January 02, 2022 05:00 PM AMBULATORY - REHAB MEDICINE [facility] January 10, 2022 08:30 AM AMBULATORY - MEDICINE [facility] Feb 02, 2022 10:00 AM AMBULATORY - PSYCHIATRY [facility] Feb 03, 2022 12:12 PM AMBULATORY - NONE [facility] Feb 09, 2022 10:00 AM AMBULATORY - PSYCHIATRY [facility] Feb 09, 2022 01:30 PM AMBULATORY - SURGERY [facility] Feb 16, 2022 10:00 AM AMBULATORY - PSYCHIATRY [facility] Feb 23, 2022 10:00 AM AMBULATORY - PSYCHIATRY [facility] Mar 02, 2022 10:00 AM AMBULATORY - PSYCHIATRY [facility] Mar 08, 2022 08:45 AM AMBULATORY - MEDICINE [facility] Mar 08, 2022 09:00 AM AMBULATORY - MEDICINE [facility] Mar 08, 2022 09:30 AM AMBULATORY - MEDICINE [facility] Lab Results: +/- 30 days of [...] Range Comment December 16, 2021 09:56 AM [facility] BNP Specim en Type: PLASMA No comment enter ed. Ordering Provid er: DRAKE MCNULTY Report Released Date/Time: Nov 08, 2021 10:58 AM Reporting Lab: [facility] [address] Performing Lab: [facility] [address] BNP 35 <99 December 16, 2021 [facility] COMPREHENSIVE Specimen Typ e: PLASMA 09:56 AM METABOLIC PANEL+MG No comment en tered. Ordering Provid er: DRAKE MCNULTY Report Released Date/Time: Nov 08, 2021 10:58 AM Reporting Lab: [facility] [address] Performing Lab: [facility] [address] CREATININE 0.8 0.7-1.2 UREA NITROGEN 14 8-26 GLUCOSE 75 74-100 SODIUM 137 136-145 POTASSIUM 4.4 3.5-5.1 CHLORIDE 106 98-107 CO2 28 22-29 CALCIUM 9.2 8.4-10.2 PROTEIN,TOTAL 6.6 6.0-8.3 ALBUMIN 3.9 3.5-5.2 BILIRUBIN, TOTAL 0.8 0.2-1.2 MAGNESIUM 2.3 1.6-2.6 ANION GAP 3 L 5-15 ALKALINE PHOSPHATASE 60 40-150 ALT/SGPT 26 <55 AST/SGOT 28 <34 CREAT EGFR(CKD-EPI) >90 >60 Nov 11, 2021 [facility] COVID-19 AND FLU/RSV DIAG Sp ecimen Type: NASOPHARYNGEAL 09:34 AM PANEL(CEPHEID) Comment: Rufus rhoades GeneXpert (618) Ordering Provid er: JEREMIAH MAE Report Released Date/Time: Nov 08, 2021 02:19 PM Reporting Lab: [facility] [address] [facility] [address] Performing Lab: [facility] [address] [facility] [address] COVID-19 (CEPHEID) Not Detected Not Dete cted INFLUENZA A (PCR) Not Detected Not Detec heydi INFLUENZA B (PCR) Not Detected Not Detec heydi RSV (PCR) Not Detected Not Detected Nov 08, 2021 10:11 AM [facility] BNP Specim en Type: PLASMA No comment enter ed. Ordering Provid er: DRAKE MCNULTY Report Released Date/Time: Sep 05, 2021 10:57 AM Reporting Lab: [facility] [address] [facility] [address] Performing Lab: [facility] [address] [facility] [address] BNP 28 <99 Nov 08, 2021 10:11 AM [facility] CBC Specim en Type: BLOOD No comment enter ed. Ordering Provid er: DRAKE MCNULTY Report Released Date/Time: Sep 05, 2021 10:57 AM Reporting Lab: [facility] [address] [facility] [address] Performing Lab: [facility] [address] [facility] [address] WBC 4.77 4.0-11.0 RBC 4.33 L 4.6-6.2 HGB 13.7 13.5-17.9 HCT 41.0 41-54 MCV 94.7 80-100 MCH 31.6 27-33 MCHC 33.4 32.0-37.5 PLT 128 L 150-400 MPV 9.4 7.4-10.4 RDW 13.0 11.5-14.5 Nov 08, 2021 [facility] COMPREHENSIVE Specimen Typ e: PLASMA 10:11 AM METABOLIC PANEL+MG No comment en tered. Ordering Provid er: DRAKE MCNULTY Report Released Date/Time: Sep 05, 2021 10:57 AM Reporting Lab: [facility] [address] Performing Lab: [facility] [address] CREATININE 0.8 0.7-1.2 UREA NITROGEN 20 8-26 GLUCOSE 85 74-100 SODIUM 136 136-145 POTASSIUM 4.0 3.5-5.1 CHLORIDE 105 98-107 CO2 28 22-29 CALCIUM 9.4 8.4-10.2 PROTEIN,TOTAL 6.7 6.0-8.3 ALBUMIN 4.0 3.5-5.2 BILIRUBIN, TOTAL 0.9 0.2-1.2 MAGNESIUM 2.0 1.6-2.6 ANION GAP 3 L 5-15 ALKALINE PHOSPHATASE 68 40-150 ALT/SGPT 27 <55 AST/SGOT 25 <34 CREAT EGFR(CKD-EPI) >90 >60 Nov 04, 2021 08:59 [facility] BASIC METABOLIC Specimen Type: PLASMA AM PANEL+MG No comment enter ed. Ordering Provid er: ANNMARIE WALKER Report Released Date/Time: Jul 15, 2021 08:27 AM Reporting Lab: [facility] [address] Performing Lab: [facility] [address] CREATININE 0.8 0.7-1.2 UREA NITROGEN 15 8-26 [...] 10:00 AM [place]TO[place] NEVER USED OLIVIER NELSON [facility] Encounter Notes: All associated encounter notes This section contains the clinical notes associated to the Encounter. Date/Time Encounter Note(s) Provider Source Nov 17, 2021 06:13 PM REPORT OF CONTACT: PEPPER QUIROGA JEFFREY ZHANG [facility] LOCAL TITLE: COVID-19 RESULTS NOTIFICATION STANDARD TITLE: REPORT OF CONTACT DATE OF NOTE: NOV 17, 2021@18:13 ENTRY DATE: NOV 17, 2021@18:13:30 AUTHOR: PEPPER QUIROGA EXP COSIGNER: URGENCY: STATUS: COMPLETED Covid Exposure from [place] employee Date of exposure: 11/14 Symptoms: none Vaccination: x2 Counseled to quarentine and wear mask for 5 days given incomplete vaccination schedule Testing: will call to arrange if symptoms arise. /tanner/ PEPPER QUIROGA MD CHIEF RESIDENT, [facility] Signed: 11/17/2021 18:13 Nov 17, 2021 04:02 PM SLEEP MEDICINE NOTE: [facility]IE [facility]WYER [facility] TITLE: SLEEP MEDICINE NOTE STANDARD TITLE: SLEEP MEDICINE NOTE DATE OF NOTE: NOV 17, 2021@16:02 ENTRY DATE: NOV 17, 2021@16:02:08 AUTHOR: MAGGIE SAWYER EXP COSIGNER: URGENCY: STATUS: COMPLETED Post-PSG Case Management Note Chief Complaint: Sleep-related disordered breath ing Impression: - This is a diagnostic study. - Sleep architecture is significant for decrease d sleep efficiency and increased wake after onset of sleep. Elevated pe riodic limb movements were observed that did not correlated with arousals. - Mild sleep apnea predominantly seen during pat ient's supine sleep in later half of the study with AHI of 8.29 with dense pr evalence of central and transitional centrals associated with arousals a nd sleep stage cycling between N1 and N2 seen in [id number] to 802 along with sleep fragmentation and duration of these events is suggestive of period ic breathing/Alex-Oconnell. Clinical correlation is advised. - Sleep-related hypoxemia and/or hypoventilation was not present. Plan: - Recommend nightly use of positional therapy [...] be recommended to assess response to therapy. Patient Response: Patient st ated understanding of study results and is agreeable to f/u plan. Follow-up Appointment: -Positional bumper belt ordered for patient. -Follow up in provider clinic as planned. Ordering Physician: JEREMIAH MAE MD Interpreting Physician: RICHARD SNELL MD, Rhoda Mae MD *Chief Complaint, Impression, and Plan obtained from interpreting provider /es/ MAGGIE SAWYER RN REGISTERED NURSE Signed: 11/17/2021 16:04
--- OUTSIDE RECORDS SUMMARY | 2022-07-24 21:30 | XMS_ITS | Encounter Summary ---
:1945 Author Organization [facility] Address [address] [place] [address] Support Name Relationship Address Phone BANG MANN Unavailable [address] [place] [address] BANG MANN MEENAKSHI Unavailable [address] [place] [address] Insurance Providers: All historical and current Section [...] Tanner [place] Aug 13, [id number] VENESS,[place] P ATIENT [facility] (WNR) ADVANTAGE ARE 2020 5 [id number] [phone] ROLD ADVAN 1 MOUST[place] C [place] MCR Aug 13, [id number] VENESS,[place] P ATIENT [facility] (WNR) ADVANTAGE (WNR) 2020 7 [id number] [phone] R[place] 1 [place] Aug 13, [id number] [phone] VENESS ,[place] PATIENT [facility] (WNR) ADVANTAGE (WNR) 2021 5 [id number] ROLD 1 MEDICARE MEDICARE PART Sep 13, PART B [id number] 800 Jesusita CONKLIN (WNR) (M) B 2012 [id number] [phone] [facility] MEDICARE MEDICARE PART Mar 13, PART A 800 Jesusita CONKLIN (WNR) (M) A [phone] [facility] MEDICARE MEDICARE PART Mar 13, PART A [id number] 800 Jesusita CONKLIN (WNR) (M) Rosalinda 2008 [id number] [phone] AR[place] Selected Encounter This section includes the information on record at [place] for the Encounter. Date/Time Encounter Type Encounter Reason Provider Source Description Nov 08, 2021 OFFICE O/P EST PRIMARY ICD-10-CM L60.0 CHASTITY DAVIS 09:00 AM LOW 20-29 MIN CARE/MEDICINE Ingrowing nail R F with Provider Comments: Ingrown toenail (SNOMED [place] [id number]) IHE Encounter Template Text not used by [place] Assessments - Encounter Diagnoses This section includes the primary and secondary diagnoses documented for the Encounter. Date/Time Primary/Secondary Diagnosis Name Provider Source Diagnosis Nov 08, 2021 PRIMARY Ingrowing nail TARUN HERNANDEZ [facility] 10:03 AM J [facility] Nov 08, 2021 SECONDARY Encounter for YUE PITT [facility] A 10:03 AM immunization [facility] Plan of Treatment: Future Appointments (+ [...] 11, 2021 08:30 AM AMBULATORY - SURGERY [facility] Nov 11, 2021 10:01 AM AMBULATORY - NEUROLOGY [facility] Nov 14, 2021 09:00 PM AMBULATORY - MEDICINE [facility] Nov 28, 2021 03:30 PM AMBULATORY - MEDICINE [facility] Dec 06, 2021 10:00 AM AMBULATORY - MEDICINE [facility] December 16, 2021 09:00 AM AMBULATORY - REHAB MEDICINE [facility] December 16, 2021 09:45 AM AMBULATORY - MEDICINE [facility] December 16, 2021 10:30 AM AMBULATORY - MEDICINE [facility] December 23, 2021 12:15 PM AMBULATORY - NONE [facility] December 23, 2021 12:16 PM AMBULATORY - NONE [facility] December 26, 2021 01:30 PM AMBULATORY - MEDICINE [facility] January 02, 2022 05:00 PM AMBULATORY - REHAB MEDICINE [facility] January 10, 2022 08:30 AM AMBULATORY - MEDICINE [facility] CS Feb 02, 2022 10:00 AM AMBULATORY - PSYCHIATRY [facility] Feb 03, 2022 12:12 PM AMBULATORY - NONE [facility] Feb 09, 2022 10:00 AM AMBULATORY - PSYCHIATRY [facility] Feb 09, 2022 01:30 PM AMBULATORY - SURGERY [facility] Feb 16, 2022 10:00 AM AMBULATORY - PSYCHIATRY [facility] Feb 23, 2022 10:00 AM AMBULATORY - PSYCHIATRY [facility] Mar 02, 2022 10:00 AM AMBULATORY - PSYCHIATRY [facility] Lab Results: +/- 30 days of the [...] Interpretation Reference Range Comment Nov 11, 2021 [facility] COVID-19 AND FLU/RSV DIAG Sp ecimen Type: NASOPHARYNGEAL 09:34 AM PANEL(CEPHEID) Comment: Cephei d GeneXpert (618) Ordering Provid er: JEREMIAH ACKERMAN Report Released Date/Time: Nov 08, 2021 02:19 PM Reporting Lab: [facility] [address] [facility] [address] Performing Lab: [facility] [address] [facility] [address] COVID-19 (CEPHEID) Not Detected Not Dete cted INFLUENZA A (PCR) Not Detected Not Detec heydi INFLUENZA B (PCR) Not Detected Not Detec heydi RSV (PCR) Not Detected Not Detected Nov 08, 2021 10:11 AM [facility] BNP Specim en Type: PLASMA No comment enter ed. Ordering Provid er: DRAKE MCNULTY Report Released Date/Time: Sep 05, 2021 10:57 AM Reporting Lab: [facility] [address] [facility] [address] Performing Lab: [facility] [address] [facility] [address] BNP 28 <99 Nov 08, 2021 10:11 AM [facility] CBC Specim en Type: BLOOD No comment enter ed. Ordering Provid er: DRAKE MCNULTY Report Released Date/Time: Sep 05, 2021 10:57 AM Reporting Lab: [facility] [address] Performing Lab: [facility] [address] WBC 4.77 4.0-11.0 RBC 4.33 L 4.6-6.2 HGB 13.7 13.5-17.9 HCT 41.0 41-54 MCV 94.7 80-100 MCH 31.6 27-33 MCHC 33.4 32.0-37.5 PLT 128 L 150-400 MPV 9.4 7.4-10.4 RDW 13.0 11.5-14.5 Nov 08, 2021 [facility] COMPREHENSIVE Specimen Typ e: PLASMA 10:11 AM METABOLIC PANEL+MG No comment en tered. Ordering Provid er: DRAKE MCNULTY Report Released Date/Time: Sep 05, 2021 10:57 AM Reporting Lab: [facility] [address] Performing Lab: [facility] [id number] CREATININE 0.8 0.7-1.2 UREA NITROGEN 20 8-26 GLUCOSE 85 74-100 SODIUM 136 136-145 POTASSIUM 4.0 3.5-5.1 CHLORIDE 105 98-107 CO2 28 22-29 CALCIUM 9.4 8.4-10.2 PROTEIN,TOTAL 6.7 6.0-8.3 ALBUMIN 4.0 3.5-5.2 BILIRUBIN, TOTAL 0.9 0.2-1.2 MAGNESIUM 2.0 1.6-2.6 ANION GAP 3 L 5-15 ALKALINE PHOSPHATASE 68 40-150 ALT/SGPT 27 <55 AST/SGOT 25 <34 CREAT EGFR(CKD-EPI) >90 >60 Nov 04, 2021 08:59 [facility] BASIC METABOLIC Specimen Type: PLASMA AM PANEL+MG No comment enter ed. Ordering Provid er: ANNMARIE WALKER Report Released Date/Time: Jul 15, 2021 08:27 AM Reporting Lab: [facility] [address] Performing Lab: [facility] [address] CREATININE 0.8 0.7-1.2 UREA NITROGEN 15 8-26 [...] lb 24 [place] 2021 10:40 /min mm[Hg] [facility] Nov 08 110/67 14 /min 98 % 0 68.11 156 lb 24 [facility] 2021 09:07 /min mm[Hg] in [facility] Immunizations: All administered on the encounter date This section contains immunizations associated to the Encounter. Immunization Series Date Issued Reaction Comments TDAP Nov 08, 2021 Social History: Smoking Status (Most current) and Tobacco Use (All prior to encounter date) This section includes the most current, and the historical, smoking and tobacco-related health factors from the [place] facility where the Encounter took place.Current Smoking Status This section includes the most current smoking, or tobacco-related health factor, from the [place] facility where the Encounter took place. Date/Time Current Smoking Status Comment Facility Apr 04, 2021 10:00 AM [place]-TOBAC[place] NEVER USED [facility] Encounter Notes: All associated encounter notes This section contains the clinical notes associated to the Encounter. Date/Time Encounter Note(s) Provider Source Nov 08, 2021 09:55 AM INTERNAL MEDICINE NOTE: TARUN HERNANDEZ [facility] LOCAL TITLE: MEDICINE CLINIC NOTE STANDARD TITLE: INTERNAL MEDICINE NOTE DATE OF NOTE: NOV 08, 2021@09:55 ENTRY DATE: NOV 08, 2021@09:55:20 AUTHOR: TARUN HERNANDEZ EXP COSIGNER: URGENCY: STATUS: COMPLETED MEDICINE CLINIC NOTE Has ADDENDA ASSESSMENT & PLAN 76M with history of persiste nt Afib/flutter presenting for evaluation of ingrown toenail. #. Ingrown toenail Right great toenail is thick end and grows down into the nail bed on both sides. The skin around is mildly inflammed, though no e rythema or evidence of infection. Quite tender to the touch. - Podiatry referral - Pt will likely need to hold anticoagulation pr ior, ok to hold for toenail removal Return to clinic: as scheduled for annual with P CP next month Patient staffed with Dr. Geremias Hernandez MD Internal Medicine, PGY-3 EDUCATION ON TREATMENT PLAN: Patient indicates readiness to learn, verbalizes understanding, agreement and satisfaction with the treatment plan. All questi ons addressed. ------- HPI ------- YOUSIF MANN is a 76 year old MALE here today for ingrown toenail. He has had ingrown nail for years. [facility] where the galilea pugh removed most of the nail deep into the bed. This helped a lot w ith the symptoms. He has not followed regularly with podiatry. He did try to contact podiatry clinics last fall for this, but they all told him they would want him to hold his anticoagulation for 3 days prior to the removal. He had been told previously not to hold it for this. However, the nail has continued to grow a nd become more painful. He clips it himself at home, but it is difficult and will sometimes break the nail scissors. -------- EXAM -------- Vitals: Temperature: 98.6 F [37.0 C] (11/04/2021 09:51) Blood Pressure: 110/67 (11/08/2021 09:07) Pulse: 66 (11/08/2021 09:07) Respiration: 14 (11/08/2021 09:07) Pain: 0 (11/08/2021 09:07) O2: 98% (11/08/2021 09:07) GENERAL: Well-appearing, no acute distress CARDIO: WWP RESP: Breathing non-labored on room air EXT: Thickened/yellowing toenail on right great toe with curved growth; skin surrounding nail mildly inflammed with slight pu ffiness, but no erythema or warmth; quite tender. Remainer of nails normal. NEURO: Alert and oriented x3, steady gait DATA/LABS n/a HISTORY Past medical history/active problems: Active problems - Computerized Problem List is t he source for the followin. Atrial fibrillation 2. Hyperlipidemia 3. Age related macular degeneration 4. Hearing loss 5. Tinnitus 6. Tremor 7. Obstructive sleep apnea - Non-compliant with CPAP. 8. Erectile dysfunction 9. Heart failure with reduced ejection fraction Allergies: Patient has answered NKA MEDICATIONS Active Outpatient Medications (excluding Supplie s): Outpatient [...] - TAKE 1 HOUR BEFORE ANTICIPATED SEXUAL ACTIVITY--FREDISU M 4 DOSES FOR 30-DAY SUPPLY. /tanner/ TARUN HERNANDEZ MD RESIDENT Signed: 11/08/2021 10:05 Receipt Acknowledged By: 11/08/2021 12:10 /tanner/ TIM DAVIS MD Staff Physician 11/08/2021 ADDENDUM STATUS: COMPLETED I have obtained/reviewed this patient's history, pertinent physical exam, laboratory/radiologic data a s noted in today's visit documentation. I agree with the assessment and treatment plan as outlined. /tanner/ TIM DAVIS MD Staff Physician Signed: 11/08/2021 12:10 Nov 08, 2021 09:09 AM INTERNAL MEDICINE OUTPATIENT NOTE: LO CAST [facility] LOCAL TITLE: MEDICINE CLINIC NURSING NOTE STANDARD TITLE: INTERNAL MEDICINE OUTPATIENT NOT E DATE OF NOTE: NOV 08, 2021@09:09 ENTRY DATE: NOV 08, 2021@09:09:49 AUTHOR: LO PITT EXP COSIGNER: URGENCY: STATUS: COMPLETED TYPE OF VISIT: Appointment Check In Type of appointment: In-person appointment REASON FOR VISIT: Ingrown Toenail. ALLERGIES: Patient has answered NKA VITAL SIGNS: Blood Pressure: 110/67 (11/08/2021 09:07) Pulse: 66 (11/08/2021 09:07) Respiration: 14 (11/08/2021 09:07) Temperature: 98.6 F [37.0 C] (11/04/2021 09:51) Weight: 156 lb [70.76 kg] (11/08/2021 09:07) Height: 68.11 in [173.0 cm] (11/08/2021 09:07) BMI: 23.7 O2 Sat: 98% (11/08/2021 09:07) Pain: 0 (11/08/2021 09:07) PAIN SCREEN: Patient is not having significant pain that the y wish to discuss with their provider today. MEDICATION Over the Counter/Herbal Medications: The patient states that they take some outside medications and/or herbals. Tdap Immunization: The patient received Tetanus/Diphtheria/Pertuss is (Tdap) 0.5ml IM today in Left Deltoid. 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 VIS version date Mar. Influenza Immunization: The patient has received the seasonal influenza vaccine for the current season at another location. Date: June 01, 2021 Location: [facility] Herpes Zoster (Shingles) Vaccine: Prior Herpes Zoster vaccination The patient has previously received the recombi nant zoster vaccine dose #1 (Shingrix, RZV). Date: September 26, 2018 Location: [facility] Written documentation: PER MIIC RECORD The patient has previously received the recombi nant zoster vaccine dose #2 (Shingrix, RZV). Date: December 04, 2018 Location: [facility] Written documentation: PER MIIC RECORD Pneumococcal PPSV23 (Pneumovax): The patient declines to receive the recommended dose of pneumococcal polysaccharide vaccine PPSV23 (Pneumovax). /tanner/ LO PITT LPN STAFF BORIS Signed: 11/08/2021 09:22
--- OUTSIDE RECORDS SUMMARY | 2022-07-24 21:30 | XMS_ITS | Encounter Summary ---
:1945 Author Organization [facility] Address [address] [place] [id number] Support Name Relationship Address Phone BANG MANN MEENAKSHI Unavailable [id number] [facility] [phone] [place] [address] BANG MANN MEENAKSHI Unavailable [id number] [facility] [phone] [place] [address] Insurance Providers: All historical and current Section [...] Tanner [place] MED[place] Aug 13, [id number] VENESS,BECERRA P ATIENT [facility] (WNR) ADVANTAGE ARE 2020 5 [id number] [phone] ROLD ADVAN 1 MOUST[place] C [place] MEDICARE MCR Aug 13, [id number] VENESS,BECERRA P ATIENT [facility] (WNR) ADVANTAGE (WNR) 2020 7 [id number] [phone] R[place] 1 [place] Aug 13, [id number] [phone] VENESS ,BECERRA PATIENT MCR (WNR) ADVANTAGE (WNR) 2022 5 [id number] ROLD 1 MEDICARE MEDICARE PART Sep 13, PART B [id number] Jesusita CONKLIN (WNR) (M) B 2012 [id number] [phone] [facility] MEDICARE MEDICARE PART Mar 13, PART A 800 Jesusita CONKLIN (WNR) (M) A [phone] [facility] MEDICARE MEDICARE PART Mar 13, PART A [id number] 800 Jesusita CONKLIN (WNR) (M) A 2008 [id number] [phone] [facility] Selected Encounter This section includes the information on record at [facility] for the Encounter. Date/Time Encounter Type Encounter Reason Provider Source Description Nov 11, 2021 OFFICE PODIATRY ICD-10-CM L60.0 [facility] 08:30 AM CONSULTATION Ingrowing nail RUIZ with Provider Comments: Ingrown toenail (SCT [id number]) IHE Encounter Template Text not used by [facility] Assessments - Encounter Diagnoses This section includes the primary and secondary diagnoses documented for the Encounter. Date/Time Primary/Secondary Diagnosis Name Provider Source Diagnosis Nov 11, 2021 PRIMARY Ingrowing [place] [facility] [place] [facility] 08:[place] AM ,RUIZ Cannon [facility] Nov 11, 2021 SECONDARY [facility] (current) [facility] [place] [facility] 08:[facility] AM use of ,RUIZ [facility] anticoagulants Nov 11, 2021 SECONDARY Unspecified atrial [facility] [place] [facility] 08:53 AM fibrillation RUIZ [facility] Plan of Treatment: Future Appointments (+ 6 months) and Future Tests (+/- 45 days) The Plan of Treatment section includes future care activities for the patient from all [place] treatmentfacilities. This section includes future appointments and future orders which are active, pending orscheduled.Future Appointments This section includes appointments that were scheduled to occur 6 months from the date of the Encounter, up to a maximum of 20 appointments. The data comes from all [place] treatment facilities. Appointment Date/Time Appointment Type Appointment Facili ty Name Nov 14, 2021 09:00 PM AMBULATORY - MEDICINE [facility] Nov 28, 2021 03:30 PM AMBULATORY - MEDICINE [facility] Dec 06, 2021 10:00 AM AMBULATORY - MEDICINE [facility] December 16, 2021 09:00 AM AMBULATORY - REHAB MEDICINE [facility] December 16, 2021 09:45 AM AMBULATORY - MEDICINE [facility] December 16, 2021 10:30 AM AMBULATORY - MEDICINE [facility] December 23, 2021 12:15 PM AMBULATORY - NONE [facility] December 23, 2021 12:16 PM AMBULATORY - NONE [facility] December 26, 2021 01:30 PM AMBULATORY - MEDICINE [facility] January 02, 2022 05:00 PM AMBULATORY - REHAB MEDICINE [facility] January 10, 2022 08:30 AM AMBULATORY - MEDICINE [facility] Feb 02, 2022 10:00 AM AMBULATORY - PSYCHIATRY [facility] Feb 03, 2022 12:12 PM AMBULATORY - NONE [facility] Feb 09, 2022 10:00 AM AMBULATORY - PSYCHIATRY [facility] Feb 09, 2022 01:30 PM AMBULATORY - SURGERY [facility] Feb 16, 2022 10:00 AM AMBULATORY - PSYCHIATRY [facility] Feb 23, 2022 10:00 AM AMBULATORY - PSYCHIATRY [facility] Mar 02, 2022 10:00 AM AMBULATORY - PSYCHIATRY [facility] Mar 08, 2022 08:45 AM AMBULATORY - MEDICINE [facility] Mar 08, 2022 09:00 AM AMBULATORY - MEDICINE [facility] Lab Results: +/- 30 days of the encounter This section includes the Chemistry and Hematology Lab Results on record with [facility] for the patient. Radiology Reports and Pathology Reports are provided separately, in subsequent sections.Lab Results This section contains the Chemistry/Hematology Results that were resulted 30 days before or 30 daysafter the date of the Encounter. Date/Time Source Result Type Result - Unit Interpretation Reference Range Comment Nov 11, 2021 [facility] COVID-19 AND FLU/RSV DIAG Sp ecimen Type: NASOPHARYNGEAL 09:34 AM PANEL(CEPHEID) Comment: Cephei d GeneXpert (618) Ordering Provid er: JEREMIAH ACKERMAN Report Released Date/Time: Nov 08, 2021 02:19 PM Reporting Lab: [facility] [address] [place] [facility] [address] Performing Lab: [facility] [address] [place] [facility] [address] COVID-19 (CEPHEID) Not Detected Not Dete cted INFLUENZA A (PCR) Not Detected Not Detec heydi INFLUENZA B (PCR) Not Detected Not Detec heydi RSV (PCR) Not Detected Not Detected Nov 08, 2021 10:11 AM [facility] BNP Specim en Type: PLASMA No comment enter ed. Ordering Provid er: DRAKE MCNULTY Report Released Date/Time: Sep 05, 2021 10:57 AM Reporting Lab: [facility] [address] [place] [facility] [address] Performing Lab: [facility] [address] [place] [facility] [address] BNP 28 <99 Nov 08, 2021 10:11 AM [facility] CBC Specim en Type: BLOOD No comment enter ed. Ordering Provid er: DRAKE MCNULTY Report Released Date/Time: Sep 05, 2021 10:57 AM Reporting Lab: [facility] [address] Performing Lab: [facility] [address] WBC 4.77 4.0-11.0 RBC 4.33 L 4.6-6.2 HGB 13.7 13.5-17.9 HCT 41.0 41-54 MCV 94.7 80-100 MCH 31.6 27-33 MCHC 33.4 32.0-37.5 PLT 128 L 150-400 MPV 9.4 7.4-10.4 RDW 13.0 11.5-14.5 Nov 08, 2021 [facility] COMPREHENSIVE Specimen Typ e: PLASMA 10:11 AM METABOLIC PANEL+MG No comment en tered. Ordering Provid er: DRAKE MCNULTY Report Released Date/Time: Sep 05, 2021 10:57 AM Reporting Lab: [facility] [address] Performing Lab: [facility] [address] CREATININE 0.8 0.7-1.2 UREA NITROGEN 20 8-26 GLUCOSE 85 74-100 SODIUM 136 136-145 POTASSIUM 4.0 3.5-5.1 CHLORIDE 105 98-107 CO2 28 22-29 CALCIUM 9.4 8.4-10.2 PROTEIN,TOTAL 6.7 6.0-8.3 ALBUMIN 4.0 3.5-5.2 BILIRUBIN, TOTAL 0.9 0.2-1.2 MAGNESIUM 2.0 1.6-2.6 ANION GAP 3 L 5-15 ALKALINE PHOSPHATASE 68 40-150 ALT/SGPT 27 <55 AST/SGOT 25 <34 CREAT EGFR(CKD-EPI) >90 >60 Nov 04, 2021 08:59 [facility] BASIC METABOLIC Specimen Type: PLASMA AM PANEL+MG No comment enter ed. Ordering Provid er: ANNMARIE WALKER Report Released Date/Time: Jul 15, 2021 08:27 AM Reporting Lab: [facility] [address] Performing Lab: [facility] [address] CREATININE 0.8 0.7-1.2 UREA NITROGEN 15 8-26 [...] smoking and tobacco-related health factors from the [place] facility where the Encounter took place.Current Smoking Status This section includes the most current smoking, or tobacco-related health factor, from the [place] facility where the Encounter took place. Date/Time Current Smoking Status Comment Facility Apr 04, 2021 10:00 AM [place]-TOBACCO NEVER USED [facility] Encounter Notes: All associated encounter notes This section contains the clinical notes associated to the Encounter. Date/Time Encounter Note(s) Provider Source Nov 11, 2021 08:49 AM PODIATRY CONS[facility] LOCAL TITLE: PODIATRY CONSULT [facility] STANDARD TITLE: PODIATRY CONSULT DATE OF NOTE: NOV 11, 2021@08:49 ENTRY DATE: NOV 11, 2021@08:49:19 AUTHOR: DOUGLAS MORIN COSIGNER: URGENCY: STATUS: COMPLETED ASSESSMENT: Onychocryptosis right and le ft great toes, anticoagulation, atrial fibrillation PLAN: 1. Chart reviewed. Consult received. Trimmed out the painful ingrown portions of the medial border of the lef t great toe, both borders of the right great toe. Irrigated and applied bacitracin and Band-Aids. Discussed long-term treatment options. Discussed partial, total nail matricectomy as well as periodic debridement. Patient would like to come back at a later date and have a partial nail matricectomy of the right and left great toes. Patient and provider agree on this. CHIEF COMPLAINT: Painful ingrown toenails HISTORY OF PRESENT ILLNESS: YOUSIF MANN Rosalinda is a 76 year old MALE presents t o the [facility]. Alejo rhoades presents to the podiatry clinic for the first time for painful ingrown to enails of the right and left great toes. No history of diabetes, neuropathy, foot surgery or amputation. No history of any lower extremity bypasses or st ents. Past Medical History: Atrial fibrillation (SCT [id number]) Hyperlipidemi a (SCT [id number]) Age related macular degeneration (SCT 26Hearing loss ([facility] [id number]) Tinnitus ([facility] [id number]) Tremor ([facility] [id number]) Obstructive sleep apnea ([facility] [id number]) Erectile dysfunction ([facility] [id number]) Heart failure with reduced ejection fracIngrown toenail ([facility] [id number]) Allergies: Patient has answered NKA Current Medications: Active Outpatient Medicatio ns (including Supplies): ATORVASTATIN CALCIUM 20MG TAB TAKE ONE TABLET BY MOUTH AT ACTIVE BEDTIME FOR CHOLESTEROL CARVEDILOL 3.125MG TAB TAKE ONE TABLET BY MOUTH TWO TIMES ACTIVE A DAY WITH FOOD. FOR HEART. DOFETILIDE 500MCG CAP TAKE ONE CAPSULE BY MOUTH TWO TIMES ACTIVE A DAY TO KEEP A NORMAL HEART BEAT EMPAGLIFLOZIN 25MG TAB TAKE ONE-HALF TABLET BY M OUTH EVERY ACTIVE MORNING LISINOPRIL 5MG TAB TAKE ONE TABLET BY MOUTH TWO TIMES A ACTIVE DAY FOR HEART FAILURE. PEG 400 0.4%/PROP GLYCOL 0.3% OPH SOLN INSTILL 1 DROP IN ACTIVE BOTH EYES FOUR TIMES A DAY FOR EYE IRRITATION/D RYNESS RIVAROXABAN 20MG TAB TAKE ONE TABLET BY MOUTH EV COLE DAY ACTIVE WITH THE LARGEST MEAL OF THE DAY TO PREVENT BLO OD CLOTS & STROKE SILDENAFIL CITRATE 100MG TAB TAKE ONE-HALF TABLE T BY MOUTH ACTIVE EVERY DAY NEEDED FOR ERECTIONS - TAKE 1 HOUR BEFORE ANTICIPATED SEXUAL ACTIVITY--MAXIMUM 4 DOSES FO R 30-DAY SUPPLY. Patient states he is taking all the above medic ations except Herbals/Over the Counter Medications: OBJECTIVE: VITALS: BP: 110/68 (11/08/2021 10:40) P: 63 (11/08/2021 10:40) R: 18 (11/08/2021 10:40) T: 98.6 F [37.0 C] (11/04/2021 09:51) WT: 156 lb [70.76 kg] (11/08/2021 10:40) BMI: 23.7 Pain: 0 (11/08/2021 09:07) O2 Sat: 98% (11/08/2021 10:40) CREATININE 0.8 (11/08/21) INR____ HGB A1C: No data available LFTs: SGOT 25 (11/08/21) SGPT 27 (11/08/21) ALLERGIES: Patient has answered NKA ROS:Unremarkable except for HPI EXAMINATION: Neurovascular status is inta ct with no signs of any acute ischemia, cyanosis or gangrene. Pulses are intact. There is normal tem perature, normal color, presence of pedal hair. No edema. Patient has no rmal sensation with no signs of neuropathy, spasticity, paralysis or dropfoot . Musculoskeletal exam is unremarkable and noncontributory. Patient has no ninfected painful ingrown toenails with a very curvy r ight great toenail, detached centrally and distally. There is no purulence, no in fection, no need reason for any antibiotics, no bone exposed. He also has a noninfected painful ingro wn toenail of the medial nail border left great toe. /tanner/ RUIZ MORIN DPM [employer] [facility] Signed: 11/11/2021 08:53
--- OUTSIDE RECORDS SUMMARY | 2022-07-24 21:31 | XMS_ITS | Encounter Summary ---
:1945 Author Organization [facility] Address [address] [place] [address] Support Name Relationship Address Phone BANG MANN Unavailable [address] [place] [address] BANG MANN MEENAKSHI Unavailable [address] [phone] [place] [address] Insurance Providers: All historical and current Section [...] Tanner [place] Aug 13, [id number] VENESS,BECERRA P ATIENT [facility] (WNR) ADVANTAGE ARE 2020 5 [id number] [phone] R[place] ADVAN 1 MOUSTAPHA C [place] MED[place] MCR Aug 13, [id number] VENESS,[place]ECERRA P ATIENT [facility] (WNR) ADVANTAGE (WNR) 2020 7 [id number] [phone] ROLD 1 [place] M[place] Aug 13, [id number] [phone] VENESS ,BECERRA PATIENT [facility] (WNR) ADVANTAGE (WNR) 2 5 [id number] 2 ROLD 1 MEDICARE MEDICARE PART Sep 13, PART B [id number] 800 Jesusita CONKLIN (WNR) (M) B 2012 [id number] [phone] [facility] MEDICARE MEDICARE PART Mar 13, PART A 800 Jesusita CONKLIN (WNR) (M) A [phone] [facility] MEDICARE MEDICARE PART Mar 13, PART A [id number] 800 Jesusita CONKLIN (WNR) (M) Rosalinda 2008 [id number] [phone] [facility] Selected Encounter This section includes the information on record at [place] for the Encounter. Date/Time Encounter Type Encounter Reason Provider Source Description Jul 27, 2021 OFFICE O/P NEW CARDIOLOGY ICD-10-CM I50.20 ST Angela LECHUGA 11:00 AM [place] 60-74 MIN Unspecified PHANIE K systolic (congestive) heart failure with Provider Comments: Heart failure with reduced ejection fraction ([facility] [id number]) IHE Encounter Template Text not used by [place] Assessments - Encounter Diagnoses This section includes the primary and secondary diagnoses documented for the Encounter. Date/Time Primary/Secondary Diagnosis Name Provider Source Diagnosis Jul 27, [address] COTY LECHUGA [place] 02:03 PM systolic EPHANIE K HCS (congestive) heart failure Jul 27, 2021 SECONDARY Hyperlipidemia, HAMLET,[facility] COTY [facility] 02:03 PM unspecified EPHANIE K HCS Jul 27, [address] [facility] 02:03 PM apnea (adult) EPHANIE K HCS (pediatric) Jul 27, 2021 SECONDARY Unspecified atrial [place] [place] 02:03 PM fibrillation EPHANIE K HCS Plan of Treatment: Future Appointments (+ 6 months) and Future Tests (+/- 45 days) The Plan of Treatment section includes future care activities for the patient from all [place] treatmentfacilities. This section includes future appointments and future orders which are active, pending orscheduled.Future Appointments This section includes appointments that were scheduled to occur 6 months from the date of the Encounter, up to a maximum of 20 appointments. The data comes from all [place] treatment facilities. Appointment Date/Time Appointment Type Appointment Facili ty Name Aug 10, 2021 10:00 AM AMBULATORY - [facility] Sep 05, 2021 10:30 AM AMBULATORY - MEDICINE [facility] Nov 04, 2021 08:45 AM AMBULATORY - MEDICINE [facility] Nov 04, 2021 09:30 AM AMBULATORY [facility] Nov 04, 2021 10:00 AM AMBULATORY [facility] Nov 04, 2021 11:00 AM AMBULATORY [facility] Nov 08, 2021 09:00 AM AMBULATORY - MEDICINE [facility] Nov 08, 2021 11:00 AM AMBULATORY - MEDICINE [facility] Nov 08, 2021 12:00 PM AMBULATORY - MEDICINE [facility] Nov 08, 2021 01:00 PM AMBULATORY - MEDICINE [facility] Nov 11, 2021 08:30 AM AMBULATORY - SURGERY [facility] Nov 11, 2021 10:01 AM AMBULATORY - NEUROLOGY [facility] Nov 14, 2021 09:00 PM AMBULATORY - MEDICINE [facility] Nov 28, 2021 03:30 PM AMBULATORY - MEDICINE [facility] Dec 06, 2021 10:00 AM AMBULATORY - MEDICINE [facility] December 16, 2021 09:00 AM AMBULATORY - REHAB MEDICINE [facility] December 16, 2021 09:45 AM AMBULATORY - MEDICINE [facility] December 16, 2021 10:30 AM AMBULATORY - MEDICINE [facility] December 23, 2021 12:15 PM AMBULATORY - NONE [facility] December 23, 2021 12:16 PM AMBULATORY - NONE [facility] Active, Pending, and Scheduled Orders This section includes a listing of several types of active, pending, and scheduled orders, including clinic medications orders, diagnostic test orders, procedure orders and consult orders; where the start date of the order is 45 days before the date of the Encounter or 45 days after the date of the Encounter. The data comes from all [place] treatment facilities. Test Date/Time Test Type Test Details Facility Name Jul 11, 2021 12:00 Laboratory - COVID-[address] [facility] AM Chemistry Order (CEPHEID) NASOPHARYNGEAL SWAB STAT SP ONCE Jul 11, 2021 11:41 Laboratory - CBC & DIFF BLOOD STAT [facility] AM Chemistry Order ONCE Lab Results: +/- 30 days of the encounter This section includes the Chemistry and Hematology Lab Results on record with [place] for the patient. Radiology Reports and Pathology Reports are provided separately, in subsequent sections.Lab Results This section contains the Chemistry/Hematology Results that were resulted 30 days before or 30 daysafter the date of the Encounter. Date/Time Source Result Type Result - Unit Interpretation Reference Range Comment Aug 10, 2021 [facility] BASIC METABOLIC Specimen Typ e: PLASMA 10:04 AM PANEL+MG No comment enter ed. Ordering Provid er: LILIANA LECHUGA Report Released Date/Time: Jul 27, 2021 11:37 AM Reporting Lab: [facility] [address] Performing Lab: [facility] [address] CREATININE 0.8 0.7-1.2 UREA NITROGEN 17 8-26 GLUCOSE 82 74-100 SODIUM 141 136-145 POTASSIUM 4.1 3.5-5.1 CHLORIDE 105 98-107 CO2 32 H 22-29 CALCIUM 9.4 8.4-10.2 MAGNESIUM 2.0 1.6-2.6 ANION GAP 4 L 5-15 ESTIMATED GFR(eGFR) 94 >60 Jul 27, 2021 10:32 [facility] BASIC METABOLIC Specimen Type: PLASMA AM PANEL+MG No comment enter ed. Ordering Provid er: ARAVIND MEMBRENO Report Released Date/Time: Jul 11, 2021 10:13 AM Reporting Lab: [facility] [address] Performing Lab: [facility] [address] CREATININE 0.8 0.7-1.2 UREA NITROGEN 18 8-26 GLUCOSE 89 74-100 SODIUM 138 136-145 POTASSIUM 4.2 3.5-5.1 CHLORIDE 106 98-107 CO2 28 22-29 CALCIUM 9.2 8.4-10.2 MAGNESIUM 1.9 1.6-2.6 ANION GAP 4 L 5-15 ESTIMATED GFR(eGFR) 94 >60 Jul 27, 2021 10:32 AM [facility] BNP Specim en Type: PLASMA No comment enter ed. Ordering Provid er: LILIANA LECHUGA Report Released Date/Time: Jul 27, 2021 10:10 AM Reporting Lab: [facility] [address] Performing Lab: [facility] [address] BNP 46 <99 Jul 27, 2021 10:32 [facility] IRON GROUP Specimen Type: SERUM AM No comment enter ed. Ordering Provid er: LILIANA LECHUGA Report Released Date/Time: Jul 27, 2021 10:10 AM Reporting Lab: [facility] [address] Performing Lab: [facility] [phone] IRON 149 65-175 TIBC,CALCULATED 283 250-425 FERRITIN 430.8 H 21.8-274.7 IRON SATURATION 53 H 20-50 TRANSFERRIN 226 163-382 Jul 27, 2021 [facility] TSH W/REFLEX TO Specimen Typ e: PLASMA 10:32 AM FREE T4 No comment enter ed. Ordering Provid er: LILIANA LECHUGA Report Released Date/Time: Jul 27, 2021 10:10 AM Reporting Lab: [facility] [address] Performing Lab: [facility] [address] TSH 0.50 0.35-4.94 Jul 27, 2021 10:32 [facility] CBC & DIFF Specimen Type: BLOOD AM Comment: Automa heydi Differential Performed Ordering Provid er: LILIANA LECHUGA Report Released Date/Time: Jul 27, 2021 10:10 AM Reporting Lab: [facility] [address] Performing Lab: [facility] [address] WBC 4.39 4.0-11.0 RBC 4.91 4.6-6.2 HGB [...] IPF 2.9 0-10 Jul 27, 2021 10:29 [facility] BASIC METABOLIC Specimen Type: PLASMA AM PANEL+MG No comment enter ed. Ordering Provid er: ANNMARIE WALKER Report Released Date/Time: Jun 27, 2021 10:04 AM Reporting Lab: [facility] [address] Performing Lab: [facility] [address] CREATININE 0.9 0.7-1.2 UREA NITROGEN 19 8-26 GLUCOSE 81 74-100 SODIUM 140 136-145 POTASSIUM 4.2 3.5-5.1 CHLORIDE 106 98-107 CO2 27 22-29 CALCIUM 9.0 8.4-10.2 MAGNESIUM 2.0 1.6-2.6 ANION GAP 7 5-15 ESTIMATED GFR(eGFR) 82 >60 Jul 12, 2021 07:17 AM [facility] ALBUMIN Specim en Type: PLASMA No comment enter ed. Ordering Provid er: TERVON MENDENHALL Report Released Date/Time: Jul 11, 2021 11:41 AM Reporting Lab: [facility] [address] [facility] [address] Performing Lab: [facility] [address] [facility] [address] ALBUMIN 3.4 L 3.5-5.2 Jul 12, 2021 07:17 AM [facility] MAGNESIUM Specim en Type: PLASMA No comment enter ed. Ordering Provid er: TREVON MENDENHALL Report Released Date/Time: Jul 11, 2021 11:41 AM Reporting Lab: [facility] [address] [facility] [address] Performing Lab: [facility] [address] [facility] [address] MAGNESIUM 1.8 1.6-2.6 Jul 12, 2021 07:17 AM [facility] PHOSPHORUS Specim en Type: PLASMA No comment enter ed. Ordering Provid er: TREVON MENDENHALL Report Released Date/Time: Jul 11, 2021 11:41 AM Reporting Lab: [facility] [address] [facility] [address] Performing Lab: [facility] [address] [facility] [address] PHOSPHORUS 2.8 2.3-4.7 Jul 12, 2021 [facility] BASIC METABOLIC Specimen Typ e: PLASMA 07:17 AM PANEL+MG No comment enter ed. Ordering Provid er: TREVON MENDENHALL Report Released Date/Time: Jul 11, 2021 11:41 AM Reporting Lab: [facility] [address] [facility] [address] Performing Lab: [facility] [address] [facility] [address] CREATININE 0.8 0.7-1.2 UREA NITROGEN 17 8-26 GLUCOSE 88 74-100 SODIUM 138 136-145 POTASSIUM 4.0 3.5-5.1 CHLORIDE 107 98-107 CO2 25 22-29 CALCIUM 9.0 8.4-10.2 MAGNESIUM 1.8 1.6-2.6 ANION GAP 6 5-15 ESTIMATED GFR(eGFR) 94 >60 Jul 12, 2021 07:17 AM [facility] CBC & DIFF Specim en Type: BLOOD No comment enter ed. Ordering Provid er: TREVON MENDENHALL Report Released Date/Time: Jul 11, 2021 05:49 PM Reporting Lab: [facility] [address] Performing Lab: [facility] [address] WBC 5.46 4.0-11.0 RBC 4.38 L 4.6-6.2 [...] IMMATURE GRAN 0.02 0-0.1 Jul 11, 2021 [facility] COVID-19 AND FLU/RSV DIAG Sp ecimen Type: NASOPHARYNGEAL 09:47 AM PANEL(CEPHEID) Comment: Rufus rhoades GeneXpert (618) Ordering Provid er: ANNMARIE WALKER Report Released Date/Time: Jul 11, 2021 09:47 AM Reporting Lab: [facility] [address] Performing Lab: [facility] [address] COVID-19 (CEPHEID) Not Detected Not Dete cted INFLUENZA A (PCR) Not Detected Not Detec heydi INFLUENZA B (PCR) Not Detected Not Detec heydi RSV (PCR) Not Detected Not Detected Social History: Smoking Status (Most current) and Tobacco Use (All prior to encounter date) This section includes the most current, and the historical, smoking and tobacco-related health factors from the [place] facility where the Encounter took place.Current Smoking Status This section includes the most current smoking, or tobacco-related health factor, from the [place] facility where the Encounter took place. Date/Time Current Smoking Status Comment Facility Apr 04, 2021 10:00 AM VA-TOBACCO NEVER USED [facility] Encounter Notes: All associated encounter notes This section contains the clinical notes associated to the Encounter. Date/Time Encounter Note(s) Provider Source Jul 27, 2021 11:00 AM CARDIOLOGY CONSULT: ALANA LECHUGA [facility] [facility] LOCAL TITLE: HEART FAILURE CONSULT E K STANDARD TITLE: CARDIOLOGY CONSULT DATE OF NOTE: JUL 27, 2021@11:00 ENTRY DATE: JUL 27, 2021@13:50:05 AUTHOR: ALANA LECHUGA COSIGNER: URGENCY: STATUS: COMPLETED Reason for consult: medication optimization History of Present Illness: YOUSIF MANN 76y/o male with a past medical history significant for heart failure with reduced EF, NICM, chronic atr ial fibrillation on anticoagulation, hearing loss, ROSA non-compliant with CPAP, HLD and ED who presents to the heart failure clinic today for c onsultation. Mr. Mann was seen in the cardiology consult [facility] in late May with Dr Pearson for [...] his dyspnea has improved with rhythm control. He comes into clinic today, ambulatory, with his (Scotty). He states he feels he has been doing OK overall . 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 He was able to paint a few of his b uildings this last fall without issue. He denies any episodes of chest pains/tightness, PND, orthopne a, lower leg edema, lightheadedness or syncope. He has not routinely been mo nitoring his fluid or sodium intake. He [place] his travel to [place] in the winter months and plan to le ave in about 2 weeks. Review of Systems: All other systems wer e reviewed and are negative other than in the HPI. Active problems - Computerized Problem List is t he source for the followin. Atrial fibrillation 2. Hyperlipidemia 3. Age related macular degeneration 4. Hearing loss 5. Tinnitus 6. Tremor 7. Obstructive sleep apnea - Non-compliant with CPAP. 8. Erectile dysfunction 9. Heart failure with reduced ejection fraction Social History: TOBACCO: Denies ETOH: 0-1/wk DRUGS: Denies Living situation: Lives with Personal History: Allergies: Patient has answered NKA Cardiac Medications: Active Outpatient Medicatio ns (including Supplies): Active Outpatient Medications Status 1) ATORVASTATIN [...] MOUTH DAILY ACTIVE FOR HEART FAILURE. 5) RIVAROXABAN 20MG TAB TAKE ONE TABLET BY MOUTH EVERY ACTIVE DAY WITH THE LARGEST MEAL OF THE DAY TO PREVENT BLOOD CLOTS & STROKE 6) SILDENAFIL CITRATE 100MG TAB TAKE ONE-HALF TA BLET BY ACTIVE MOUTH EVERY DAY NEEDED FOR ERECTIONS - TAKE 1 HOUR BEFORE ANTICIPATED SEXUAL ACTIVITY--MAXIMU M 4 DOSES FOR 30-DAY SUPPLY. Pending Outpatient Medications Status 1) LISINOPRIL 10MG TAB TAKE ONE-HALF TABLET BY M OUTH TWO PENDING TIMES A DAY FOR HEART FAILURE. 7 Total Medications MEDICATION RECONCILIATION: The medication list above was reviewed with the patient/surrogate and if changes are indicated they are listed ab ove. Vitals: Temperature: 97.1 F [36.2 C] (06/24/2021 09:58) Pulse: 79 (06/24/2021 09:58) Respirations: 16 (06/24/2021 09:58) Blood Pressure: 96/65 (06/24/2021 09:58) Pain: 0 (06/24/2021 09:58) RR: unlabored at rest O2 Sat:98 (06/24/2021 09:58) Weight: 152.12 lb [69.1 kg] (07/11/2021 17:59) PERTINENT EXAM: General: NAD, A/Ox3 HEENT: Atraumatic and normocephalic. NECK: Supple. Neck veins flat. LUNGS: clear throughout, normal expansion HEART: s1, s2, no murmur, rub or gallop ABDOMEN: Soft and nontender. EXTREMITIES: no edema, pulses present bilaterall y PSYCHOLOGICAL: Normal affect. LABS: FERRITIN: 430.8 H TIBC: 283 IRON: 149 IRON SATURATION: 53 H TRANSFERRIN: 226 WBC: 4.39 RBC: 4.91 HGB: 15.3 HCT: 45.8 MCV: 93.3 MCH: 31.2 MCHC: 33.4 RDW: 12.1 PLT: 111 L MPV: 9.7 SEGS: 63.3 LYMPHS: 25.3 MONOCYTES: 9.1 EOSINO: 1.8 BASO: 0.5 NEUTROPHIL, ABSOLUTE: 2.78 EOSINO, ABSOLUTE: 0.08 BASO, ABSOLUTE: 0.02 MONOCYTE, ALTERNATE ABS: 0.40 LYMPHS, ALTERNATE ABS: 1.11 I.0 IG,ABSOLUTE: 0.00 IPF: 2.9 B-TYPE NATRIURETIC PEPTIDE: 46 GLUCOSE: 89 UREA NITROGEN: 18 CREATININE: 0.8 SODIUM: 138 POTASSIUM: 4.2 CHLORIDE: 106 CO2: 28 CALCIUM: 9.2 MAGNESIUM: 1.9 TSH: 0.50 ANION GAP: 4 L EGFR (03/16): 94 Collection DT Spec WBC HGB HCT PLT MCV NEUT LYMP HS 07/27/2021 10:32 BLOOD 4.39 15.3 45.8 111 L 93.3 63.3 25.3 07/12/2021 05:30 BLOOD 5.46 15.0 41.7 102 L 95.2 61.3 28.0 06/10/2021 08:57 BLOOD 4.79 14.6 45.1 102 L 94.7 ------- ECHOCARDIOGRAM: 06/10/21 1. Normal left ventricular size with mildly redu olga systolic function. Estimated left ventricular ejection fraction 40- 45% with impi-cc-wzgs variability due to atrial fibrillation. 2. Mild global hypokinesis. 3. Mild right ventricular enlargement with mildl y reduced systolic function. Estimated right ventricular systolic pressure 37 mm Hg. 4. Bi-atrial enlargement. 5. Mild mitral valve regurgitation. 6. Dilated inferior vena cava with reduced inspi ratory collapse. 7. Tiny posterior pericardial effusion. 8. No prior study for comparison. ------- ------- Assessment/Plan: ------- # Heart failure: Currently stable without eviden ce of decompensation on exam. Will work to further optimiz e medical therapies. Today, increase lisinpril to 5 mg BID, labs in 2 weeks prior to leaving for [place]. Follow up 1 month, phone for further titation of medicati ons. Medication optimization will be limited due to borderline hypotension. He w as given an BP cuff today to continue to monitor his BP/HR at home. Consider SLGT2i at next visit and DC furosemide. - EF: 40-45% - Etiology: NICM, presumed tachy-mediated - Stage: C - NYHA class: II GDMT: -- ACEi/ARB/ARNI: Lisinopril 5 mg daily -- Hydal/ISDN: -- -- BB: Carvedilol 3.125 [...] nstructed to notify clinic if any develop. -- Increase lisinopril to 5 mg BID - Labs in 2 weeks # AFib: EKG today shows SR with stable QTC. Foll owing with anti-coaglation clinic, he request a wallet card for his AC. Jermaine harvey AC clinic pharm. # Ingrown toe nail: At end of visit ovidio powers remarked on an ingrown toe nail he has been dealing with and that his previous outs [facility] clinic will not treat d/t his AC. Will flag PCP for further eval/treatment /recommendations Follow up: 1 month phone Assessment and plan discussed with in fu ll detail with all questions answered. Time spent in person 85 minutes with over 50% sp ent in counseling and coordination of care. Thank you for allowing me to participate in the care of YOUSIF MANN. Please contact me with any q uestions or concerns. Liliana Lechuga NP Heart Failure Clinic // LILIANA LECHUGA APRN NURSE PRACTITIONER Signed: 07/27/2021 14:03 Receipt Acknowledged By: * AWAITING SIGNATURE * KECIA COTTO * AWAITING SIGNATURE * LUL GARZA * AWAITING SIGNATURE * ELAN RODRIGUEZ
--- OUTSIDE RECORDS SUMMARY | 2022-07-24 21:33 | XMS_ITS | Encounter Summary ---
:1945 Author Organization [facility] Address [address] [place] [id number] Support Name Relationship Address Phone BANG MANN MEENAKSHI Unavailable [address] [place] [address] BANG MANN MEENAKSHI Unavailable [address] [place] [address] Insurance Providers: All historical and current Section Date Range: From patient's date of to the date document was created.This section includes the names of all active insurance providers for the patient. Insurance Type of Plan Start of End of Group Member Insurance Policy P atient's Provider Coverage Name Policy Policy Number ID Provider's Tanner's Relationship Coverage Coverage Telephone Name to Policy Number Tanner [facility] MEDICARE MEDIC Aug 13, [id number] VENESS,BECERRA P ATIENT [facility] (WNR) ADVANTAGE ARE 2020 5 [id number] [phone] [place] ADVAN 1 TAGE C BCBS [place] MEDICARE MCR Aug 13, [id number] VENESS,BECERRA P ATIENT [facility] (WNR) ADVANTAGE (WNR) 2020 7 [id number] [phone] ROLD 1 [facility] MEDICARE [facility] Aug 13, [id number] [phone] VENESS ,BECERRA PATIENT [facility] (WNR) ADVANTAGE (WNR) 2021 5 [id number] 2 ROLD 1 MEDICARE MEDICARE PART Sep 13, PART B [id number] 800 Jesusita CONKLIN (WNR) (M) B 2012 [id number] [phone] [facility] MEDICARE MEDICARE PART Mar 13, PART A 800 Jesusita CONKLIN (WNR) (M) A [phone] [facility] MEDICARE MEDICARE PART Mar 13, PART A [id number] 800 Jesusita CONKLIN (WNR) (M) Rosalinda 2008 [id number] [phone] [facility] Selected Encounter This section includes the information on record at [place] for the Encounter. Date/Time Encounter Type Encounter Reason Provider Source Description May 05, 2022 CPTR OPHTH DX OPHTHALMOLOGY ICD-10-CM GEOFF KANG 10:35 AM IMG POST SEGMT Z01.01 Encounter for exam of eyes and vision w abnormal findings with Provider Comments: Eye/Vision Exam w/ Abnormal Findings IHE Encounter Template Text not used by [facility] Assessments - Encounter Diagnoses This section includes the primary and secondary diagnoses documented for the Encounter. Date/Time Primary/Secondary Diagnosis Name Provider Source Diagnosis May 05, 2022 PRIMARY Encounter for GEOFF KANG [facility], 11:39 AM exam of eyes and [place] [facility] vision w abnormal findings May 05, 2022 SECONDARY Nexdtve GEOFF KANG [facility], 11:39 AM age-related mclr [place] [employer] degn, left eye, intermed dry stage May 05, 2022 SECONDARY Nexdtve GEOFF KANG [facility], 11:39 AM age-related mclr [place] [facility] degn, right eye, intermed dry stage May 05, 2022 SECONDARY Presbyopia GEOFF KANG [facility], 11:39 AM [place] [facility] May 05, 2022 SECONDARY Presence of GEOFF KANG [facility], 11:39 AM intraocular lens [place] [facility] Plan of Treatment: Future Appointments (+ 6 months) and Future Tests (+/- 45 days) The Plan of Treatment section includes future care activities for the patient from all [place] treatmentfacilities. This section includes future appointments and future orders which are active, pending orscheduled.Future Appointments This section includes appointments that were scheduled to occur 6 months from the date of the Encounter, up to a maximum of 20 appointments. The data comes from all [place] treatment facilities. Appointment Date/Time Appointment Type Appointment Facili ty Name Jun 16, 2022 09:30 AM AMBULATORY - MEDICINE [facility] Jun 16, 2022 10:00 AM AMBULATORY - MEDICINE [facility] Jun 16, 2022 10:30 AM AMBULATORY - MEDICINE [facility] Jul 10, 2022 02:00 PM AMBULATORY - NONE [facility] Jul 10, 2022 02:45 PM AMBULATORY - NONE [facility] Jul 10, 2022 03:00 PM AMBULATORY - MEDICINE [facility] Jul 24, 2022 09:30 AM AMBULATORY - MEDICINE [facility] Jul 25, 2022 11:00 AM AMBULATORY - REHAB MEDICINE [facility] Encounter Notes: All associated encounter notes This section contains the clinical notes associated to the Encounter. Date/Time Encounter Note(s) Provider Source May 05, 2022 10:36 AM OPHTHALMOLOGY ATTENDING NOTE: [facility] LOC[facility] TITLE: OPHTHALMOLOGY ATTENDING NOTE DIVISION STANDARD TITLE: OPHTHALMOLOGY ATTENDING NOTE DATE OF NOTE: MAY 05, 2022@10:36 ENTRY DATE: MAY 05, 2022@10:36:09 AUTHOR: GEOFF KANG EXP COSIGNER: URGENCY: STATUS: COMPLETED See TECS notes in [facility] for this date. /tanner/ GEOFF KANG MD, SFS In [employer] Signed: 05/05/2022 11:39
--- OUTSIDE RECORDS SUMMARY | 2022-07-24 21:33 | XMS_ITS | Encounter Summary ---
:1945 Author Organization [facility] Address [address] [place] [address] Support Name Relationship Address Phone BANG MANN MEENAKSHI Unavailable [address] [facility] [place] [address] BANG MANN MEENAKSHI Unavailable [address] [facility] [place] [address] Insurance Providers: All historical and current Section [...] Tanner [place] Aug 13, [id number] VENESS,BECERRA P ATIENT [facility] (WNR) ADVANTAGE ARE 2020 5 [id number] [phone] ROLD ADVAN 1 MOUSTAPHA C [place] MED[place] MCR Aug 13, [id number] VENESS,BECERRA P ATIENT MCR (WNR) ADVANTAGE (WNR) 2020 7 [id number] [phone] R[place] 1 [place] M[place] Aug 13, [id number] [phone] VENESS ,BECERRA PATIENT MCR (WNR) ADVANTAGE (WNR) 2022 5 [id number] ROLD 1 MEDICARE MEDICARE PART Sep 13, PART B [id number] 800 Jesusita CONKLIN (WNR) (M) B 2012 [id number] [phone] [facility] MEDICARE MEDICARE PART Mar 13, PART A 800 Jesusita CONKLIN (WNR) (M) A [phone] [facility] MEDICARE MEDICARE PART Mar 13, PART A [id number] 800 Jesusita CONKLIN (WNR) (M) A 2008 [id number] [phone] [facility] Selected Encounter This section includes the information on record at [place] for the Encounter. Date/Time Encounter Type Encounter Description Reason Provider Source December 23, 2021 10:16 Outpatient Encounter TELEPHONE TRIAGE AM IHE Encounter Template Text not used by [place] Plan of Treatment: Future Appointments (+ 6 months) and Future Tests (+/- 45 days) The Plan of Treatment section includes future care activities for the patient from all [place] treatmentfacilities. This section includes future appointments and future orders which are active, pending orscheduled.Future Appointments This section includes appointments that were scheduled to occur 6 months from the date of the Encounter, up to a maximum of 20 appointments. The data comes from all [place] treatment facilities. Appointment Date/Time Appointment Type Appointment Facili ty Name December 26, 2021 01:30 PM AMBULATORY - MEDICINE [facility] January 02, 2022 05:00 PM AMBULATORY - REHAB MEDICINE [facility] January 10, 2022 08:30 AM AMBULATORY - MEDICINE [facility] Feb 02, 2022 10:00 AM AMBULATORY - PSYCHIATRY [facility] Feb 03, 2022 12:12 PM AMBULATORY - NONE [facility] Feb 09, 2022 10:00 AM AMBULATORY - PSYCHIATRY [facility] Feb 09, 2022 01:30 PM AMBULATORY - SURGERY [facility] S Feb 16, 2022 10:00 AM AMBULATORY - PSYCHIATRY [facility] Feb 23, 2022 10:00 AM AMBULATORY - PSYCHIATRY [facility] Mar 02, 2022 10:00 AM AMBULATORY - PSYCHIATRY [facility] Mar 08, 2022 08:45 AM AMBULATORY - MEDICINE [facility] Mar 08, 2022 09:00 AM AMBULATORY - MEDICINE [facility] Mar 08, 2022 09:30 AM AMBULATORY - MEDICINE [facility] Mar 08, 2022 10:00 AM AMBULATORY - MEDICINE [facility] Mar 13, 2022 09:00 AM AMBULATORY - MEDICINE [facility] May 03, 2022 09:00 AM AMBULATORY - NONE [facility] Jun 16, 2022 09:30 AM AMBULATORY - MEDICINE [facility] Jun 16, 2022 10:00 AM AMBULATORY - MEDICINE [facility] Jun 16, 2022 10:30 AM AMBULATORY - MEDICINE [facility] Lab Results: +/- 30 days of the encounter This section includes the Chemistry and Hematology Lab Results on record with [place] for the patient. Radiology Reports and Pathology Reports are provided separately, in subsequent sections.Lab Results This section contains the Chemistry/Hematology Results that were resulted 30 days before or 30 daysafter the date of the Encounter. Date/Time Source Result Type Result - Unit Interpretation Reference Range Comment December 16, 2021 09:56 AM [facility] BNP Specim en Type: PLASMA No comment enter ed. Ordering Provid er: DRAKE MCNULTY Report Released Date/Time: Nov 08, 2021 10:58 AM Reporting Lab: [facility] [id number] Performing Lab: [facility] [id number] BNP 35 <99 December 16, 2021 [facility] COMPREHENSIVE Specimen Typ e: PLASMA 09:56 AM METABOLIC PANEL+MG No comment en tered. Ordering Provid er: DRAKE MCNULTY Report Released Date/Time: Nov 08, 2021 10:58 AM Reporting Lab: [facility] [id number] Performing Lab: [facility] [address] CREATININE 0.8 0.7-1.2 UREA NITROGEN 14 8-26 [...] smoking and tobacco-related health factors from the [place] facility where the Encounter took place.Current Smoking Status This section includes the most current smoking, or tobacco-related health factor, from the [place] facility where the Encounter took place. Date/Time Current Smoking Status Comment Facility Apr 04, 2021 10:00 AM [place]-TOBACCO NEVER USED [facility] Encounter Notes: All associated encounter notes This section contains the clinical notes associated to the Encounter. Date/Time Encounter Note(s) Provider Source December 23, 2021 10:16 AM REPORT OF CONTACT: ERIK MELVIN [facility] LOCAL TITLE: PATIENT CONTACT NOTE STANDARD TITLE: REPORT OF CONTACT DATE OF NOTE: DECEMBER 23, 2021@10:16 ENTRY DATE: DECEMBER 23, 2021@10:17:12 AUTHOR: ERIK MELVIN EXP COSIGNER: URGENCY: STATUS: COMPLETED PATIENT CONTACT NOTE Has ADDENDA Patient contact Name of : YOUSIF MANN Name/Relationship of Contact if other than Veter an: Date & Time of Contact: December@10:17 Type of Contact: Reason for Contact: called and said he w ent to the ER at [place] (12/22/21) for low blood presure and high heart rate. He was treated for Atrial flutter ventricular response. He just wanted provider to know. He wa s given the phone number to report the ER visit. /tanner/ ERIK VARGASN 23 [facility] MSA Signed: 12/23/2021 10:21 Receipt Acknowledged By: 12/23/2021 11:35 /tanner/ FRANDY VILLEDA RN NURSE PRACTITIONER 12/23/2021 ADDENDUM STATUS: COMPLETED Also, co-signing patients cardiology EP provider of ER visit. Zhane, will you please call Mr. Mann n ext week to check-in on his BP and HR. Thanks /tanner/ DRAKE MCNULTY APRN NURSE PRACTITIONER Signed: 12/23/2021 11:37 Receipt Acknowledged By: 12/23/2021 11:51 /tanner/ ZHANE YBARRA RN REGISTERED NURSE 12/23/2021 11:44 /tanner/ ANNMARIE WALKER PA-C PHYSICIAN MANAGER INVESTMENT BANKING 12/23/2021 ADDENDUM STATUS: COMPLETED Please obtain records from [place] from ED vi sit 12/22/21 and alert me when available to review. /ken WALKER PA-C PHYSICIAN MANAGER [employer]VESTMENT BANKING Signed: 12/23/2021 11:45 Receipt Acknowledged By: 12/28/2021 10:41 /tanner/ SHERYL KANG [facility] 12/28/2021 ADDENDUM STATUS: COMPLETED records requested /es/ SHERYL KANG LEAD MSA Signed: 12/28/2021 10:41 12/28/2021 ADDENDUM STATUS: COMPLETED Received faxed records from [facility]. Sent to scanning and alerted provider. /tanner/ JOSE CRUMP MSA Signed: 12/28/2021 15:17 Receipt Acknowledged By: * AWAITING SIGNATURE * ANNMARIE WALKER
--- OUTSIDE RECORDS SUMMARY | 2022-07-24 21:33 | XMS_ITS | Encounter Summary ---
:1945 Author Organization [facility] Address [address] [place] [address] Support Name Relationship Address Phone BANG MANN Unavailable [address] [place] [address] BANG MANN MEENAKSHI Unavailable [address] [phone] [place] [address] Insurance Providers: All historical and current Section Date Range: From patient's date of to the date document was created.This section includes the names of all active insurance providers for the patient. Insurance Type of Plan Start of End of Group Member Insurance Policy P atient's Provider Coverage Name Policy Policy Number ID Provider's Tanner's Relationship Coverage Coverage Telephone Name to Policy Number Tanner [facility] MEDICARE MEDIC Aug 13, [id number] VENESS,BECERRA P ATIENT [facility] (WNR) ADVANTAGE ARE 2020 5 [id number] [phone] [place] ADVAN 1 MOU[place] C [place] MED[place] M[place] Aug 13, [id number] VENESS,BECERRA P ATIENT [facility] (WNR) ADVANTAGE (WNR) 2020 7 [id number] [phone] ROLD 1 [facility] MEDICARE [facility] Aug 13, [id number] [phone] VENESS ,BECERRA PATIENT MCR (WNR) ADVANTAGE (WNR) 2 5 [id number] 2 ROLD 1 MEDICARE MEDICARE PART Sep 13, PART B [id number] 800 Jesusita CONKLIN (WNR) (M) B 2012 [id number] [facility] MEDICARE MEDICARE PART Mar 13, PART A 800 Jesusita CONKLIN (WNR) (M) A [phone] [facility] MEDICARE MEDICARE PART Mar 13, PART A [id number] 800 Jesusita CONKLIN ([place]) (M) Rosalinda 2008 [id number] [phone] [place] Selected Encounter This section includes the information on record at [place] for the Encounter. Date/Time Encounter Type Encounter Reason Provider Source Description December 23, 2021 12:15 Outpatient ADMIN PAT ACTIVTIES FITZJOHNATHAN PM Encounter (MASNONCT) IHE Encounter Template Text not used by [place] Plan of Treatment: Future Appointments (+ 6 months) and Future Tests (+/- 45 days) The Plan of Treatment section includes future care activities for the patient from all [place] treatmentfacilities. This section includes future appointments and future orders which are active, pending orscheduled.Future Appointments This section includes appointments that were scheduled to occur 6 months from the date of the Encounter, up to a maximum of 20 appointments. The data comes from all [place] treatment facilities. Appointment Date/Time Appointment Type Appointment Facili ty Name December 26, 2021 01:30 PM AMBULATORY - MEDICINE [facility] January 02, 2022 05:00 PM AMBULATORY - REHAB [facility]IC[facility] January 10, 2022 08:30 AM AMBULATORY - MEDICINE [facility] Feb 02, 2022 10:00 AM AMBULATORY - PSYCHIATRY [facility] Feb 03, 2022 12:12 PM AMBULATORY - NONE [facility] Feb 09, 2022 10:00 AM AMBULATORY - PSYCHIATRY [facility] Feb 09, 2022 01:30 PM AMBULATORY - SURGERY [facility] S Feb 16, 2022 10:00 AM AMBULATORY - PSYCHIATRY [facility] Feb 23, 2022 10:00 AM AMBULATORY - PSYCHIATRY [facility] Mar 02, 2022 10:00 AM AMBULATORY - PSYCHIATRY [facility] Mar 08, 2022 08:45 AM AMBULATORY - MEDICINE [facility] Mar 08, 2022 09:00 AM AMBULATORY - MEDICINE [facility] Mar 08, 2022 09:30 AM AMBULATORY - MEDICINE [facility] Mar 08, 2022 10:00 AM AMBULATORY - MEDICINE [facility] Mar 13, 2022 09:00 AM AMBULATORY - MEDICINE [facility] May 03, 2022 09:00 AM AMBULATORY - NONE [facility] Jun 16, 2022 09:30 AM AMBULATORY - MEDICINE [facility] Jun 16, 2022 10:00 AM AMBULATORY - MEDICINE [facility] Jun 16, 2022 10:30 AM AMBULATORY - MEDICINE [facility] Lab Results: +/- 30 days of the encounter This section includes the Chemistry and Hematology Lab Results on record with [place] for the patient. Radiology Reports and Pathology [...] 10:58 AM Reporting Lab: [facility] [address] [facility] [address] Performing Lab: [facility] [address] BNP 35 <99 December 16, 2021 [facility] COMPREHENSIVE Specimen Typ e: PLASMA 09:56 AM METABOLIC PANEL+MG No comment en tered. Ordering Provid er: DRAKE MCNULTY Report Released Date/Time: Nov 08, 2021 10:58 AM Reporting Lab: [facility] [address] [facility] [address] Performing Lab: [facility] [address] [facility] [address] CREATININE 0.8 0.7-1.2 UREA NITROGEN 14 8-26 [...] smoking and tobacco-related health factors from the [place] facility where the Encounter took place.Current Smoking Status This section includes the most current smoking, or tobacco-related health factor, from the [place] facility where the Encounter took place. Date/Time Current Smoking Status Comment Facility Apr 04, 2021 10:00 AM [place]-TOBACCO NEVER USED [facility] Encounter Notes: All associated encounter notes This section contains the clinical notes associated to the Encounter. Date/Time Encounter Note(s) Provider Source December 22, 2021 12:17 PM NONVA NOTE: SANDY [facility]ASON[facility]met Delgado [facility] LOCAL TITLE: COMMUNITY CARE-ZEFERINO SELF PRESENTIN G CARE COORD PLAN STANDARD TITLE: NONVA NOTE DATE OF NOTE: DECEMBER 22, 2021@12:17 ENTRY DATE: DECEMBER 23, 2021@12:17:17 AUTHOR: SANDY JASON EXP COSIGNER: URGENCY: STATUS: COMPLETED COMMUNITY CARE-ZEFERINO SELF PRESENTING CARE CO ORD PLAN NOTE Has ADDENDA Emergency Notification Intake Date Presenting to the Facility: December Method of Contact: Notified from [employer] Notification ID: [id number] [facility] Referral #: [facility] Name: Hospital: [place] Address: [address] [place] [address] City: [place] State: [place] Zip Code: [address] Phone : [facility] Facility Point of Contact: Name: AIRAM Jara Phone: Chief complaint: RAPID VENTRICAL RESPONSE Primary Diagnosis: Disposition Unknown at time of intake note entry /ken [employer] Signed: 12/23/2021 12:18 Receipt Acknowledged By: 12/26/2021 15:57 /ken BYRNES RN Utilization Management 12/26/2021 ADDENDUM STATUS: COMPLETED Faxed for records /ken BYRNES RN Utilization Management Signed: 12/26/2021 15:59 Receipt Acknowledged By: 12/27/2021 08:43 /ken MURPHY MA, RN, CCCTM REGISTERED NURSE for JYOTSNA TSANG 12/27/2021 ADDENDUM STATUS: COMPLETED EP cardiology team already a schroeder of above ER visit with plan for f/u and review of outside records once received, see patient co ntact notes for details. /ken MURPHY MA, RN, CCCTM REGISTERED NURSE Signed: 12/27/2021 08:45 01/03/2022 ADDENDUM STATUS: COMPLETED ER [place] 12/22/21 dx atrial flutter with RVR to f/u with PCP or pre sales architect [facility]S received and imported ER Note, see NONVA no te 12/22/2021 /ken BYRNES RN Utilization Management Signed: 01/03/2022 17:47 Receipt Acknowledged By: 01/04/2022 07:54 /es/ KECIA COTTO STAFF PHYSICIAN 01/04/2022 13:18 /tanner/ Jyotsna Tsang RN Registered Nurse * AWAITING SIGNATURE * ELAN RODRIGUEZ 01/04/2022 ADDENDUM STATUS: COMPLETED RTC order entered for f/u in clinic, ok for phon e or in-person visit, ok to schedule with any available resident if PCP is unavailable. Alerting PACT MSA to please contact pt for scheduling, thank you! FYI to EP and CHF providers. Pt has EP and CHF f /u scheduled on 03/08. /tanner/ Jyotsna Tsang RN Registered Nurse Signed: 01/04/2022 13:19 Receipt Acknowledged By: 01/04/2022 14:22 /tanner/ NGHIA SMITH [employer] Training Systems Officer 01/04/2022 13:32 /tanner/ ANNMARIE WALKER PA-C PHYSICIAN LICENSED MENTAL HEALTH COUNSELOR 01/04/2022 13:41 /tanner/ FRANDY VILLEDA RN NURSE PRACTITIONER 01/04/2022 ADDENDUM STATUS: COMPLETED Reviewed records - patient s pontaneously converted out of AFib during ED visit. Plan for f/u in EP clinic in February 2022 as schedu led. /tanner/ ANNMARIE WALKER PA-C PHYSICIAN LICENSED MENTAL HEALTH COUNSELOR Signed: 01/04/2022 13:33 01/04/2022 ADDENDUM STATUS: COMPLETED [place] agreed to a phone appt. on 01/10 at 0830 w/ an associated resident provider. /tanner/ NGHIA SMITH [employer] Training [employer] Officer Signed: 01/04/2022 14:23 Receipt Acknowledged By: * AWAITING SIGNATURE * SHAILA FRAZIER 01/04/2022 14:32 /es/ Jyotsna Tsang RN Registered Nurse * AWAITING SIGNATURE * ELAN RODRIGUEZ
--- OUTSIDE RECORDS SUMMARY | 2022-07-24 21:34 | XMS_ITS | Encounter Summary ---
:1945 Author Organization [facility] Address [address] [place] [address] Support Name Relationship Address Phone BANG MANN MEENAKSHI Unavailable [address] [facility] [place] [address] BANG MANN MEENAKSHI Unavailable [address] [facility] [place] [address] Insurance Providers: All historical and current Section [...] Tanner [place] Aug 13, [id number] VENESS,BECERRA P ATIENT [facility] (WNR) ADVANTAGE (WNR) 2020 7 [id number] [phone] ROLD 1 [facility] MEDICARE MEDIC Aug 13, [id number] VENESS,BECERRA P ATIENT MCR (WNR) ADVANTAGE ARE 2020 5 [id number] [phone] [place] ADVAN 1 T[place] C [place] MED[place] M[place] Aug 13, [id number] [phone] VENESS ,BECERRA PATIENT MCR (WNR) ADVANTAGE (WNR) 2022 5 [id number] 2 ROLD 1 MEDICARE MEDICARE PART Sep 13, PART B [id number] 800 Jesusita CONKLIN (WNR) (M) B 2012 VN81 [phone] [facility] MEDICARE MEDICARE PART Mar 13, PART A [id number] 800 Jesusita CONKLIN (WNR) (M) A 2008 VN81 [phone] [facility] MEDICARE MEDICARE PART Mar 13, PART A 800 Jesusita CONKLIN (WNR) (M) A [phone] [place] Selected Encounter This section includes the information on record at [place] for the Encounter. Date/Time Encounter Type Encounter Reason Provider Source Description January 10, 2022 Outpatient TELEPHONE PRIMARY ICD-10-CM I50.20 KECIA COTTO 08:30 AM Encounter CARE Unspecified systolic (congestive) heart failure with Provider Comments: Heart failure with reduced ejection fraction ([facility] [id number]) IHE Encounter Template Text not used by [facility] Assessments - Encounter Diagnoses This section includes the primary and secondary diagnoses documented for the Encounter. Date/Time Primary/Secondary Diagnosis Name Provider Source Diagnosis January 10, 2022 PRIMARY Unspecified KECIA COTTO [facility] 08:30 AM systolic HCS (congestive) heart failure Plan of Treatment: Future Appointments (+ 6 months) and Future Tests (+/- 45 days) The Plan of Treatment section includes future care activities for the patient from all [place] treatmentfacilities. This section includes future appointments and future orders which are active, pending orscheduled.Future Appointments This section includes appointments that were scheduled to occur 6 months from the date of the Encounter, up to a maximum of 20 appointments. The data comes from all [place] treatment facilities. Appointment Date/Time Appointment Type Appointment Facili ty Name Feb 02, 2022 10:00 AM AMBULATORY - PSYCHIATRY [facility] Feb 03, 2022 12:12 PM AMBULATORY - NONE [facility] Feb 09, 2022 10:00 AM AMBULATORY - PSYCHIATRY [facility] Feb 09, 2022 01:30 PM AMBULATORY - SURGERY [facility] S Feb 16, 2022 10:00 AM AMBULATORY - PSYCHIATRY [facility] Feb 23, 2022 10:00 AM AMBULATORY - PSYCHIATRY [facility] Mar 02, 2022 10:00 AM AMBULATORY - PSYCHIATRY [facility] Mar 08, 2022 08:45 AM AMBULATORY - MEDICINE [facility] Mar 08, 2022 09:00 AM AMBULATORY - MEDICINE [facility] Mar 08, 2022 09:30 AM AMBULATORY - MEDICINE [facility] Mar 08, 2022 10:00 AM AMBULATORY - MEDICINE [facility] CS Mar 13, 2022 09:00 AM AMBULATORY - MEDICINE [facility] May 03, 2022 09:00 AM AMBULATORY - NONE [facility] Jun 16, 2022 09:30 AM AMBULATORY - MEDICINE [facility] CS Jun 16, 2022 10:00 AM AMBULATORY - MEDICINE [facility] Jun 16, 2022 10:30 AM AMBULATORY - MEDICINE [facility] Jul 10, 2022 02:00 PM AMBULATORY - NONE [facility] Jul 10, 2022 02:45 PM AMBULATORY - NONE [facility] Jul 10, 2022 03:00 PM AMBULATORY - MEDICINE [facility] Lab Results: +/- 30 days of the encounter This section includes the Chemistry and Hematology Lab Results on record with [place] for the patient. Radiology Reports and Pathology Reports are provided separately, in subsequent sections.Lab Results This section contains the Chemistry/Hematology Results that were resulted 30 days before or 30 daysafter the date of the Encounter. Date/Time Source Result Type Result - Unit Interpretation Reference Range Comment December 16, 2021 09:56 AM [facility] BNP Specim en Type: PLASMA No comment enter ed. Ordering Provid er: DRAKE MCNULTY Report Released Date/Time: Nov 08, 2021 10:58 AM Reporting Lab: [facility] [address] [facility] [id number] Performing Lab: [facility] [address] BNP 35 <99 December 16, 2021 [facility] COMPREHENSIVE Specimen Typ e: PLASMA 09:56 AM METABOLIC PANEL+MG No comment en tered. Ordering Provid er: DRAKE MCNULTY Report Released Date/Time: Nov 08, 2021 10:58 AM Reporting Lab: [facility] [address] [facility] [address] Performing Lab: [facility] [address] [facility] [address] CREATININE 0.8 0.7-1.2 UREA NITROGEN 14 8-26 [...] smoking and tobacco-related health factors from the [place] facility where the Encounter took place.Current Smoking Status This section includes the most current smoking, or tobacco-related health factor, from the [place] facility where the Encounter took place. Date/Time Current Smoking Status Comment Facility Apr 04, 2021 10:00 AM [place]-TOBACCO NEVER USED [facility] Encounter Notes: All associated encounter notes This section contains the clinical notes associated to the Encounter. Date/Time Encounter Note(s) Provider Source January 10, 2022 08:55 AM PACT NOTE: KECIA COTTO [facility] LOCAL TITLE: MEDICINE CLINIC PROVIDER TELEPHONE NOTE STANDARD TITLE: PACT NOTE DATE OF NOTE: JANUARY 10, 2022@08:55 ENTRY DATE: JANUARY 10, 2022@08:55:17 AUTHOR: KECIA COTTO EXP COSIGNER: URGENCY: STATUS: COMPLETED History: Phone call to patient for follow-up of ED visit. He went to the ED because he was dizzy and his blood pressure was low. He was outside working on a hot day and does not think that he g ot enought water. He got IV fluids in the ED and he has done fine since. No other ocncerns. Objective: Assessment/Plan: Dehydration: doing better, d iscussed good hydration and taking breaks when able. Will follow-up with PCP in the fall. Education/Counseling: Time spent environmental services aide: 5-10 minutes /tanner/ KECIA COTTO STAFF PHYSICIAN Signed: 01/10/2022 09:04
--- OUTSIDE RECORDS SUMMARY | 2022-07-24 21:34 | XMS_ITS | Encounter Summary ---
:1945 Author Organization [facility] Address [address] [place] [address] Support Name Relationship Address Phone BANG MANN MEENAKSHI Unavailable [address] [facility] [place] [phone] [place] [address] BANG MANN MEENAKSHI Unavailable [address] [facility] [place] [address] Insurance Providers: All historical and current Section [...] Tanner [place] MED[place] Aug 13, [id number] VENESS,BECERRA P ATIENT [facility] (WNR) ADVANTAGE ARE 2020 5 [id number] [phone] ROLD ADVAN 1 MOUSTAPHA C [place] MED[place] MCR Aug 13, [id number] VENESS,BECERRA P ATIENT [facility] (WNR) ADVANTAGE (WNR) 2020 7 [id number] [phone] R[place] 1 [place] M[place] Aug 13, [id number] [phone] VENESS ,BECERRA PATIENT [facility] (WNR) ADVANTAGE (WNR) 2022 5 [id number] ROLD 1 MEDICARE MEDICARE PART Sep 13, PART B [id number] 800 Jesusita CONKLIN (WNR) (M) B 2012 [id number] [phone] [facility] MEDICARE MEDICARE PART Mar 13, PART A 800 Jesusita CONKLIN (WNR) (M) A [phone] [place] MEDICARE MEDICARE PART Mar 13, PART A [id number] 800 Jesusita CONKLIN (WNR) (M) A 2008 [id number] [phone] [place] Selected Encounter This section includes the information on record at [place] for the Encounter. Date/Time Encounter Type Encounter Description Reason Provider Source January 03, 2022 02:30 Outpatient Encounter PHYSICAL THERAPY PM IHE Encounter Template Text not used by [place] Plan of Treatment: Future Appointments (+ 6 [...] Date/Time Appointment Type Appointment Facili ty Name January 10, 2022 08:30 AM AMBULATORY - MEDICINE [facility] Feb 02, 2022 10:00 AM AMBULATORY - PSYCHIATRY [facility] Feb 03, 2022 12:12 PM AMBULATORY - NONE [facility] Feb 09, 2022 10:00 AM AMBULATORY - PSYCHIATRY [facility] Feb 09, 2022 01:30 PM AMBULATORY - SURGERY [facility] Feb 16, 2022 10:00 AM AMBULATORY - PSYCHIATRY [facility] Feb 23, 2022 10:00 AM AMBULATORY - PSYCHIATRY [facility] Mar 02, 2022 10:00 AM AMBULATORY - PSYCHIATRY [facility] Mar 08, 2022 08:45 AM AMBULATORY - MEDICINE [facility] Mar 08, 2022 09:00 AM AMBULATORY - MEDICINE [facility] Mar 08, 2022 09:30 AM AMBULATORY - MEDICINE [facility] Mar 08, 2022 10:00 AM AMBULATORY - MEDICINE [facility] Mar 13, 2022 09:00 AM AMBULATORY - MEDICINE [facility] May 03, 2022 09:00 AM AMBULATORY - NONE [facility] Jun 16, 2022 09:30 AM AMBULATORY - MEDICINE [facility] Jun 16, 2022 10:00 AM AMBULATORY - MEDICINE [facility] Jun 16, 2022 10:30 AM AMBULATORY - MEDICINE [facility] Lab Results: +/- 30 days of [...] Range Comment December 16, 2021 09:56 AM [facility] BNP Specim en Type: PLASMA No comment enter ed. Ordering Provid er: DRAKE MCNULTY Report Released Date/Time: Nov 08, 2021 10:58 AM Reporting Lab: [facility] [address] [facility] [address] Performing Lab: [facility] [address] [facility] [address] BNP 35 <99 December 16, 2021 [facility] COMPREHENSIVE Specimen Typ e: PLASMA 09:56 AM METABOLIC PANEL+MG No comment en tered. Ordering Provid er: DRAKE MCNULTY Report Released Date/Time: Nov 08, 2021 10:58 AM Reporting Lab: [facility] [address] [facility] [address] Performing Lab: [facility] [address] [facility] [address] CREATININE 0.8 0.7-1.2 UREA NITROGEN 14 8-26 [...] 10:00 AM [place]-TOBACCO NEVER USED OLIVIER NELSON [facility] Encounter Notes: All associated encounter notes This section contains the clinical notes associated to the Encounter. Date/Time Encounter Note(s) Provider Source January 03, 2022 02:30 PM REPORT OF CONTACT: MARY NANCE [facility] LOCAL TITLE: APPOINTMENT SCHEDULING NOTE STANDARD TITLE: REPORT OF CONTACT DATE OF NOTE: JANUARY 03, 2022@14:30 ENTRY DATE: JANUARY 03, 2022@14:30:32 AUTHOR: MARY NANCE COSIGNER: URGENCY: STATUS: COMPLETED Attempt to schedule return to clinic Additional information/contact attempts: Patient has not responded to scheduling contact attempts for below RTC Order - has failed mandated scheduling effort ( no response to attempts to schedule). RTC Order has been dispositioned. Or dering provider notified via additional signer to this note. Return to [facility] on or around ( Ju n 2021 ) for a total of 1 appointment(s) 30 min /tanner/ MARY NANCE CLAY WASHER Signed: 01/03/2022 14:31 Receipt Acknowledged By: * AWAITING SIGNATURE * ENID VINCENT
--- OUTSIDE RECORDS SUMMARY | 2022-07-24 21:34 | XMS_ITS | Encounter Summary ---
:1945 Author Organization [facility] Address [address] [place] [address] Support Name Relationship Address Phone BANG MANN Unavailable [address] [place] [address] BANG MANN MEENAKSHI Unavailable [address] [phone] [place] [address] Insurance Providers: All historical and current Section Date Range: From patient's date of to the date document was created.This section includes the names of all active insurance providers for the patient. Insurance Type of Plan Start of End of Group Member Insurance Policy P atient's Provider Coverage Name Policy Policy Number ID Provider's Tanner's Relationship Coverage Coverage Telephone Name to Policy Number Tanner [facility] MEDICARE MEDIC Aug 13, [id number] VENESS,BECERRA P ATIENT MCR (WNR) ADVANTAGE ARE 2020 5 [id number] [phone] R[place] ADVAN 1 MOUST[place]HA C [place] Aug 13, [id number] VENESS,BECERRA P ATIENT MCR (WNR) ADVANTAGE (WNR) 2020 7 [id number] [phone] ROLD 1 [facility] MEDICARE [facility] Aug 13, [id number] [phone] VENESS ,BECERRA PATIENT MCR (WNR) ADVANTAGE (WNR) 2 5 [id number] 2 ROLD 1 MEDICARE MEDICARE PART Sep 13, PART B [id number] 800 Jesusita CONKLIN (WNR) (M) B 2012 VN81 [phone] [facility] MEDICARE MEDICARE PART Mar 13, PART A [id number] 800 Jesusita CONKLIN (WNR) (M) A 2008 [id number] [phone] [facility] MEDICARE MEDICARE PART Mar 13, PART A 800 Jesusita CONKLIN (WNR) (M) A [phone] [place] Selected Encounter This section includes the information on record at [place] for the Encounter. Date/Time Encounter Type Encounter Description Reason Provider Source January 03, 2022 02:56 Outpatient Encounter ADMIN PAT ACTIVTIES PM (MASNONCT) IHE Encounter Template Text not used by [place] Plan of Treatment: Future Appointments (+ 6 [...] 10, 2022 08:30 AM AMBULATORY - MEDICINE [facility] Feb 02, 2022 10:00 AM AMBULATORY - PSYCHIATRY [facility] Feb 03, 2022 12:12 PM AMBULATORY - NONE [facility] Feb 09, 2022 10:00 AM AMBULATORY - PSYCHIATRY [facility] Feb 09, 2022 01:30 PM AMBULATORY - SURGERY [facility] Feb 16, 2022 10:00 AM AMBULATORY - PSYCHIATRY [facility] Feb 23, 2022 10:00 AM AMBULATORY - PSYCHIATRY [facility] Mar 02, 2022 10:00 AM AMBULATORY - PSYCHIATRY [facility] Mar 08, 2022 08:45 AM AMBULATORY - MEDICINE [facility] Mar 08, 2022 09:00 AM AMBULATORY - MEDICINE [facility] Mar 08, 2022 09:30 AM AMBULATORY - MEDICINE [facility] Mar 08, 2022 10:00 AM AMBULATORY - MEDICINE [facility] Mar 13, 2022 09:00 AM AMBULATORY - MEDICINE [facility] May 03, 2022 09:00 AM AMBULATORY - NONE [facility] Jun 16, 2022 09:30 AM AMBULATORY - MEDICINE [facility] Jun 16, 2022 10:00 AM AMBULATORY - MEDICINE [facility] Jun 16, 2022 10:30 AM AMBULATORY - MEDICINE [facility] Lab Results: +/- 30 days [...] Range Comment December 16, 2021 09:56 AM [facility] BNP Specim en Type: PLASMA No comment enter ed. Ordering Provid er: DRAKE MCNULTY Report Released Date/Time: Nov 08, 2021 10:58 AM Reporting Lab: [facility] [address] [facility] [address] Performing Lab: [facility] [address] [facility] [address] BNP 35 <99 December 16, 2021 [facility] COMPREHENSIVE Specimen Typ e: PLASMA 09:56 AM METABOLIC PANEL+MG No comment en tered. Ordering Provid er: DRAKE MCNULTY Report Released Date/Time: Nov 08, 2021 10:58 AM Reporting Lab: [facility] [address] [facility] [address] Performing Lab: [facility] [address] CREATININE 0.8 0.7-1.2 UREA NITROGEN 14 8-26 [...] AM [place]-TOBACCO NEVER USED OLIVIER NELSON [facility] Encounter Notes: All associated encounter notes This section contains the clinical notes associated to the Encounter. Date/Time Encounter Note(s) Provider Source December 22, 2021 02:56 PM NONVA NOTE: ALAINA PEREYRA IS [facility] LOCAL TITLE: EMERGENCY DEPARTMENT NONVA NOTE STANDARD TITLE: NONVA NOTE DATE OF NOTE: DECEMBER 22, 2021@14:56 ENTRY DATE: JANUARY 03, 2022@14:57 AUTHOR: ALAINA PEREYRA EXP COSIGNER: URGENCY: STATUS: COMPLETED This note contains attached EMERGENCY DEPARTMENT scanned document(s) received from an outside facility. [employer] Display to review the documen t(s). /tanner/ ALAINA PEREYRA Thread Laster Signed: 01/03/2022 14:57
--- OUTSIDE RECORDS SUMMARY | 2022-07-24 21:34 | XMS_ITS | Encounter Summary ---
:1945 Author Organization [facility] Address [address] [place] [address] Support Name Relationship Address Phone BANG MANN Unavailable [address] [facility] [phone] [place] [address] BANG MANN MEENAKSHI Unavailable [address] [facility] [address] Insurance Providers: All historical and current Section [...] Tanner [place] Aug 13, [id number] VENESS,BECERRA P ATIENT [facility] (WNR) ADVANTAGE ARE 2020 5 [id number] [phone] R[place] ADVAN 1 MOUSTAPHA C [place] MED[place]ARE MCR Aug 13, [id number] VENESS,BECERRA P ATIENT MCR (WNR) ADVANTAGE (WNR) 2020 7 [id number] [phone] ROLD 1 [place] Aug 13, [id number] [phone] VENESS ,BECERRA PATIENT MCR (WNR) ADVANTAGE (WNR) 2022 5 [id number] 2 ROLD 1 MEDICARE MEDICARE PART Sep 13, PART B [id number] 800 Jesusita CONKLIN (WNR) (M) B 2012 VN81 [phone] [facility] MEDICARE MEDICARE PART Mar 13, PART A 800 Jesusita CONKLIN (WNR) (M) A [phone] [facility] MEDICARE MEDICARE PART Mar 13, PART A [id number] 800 Jesusita CONKLIN (WNR) (M) Rosalinda 2008 VN81 [phone] [place] Selected Encounter This section includes the information on record at [place] for the Encounter. Date/Time Encounter Type Encounter Reason Provider Source Description December 28, 2021 HC PRO PHONE TELEPHONE/MEDICIN ICD-10-CM I50.20 ZHANE YBARRA 03:06 PM CALL 21-30 MIN E Unspecified L systolic (congestive) heart failure with Provider Comments: Heart failure with reduced ejection fraction ([facility] [id number]) IHE Encounter Template Text not used by [place] Assessments - Encounter Diagnoses This section includes the primary and secondary diagnoses documented for the Encounter. Date/Time Primary/Secondary Diagnosis Name Provider Source Diagnosis December 28, 2021 PRIMARY Unspecified ZHANE YBARRA [facility] 03:06 PM systolic L HCS (congestive) heart failure Plan of Treatment: Future Appointments (+ 6 months) and Future Tests (+/- 45 days) The Plan of Treatment section includes future care activities for the patient from all [place] treatmentfacilities. This section includes future appointments and future orders which are active, pending orscheduled.Future Appointments This section includes appointments that were scheduled to occur 6 months from the date of the Encounter, up to a maximum of 20 appointments. The data comes from all [place] treatment facilities. Appointment Date/Time Appointment Type Appointment Facili ty Name January 02, 2022 05:00 PM AMBULATORY - REHAB MEDICINE [facility] January 10, 2022 08:30 AM AMBULATORY - MEDICINE [facility] Feb 02, 2022 10:00 AM AMBULATORY - PSYCHIATRY [facility] Feb 03, 2022 12:12 PM AMBULATORY - NONE [facility] Feb 09, 2022 10:00 AM AMBULATORY - PSYCHIATRY [facility] Feb 09, 2022 01:30 PM AMBULATORY - SURGERY [facility] Feb 16, 2022 10:00 AM AMBULATORY - PSYCHIATRY [facility] Feb 23, 2022 10:00 AM AMBULATORY - PSYCHIATRY [facility] Mar 02, 2022 10:00 AM AMBULATORY - PSYCHIATRY [facility] Mar 08, 2022 08:45 AM AMBULATORY - MEDICINE [facility] Mar 08, 2022 09:00 AM AMBULATORY - MEDICINE [facility] Mar 08, 2022 09:30 AM AMBULATORY - MEDICINE [facility] Mar 08, 2022 10:00 AM AMBULATORY - MEDICINE [facility] Mar 13, 2022 09:00 AM AMBULATORY - MEDICINE [facility] May 03, 2022 09:00 AM AMBULATORY - NONE [facility] Jun 16, 2022 09:30 AM AMBULATORY - MEDICINE [facility] Jun 16, 2022 10:00 AM AMBULATORY - MEDICINE [facility] Jun 16, 2022 10:30 AM AMBULATORY - MEDICINE [facility] Lab Results: +/- 30 days of the encounter This section includes the Chemistry and Hematology Lab Results on record with [place] for the patient. Radiology Reports and Pathology Reports are provided separately, in subsequent sections.Lab Results This section contains the Chemistry/Hematology Results that were resulted 30 days before or 30 daysafter the date of the Encounter. Date/Time Source Result Type Result - Unit Interpretation Reference Range Comment December 16, 2021 09:56 AM [facility] BNP Specim en Type: PLASMA No comment enter ed. Ordering Provid er: DRAKE MCNULTY Report Released Date/Time: Nov 08, 2021 10:58 AM Reporting Lab: [facility] [address] [facility] [address] Performing Lab: [facility] [address] BNP 35 <99 December 16, 2021 [facility] COMPREHENSIVE Specimen Typ e: PLASMA 09:56 AM METABOLIC PANEL+MG No comment en tered. Ordering Provid er: DRAKE MCNULTY Report Released Date/Time: Nov 08, 2021 10:58 AM Reporting Lab: [facility] [address] [facility] [address] Performing Lab: [facility] [address] [facility] [address] CREATININE 0.8 0.7-1.2 UREA NITROGEN 14 8-26 [...] smoking and tobacco-related health factors from the [place] facility where the Encounter took place.Current Smoking Status This section includes the most current smoking, or tobacco-related health factor, from the [place] facility where the Encounter took place. Date/Time Current Smoking Status Comment Facility Apr 04, 2021 10:00 AM VA-TOBACCO NEVER USED OLIVIER NELSON [facility] Encounter Notes: All associated encounter notes This section contains the clinical notes associated to the Encounter. Date/Time Encounter Note(s) Provider Source December 28, 2021 03:06 PM MANAGER [facility]PICE NOTE: ZHANE YBARRA [facility] LOCAL TITLE: CHF MANAGER BUSINESS [facility]ELOPMENT H[facility]PICE NOTE STANDARD TITLE: MANAGER BUSINESS DEVELOPMENT HOSPICE NOTE DATE OF NOTE: DECEMBER 28, 2021@15:06 ENTRY DATE: DECEMBER 28, 2021@15:07 AUTHOR: ZHANE YBARRA EXP COSIGNER: URGENCY: STATUS: COMPLETED History: 76y/o male with a past medical history significant for heart failure with reduced EF, NICM, chronic atrial fibrillation on anticoagulation, hearing loss, ROSA non-compliant with CPAP, HLD and ED contacted for status update Sought care 12/22 in [place] [facility] for afib with rvr, was found to have BP 72/42 with HR 123. Pt states he was working outs rajiv in the hot, bere weather trying to remove a tree stump and thinks was pro bably dehydrated. [place] unwell and checked his BP, was low in the 70's systolic and didn't improve so he went to his local ED. He states they gave him so me IV fluid. Has been feeling better since going to his local ED. [place] and has been able to work on fences without issue. No me dication changes were made during ED visit. Reported Home Vitals: Wt: 145 lbs today, states usually around 147 lbs BP: reports no readings below 100 systolic since ED visit. Today was 107/58 States most readings 110-117 systolic Pulse: 55 this morning, usually 61-65 Labs from 12/22/21 [facility]: White Blood Count 7.14 Red Blood Count 4.72 Hemoglobin 14.9 Hematocrit 44.5 Platelet Count 131 Neutrophils (%) 72.6 Lymphocytes (%) 17.6 Monocytes (%) 9.0 Eosinophils (%) 0.3 Basophils (%) 0.1 Immature Granulocyte % 0.4 Neutrophils # 5.18 Lymphocytes # 1.26 Monocytes # 0.64 Eosinophils # 0.02 Basophils # 0.01 Immature Granulocyte 0.03 Lactate (Blood Gas) 1.7 Random Glucose 151 Blood Urea Nitrogen 26 Creatinine 1.1 Sodium Level 137 Potassium Level 3.9 Chloride Level 105 Carbon Dioxide Level 25 Calcium Level 8.9 C-Reactive Protein < 0.50 Troponin I 0.02 Dyspnea: reports no complaints Edema: denies Orthopnea: denies Chest pain: denies Lightheadedness/dizziness: denies Cough: denies Abdominal Bloating: denies Food/Fluid Intake: states he is eating and drink ing well. More mindful to keep water around him Cardiac Medication: Lisinopril 5mg BID Carvedilol 3.125mg BID Empagliflozin 12.5mg daily Rivaroxaban 20mg daily Atorvastatin 20mg HS Education: -continue to monitor weight and BP daily -report to clinic: SBP <90 or >140 or weight gai n of 2 lb. within 24 hours or 5lbs. within one week. -Continue daily activity as tolerated -call CHF clinic with CHF questions, contact num tyson provided Follow-up: 03/08 with CHF provider in clinic 02/27 with EP provider with Echo prior /tanner/ ZHANE YBARRA RN REGISTERED NURSE Signed: 12/28/2021 15:08 Receipt Acknowledged By: * AWAITING SIGNATURE * DRAKE MCNULTY
--- OUTSIDE RECORDS SUMMARY | 2022-07-24 21:34 | XMS_ITS | Encounter Summary ---
:1945 Author Organization [facility] Address [address] [place] [id number] Support Name Relationship Address Phone BANG MANN Unavailable [address] [place] [address] BANG MANN MEENAKSHI Unavailable [address] [place] [address] Insurance Providers: All historical and current Section [...] Tanner [place] Aug 13, [id number] VENESS,BECERRA P ATIENT [facility] (WNR) ADVANTAGE ARE 2020 5 [id number] [phone] ROLD ADVAN 1 MOUSTAPHA C [place] MED[place] MCR Aug 13, [id number] VENESS,BECERRA P ATIENT MCR (WNR) ADVANTAGE (WNR) 2020 7 [id number] [phone] R[place] 1 [place] Aug 13, [id number] [phone] VENESS ,BECERRA PATIENT MCR (WNR) ADVANTAGE (WNR) 2022 5 [id number] 2 ROLD 1 MEDICARE MEDICARE PART Sep 13, PART B [id number] 800 Jesusita CONKLIN (WNR) (M) B 2012 [id number] [phone] [facility] MEDICARE MEDICARE PART Mar 13, PART A 800 Jesusita CONKLIN (WNR) (M) A [phone] [place] MEDICARE MEDICARE PART Mar 13, PART A [id number] 800 VENNESS,H P ATIENT (WNR) (M) A 2008 [id number] [phone] [place] Selected Encounter This section includes the information on record at [place] for the Encounter. Date/Time Encounter Type Encounter Reason Provider Source Description December 26, 2021 Outpatient TELEPHONE/MEDICIN ICD-10-CM G47.33 LISANDRA SNACHEZ 01:30 PM Encounter E Obstructive sleep apnea (adult) (pediatric) with Provider Comments: Obstructive sleep apnea ([facility] [id number]) IHE Encounter Template Text not used by [facility] Assessments - Encounter Diagnoses This section includes the primary and secondary diagnoses documented for the Encounter. Date/Time Primary/Secondary Diagnosis Name Provider Source Diagnosis December 26, 2021 PRIMARY Obstructive sleep JEREMIAH ACKERMAN IS [place] 01:30 PM apnea (adult) R HCS (pediatric) December 26, 2021 SECONDARY Primary insomnia JEREMIAH ACKERMANI S [place] 01:30 PM R HCS Plan of Treatment: Future Appointments (+ 6 months) and Future Tests (+/- 45 days) The Plan of Treatment section includes future care activities for the patient from all [place] treatmentfacilities. This section includes future appointments and future orders which are active, pending orscheduled.Future Appointments This section includes appointments that were scheduled to occur 6 months from the date of the Encounter, up to a maximum of 20 appointments. The data comes from all [place] treatment facilities. Appointment Date/Time Appointment Type Appointment Facili ty Name January 02, 2022 05:00 PM AMBULATORY - REHAB MEDICINE [facility] January 10, 2022 08:30 AM AMBULATORY - MEDICINE [facility] Feb 02, 2022 10:00 AM AMBULATORY - PSYCHIATRY [facility] Feb 03, 2022 12:12 PM AMBULATORY - NONE [facility] Feb 09, 2022 10:00 AM AMBULATORY - PSYCHIATRY [facility] Feb 09, 2022 01:30 PM AMBULATORY - SURGERY [facility] Feb 16, 2022 10:00 AM AMBULATORY - PSYCHIATRY [facility] Feb 23, 2022 10:00 AM AMBULATORY - PSYCHIATRY [facility] Mar 02, 2022 10:00 AM AMBULATORY - PSYCHIATRY [facility] Mar 08, 2022 08:45 AM AMBULATORY - MEDICINE [facility] Mar 08, 2022 09:00 AM AMBULATORY - MEDICINE [facility] Mar 08, 2022 09:30 AM AMBULATORY - MEDICINE [facility] Mar 08, 2022 10:00 AM AMBULATORY - MEDICINE [facility] Mar 13, 2022 09:00 AM AMBULATORY - MEDICINE [facility] May 03, 2022 09:00 AM AMBULATORY - NONE [facility] Jun 16, 2022 09:30 AM AMBULATORY - MEDICINE [facility] Jun 16, 2022 10:00 AM AMBULATORY - MEDICINE [facility] Jun 16, 2022 10:30 AM AMBULATORY - MEDICINE [facility] Lab Results: +/- 30 days of the encounter This section includes the Chemistry and Hematology Lab Results on record with [place] for the patient. Radiology Reports and Pathology Reports are provided separately, in subsequent sections.Lab Results This section contains the Chemistry/Hematology Results that were resulted 30 days before or 30 daysafter the date of the Encounter. Date/Time Source Result Type Result - Unit Interpretation Reference Range Comment December 16, 2021 09:56 AM [facility] BNP Specim en Type: PLASMA No comment enter ed. Ordering Provid er: DRAKE MCNULTY Report Released Date/Time: Nov 08, 2021 10:58 AM Reporting Lab: [facility] [id number] Performing Lab: [facility] [id number] BNP 35 <99 December 16, 2021 [facility] COMPREHENSIVE Specimen Typ e: PLASMA 09:56 AM METABOLIC PANEL+MG No comment en tered. Ordering Provid er: DRAKE MCNULTY Report Released Date/Time: Nov 08, 2021 10:58 AM Reporting Lab: [facility] [id number] Performing Lab: [facility] [id number] CREATININE 0.8 0.7-1.2 UREA NITROGEN 14 8-26 [...] smoking and tobacco-related health factors from the [place] facility where the Encounter took place.Current Smoking Status This section includes the most current smoking, or tobacco-related health factor, from the [place] facility where the Encounter took place. Date/Time Current Smoking Status Comment Facility Apr 04, 2021 10:00 AM [place]-TOBACCO NEVER USED [facility] Encounter Notes: All associated encounter notes This section contains the clinical notes associated to the Encounter. Date/Time Encounter Note(s) Provider Source December 26, 2021 08:15 AM SLEEP MEDICINE NOTE: JEREMIAH ACKERMAN [facility] LOCAL TITLE: SLEEP MEDICINE NOTE STANDARD TITLE: SLEEP MEDICINE NOTE DATE OF NOTE: DECEMBER 26, 2021@08:15 ENTRY DATE: DECEMBER 26, 2021@08:15:38 AUTHOR: JEREMIAH ACKERMAN EXP COSIGNER: URGENCY: STATUS: COMPLETED SLEEP MEDICINE NOTE Has ADDENDA [facility] return appointment Chief Complaint: This was a telephone visit. Permission was ilya ed by patient to conduct this visit via telephone Start: 1330 End: 1415 HPI: YOUSIF MANN A 76 MALE with past medical histor y of a fib, reduced ejection fraction heart failure [40-45%], ROSA non adheren t with CPAP, hyperlipidemia presents with alternative treatments for Mild OS A . Mild ROSA -Patient previously diagnosed with obstructive s leep apnea and was prescribed CPAP and use it on a nightly basis but did not help with that daytime symptoms. On last visit patient establish care for concern s of cardiac history and ROSA history and snoring, split-night study was recom mended - 11/15/21 PSG: Mild sleep psychodramatist ea predominantly seen during patient's supine sleep in later half of the study w ith AHI of 8.29 with dense prevalence of central and transitional centrals associated with arousals a nd sleep stage cycling between N1 and N2 seen in [id number] to 802 along with sleep fragmentation and duration of these events is suggestive of period ic breathing/Alex-Oconnell. -After sleep study patient was recommend ed and prescribed, positional therapy. He was only able to tolerate it for 2 ni ghts and felt that it was difficult to move from side to side and was unable to get comfortable. Patient says that he normally sleeps on his side anyway without the p illow EPWORTH SLEEPINESS SCALE: 1. Sitting and reading - 1 2. Watching TV - 1 3. Sitting inactive in a public place - 1 4. As a passenger in a car for an hour without a break - 1 5. Lying down to rest in afternoon if circum[place] permit - 2 6. Sitting and talking to someone - 1 7. Sitting quietly after lunch without alcohol - 1 8. 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 wakeup 5am Review of Symptoms (ROS): Pertinent posi tives in HPI, otherwise remainder of 7 point review of symptoms is negative. AST MEDICAL HISTORY: Active problems - Computerized Problem List is t he source for the followin. Atrial fibrillation 2. Hyperlipidemia 3. Age related macular degeneration 4. Hearing loss 5. Tinnitus 6. Tremor 7. Obstructive sleep apnea - Non-compliant with CPAP. 8. Erectile dysfunction 9. Heart failure with reduced ejection fraction 10. Ingrown toenail Medications: Active Outpatient Medications (including Supplie s): [...] 30-DAY SUPPLY. Allergies: Patient has answered NKA SH: SMOKING HISTORY (HS) FH: Reviewed and unremarkable PHYSICAL EXAM: Vitals: Temperature: 96.4 F [35.8 C] (12/16/2021 10:03) Blood Pressure: 135/76 (12/16/2021 10:03) Pulse: 57 (12/16/2021 10:03) Respiration: 16 (12/16/2021 10:03) Pain: 0 (12/16/2021 10:03) BP: 135/76 (12/16/2021 10:03) P: 57 (12/16/2021 10:03) R: 16 (12/16/2021 10:03) T: 96.4 F [35.8 C] (12/16/2021 10:03) WT: 154.7 lb [70.17 kg] (12/16/2021 10:) Pain: 0 (12/16/2021 10:03) O2 Sat: BMI: 23.0 General: No apparent distress Psych: Mood pleasant, affect congruent Neuro:Sensorium: awake, alert and oriented to pe rson, place, time, and situation. Investigations: 11/15/2021: Sleep architecture is signific ant for decreased sleep efficiency and increased wake after onset [...] cycling between N1 and N2 seen in [id number] to 802 along with sleep fragmentation and duration of these events is suggestive of period ic breathing/Alex-Oconnell. Clinical correlation is advised. - Sleep-related hypoxemia and/or hypoventilation was not present. Impression/Plan VENESS,YOUSIF A 76 MALE with past medical histor y of a fib, reduced ejection fraction heart failure [40-45%], ROSA non adheren t with CPAP, hyperlipidemia presents with alternative treatments for Mild OS A . 1. MILD ROSA- predominantly in supine position -Prior to most recent sleep study on 11/15/2021 patient has been prescribed a CPAP and did not have any benefit in terms of daytime symptoms with daily use. -After the most recent sleep study where ROSA was predominantly in the supine position, positional therapy was recomme ndedpatient attempted use for few days and found it to be uncomfort able and noted that he was not sleeping on his back anyway. He did not find any benefits with sympto ms -Overall patient is not excessively sleepy durin g the day. Patient's main difficulty with sleep now is prolonged awakening s in the night, main focus in treatment should be around sleep maintenance ins omnia. -There is no indication for treatment of mild ob structive sleep apnea at this time especially since previous interventions did not find to have benefit. Patient currently sleeps on his side we will con tinue to promote that sleep position. 2.Maintenance Insomnia: -Patient wakes up about 6 times in the night and takes about at least an hour each time to fall back asleep. He has prolonged awakenings are the biggest issue and concern for the patient. There can be multifactorial etiologies for the insomnia. Patient would benefit from CBT-I, and patient is amenable - Placed referral for CBT-I Educated pt about risks, meredith efits, side effects, and alternatives to treatment. Return to clinic in 5 months. Plan given to beverly ent as above. Patient was reviewed with supervising physician Dr. Sanchez. /tanner/ JEREMIAH ACKERMAN MD SLEEP MEDICINE FELLOW Signed: 12/26/2021 18:01 Receipt Acknowledged By: 12/29/2021 00:52 /ken SANCHEZ MD SLEEP PHYSICIAN 12/29/2021 ADDENDUM STATUS: COMPLETED Patient was reviewed with the fellow and the above note reflects our mutual assessmen t and recommendations. /ken SANCHEZ MD SLEEP PHYSICIAN Signed: 12/29/2021 00:52
--- OUTSIDE RECORDS SUMMARY | 2022-07-24 21:34 | XMS_ITS | Encounter Summary ---
:1945 Author Organization [facility] Address [address] [place] [id number] Support Name Relationship Address Phone BANG MANN Unavailable [address] [place] [address] BANG MANN MEENAKSHI Unavailable [address] [place] [address] Insurance Providers: All historical and current Section Date Range: From patient's date of to the date document was created.This section includes the names of all active insurance providers for the patient. Insurance Type of Plan Start of End of Group Member Insurance Policy P atient's Provider Coverage Name Policy Policy Number ID Provider's Tanner's Relationship Coverage Coverage Telephone Name to Policy Number Tanner [facility] MEDICARE MEDIC Aug 13, [id number] VENESS,BECERRA P ATIENT [facility] (WNR) ADVANTAGE ARE 2020 5 [id number] [phone] [place] ADVAN 1 MOUSTAPHA C BCBS [place] MEDICARE MCR Aug 13, [id number] VENESS,BECERRA P ATIENT [facility] (WNR) ADVANTAGE (WNR) 2020 7 [id number] [phone] ROLD 1 [facility] MEDICARE [facility] Aug 13, [id number] [phone] VENESS ,BECERRA PATIENT MCR (WNR) ADVANTAGE (WNR) 2 5 [id number] ROLD 1 MEDICARE MEDICARE PART Sep 13, PART B [id number] 800 Jesusita CONKLIN (WNR) (M) B 2012 [id number] [phone] [facility] MEDICARE MEDICARE PART Mar 13, PART A 800 Jesusita CONKLIN (WNR) (M) A [phone] [place] MEDICARE MEDICARE PART Mar 13, PART A [id number] 800 Jesusita CONKLIN (WNV[place]ney) (M) Rosalinda 2008 [id number] [phone] [place] Selected Encounter This section includes the information on record at [place] for the Encounter. Date/Time Encounter Type Encounter Description Reason Provider Source December 23, 2021 12:16 Outpatient Encounter ADMIN PAT ACTIVTIES PM (DINONONGENESIS) IHE Encounter Template Text not used by [...] 26, 2021 01:30 PM AMBULATORY - MEDICINE [facility] January 02, 2022 05:00 PM AMBULATORY - REHAB MEDICINE [facility] January 10, 2022 08:30 AM AMBULATORY - MEDICINE [facility] Feb 02, 2022 10:00 AM AMBULATORY - [...] AM AMBULATORY - MEDICINE [facility] Mar 08, 2022 09:00 AM AMBULATORY - MEDICINE [facility] Mar 08, 2022 09:30 AM AMBULATORY - MEDICINE [facility] Mar 08, 2022 10:00 AM AMBULATORY - MEDICINE [facility] Mar 13, 2022 09:00 AM AMBULATORY - MEDICINE [facility] May 03, 2022 09:00 AM AMBULATORY - NONE [facility] Jun 16, 2022 09:30 AM AMBULATORY - MEDICINE [facility] Jun 16, 2022 10:00 AM AMBULATORY - MEDICINE [facility] Jun 16, 2022 10:30 AM AMBULATORY - MEDICINE [facility] Lab Results: +/- 30 days of the [...] Reporting Lab: [facility] [address] [facility] [id number] Performing Lab: [facility] [id number] BNP 35 <99 December 16, 2021 [facility] COMPREHENSIVE Specimen Typ e: PLASMA 09:56 AM METABOLIC PANEL+MG No comment en tered. Ordering Provid er: DRAKE MCNULTY Report Released Date/Time: Nov 08, 2021 10:58 AM Reporting Lab: [facility] [address] [facility] [id number] Performing Lab: [facility] [address] [facility] [id number] CREATININE 0.8 0.7-1.2 UREA NITROGEN 14 8-26 [...] 10:00 AM [place]-TOBACCO NEVER USED [facility]
--- OUTSIDE RECORDS SUMMARY | 2022-07-24 21:34 | XMS_ITS | Encounter Summary ---
:1945 Author Organization [facility] Address [address] [place] [id number] Support Name Relationship Address Phone BANG MANN MEENAKSHI Unavailable [address] [facility] [place] [address] BANG MANN MEENAKSHI Unavailable [address] [facility] [phone] [place] [address] Insurance Providers: All historical and current Section [...] Tanner [place] Aug 13, [id number] VENESS,BECERRA P ATIENT MCR (WNR) ADVANTAGE ARE 2020 5 [id number] [phone] [place] ADVAN 1 MOUSTAPHA C [place] MED[place] M[place] Aug 13, [id number] VENESS,BECERRA P ATIENT MCR (WNR) ADVANTAGE (WNR) 2020 7 [id number] [phone] [place] 1 [place] Aug 13, [id number] [phone] VENESS ,BECERRA PATIENT MCR (WNR) ADVANTAGE (WNR) 2022 5 [id number] ROLD 1 MEDICARE MEDICARE PART Sep 13, PART B [id number] 800 Jesusita CONKLIN (WNR) (M) B 2012 [id number] [phone] [facility] MEDICARE MEDICARE PART Mar 13, PART A [id number] 800 Jesusita CONKLIN (WNR) (M) A 2008 [id number] [phone] [facility] MEDICARE MEDICARE PART Mar 13, PART A 800 Jesusita CONKLIN (WNR) (M) A [phone] [place] Selected Encounter This section includes the information on record at [place] for the Encounter. Date/Time Encounter Type Encounter Reason Provider Source Description December 30, 2021 PSYTX W PT 30 TELEPHONE MH ICD-10-CM F51.04 JACKI GUILLEN 01:13 PM MINUTES Psychophysiologic J insomnia with Provider Comments: Psychophysiologic Insomnia IHE Encounter Template Text not used by [facility] Assessments - Encounter Diagnoses This section includes the primary and secondary diagnoses documented for the Encounter. Date/Time Primary/Secondary Diagnosis Name Provider Source Diagnosis December 30, 2021 PRIMARY Psychophysiologic JACKI GUILLEN [place] 01:13 PM insomnia J HCS Plan of Treatment: Future Appointments (+ [...] 2022 05:00 PM AMBULATORY - REHAB [facility]ICINE [facility] January 10, 2022 08:30 AM AMBULATORY - MEDICINE [facility] Feb 02, 2022 10:00 AM AMBULATORY - PSYCHIATRY [facility] Feb 03, 2022 12:12 PM AMBULATORY - NONE [facility] Feb 09, 2022 10:00 AM AMBULATORY - PSYCHIATRY [facility] Feb 09, 2022 01:30 PM AMBULATORY - SURGERY [facility] Feb 16, 2022 10:00 AM AMBULATORY - PSYCHIATRY [facility] Feb 23, 2022 10:00 AM AMBULATORY - PSYCHIATRY [facility] Mar 02, 2022 10:00 AM AMBULATORY - PSYCHIATRY [facility] Mar 08, 2022 08:45 AM AMBULATORY - MEDICINE [facility] Mar 08, 2022 09:00 AM AMBULATORY - MEDICINE [facility] Mar 08, 2022 09:30 AM AMBULATORY - MEDICINE [facility] Mar 08, 2022 10:00 AM AMBULATORY - MEDICINE [facility] Mar 13, 2022 09:00 AM AMBULATORY - MEDICINE [facility] May 03, 2022 09:00 AM AMBULATORY - NONE [facility] Jun 16, 2022 09:30 AM AMBULATORY - MEDICINE [facility] Jun 16, 2022 10:00 AM AMBULATORY - MEDICINE [facility] Jun 16, 2022 10:30 AM AMBULATORY - MEDICINE [facility] Lab Results: +/- 30 days [...] Reporting Lab: [facility] [address] Performing Lab: [facility] [address] BNP 35 <99 December 16, 2021 [facility] COMPREHENSIVE Specimen Typ e: PLASMA 09:56 AM METABOLIC PANEL+MG No comment en tered. Ordering Provid er: DRAKE MCNULTY Report Released Date/Time: Nov 08, 2021 10:58 AM Reporting Lab: [facility] [address] [facility] [id number] Performing Lab: [facility] [address] CREATININE 0.8 0.7-1.2 UREA NITROGEN 14 8-26 [...] smoking and tobacco-related health factors from the [place] facility where the Encounter took place.Current Smoking Status This section includes the most current smoking, or tobacco-related health factor, from the [place] facility where the Encounter took place. Date/Time Current Smoking Status Comment Facility Apr 04, 2021 10:00 AM [facility]-TOBACCO NEVER USED [facility] Encounter Notes: All associated encounter notes This section contains the clinical notes associated to the Encounter. Date/Time Encounter Note(s) Provider Source December 30, 2021 01:36 PM REPORT OF CONTACT: JACKI GUILLEN [facility] LOCAL TITLE: VVC GROUP AGREEMENT NOTE STANDARD TITLE: REPORT OF CONTACT DATE OF NOTE: DECEMBER 30, 2021@13:36 ENTRY DATE: DECEMBER 30, 2021@13:36:10 AUTHOR: JACKI GUILLEN EXP COSIGNER: URGENCY: STATUS: COMPLETED Patient contact Date & Time of contact: December@13:39 Type of contact: VVC Reason for contact: Consent for group telehealth appointments The following verified with patient: Patient ID Address (current physical location for VVC grou p appointments): Device using for VVC groups: Laptop [place] Email/phone number to use for VVC group s: Email: [email or web address] Phone number on file: Emergency contact and phone number: Primary NOK: Primary NOK: BANG MANN Relation: [employer] FAMILY M [address] Phone: [address], [place] [phone] Survey the environment: reviewed privacy, space, equipment requirements Other instructions provided: VCM link will be sent to patient for date/time of group appointment Ensure safe and private space for appointment Minimize environmental distractions Troubleshooting required during visit: Patient instructed that [facility] p desk number will be provided during group session ([phone]) an d that individual trouble shooting would not be possible during group ses joi. Consent/disclosure: Patient provided verbal consent to participate in group telehealth appointment. [place] was read and verbally agre ed to items 1-4 in the Group Telehealth Agreement form. Consent form will be mailed out/sent via Secure Messaging. /tanner/ JACKI GUILLEN Psychologist Signed: 12/30/2021 13:40 December 30, 2021 01:14 PM MENTAL HEALTH E & M INTERDISCIPLINARY NOTE : JACKI GUILLEN [facility] LOCAL TITLE: PRIMARY CARE-MH INTEGRATION DENISEE SS NOTE STANDARD TITLE: MENTAL HEALTH E & M INTERDISCIPL INARY NOTE DATE OF NOTE: DECEMBER 30, 2021@13:14 ENTRY DATE: DECEMBER 30, 2021@13:14:16 AUTHOR: JACKI GUILLEN EXP COSIGNER: URGENCY: STATUS: COMPLETED PRIMARY CARE-MH INTEGRATION PROGRESS NOTE H as ADDENDA BBTI Group Intake DATE:12/30/21 PROCEDURES: 30-minute behavioral health provider evaluation and treatment, via telehealth. SERVICE: Psychotherapy ([id number]) Provider discussed risks, benefits, and potentia l complications of treatment. Information was reviewed with the pat ient regarding the role and services of the behavioral health provider, docu mentation procedures, and confidentiality and limits to confidentiality of patient data. [x][place] consented to phone telehealth session . Presenting problem: What is most distressing/ di sturbing about current sleep? middle of the night awakenings. [place] said he goes to bed 10:15pm to watch the weather. He will sometimes fall asleep in bed and then wake up to watch a m ovie or something. 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 His time to sleep varies between 10:30 or 11:30p m on average. He is not sure how long he takes to fall asleep since he often does so watching TV, but generally he thinks it takes him 10-15 minutes t o fall asleep. He wakes up for the final time about 5am in the morning without an alarm. The estimates he wakes up between 4-6 ti mes a night. The [place] said on average it takes him 10 minutes each orestes kening to fall asleep. He said about 4-5 times a week, once per night it t akes him nearly two hours to fall back asleep). He does not think any thing i n particular is waking him up. When unable to go back to sleep he lays in b ed because he doesn't want to wake his up. 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 Sleep medication(s)/aids: Denies current use of sleep aids. HE said he took something OTC one time and did not like it so becerra sn't wanted to try anything again. Obstructive sleep apnea (ROSA) symptoms or diagno sis: He has a diagnosis of mild ROSA. Currently treated? no.The sleep clinic has not r ecommended intervention at this time. Parasomnia symptoms: Denies. Nightmares: Denies. Other unusual behaviors during sleep: Denies. Circadian rhythm disorder: Denies symptoms that would be consistent with circadian rhythm disorder. Napping: The reports that he seldomly na ps. He said during the winter he said he will nap 30 min a day around 1 :30pm. He said he does not nap in spring or summer. He is not napping curre ntly. Caffeine use: stated he drinks 1 cup of soda or tea 1-2 times per week. Alcohol use: 1/2 ounce liquor once a week. Illicits: denies Tobacco: denies. Risk Assessment: Suicidality: Denies SI plans or intent. Homicidality: Denies HI plans or intent. Risk factors: age, race, gender, medical conditi ons Protective Factors: [x] Patient has at least one positive social sup port [] Spirituality [] Cultural and muslim belief that supports s elf-preservation [x] Sense of responsibility to family [] Children in the home or [x] Life satisfaction [] Reality testing ability [x] Positive coping skills [x] Positive problem-solving skills [x] Positive Therapeutic relationship [x] Future focused/goal oriented [] Effective clinical care for mental, physical and substance use disorders [] Easy access to clinical interventions and sup port for help seeking appears to be at low risk for suicide. Assessment/ Criteria for inclusion in group: [x ] Patient is psychologically and medically st able [x ] Patient does not at present have an active alcohol and drug use disorder [x ] Patient is not excessively/dangerously slee py during the day (i.e., falling asleep at stop lights) [x ] Patient is not working on a night or rotati ng shift schedule [ x] Patient is not in exposure therapy for PTSD [ x] Patient does not have a bipolar illness [x ] Patient does not have uncontrolled seizure disorder Diagnoses: Plan: Veterans will start with a 1 time VVC group sess ion which will introduce them to sleep hygiene, stimulus control and BBTI grou p requirements. At the end of that 1 time VVC group session they will be gi kristine the opportunity to sign up for BBTI with a commitment to track sleep reg ularly using the sleep diary mailed to them. expressed agreement with plan. He said he wants to sign up for all five sessions to start 01/12 at 10 am. [x] VVC Group Agreement Note completed /ken GUILLEN Psychologist Signed: 12/30/2021 13:36 01/10/2022 ADDENDUM STATUS: COMPLETED Called to let know that BBTI rashid up would be postponed for a few weeks. NO answer. HIPPA compliant vm left bruno ng him know and asked him to call with questions. /tanner/ JACKI GUILLEN Psychologist Signed: 01/10/2022 10:00 December 30, 2021 01:13 PM MENTAL HEALTH CONSULT: GILL PEREZ [facility] LOCAL TITLE: MH CONSULT STANDARD TITLE: MENTAL HEALTH CONSULT DATE OF NOTE: DECEMBER 30, 2021@13:13 ENTRY DATE: JAN 24, 2022@14:51:45 AUTHOR: GILL PEREZ EXP COSIGNER: URGENCY: STATUS: COMPLETED Please see Primary Care-MH Integration Progress Note for results. /ken PEREZ Psy.D., STEVEN CLINICAL PSYCHOLOGIST Signed: 01/24/2022 14:52
--- OUTSIDE RECORDS SUMMARY | 2022-07-24 21:35 | XMS_ITS | Encounter Summary ---
:1945 Author Organization [facility] Address [address] [place] [address] Support Name Relationship Address Phone BANG MANN Unavailable [address] [facility] [place] [address] BANG MANN MEENAKSHI Unavailable [address] [facility] [phone] [place] [address] Insurance Providers: All historical and current Section Date Range: From patient's date of to the date document was created.This section includes the names of all active insurance providers for the patient. Insurance Type of Plan Start of End of Group Member Insurance Policy P atient's Provider Coverage Name Policy Policy Number ID Provider's Tanner's Relationship Coverage Coverage Telephone Name to Policy Number Tanner [facility] MEDICARE MEDIC Aug 13, [id number] VENESS,BECERRA P ATIENT [facility] (WNR) ADVANTAGE ARE 2020 5 [id number] [phone] [place] ADVAN 1 TAGE C [place] MEDICARE MCR Aug 13, [id number] VENESS,BECERRA P ATIENT [facility] (WNR) ADVANTAGE (WNR) 2020 7 [id number] [phone] [place] 1 [place] MED[place] Aug 13, [id number] [phone] VENESS ,BECERRA PATIENT MCR (WNR) ADVANTAGE (WNR) 2021 5 [id number] ROLD 1 MEDICARE MEDICARE PART Sep 13, PART B [id number] 800 Jesusita CONKLIN (WNR) (M) B 2012 [id number] [phone] [facility] MEDICARE MEDICARE PART Mar 13, PART A 800 Jesusita CONKLIN (WNR) (M) A [phone] [place] MEDICARE MEDICARE PART Mar 13, PART A [id number] 800 Jesusita CONKLIN (WNR) (Svetlana) Rosalinda 2008 [id number] [phone] [place] Selected Encounter This section includes the information on record at [place] for the Encounter. Date/Time Encounter Type Encounter Reason Provider Source Description Feb 02, 2022 GROUP INTGRTD CARE ICD-10-CM F51.04 UJAN ANTONIOASMITA CHRISTIAN 10:00 AM PSYCHOTHERAPY GRP Psychophysiologic J insomnia with Provider Comments: Psychophysiologic Insomnia IHE Encounter Template Text not used by [facility] Assessments - Encounter Diagnoses This section includes the primary and secondary diagnoses documented for the Encounter. Date/Time Primary/Secondary Diagnosis Name Provider Source Diagnosis Feb 02, 2022 PRIMARY Psychophysiologic JUAN ANTONIOGINOMICHAELKAREN [place] 03:06 PM insomnia J HCS Plan of Treatment: Future Appointments (+ 6 months) and Future Tests (+/- 45 days) The Plan of Treatment section includes future care activities for the patient from all [place] treatmentfacilities. This section includes future appointments and future orders which are active, pending orscheduled.Future Appointments This section includes appointments that were scheduled to occur 6 months from the date of the Encounter, up to a maximum of 20 appointments. The data comes from all [place] treatment facilities. Appointment Date/Time Appointment Type Appointment Facili ty Name Feb 03, 2022 12:12 PM AMBULATORY - NONE [facility] Feb 09, 2022 10:00 AM AMBULATORY - PSYCHIATRY [facility] Feb 09, 2022 01:30 PM AMBULATORY - SURGERY [facility] Feb 16, 2022 10:00 AM AMBULATORY - PSYCHIATRY [facility] Feb 23, 2022 10:00 AM AMBULATORY - PSYCHIATRY [facility] Mar 02, 2022 10:00 AM AMBULATORY - PSYCHIATRY [facility] Mar 08, 2022 08:45 AM AMBULATORY - MEDICINE [facility] Mar 08, 2022 09:00 AM AMBULATORY - MEDICINE [facility] Mar 08, 2022 09:30 AM AMBULATORY - MEDICINE [facility] Mar 08, 2022 10:00 AM AMBULATORY - MEDICINE [facility] Mar 13, 2022 09:00 AM AMBULATORY - MEDICINE [facility] May 03, 2022 09:00 AM AMBULATORY - NONE [facility] Jun 16, 2022 09:30 AM AMBULATORY - MEDICINE [facility] Jun 16, 2022 10:00 AM AMBULATORY - MEDICINE [facility] Jun 16, 2022 10:30 AM AMBULATORY - MEDICINE [facility] Jul 10, 2022 02:00 PM AMBULATORY - NONE [facility] Jul 10, 2022 02:45 PM AMBULATORY - NONE [facility] Jul 10, 2022 03:00 PM AMBULATORY - MEDICINE [facility] Jul 24, 2022 09:30 AM AMBULATORY - MEDICINE [facility] Jul 25, 2022 11:00 AM AMBULATORY - REHAB MEDICINE [facility] Social History: Smoking Status (Most current) and Tobacco Use (All prior to encounter date) This section includes the most current, and the historical, smoking and tobacco-related health factors from the [place] facility where the Encounter took place.Current Smoking Status This section includes the most current smoking, or tobacco-related health factor, from the [place] facility where the Encounter took place. Date/Time Current Smoking Status Comment Facility Apr 04, 2021 10:00 AM [place]-TOBACCO NEVER USED [facility] Encounter Notes: All associated encounter notes This section contains the clinical notes associated to the Encounter. Date/Time Encounter Note(s) Provider Source Feb 02, 2022 03:07 PM MENTAL HEALTH E & M INTERDISCIPLINARY NOTE : ASMITA SERRATO [facility] LOCAL TITLE: PRIMARY CARE-MH INTEGRATION GROUP NOTE STANDARD TITLE: MENTAL HEALTH E & M INTERDISCIPL INARY NOTE DATE OF NOTE: FEB 02, 2022@15:07 ENTRY DATE: FEB 02, 2022@15:07:37 AUTHOR: ASMITA SERRATO EXP COSIGNER: URGENCY: STATUS: COMPLETED TITLE OF GROUP: BBTI (brief behavioral therapy f or insomnia) Group SESSION: 1 of 5 TIME: 10:00a-11:00a SERVICE: GROUP PSYCHOTHERAPY ([id number]) MODALITY: VVC NUMBER OF PARTICIPANTS: 2 STAFF PRESENT: Asmita Serrato, Ph.D., psychologist; Brenda Euceda, Ph.D., abnormal psychology teacher INFORMED CONSENT: Limits of confidential ity were discussed. Risks and benefits of treatment were discussed. Group telehealth co nsent reviewed and [place] consented to VVC/ telehealth session. Veterans w ere informed at the beginning of the group session that while attendees might not be comfortable with acknowledging thoughts of becerra rming self or others within the group session, that anyone who has had any recent suicidal i deation or homicidal ideation is urged to let the staff member know they have something to discuss with a group member and a paper carrier will contact them individually . DESCRIPTION OF GROUP: This Brief Behavioral [place] t[place] for Insomnia Group is a cognitive-behavioral group for insomnia. Veterans and staffed were introduced to each oth er. BBTI VVC group telehealth rules were reviewed. This cl ass used a psychoeducational and brief motivational interviewing approach. Participants were provide d with sleep hygiene information and an informational handout. Precip itating and perpetuating factors, including medical conditions that might impact sleep were discussed. Veterans were provided with an overview of brief behavioral therapy for insomnia. Requirements including trackin g sleep, following the guidelines, and BBTI principles were discussed. Providers offere d risks and benefits of treatment. Risks of BBTI may include fe eling tired or sleepy at the outset of treatment and that they should avoid drivi ng or operating heavy machinery if sleepy or tired. Discussed the importance of limiting naps for good sleep hygiene, but how taking a safety nap (e.g., 20-30 mi nute nap) is recommended if very sleepy or tired and has to drive or operate machinery. RESPONSE AND BEHAVIORAL OBSERVATIONS: [place] was an active and engaged participant [x] yes The [place] said that he had to go to e hopsital last night so is very tired today. He reported that he is interested in cont inuing with PAP skills group and hopes it will be helpful for him. He agreed to track sleep this week. Were threats to safety identified during this gr oup session: [x] no Risk Assessment (per chart review). Risk Assessment: Suicidality: Denies SI plans or intent. Homicidality: Denies [place] plans or intent. Risk factors: age, race, gender, medical conditi ons Protective Factors: [x] Patient has at least one positive social sup port [] Spirituality [] Cultural and spiritism belief that supports s elf-preservation [x] Sense [...] to be at low risk for suicide. PLAN: 1) RTC in one week for the weekly VVC BBTI group if desired. 2) Track sleep using mailed sleep diary. 3) Veterans were provided w/ Crisis Line and are a aware of crisis resources should they find themselves in crisis. DIAGNOSTIC IMPRESSIONS: PRIMARY (Focus of Treatment): Psychophysiologic Insomnia (ICD-10-CM F51.04 /es/ ASMITA SERRATO Psychologist Signed: 02/02/2022 15:16 Receipt Acknowledged By: * AWAITING SIGNATURE * BRENDA EUCEDA
--- OUTSIDE RECORDS SUMMARY | 2022-07-24 21:35 | XMS_ITS | Encounter Summary ---
:1945 Author Organization [facility] Address [address] [place] [address] Support Name Relationship Address Phone BANG MANN Unavailable [address] [place] [address] BANG MANN MEENAKSHI Unavailable [address] [place] [address] Insurance Providers: All historical and current Section Date Range: From patient's date of to the date document was created.This section includes the names of all active insurance providers for the patient. Insurance Type of Plan Start of End of Group Member Insurance Policy P atient's Provider Coverage Name Policy Policy Number ID Provider's Tanner's Relationship Coverage Coverage Telephone Name to Policy Number Tanner [facility] MEDICARE MEDIC Aug 13, [id number] VENESS,BECERRA P ATIENT [facility] (WNR) ADVANTAGE ARE 2020 5 [id number] [phone] ROLD ADVAN 1 MOUSTAPHA C [place] MEDICARE MCR Aug 13, [id number] VENESS,BECERRA P ATIENT [facility] (WNR) ADVANTAGE (WNR) 2020 7 [id number] [phone] ROLD 1 [facility] MEDICARE [facility] Aug 13, [id number] [phone] VENESS ,BECERRA PATIENT MCR (WNR) ADVANTAGE (WNR) 2021 5 [id number] 2 ROLD 1 MEDICARE MEDICARE PART Sep 13, PART B [id number] 800 Jesusita CONKLIN (WNR) (M) B 2012 [id number] [phone] [facility] MEDICARE MEDICARE PART Mar 13, PART A 800 Jesusita CONKLIN (WNR) (M) A [phone] [facility] MEDICARE MEDICARE PART Mar 13, PART A [id number] 800 Jesusita CONKLIN (WNVianney) (M) Rosalinda 2008 [id number] [phone] [facility] Selected Encounter This section includes the information on record at OR for the Encounter. Date/Time Encounter Type Encounter Reason Provider Source Description Feb 01, 2022 09:55 Outpatient ADMIN PAT ACTIVTIES Vianney CELESTIN [facility] Encounter Template Text not used by [facility] Plan of Treatment: Future Appointments (+ 6 months) and Future Tests (+/- 45 days) The Plan of Treatment section includes future care activities for the patient from all OR treatmentfacilities. This section includes future appointments and future orders which are active, pending orscheduled.Future Appointments This section includes appointments that were scheduled to occur 6 months from the date of the Encounter, up to a maximum of 20 appointments. The data comes from all OR treatment facilities. Appointment Date/Time Appointment Type Appointment Facili ty Name Feb 02, 2022 10:00 AM AMBULATORY - PSYCHIATRY [facility] Feb 03, 2022 12:12 PM AMBULATORY - NONE [facility] Feb 09, 2022 10:00 AM AMBULATORY - PSYCHIATRY [facility] Feb 09, 2022 01:30 PM AMBULATORY - SURGERY [facility] Feb 16, 2022 10:00 AM AMBULATORY - PSYCHIATRY [facility] Feb 23, 2022 10:00 AM AMBULATORY - PSYCHIATRY [facility] Mar 02, 2022 10:00 AM AMBULATORY - PSYCHIATRY [facility] Mar 08, 2022 08:45 AM AMBULATORY - MEDICINE [facility] Mar 08, 2022 09:00 AM AMBULATORY - MEDICINE [facility] Mar 08, 2022 09:30 AM AMBULATORY - MEDICINE [facility] Mar 08, 2022 10:00 AM AMBULATORY - MEDICINE [facility] Mar 13, 2022 09:00 AM AMBULATORY - MEDICINE [facility] May 03, 2022 09:00 AM AMBULATORY - NONE [facility] Jun 16, 2022 09:30 AM AMBULATORY - MEDICINE [facility] Jun 16, 2022 10:00 AM AMBULATORY - MEDICINE [facility] Jun 16, 2022 10:30 AM AMBULATORY - MEDICINE [facility] Jul 10, 2022 02:00 PM AMBULATORY - NONE [facility] Jul 10, 2022 02:45 PM AMBULATORY - NONE [facility] Jul 10, 2022 03:00 PM AMBULATORY - MEDICINE [facility] Jul 24, 2022 09:30 AM AMBULATORY - MEDICINE [facility] Social History: Smoking Status (Most current) and Tobacco Use (All prior to encounter date) This section includes the most current, and the historical, smoking and tobacco-related health factors from the OR facility where the Encounter took place.Current Smoking Status This section includes the most current smoking, or tobacco-related health factor, from the OR facility where the Encounter took place. Date/Time Current Smoking Status Comment Facility Apr 04, 2021 10:00 AM VA-TOBACCO NEVER USED [facility] Encounter Notes: All associated encounter notes This section contains the clinical notes associated to the Encounter. Date/Time Encounter Note(s) Provider Source Feb 01, 2022 09:55 AM TELEHEALTH NOTE: [facility] TITLE: TELEHEALTH TECHNOLOGY SCREENING (T TS) STANDARD TITLE: TELEHEALTH NOTE DATE OF NOTE: FEB 01, 2022@09:55 ENTRY DATE: FEB 01, 2022@09:55:36 AUTHOR: MARLON CELESTIN EXP COSIGNER: URGENCY: STATUS: COMPLETED [place] agrees to OR Video Connect (VVC) and has capability to complete a VVC visit. has completed a test call or a VV C visit on his/her personal device. E-mail: [email or web address] Device(s) they can use: Desktop/Laptop /tanner/ MARLON CELESTIN Health Logistics Coordinator Telehealth Signed: 02/01/2022 10:51
--- OUTSIDE RECORDS SUMMARY | 2022-07-24 21:35 | XMS_ITS | Encounter Summary ---
:1945 Author Organization [facility] Address [address] [place] [address] Support Name Relationship Address Phone BANG MANN MEENAKSHI Unavailable [address] [facility] [phone] [place] [address] BANG MANN MEENAKSHI Unavailable [address] [facility] [place] [address] Insurance Providers: All historical and current Section [...] Tanner [place] MED[place] Aug 13, [id number] VENESS,BECERRA P ATIENT [facility] (WNR) ADVANTAGE ARE 2020 5 [id number] [phone] ROLD ADVAN 1 MOUSTAPHA C [place] MEDICARE MCR Aug 13, [id number] VENESS,BECERRA P ATIENT [facility] (WNR) ADVANTAGE (WNR) 2020 7 [id number] [phone] ROLD 1 [place] MEDIC[place] MCR Aug 13, [id number] [phone] VENESS ,BECERRA PATIENT [facility] (WNR) ADVANTAGE (WNR) 2022 5 [id number] 2 ROLD 1 MEDICARE MEDICARE PART Sep 13, PART B [id number] 800 Jesusita CONKLIN (WNR) (M) B 2012 VN81 [phone] [facility] MEDICARE MEDICARE PART Mar 13, PART A 800 Jesusita CONKLIN (WNR) (M) A [phone] [facility] MEDICARE MEDICARE PART Mar 13, PART A [id number] 800 Jesusita CONKLIN (WNR) (M) A 2008 VN81 [phone] [facility] Selected Encounter This section includes the information on record at [place] for the Encounter. Date/Time Encounter Type Encounter Description Reason Provider Source Jan 16, 2022 03:22 Outpatient Encounter PODIATRY PM IHE Encounter Template Text not used by ME Plan of Treatment: Future Appointments (+ 6 [...] 02, 2022 10:00 AM AMBULATORY - PSYCHIATRY [facility] Feb 03, 2022 12:12 PM AMBULATORY - NONE [facility] Feb 09, 2022 10:00 AM AMBULATORY - PSYCHIATRY [facility] Feb 09, 2022 01:30 PM AMBULATORY - SURGERY [facility] Feb 16, 2022 10:00 AM AMBULATORY - PSYCHIATRY [facility] Feb 23, 2022 10:00 AM AMBULATORY - PSYCHIATRY [facility] Mar 02, 2022 10:00 AM AMBULATORY - PSYCHIATRY [facility] Mar 08, 2022 08:45 AM AMBULATORY - MEDICINE [facility] Mar 08, 2022 09:00 AM AMBULATORY - MEDICINE [facility] Mar 08, 2022 09:30 AM AMBULATORY - MEDICINE [facility] Mar 08, 2022 10:00 AM AMBULATORY - MEDICINE [facility] Mar 13, 2022 09:00 AM AMBULATORY - MEDICINE [facility] May 03, 2022 09:00 AM AMBULATORY - NONE [facility] Jun 16, 2022 09:30 AM AMBULATORY - MEDICINE [facility] Jun 16, 2022 10:00 AM AMBULATORY - MEDICINE [facility] Jun 16, 2022 10:30 AM AMBULATORY - MEDICINE [facility] Jul 10, 2022 02:00 PM AMBULATORY - NONE [facility] Jul 10, 2022 02:45 PM AMBULATORY - NONE [facility] Jul 10, 2022 03:00 PM AMBULATORY - MEDICINE [facility] Social History: Smoking Status (Most current) [...] 10:00 AM VA-TOBACCO NEVER USED [facility] Encounter Notes: All associated encounter notes This section contains the clinical notes associated to the Encounter. Date/Time Encounter Note(s) Provider Source Jan 16, 2022 03:22 PM REPORT OF CONTACT: MOIZ LUGO SANAZ [facility] LOCAL TITLE: PATIENT CONTACT NOTE STANDARD TITLE: REPORT OF CONTACT DATE OF NOTE: JAN 16, 2022@15:22 ENTRY DATE: JAN 16, 2022@15:22:48 AUTHOR: MOIZ LUGO EXP COSIGNER: URGENCY: STATUS: COMPLETED Patient contact Name of : YOUSIF MANN Name/Relationship of Contact if other than Veter an: Date & Time of Contact: Jan@15:22 Type of Contact: Telephone Reason for Contact: Patient called and said he would like to schedul e the toe nail removal before February 15. Please enter RTC if appropriate. /tanner/ MOIZ LUGO ADVANCED MSA Signed: 01/16/2022 15:24 Receipt Acknowledged By: 01/16/2022 15:26 /tanner/ SANTOS THIBODEAUX SERVICE UNIT OPERATOR
--- OUTSIDE RECORDS SUMMARY | 2022-07-24 21:35 | XMS_ITS | Encounter Summary ---
:1945 Author Organization [facility] Address [address] [place] [address] Support Name Relationship Address Phone BANG MANN MEENAKSHI Unavailable [address] [facility] [place] [address] BANG MANN MEENAKSHI Unavailable [address] [facility] [place] [address] Insurance Providers: All historical and current Section [...] Tanner [place] Aug 13, [id number] VENESS,BECERRA P ATIENT [facility] (WNR) ADVANTAGE ARE 2020 5 [id number] [phone] ROLD ADVAN 1 MOUSTAPHA C [place] MEDICARE MCR Aug 13, [id number] 800 VENESS,BECERRA P ATIENT [facility] (WNR) ADVANTAGE (WNR) 2020 7 [id number] [phone] ROLD 1 [place] MEDICARE MCR Aug 13, [id number] [phone] VENESS ,BECERRA PATIENT MCR (WNR) ADVANTAGE (WNR) 2022 5 [id number] 2 ROLD 1 MEDICARE MEDICARE PART Sep 13, PART B [id number] 800 Jesusita CONKLIN (WNR) (M) B 2012 VN81 [phone] [facility] MEDICARE MEDICARE PART Mar 13, PART A 800 Jesusita CONKLIN (WNR) (M) A [phone] [facility] MEDICARE MEDICARE PART Mar 13, PART A [id number] 800 Jesusita CONKLIN (WNR) (Svetlana) A 2008 VN81 [phone] [facility] Selected Encounter This section includes the information on record at [place] for the Encounter. Date/Time Encounter Type Encounter Description Reason Provider Source Feb 03, 2022 08:26 Outpatient Encounter CARDIOLOGY AM IHE Encounter Template Text not used [...] Appointment Type Appointment Facili ty Name Feb 09, 2022 10:00 AM AMBULATORY - PSYCHIATRY [facility] Feb 09, 2022 01:30 PM AMBULATORY - SURGERY [facility] Feb 16, 2022 10:00 AM AMBULATORY - PSYCHIATRY [facility] Feb 23, 2022 10:00 AM AMBULATORY - PSYCHIATRY [facility] Mar 02, 2022 10:00 AM AMBULATORY - PSYCHIATRY [facility] Mar 08, 2022 08:45 AM AMBULATORY - MEDICINE [facility] Mar 08, 2022 09:00 AM AMBULATORY - MEDICINE [facility] Mar 08, 2022 09:30 AM AMBULATORY - MEDICINE [facility] Mar 08, 2022 10:00 AM AMBULATORY - MEDICINE [facility] Mar 13, 2022 09:00 AM AMBULATORY - MEDICINE [facility] May 03, 2022 09:00 AM AMBULATORY - NONE [facility] Jun 16, 2022 09:30 AM AMBULATORY - MEDICINE [facility] Jun 16, 2022 10:00 AM AMBULATORY - MEDICINE [facility] Jun 16, 2022 10:30 AM AMBULATORY - MEDICINE [facility] Jul 10, 2022 02:00 PM AMBULATORY - NONE [facility] Jul 10, 2022 02:45 PM AMBULATORY - NONE [facility] Jul 10, 2022 03:00 PM AMBULATORY - MEDICINE [facility] Jul 24, 2022 09:30 AM AMBULATORY - MEDICINE [facility] Jul 25, 2022 11:00 AM AMBULATORY - REHAB MEDICINE [facility] Social History: Smoking Status (Most [...] 10:00 AM VA-TOBACCO NEVER USED [facility] Encounter Notes: All associated encounter notes This section contains the clinical notes associated to the Encounter. Date/Time Encounter Note(s) Provider Source Feb 03, 2022 08:26 AM REPORT OF CONTACT: BARRERA ROY [facility] LOCAL TITLE: PATIENT CONTACT NOTE SHANTEL STANDARD TITLE: REPORT OF CONTACT DATE OF NOTE: FEB 03, 2022@08:26 ENTRY DATE: FEB 03, 2022@08:26:38 AUTHOR: BARRERA ROY EXP COSIGNER: URGENCY: STATUS: COMPLETED PATIENT CONTACT NOTE Has ADDENDA Patient contact Name of [place]: YOUSIF MANN Rosalinda Name/Relationship of Contact if other than Veter an: Date & Time of Contact: Jan@08:26 Type of Contact: Telephone Reason for Contact: Patient entered [facility] ED on 02.02.22 for AF IB, rapid heart beat. He was placed on an IV and 20mg of diltiazem which did not correct the symptoms. ED then did electric shock and patient is now feeli ng fine. Patient was asked to contact brick shader after being discharged. Alerting both CHF/Cardiology provider /ken ROY LEAD MSA Signed: 02/03/2022 08:35 Receipt Acknowledged By: 02/03/2022 11:39 /ken WALKER PA-C PHYSICIAN PUZZLE ASSEMBLER * AWAITING SIGNATURE * DRAKE MCNULTY 02/03/2022 ADDENDUM STATUS: COMPLETED I contacted patient who reports he is fe eling well. He denies any missed doses of dofetilide. We discussed potential change to alternate antiarrhythmic such as amiodarone that may be more effective vs PVI. Fo r now he wishes to continue dofetilide as is and see how he does and keep f/u as scheduled in February. We also discussed ROSA but he had sleep study which did n ot indicate need for CPAP. /ken WALKER PA-C PHYSICIAN PUZZLE ASSEMBLER Signed: 02/03/2022 11:41
--- OUTSIDE RECORDS SUMMARY | 2022-07-24 21:36 | XMS_ITS | Encounter Summary ---
:1945 Author Organization [facility] Address [address] [place] [address] Support Name Relationship Address Phone BANG MANN Unavailable [address] [facility] [place] [address] BANG MANN MEENAKSHI Unavailable [address] [facility] [place] [address] Insurance Providers: All historical and current Section Date Range: From patient's date of to the date document was created.This section includes the names of all active insurance providers for the patient. Insurance Type of Plan Start of End of Group Member Insurance Policy P atient's Provider Coverage Name Policy Policy Number ID Provider's Tanner's Relationship Coverage Coverage Telephone Name to Policy Number Tanner [facility] MEDICARE MEDIC Aug 13, [id number] VENESS,BECERRA P ATIENT [facility] (WNR) ADVANTAGE ARE 2020 5 [id number] [phone] ROLD ADVAN 1 TAGE C [place] MEDICARE MCR Aug 13, [id number] VENESS,BECERRA P ATIENT [facility] (WNR) ADVANTAGE (WNR) 2020 7 [id number] [phone] ROLD 1 [place] MED[place] M[place] Aug 13, [id number] [phone] VENESS ,BECERRA PATIENT MCR (WNR) ADVANTAGE (WNR) 2021 5 [id number] 2 ROLD 1 MEDICARE MEDICARE PART Sep 13, PART B [id number] 800 Jesusita CONKLIN (WNR) (M) B 2012 VN81 [phone] [facility] MEDICARE MEDICARE PART Mar 13, PART A 800 Jesusita CONKLIN (WNR) (M) A [phone] [facility] MEDICARE MEDICARE PART Mar 13, PART A [id number] 800 Jesusita CONKLIN (WNR) (M) Rosalinda 2008 VN81 [phone] [facility] Selected Encounter This section includes the information on record at [place] for the Encounter. Date/Time Encounter Type Encounter Reason Provider Source Description Mar 02, 2022 GROUP INTGRTD CARE ICD-10-CM F51.04 JACKI SERRATO 10:00 AM PSYCHOTHERAPY [facility] Psychophysiologic J insomnia with Provider Comments: Psychophysiologic insomnia IHE Encounter Template Text not used by [facility] Assessments - Encounter Diagnoses This section includes the primary and secondary diagnoses documented for the Encounter. Date/Time Primary/Secondary Diagnosis Name Provider Source Diagnosis Mar 02, 2022 PRIMARY Psychophysiologic [facility] 10[facility] AM insomnia RA J HCS Plan of Treatment: Future Appointments [...] Date/Time Appointment Type Appointment Facili ty Name Mar 08, 2022 08:45 AM AMBULATORY - MEDICINE [facility] Mar 08, 2022 09:00 AM AMBULATORY - [facility] Mar 08, 2022 09:30 AM [facility] Mar 08, 2022 10:00 AM [facility] Mar 13, 2022 09:00 AM AMBULATORY - MEDICINE [facility] May 03, 2022 09:00 AM AMBULATORY - NONE [facility] Jun 16, 2022 09:30 AM AMBUL[facility]ORY [facility] Jun 16, 2022 10:00 AM AMBULATORY - [facility] Jun 16, 2022 10:30 AM AMBULATORY - [facility] Jul 10, 2022 02:00 PM [facility]ORY - NONE [facility] Jul 10, 2022 02:45 PM AMBULATORY - NONE [facility] Jul 10, 2022 03:00 PM AM[facility]ULATORY [facility] Jul 24, 2022 09:30 AM AMBULAT[facility] - [facility]ICINE [facility] Jul 25, 2022 11:00 AM AMBULATORY - REHAB MEDICINE [facility] Lab Results: +/- 30 days [...] Result - Unit Interpretation Reference Range Comment Mar 08, 2022 09:00 [facility] BASIC METABOLIC Specimen Type: PLASMA AM PANEL+MG No comment enter ed. Ordering Provid er: ANNMARIE WALKER Report Released Date/Time: Nov 04, 2021 10:15 AM Reporting Lab: [facility] [address] [address] Performing Lab: [facility] [id number] CREATININE 0.8 0.7-1.2 UREA NITROGEN 18 8-26 GLUCOSE 80 74-100 SODIUM 138 136-145 POTASSIUM 3.9 3.5-5.1 CHLORIDE 106 98-107 CO2 27 22-29 CALCIUM 9.1 8.4-10.2 MAGNESIUM 2.2 1.6-2.6 ANION GAP 5 5-15 CREAT EGFR(CKD-EPI) >90 >60 Mar 08, 2022 09:00 AM [facility] BNP Specim en Type: PLASMA No comment enter ed. Ordering Provid er: DRAKE MCNULTY Report Released Date/Time: December 16, 2021 10:37 AM Reporting Lab: [facility] [id number] Performing Lab: [facility] [address] BNP 27 <99 Mar 08, 2022 [facility] COMPREHENSIVE Specimen Typ e: PLASMA 09:00 AM METABOLIC PANEL+MG No comment en tered. Ordering Provid er: DRAKE MCNULTY Report Released Date/Time: December 16, 2021 10:37 AM Reporting Lab: [facility] [address] [facility] [address] Performing Lab: [facility] [address] CREATININE 0.8 0.7-1.2 UREA NITROGEN 18 8-26 GLUCOSE 77 74-100 SODIUM 138 136-145 POTASSIUM 3.9 3.5-5.1 CHLORIDE 106 98-107 CO2 27 22-29 CALCIUM 9.0 8.4-10.2 PROTEIN,TOTAL 6.6 6.0-8.3 ALBUMIN 3.8 3.5-5.2 BILIRUBIN, TOTAL 0.8 0.2-1.2 MAGNESIUM 2.2 1.6-2.6 ANION GAP 5 5-15 ALKALINE PHOSPHATASE 62 40-150 ALT/SGPT 27 <55 AST/SGOT 25 <34 CREAT EGFR(CKD-EPI) >90 >60 Social History: [...] Comment Facility Apr 04, 2021 10:00 AM CO-TOBACCO NEVER USED [facility] Encounter Notes: All associated encounter notes This section contains the clinical notes associated to the Encounter. Date/Time Encounter Note(s) Provider Source Mar 02, 2022 10:00 MENTAL HEALTH E & M INTERDISCIPLINARY NOTE: SANKET FELICIANO [facility] LOCAL TITLE: PRIMARY CARE-MH INTEGRATION GROUP NOTE STANDARD TITLE: MENTAL HEALTH E & M INTERDISCIPL INARY NOTE DATE OF NOTE: MAR 02, 2022@10:00 ENTRY DATE: MAR 02, 2022@10:48:25 AUTHOR: SANKET EUCEDA EXP COSIGNER: MICHAEL SERRATO URGENCY: STATUS: COMPLETED PRIMARY CARE-MH INTEGRATION GROUP NOTE Has ADDENDA TITLE OF GROUP: Brief Behavioral Treatment for I nsomnia Group DATE: 03/02/22 SESSION: 12/15(week 4 of manual) Service: Group Psychotherapy ([id number]) TIME: 60 minutes NUMBER OF PARTICIPANTS: 2 TREATMENT MODALITY: [x] Video Visit [x]Address and e-contact verified. consented to videoconferencing format. Drew salazar telehealth agreement sent in advance of the group. Group rules were r jonnathaniewed. verbally consented to group psychotherapy. Risks and bene fits of treatment were discussed. Visit conducted by synchronous telehealth. Veter an verbal consent obtained. Location/emergency number confirmed. Env ironment surveyed and all participants identified. Virtual conference room locked. Staff Present: Jacki Serrato, PhD, LP, Adriana Euceda, Ph.D., Riffler Tender; Syeda Segal M.A. Divorce Attorney DESCRIPTION OF GROUP: This Brief Behavioral [facility] shin for Insomnia Group is a cognitive-behavioral group for insomnia. Focus of session: The focus of this group covere d the followin) Veterans and providers di scussed barriers and challenges that may have gotten in the way of adhering to the BBTI guidelines. 2) Reviewed the Four Steps to Reduce Insomnia . -Reduce your time in bed -Don't go to bed unless you are sleepy -Don't stay in bed unless you are asleep -Get up at the same time zohra ry day of the week, no matter how much you slept the night before. 2) Reviewing sleep diaries 3) Discussed sleep windows and problem solved sl eep schedules 4) Providers discussed safet y. Specifically, Veterans were advised not to drive or operate heavy machinery if sleepy. They were discouraged from excessive napping; however, were encouraged to priscila e a 20-30 minute nap if very sleepy or tired. RESPONSE AND BEHAVIORAL OBSERVATIONS: Gauri was an active and en gaged participant. He completed his sleep diary this week, which was reviewed in session. Based on e results of his sleep data, gauri set a goal of going to sleep at 12:00 an d waking up at 6:30. He was encouraged to notice sleep cues. Of note, lucho azar is often awake at night to care for his . Were threats to safety identified during this gr oup session: [] yes [x] no Risk Assessment (per chart review). Risk Assessment: Suicidality: Denies SI plans or intent. Homicidality: Denies HI plans or intent. Risk factors: age, race, gender, medical conditi ons Protective Factors: [x] Patient has at least one positive social sup port [] Spirituality [] Cultural and bahai belief that supports s elf-preservation [x] Sense of responsibility to family [] Children in the home or [x] Life satisfaction [] Reality testing ability [x] Positive coping skills [x] Positive problem-solving skills [x] Positive Therapeutic relationship [x] Future focused/goal oriented [] Effective clinical care for mental, physical and substance use disorders [] Easy access to clinical interventions and sup port for help seeking Based on risk and protective factors, the patien t is considered to be at LOW acute risk and LOW chronic risk for comm itting suicidal acts/self-harm at this time. PLAN: This process description writer will follow-up with individu suellen to check-in about sleep schedule and discuss next steps. DIAGNOSTIC IMPRESSIONS: PRIMARY (Focus of Treatment): Psychophysiologica l Insomnia /tanner/ Sanket Euceda, PhD Riffler Tender Signed: 03/02/2022 10:55 /tanner/ JACKI SERRATO Psychologist Cosigned: 03/02/2022 12:00 Receipt Acknowledged By: * AWAITING SIGNATURE * SYEDA SEGAL 03/02/2022 ADDENDUM STATUS: COMPLETED Provider has reviewed the above documentation. Janneth weaver was present for the session and is in agreement with the assessment and plan. /tanner/ JACKI SERRATO Psychologist Signed: 03/02/2022 12:00
--- OUTSIDE RECORDS SUMMARY | 2022-07-24 21:36 | XMS_ITS | Encounter Summary ---
:1945 Author Organization [facility] Address [address] [place] [address] Support Name Relationship Address Phone BANG MANN MEENAKSHI Unavailable [address] [facility] [place] [address] BANG MANN MEENAKSHI Unavailable [address] [facility] [place] [address] Insurance Providers: All historical and current Section [...] Tanner [place] Aug 13, [id number] VENESS,BECERRA P ATIENT [facility] (WNR) ADVANTAGE ARE 2020 5 [id number] [phone] ROLD ADVAN 1 MOUST[place]HA C [place] MED[place] MCR Aug 13, [id number] VENESS,BECERRA P ATIENT [facility] (WNR) ADVANTAGE (WNR) 2020 7 [id number] [phone] R[place] 1 [place] MCR Aug 13, [id number] [phone] VENESS ,BECERRA PATIENT [facility] (WNR) ADVANTAGE (WNR) 2022 5 [id number] 2 ROLD 1 MEDICARE MEDICARE PART Sep 13, PART B [id number] 800 Jesusita CONKLIN (WNR) (M) B 2012 [id number] [phone] [facility] MEDICARE MEDICARE PART Mar 13, PART A 800 Jesusita CONKLIN (WNR) (M) A [phone] [place] MEDICARE MEDICARE PART Mar 13, PART A [id number] 800 Jesusita CONKLIN (WNR) (M) Rosalinda 2008 [id number] [phone] [place] Selected Encounter This section includes the information on record at [place] for the Encounter. Date/Time Encounter Type Encounter Reason Provider Source Description Feb 09, 2022 REMOVAL OF NAIL PODIATRY ICD-10-CM L60.0 RAMPETSREITER , 01:30 PM BED Ingrowing nail RUIZ Cannon with Provider Comments: Ingrowing nail IHE Encounter Template Text not used by [facility] Assessments - Encounter Diagnoses This section includes the primary and secondary diagnoses documented for the Encounter. Date/Time Primary/Secondary Diagnosis Name Provider Source Diagnosis Feb 09, 2022 PRIMARY Ingrowing nail MIKEL [facility] 01:48 PM RUIZ Cannon [facility] Plan of Treatment: Future Appointments (+ 6 [...] Appointment Type Appointment Facili ty Name Feb 16, 2022 10:00 AM AMBULATORY - PSYCHIATRY [facility] Feb 23, 2022 10:00 AM AMBULATORY - PSYCHIATRY [facility] Mar 02, 2022 10:00 AM AMBULATORY - PSYCHIATRY [facility] Mar 08, 2022 08:45 AM AMBULATORY - MEDICINE [facility] Mar 08, 2022 09:00 AM AMBULATORY - MEDICINE [facility] Mar 08, 2022 09:30 AM AMBULATORY - MEDICINE [facility] Mar 08, 2022 10:00 AM AMBULATORY - MEDICINE [facility] Mar 13, 2022 09:00 AM AMBULATORY - MEDICINE [facility] May 03, 2022 09:00 AM AMBULATORY - NONE [facility] Jun 16, 2022 09:30 AM AMBULATORY - MEDICINE [facility] Jun 16, 2022 10:00 AM AMBULATORY - MEDICINE [facility] Jun 16, 2022 10:30 AM AMBULATORY - MEDICINE [facility] Jul 10, 2022 02:00 PM AMBULATORY - NONE [facility] Jul 10, 2022 02:45 PM AMBULATORY - NONE [facility] Jul 10, 2022 03:00 PM AMBULATORY - MEDICINE [facility] Jul 24, 2022 09:30 AM AMBULATORY - MEDICINE [facility] Jul 25, 2022 11:00 AM AMBULATORY - REHAB MEDICINE [facility] Lab Results: +/- 30 days of [...] Reference Range Comment Mar 08, 2022 09:00 [facility] BASIC METABOLIC Specimen Type: PLASMA AM PANEL+MG No comment enter ed. Ordering Provid er: ANNMARIE WALKER Report Released Date/Time: Nov 04, 2021 10:15 AM Reporting Lab: [facility] [address] Performing Lab: [facility] [address] CREATININE 0.8 0.7-1.2 UREA NITROGEN 18 8-26 GLUCOSE 80 74-100 SODIUM 138 136-145 POTASSIUM 3.9 3.5-5.1 CHLORIDE 106 98-107 CO2 27 22-29 CALCIUM 9.1 8.4-10.2 MAGNESIUM 2.2 1.6-2.6 ANION GAP 5 5-15 CREAT EGFR(CKD-EPI) >90 >60 Mar 08, 2022 09:00 AM [facility] BNP Specim en Type: PLASMA No comment enter ed. Ordering Provid er: DRAKE MCNULTY Report Released Date/Time: December 16, 2021 10:37 AM Reporting Lab: [facility] [address] Performing Lab: [facility] [address] BNP 27 <99 Mar 08, 2022 [facility] COMPREHENSIVE Specimen Typ e: PLASMA 09:00 AM METABOLIC PANEL+MG No comment en tered. Ordering Provid er: DRAKE MCNULTY Report Released Date/Time: December 16, 2021 10:37 AM Reporting [facility] [address] Performing Lab: [facility] [address] CREATININE 0.8 0.7-1.2 UREA NITROGEN 18 8-26 [...] Comment Facility Apr 04, 2021 10:00 AM [place]-TOBACCO NEVER USED OLIVIER [facility] Encounter Notes: All associated encounter notes This section contains the clinical notes associated to the Encounter. Date/Time Encounter Note(s) Provider Source Feb 09, 2022 01:46 PM PODIATRY PROCEDURE NOTE: JESUS MORIN [facility] LOCAL TITLE: PODIATRY PROCEDURE NOTE W C STANDARD TITLE: PODIATRY PROCEDURE NOTE DATE OF NOTE: FEB 09, 2022@13:46 ENTRY DATE: FEB 09, 2022@13:46:22 AUTHOR: DOUGLAS MORIN COSIGNER: URGENCY: STATUS: COMPLETED PODIATRY PROCEDURE NOTE Has ADDENDA No E/M, just procedure. Procedure: Phenol and Alcohol Right and left great toes- p artial nail matrixectomy, medial and lateral borders. Discussed with patient procedure proposed, poss ible complications and expected results and patient was consented for partial nail matrixectomy Patient was identified by using full name and s ocial security number. Procedure(s) to be performed was (were) discuss ed with patient and verified to be correct. Patient and/or family provided with appropriate education and patient and/or family acknowledged understanding. No antibiotic or thrombosis prophylaxis needed, no blood products needed, and no implants or special instruments required. Site Marking: Site marked (as indicated by [place] policy) A Time out was taken prior to the procedure t o verify correct patient, correct procedure, and correct site. Written informed consent obtained from the beverly ent or surrogate, using the [place] approved form and process. Informed consent note containing risks, benefit s, and alternatives documented. If applicable, imaging data was verified and co nfirmed. Patient positioning was verified prior to proce dure, if relevant. (Supine, prone, lateral) All necessary special equipment including impla nts were verified prior to the procedure. Anesthesia: 8 cc local in each toe Digital tourniquet used for hemostasis. Nail Avulsion(s): Partial nail avulsion(s) were performed. Application of 89% phenol, 3 sticks for 30 seco nds each to nail bed(s). Surgical Site was flushed with isopropyl alcoho l. Silvadene and gauze dressing applied. Patient given oral and written instructions for home care dressing changes and soaks. Cephalexin. /tanner/ RUIZ MORIN DPM CARBON FURNACE OPERATOR Signed: 02/09/2022 14:07 02/10/2022 ADDENDUM STATUS: COMPLETED Carolyn left a voicemail on the podiatry triage line stating that he was prescribed cephalexin 500mg after a toen ail procedure. Carolyn was reading the literature that was sent tiffanie e with the prescription and it stated that he should notify all providers if he is taking Dofetilide due to possible interaction between the two medications. Carolyn can be reac hed at . Please advise. /tanner/ SURAJ GILMAN RN, WTA-C, [facility] REGISTERED NURSE Signed: 02/10/2022 13:39 Receipt Acknowledged By: 02/10/2022 14:29 /tanner/ SANTOS THIBODEAUX CARBON FURNACE OPERATOR 02/10/2022 ADDENDUM STATUS: COMPLETED Called patient back to answer his questions foll owing yesterday's toenail surgery. He is having some mild discomfort but t olerating it. Most of his concern was regarding taking cephalexin and his heart medicine. He has not had any allergic reactions or side effects. He was j ust a little anxious and nervous after reading the product insert. Howeve r he is doing fine taking the cephalexin. No further questions or orders are n eeded at this time. /tanner/ RUIZ MORIN DPM CARBON FURNACE OPERATOR Signed: 02/10/2022 14:32 Receipt Acknowledged By: 02/10/2022 14:42 /es/ SURAJ GILMAN RN, WT A-C, [facility] REGISTERED NURSE
--- OUTSIDE RECORDS SUMMARY | 2022-07-24 21:36 | XMS_ITS | Encounter Summary ---
:1945 Author Organization [facility] Address [address] [place] [address] Support Name Relationship Address Phone BANG MANN Unavailable [address] [facility] [place] [address] BNAG MANN MEENAKSHI Unavailable [address] [phone] [place] [address] Insurance Providers: All historical and current Section Date Range: From patient's date of to the date document was created.This section includes the names of all active insurance providers for the patient. Insurance Type of Plan Start of End of Group Member Insurance Policy P atient's Provider Coverage Name Policy Policy Number ID Provider's Tanner's Relationship Coverage Coverage Telephone Name to Policy Number Tanner [facility] MEDICARE MEDIC Aug 13, [id number] VENESS,BECERRA P ATIENT MCR (WNR) ADVANTAGE ARE 2020 5 [id number] [phone] [place] ADVAN 1 TAGE C [place] MED[place] Aug 13, [id number] VENESS,BECERRA P ATIENT [facility] (WNR) ADVANTAGE (WNR) 2020 7 [id number] [phone] R[place] 1 [place] MEDICARE [facility] Aug 13, [id number] [phone] VENESS ,BECERRA PATIENT MCR (WNR) ADVANTAGE (WNR) 2021 5 [id number] 2 ROLD 1 MEDICARE MEDICARE PART Sep 13, PART B [id number] 800 Jesusita CONKLIN (WNR) (M) B 2012 [id number] [phone] [facility] MEDICARE MEDICARE PART Mar 13, PART A [id number] 800 Jesusita CONKLIN (WNR) (M) A 2008 [id number] [phone] [facility] MEDICARE MEDICARE PART Mar 13, PART A 800 Jesusita CONKLIN (CARLY) (M) A [phone] [place] Selected Encounter This section includes the information on record at [place] for the Encounter. 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 Date/Time Primary/Secondary Diagnosis Name Provider Source Diagnosis Feb 16, 2022 PRIMARY Psychophysiologic [place]ITA [place]ERRATO [place] 04:08 PM insomnia J [facility] Plan of Treatment: [...] Appointment Type Appointment Facili ty Name Feb 23, 2022 10:00 AM AMBULATORY - PSYCHIATRY [facility] Mar 02, 2022 10:00 AM AMBULATORY - PSYCHIATRY [facility] Mar 08, 2022 08:45 AM AMBULATORY - MEDICINE [facility] Mar 08, 2022 09:00 AM AMBULATORY - MEDICINE [facility] Mar 08, 2022 09:30 AM AMBULATORY - MEDICINE [facility] Mar 08, 2022 10:00 AM AMBULATORY - MEDICINE [facility] Mar 13, 2022 09:00 AM AMBULATORY - MEDICINE [facility] May 03, 2022 09:00 AM AMBULATORY - NONE [facility] Jun 16, 2022 09:30 AM AMBULATORY - MEDICINE [facility] Jun 16, 2022 10:00 AM AMBULATORY - MEDICINE [facility] Jun 16, 2022 10:30 AM AMBULATORY - MEDICINE [facility] Jul 10, 2022 02:00 PM AMBULATORY - NONE [facility] Jul 10, 2022 02:45 PM AMBULATORY - NONE [facility] Jul 10, 2022 03:00 PM AMBULATORY - MEDICINE [facility] Jul 24, 2022 09:30 AM AMBULATORY - MEDICINE [facility] Jul 25, 2022 11:00 AM AMBULATORY - REHAB MEDICINE [facility] Lab Results: +/- 30 days [...] Reference Range Comment Mar 08, 2022 09:00 [facility] BASIC METABOLIC Specimen Type: PLASMA AM PANEL+MG No comment enter ed. Ordering Provid er: ANNMARIE WALKER Report Released Date/Time: Nov 04, 2021 10:15 AM Reporting Lab: [facility] [address] Performing Lab: [facility] [address] CREATININE 0.8 0.7-1.2 UREA NITROGEN 18 8-26 GLUCOSE 80 74-100 SODIUM 138 136-145 POTASSIUM 3.9 3.5-5.1 CHLORIDE 106 98-107 CO2 27 22-29 CALCIUM 9.1 8.4-10.2 MAGNESIUM 2.2 1.6-2.6 ANION GAP 5 5-15 CREAT EGFR(CKD-EPI) >90 >60 Mar 08, 2022 09:00 AM [facility] BNP Specim en Type: PLASMA No comment enter ed. Ordering Provid er: DRAKE MCNULTY Report Released Date/Time: December 16, 2021 10:37 AM Reporting Lab: [facility] [address] Performing Lab: [facility] [address] BNP 27 <99 Mar 08, 2022 [facility] COMPREHENSIVE Specimen Typ e: PLASMA 09:00 AM METABOLIC PANEL+MG No comment en tered. Ordering Provid er: DRAKE MCNULTY Report Released Date/Time: December 16, 2021 10:37 AM Reporting [facility] [address] Performing Lab: [facility] [address] CREATININE 0.8 0.7-1.2 UREA NITROGEN 18 8-26 [...] 04, 2021 10:00 AM [place]-TOBACCO NEVER USED RASHAUNKhari [facility] Encounter Notes: All associated encounter notes This section contains the clinical notes associated to the Encounter. Date/Time Encounter Note(s) Provider Source Feb 16, 2022 02:03 PM [facility] M INTERDISCIPLINARY NOTE : ASMITA SERRATO [facility] LOCAL TITLE: PRIMARY CARE-MH INTEGRATION GROUP NOTE STANDARD TITLE: MENTAL HEALTH E & M INTERDISCIPL INARY NOTE DATE OF NOTE: FEB 16, 2022@14:03 ENTRY DATE: FEB 16, 2022@14:03:37 AUTHOR: ASMITA SERRATO EXP COSIGNER: URGENCY: STATUS: COMPLETED TITLE OF GROUP: Brief Behavioral Treatment for I nsomnia Group DATE: 02/16/22 SESSION: 10/15 (week 2 of manual) Service: Group Psychotherapy ([id number]) TIME: 60 minutes NUMBER OF PARTICIPANTS: 3 TREATMENT MODALITY: [x] Video Visit [x]Address and e-contact verified. [x] Aragon consented to videoconferencing forma t. Group telehealth agreement sent in advance of the group. Group rules were r eviewed. Aragon verbally consented to group psychotherapy. Risks and bene fits of treatment were discussed. Visit conducted by synchronous telehealth. Vete gio verbal consent obtained. Location/emergency number confirmed. Env ironment surveyed and all participants identified. Virtual conference room locked. Staff Present: Asmita Serrato, Ph.D., Psychologist; Syeda Segal M.A. Human Resource Internship DESCRIPTION OF GROUP: This Brief Behavioral [place] [...] slept the night before. 2) Reviewing sleep diaries- One complete d. 3) Used shared decision making to establish new sleep windows for who completed sleep diary. 4) Providers discussed safet y. Specifically, Veterans were advised not to drive or operate heavy machinery if sleepy. They were discouraged from excessive napping; however, were encouraged to priscila e a 20-30 minute nap if very sleepy or tired. RESPONSE AND BEHAVIORAL OBSERVATIONS: was an active and en gaged participant. He shared he was unable to track sleep due to sleep being off track folloing recent illness and hospitalization. He said he is willing to track sleep this week. Were threats to safety identified during this gr oup session: [] yes [x] no Risk Assessment (per chart review). Risk Assessment: Suicidality: Denies SI plans or intent. Homicidality: Denies HI plans or intent. Risk factors: age, race, gender, medical conditi ons Protective Factors: [x] Patient has at least one positive social sup port [] Spirituality [] Cultural and methodist belief that supports s elf-preservation [x] Sense [...] resources should they find themselves in crisis. 4) Veterans expressed agreement with plan. DIAGNOSTIC IMPRESSIONS: PRIMARY (Focus of Treatment): Psychophysiologica l Insomnia /es/ ASMITA SERRATO Psychologist Signed: 02/16/2022 16:08 Receipt Acknowledged By: * AWAITING SIGNATURE * SYEDA SEGAL
--- OUTSIDE RECORDS SUMMARY | 2022-07-24 21:36 | XMS_ITS | Encounter Summary ---
:1945 Author Organization [facility] Address [address] [place] [address] Support Name Relationship Address Phone BANG MANN Unavailable [address] [facility] [phone] [place] [address] BANG MANN MEENAKSHI Unavailable [address] [facility] [phone] [place] [address] Insurance Providers: All historical and current Section [...] Tanner [place] Aug 13, [id number] VENESS,BECERRA P ATIENT [facility] (WNR) ADVANTAGE ARE 2020 5 [id number] [phone] [place] ADVAN 1 TAGE C [place] MEDICARE MCR Aug 13, [id number] VENESS,BECERRA P ATIENT MCR (WNR) ADVANTAGE (WNR) 2020 7 [id number] [phone] ROLD 1 [facility] MEDICARE [facility] Aug 13, [id number] [phone] VENESS ,BECERRA PATIENT MCR (WNR) ADVANTAGE (WNR) 2022 5 [id number] ROLD 1 MEDICARE MEDICARE PART Sep 13, PART B [id number] 800 Jesusita CONKLIN (WNR) (M) B 2012 [id number] [phone] [facility] MEDICARE MEDICARE PART Mar 13, PART A 800 Jesusita CONKLIN (WNR) (M) A 2008 [id number] [place] MEDICARE MEDICARE PART Mar 13, PART A [id number] 800 Jesusita CONKLIN (WNR) (M) Rosalinda 2008 [id number] [phone] [place] Selected Encounter This section includes the information on record at [place] for the Encounter. Date/Time Encounter Type Encounter Description Reason Provider Source Feb 09, 2022 01:45 Outpatient Encounter EVENT (HISTORICAL) PM IHE Encounter Template Text not used [...] 16, 2022 10:00 AM AMBULATORY - PSYCHIATRY [facility] Feb 23, 2022 10:00 AM AMBULATORY PSYCHIATRY [facility] Mar 02, 2022 10:00 AM AMBULATORY - PSYCHIATRY [facility] Mar 08, 2022 08:45 AM AMBULATORY - MEDICINE [facility] Mar 08, 2022 09:00 AM AMBULATORY - MEDICINE [facility] Mar 08, 2022 09:30 AM AMBULATORY - MEDICINE [facility] Mar 08, 2022 10:00 AM AMBULATORY - MEDICINE [facility] Mar 13, 2022 09:00 AM AMBULATORY - MEDICINE [facility] May 03, 2022 09:00 AM AMBULATORY - NONE [facility] Jun 16, 2022 09:30 AM AMBULATORY - MEDICINE [facility] Jun 16, 2022 10:00 AM AMBULATORY - MEDICINE [facility] Jun 16, 2022 10:30 AM AMBULATORY - MEDICINE [facility] Jul 10, 2022 02:00 PM AMBULATORY - NONE [facility] Jul 10, 2022 02:45 PM AMBULATORY - NONE [facility] Jul 10, 2022 03:00 PM AMBULATORY - MEDICINE [facility] Jul 24, 2022 09:30 AM AMBULATORY - MEDICINE [facility] Jul 25, 2022 11:00 AM AMBULATORY - [facility]AB [facility] Lab Results: +/- 30 days of [...] Reference Range Comment Mar 08, 2022 09:00 [facility] BASIC METABOLIC Specimen Type: PLASMA AM PANEL+MG No comment enter ed. Ordering Provid er: ANNMARIE WALKER Report Released Date/Time: Nov 04, 2021 10:15 AM Reporting Lab: [facility] [address] Performing Lab: [facility] [address] CREATININE 0.8 0.7-1.2 UREA NITROGEN 18 8-26 GLUCOSE 80 74-100 SODIUM 138 136-145 POTASSIUM 3.9 3.5-5.1 CHLORIDE 106 98-107 CO2 27 22-29 CALCIUM 9.1 8.4-10.2 MAGNESIUM 2.2 1.6-2.6 ANION GAP 5 5-15 CREAT EGFR(CKD-EPI) >90 >60 Mar 08, 2022 09:00 AM [facility] BNP Specim en Type: PLASMA No comment enter ed. Ordering Provid er: DRAKE MCNULTY Report Released Date/Time: December 16, 2021 10:37 AM Reporting Lab: [facility] [address] Performing Lab: [facility] [address] BNP 27 <99 Mar 08, 2022 [facility] COMPREHENSIVE Specimen Typ e: PLASMA 09:00 AM METABOLIC PANEL+MG No comment en tered. Ordering Provid er: DRAKE MCNULTY Report Released Date/Time: December 16, 2021 10:37 AM Reporting Lab: [facility] [address] [facility] [address] Performing Lab: [facility] [address] CREATININE 0.8 0.7-1.2 UREA NITROGEN 18 8-26 [...] smoking and tobacco-related health factors from the [facility] facility where the Encounter took place.Current Smoking Status This section includes the most current smoking, or tobacco-related health factor, from the [facility] facility where the Encounter took place. Date/Time Current Smoking Status Comment Facility Apr 04, 2021 10:00 AM [facility]-TOBACCO NEVER USED [facility]
--- OUTSIDE RECORDS SUMMARY | 2022-07-24 21:36 | XMS_ITS | Encounter Summary ---
:1945 Author Organization [facility] Address [address] [place] [address] Support Name Relationship Address Phone BANG MANN Unavailable [address] [facility] [place] [address] BANG MANN MEENAKSHI Unavailable [address] [place] [address] Insurance Providers: All historical and current Section [...] Telephone Name to Policy Number Tanner [facility] MEDICARE MEDIC Aug 13, [id number] VENESS,BECERRA P ATIENT [facility] (WNR) ADVANTAGE ARE 2020 5 [id number] [phone] R[place] ADVAN 1 TAGE C [place] MEDICARE MCR Aug 13, [id number] VENESS,BECERRA P ATIENT [facility] (WNR) ADVANTAGE (WNR) 2020 7 [id number] [phone] R[place] 1 [place] MED[place] MCR Aug 13, [id number] [phone] VENESS ,BECERRA PATIENT MCR (WNR) ADVANTAGE (WNR) 2021 5 [id number] 2 ROLD 1 MEDICARE MEDICARE PART Sep 13, PART B [id number] 800 Jesusita CONKLIN (WNR) (M) B 2012 [id number] [phone] [facility] MEDICARE MEDICARE PART Mar 13, PART A 800 Jesusita CONKLIN (WNR) (M) A [phone] [facility] MEDICARE MEDICARE PART Mar 13, PART A [id number] 800 Jesusita CONKLIN (WNR) (Svetlana) Rosalinda 2008 [id number] [phone] [facility] Selected Encounter This section includes the information on record at [place] for the Encounter. Date/Time Encounter Type Encounter Reason Provider Source Description Feb 09, 2022 GROUP INTGRTD CARE ICD-10-CM F51.04 MARGIE PEREZMARIA ESTHER 10:00 AM PSYCHOTHERAPY GRP Psychophysiologic A insomnia with Provider Comments: Psychophysiologic insomnia IHE Encounter Template Text not used by [facility] Assessments - Encounter Diagnoses This section includes the primary and secondary diagnoses documented for the Encounter. Date/Time Primary/Secondary Diagnosis Name Provider Source Diagnosis Feb 09, 2022 PRIMARY Psychophysiologic SHERIE SEGAL [place] 12:53 PM insomnia [place] [facility] Plan of Treatment: Future Appointments (+ 6 months) and Future Tests (+/- 45 days) The Plan of Treatment section includes future care activities for the patient from all [place] treatmentfacilities. This section includes future appointments and future orders which are active, pending orscheduled.Future Appointments This section includes appointments that were scheduled to occur 6 months from the date of the Encounter, up to a maximum of 20 appointments. The data comes from all [place] treatment facilities. Appointment Date/Time Appointment Type Appointment Facili ty Name Feb 16, 2022 10:00 AM AMBULATORY - PSYCHIATRY [facility] Feb 23, 2022 10:00 AM AMBULATORY - PSYCHIATRY [facility] Mar 02, 2022 10:00 AM AMBULATORY - PSYCHIATRY [facility] Mar 08, 2022 08:45 AM AMBULATORY - MEDICINE [facility] Mar 08, 2022 09:00 AM AMBULATORY - MEDICINE [facility] Mar 08, 2022 09:30 AM AMBULATORY - MEDICINE [facility] Mar 08, 2022 10:00 AM AMBULATORY - MEDICINE [facility] Mar 13, 2022 09:00 AM AMBULATORY - MEDICINE [facility] May 03, 2022 09:00 AM AMBULATORY - NONE [facility] Jun 16, 2022 09:30 AM AMBULATORY - MEDICINE [facility] Jun 16, 2022 10:00 AM AMBULATORY - MEDICINE [facility] Jun 16, 2022 10:30 AM AMBULATORY - MEDICINE [facility] Jul 10, 2022 02:00 PM AMBULATORY - NONE [facility] Jul 10, 2022 02:45 PM AMBULATORY - NONE [facility] Jul 10, 2022 03:00 PM AMBULATORY - MEDICINE [facility] Jul 24, 2022 09:30 AM AMBULATORY - MEDICINE [facility] Jul 25, 2022 11:00 AM AMBULATORY - REHAB MEDICINE [facility] Lab Results: +/- 30 days of the encounter This section includes the Chemistry and Hematology Lab Results on record with [place] for the patient. Radiology Reports and Pathology Reports are provided separately, in subsequent sections.Lab Results This section contains the Chemistry/Hematology Results that were resulted 30 days before or 30 daysafter the date of the Encounter. Date/Time Source Result Type Result - Unit Interpretation Reference Range Comment Mar 08, 2022 09:00 [facility] BASIC METABOLIC Specimen Type: PLASMA AM PANEL+MG No comment enter ed. Ordering Provid er: ANNMARIE WALKER Report Released Date/Time: Nov 04, 2021 10:15 AM Reporting Lab: [facility] [id number] Performing Lab: [facility] [address] CREATININE 0.8 0.7-1.2 UREA NITROGEN 18 8-26 GLUCOSE 80 74-100 SODIUM 138 136-145 POTASSIUM 3.9 3.5-5.1 CHLORIDE 106 98-107 CO2 27 22-29 CALCIUM 9.1 8.4-10.2 MAGNESIUM 2.2 1.6-2.6 ANION GAP 5 5-15 CREAT EGFR(CKD-EPI) >90 >60 Mar 08, 2022 09:00 AM [facility] BNP Specim en Type: PLASMA No comment enter ed. Ordering Provid er: DRAKE MCNULTY Report Released Date/Time: December 16, 2021 10:37 AM Reporting Lab: [facility] [id number] Performing Lab: [facility] [id number] BNP 27 <99 Mar 08, 2022 [facility] COMPREHENSIVE Specimen Typ e: PLASMA 09:00 AM METABOLIC PANEL+MG No comment en tered. Ordering Provid er: DRAKE MCNULTY Report Released Date/Time: December 16, 2021 10:37 AM Reporting Lab[facility] [address] Performing Lab: [facility] [address] CREATININE 0.8 0.7-1.2 UREA NITROGEN 18 8-26 [...] smoking and tobacco-related health factors from the [place] facility where the Encounter took place.Current Smoking Status This section includes the most current smoking, or tobacco-related health factor, from the [place] facility where the Encounter took place. Date/Time Current Smoking Status Comment Facility Apr 04, 2021 10:00 AM [place]-TOBACCO NEVER USED [facility] Encounter Notes: All associated encounter notes This section contains the clinical notes associated to the Encounter. Date/Time Encounter Note(s) Provider Source Feb 09, 2022 12:52 [facility] NO TE: SYEDA SEGAL [facility] PM LOCAL TITLE: PRIMARY CARE-MH INTEGRATION GROUP NOTE L STANDARD TITLE: MENTAL HEALTH E & M INTERDISCIPL INARY NOTE DATE OF NOTE: FEB 09, 2022@12:52 ENTRY DATE: FEB 09, 2022@12:52:37 AUTHOR: SYEDA SEGAL EXP COSIGNER: GILL PEREZ URGENCY: STATUS: COMPLETED PRIMARY CARE-MH INTEGRATION GROUP NOTE Has ADDENDA TITLE OF GROUP: BBTI (brief behavioral therapy f or insomnia) Group DATE: 02/09/22 SESSION: 2 of 5 TIME: 10:00a-11:00a SERVICE: GROUP PSYCHOTHERAPY ([id number]) MODALITY: VVC NUMBER OF PARTICIPANTS: 4 STAFF PRESENT: Sanket Euceda, Ph.D., exhaust emissions inspector; Syeda Segal M.A., administration intern. INFORMED CONSENT: Limits of confidential ity were discussed. Risks and benefits of treatment were discussed. Group telehealth co nsent reviewed and consented to VVC/ telehealth session. Veterans w [...] discuss with a group member and a belt puncher will contact them individually . DESCRIPTION OF GROUP: This Brief Behavioral [place]igh tment for Insomnia Group is a cognitive-behavioral group for insomn ia. Focus of session: The focus of this group was on the followin) Providing education about sleep: + Healthy sleep vs. abnormal sleep + Sleepiness vs. tiredness/fatigue + Homeostatic sleep process and circadian rhythm s + behaviors that hurt and help sleep 2) Four Rules: + Reduce your time in bed + Dont go to bed until your prescribed bedtime, or until you are sleepy +Get out of bed if you are not sleeping and dont engage in non-sleep behaviors in bed. +Get up at the same time every day 2) Reviewing sleep diaries. None of the Veterans complete a sleep diary. Reviewed purpose of sleep diaries and how to com plete them. RESPONSE AND BEHAVIORAL OBSERVATIONS: [place] was an active and engaged participant [x] yes Were threats to safety identified during this gr oup session: [x] no Risk Assessment (per chart review). Risk Assessment: Suicidality: Denies SI plans or intent. Homicidality: Denies HI plans or intent. Risk factors: age, race, gender, medical conditi ons Protective Factors: [x] Patient has at least one positive social sup port [] Spirituality [] Cultural and buddhist belief that supports s elf-preservation [x] Sense [...] the weekly VVC BBTI group if desired. [place] expressed agreement with plan. 2) Track sleep using mailed sleep diary. 3) Veterans were provided w/ Crisis Line and are a aware of crisis resources should they find themselves in crisis. 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 I meet weekly with the trainee to review this a nd other patients' care. I was not present for this group session, but I was available for i mmediate consultation. The patient was seen for group CBTI/BBTI. The patient will retur n in one week. /ken PEREZ Psy.D., STEVEN CLINICAL PSYCHOLOGIST Signed: 02/09/2022 13:50
--- OUTSIDE RECORDS SUMMARY | 2022-07-24 21:36 | XMS_ITS | Encounter Summary ---
:1945 Author Organization [facility] Address [address] [place] [address] Support Name Relationship Address Phone BANG MANN Unavailable [address] [place] [address] BANG MANN MEENAKSHI Unavailable [address] [phone] [place] [address] Insurance Providers: All historical and current Section Date Range: From patient's date of to the date document was created.This section includes the names of all active insurance providers for the patient. Insurance Type of Plan Start of End of Group Member Insurance Policy P atient's Provider Coverage Name Policy Policy Number ID Provider's Tanner's Relationship Coverage Coverage Telephone Name to Policy Number Tanner [facility] MEDICARE MEDIC Aug 13, [id number] VENESS,BECERRA P ATIENT [facility] (WNR) ADVANTAGE ARE 2020 5 [id number] [phone] [place] ADVAN 1 [place] C BCBS [place] MEDICARE MCR Aug 13, [id number] VENESS,BECERRA P ATIENT [facility] (WNR) ADVANTAGE (WNR) 2020 7 [id number] [phone] ROLD 1 [facility] MEDICARE [facility] Aug 13, [id number] [phone] VENESS ,BECERRA PATIENT MCR (WNR) ADVANTAGE (WNR) 2 5 [id number] 2 ROLD 1 MEDICARE MEDICARE PART Sep 13, PART B [id number] 800 Jesusita CONKLIN (WNR) (M) B 2012 [id number] [phone] [facility] MEDICARE MEDICARE PART Mar 13, PART A 800 Jesusita CONKLIN (WNR) (M) A [phone] [facility] MEDICARE MEDICARE PART Mar 13, PART A [id number] 800 Jesusita CONKLIN (WNVianney) (M) Rosalinda 2008 [id number] [phone] [facility] Selected Encounter This section includes the information on record at [place] for the Encounter. Date/Time Encounter Type Encounter Reason Provider Source Description Feb 03, 2022 12:12 Outpatient ADMIN PAT ACTIVSANKET KLEIN PM [facility] IHE Encounter Template Text not used by [place] Plan of Treatment: Future Appointments (+ 6 [...] 09, 2022 01:30 PM AMBULATORY - SURGERY [facility] Feb 16, 2022 10:00 AM AMBULATORY - PSYCHIATRY [facility] Feb 23, 2022 10:00 AM AMBULATORY - PSYCHIATRY [facility] Mar 02, 2022 10:00 AM AMBULATORY - PSYCHIATRY [facility] Mar 08, 2022 08:45 AM AMBULATORY - MEDICINE [facility] Mar 08, 2022 09:00 AM AMBULATORY - MEDICINE [facility] Mar 08, 2022 09:30 AM AMBULATORY - MEDICINE [facility] Mar 08, 2022 10:00 AM AMBULATORY - MEDICINE [facility] Mar 13, 2022 09:00 AM AMBULATORY - MEDICINE [facility] May 03, 2022 09:00 AM AMBULATORY - NONE [facility] Jun 16, 2022 09:30 AM AMBULATORY - MEDICINE [facility] Jun 16, 2022 10:00 AM AMBULATORY - MEDICINE [facility] Jun 16, 2022 10:30 AM AMBULATORY - MEDICINE [facility] Jul 10, 2022 02:00 PM AMBULATORY - NONE [facility] Jul 10, 2022 02:45 PM AMBULATORY - NONE [facility] Jul 10, 2022 03:00 PM AMBULATORY - MEDICINE [facility] Jul 24, 2022 09:30 AM AMBULATORY - MEDICINE [facility] Jul 25, 2022 11:00 AM AMBULATORY - REHAB MEDICINE [facility] Social History: Smoking Status (Most current) [...] 10:00 AM VA-TOBACCO NEVER USED [facility] Encounter Notes: All associated encounter notes This section contains the clinical notes associated to the Encounter. Date/Time Encounter Note(s) Provider Source Feb 02, 2022 12:13 PM NONVA NOTE: ZAYNAB ARENAS [facility] LOCAL TITLE: COMMUNITY CARE-ZEFERINO SELF PRESENTIN G CARE COORD PLAN STANDARD TITLE: NONVA NOTE DATE OF NOTE: FEB 02, 2022@12:13 ENTRY DATE: FEB 03, 2022@12:14:03 AUTHOR: ZAYNAB ARENAS EXP COSIGNER: URGENCY: STATUS: COMPLETED COMMUNITY CARE-ZEFERINO SELF PRESENTING CARE CO ORD PLAN NOTE Has ADDENDA Emergency Notification Intake Date Presenting to the Facility: Jan Method of Contact: Submitted to Centralized Call Center Notification ID: [id number] [facility] Referral #: [facility] Name: Hospital: [facility] Address: [address] [facility] City: [place] State: [place] Zip Code: [address] Phone : [facility] Point of Contact: Name: Kathrin Trejo Chief complaint: PALPITATIONS Primary Diagnosis: Disposition Unknown at time of intake note entry /tanner/ ZAYNAB ARENAS [facility] VISITS NURSE Signed: 02/03/2022 12:16 Receipt Acknowledged By: 02/06/2022 14:07 /tanner/ SANKET MORRELL RN MATERIAL HANDLING SUPERVISOR NURSE CRYSTALLOGRAPHY TEACHER 03/16/2022 ADDENDUM STATUS: COMPLETED Records requested for this episode of care x3, b ut not received. This [facility] RN will step out at this time, as I am unable to pr ocess further. /tanner/ SANKET MORRELL RN REGISTERED NURSE Signed: 03/16/2022 16:16
--- OUTSIDE RECORDS SUMMARY | 2022-07-24 21:36 | XMS_ITS | Encounter Summary ---
:1945 Author Organization [facility] [address] Address [address] [place] [address] Support Name Relationship Address Phone BANG MANN Unavailable [address] [facility] [phone] [place] [address] BANG MANN MEENAKSHI Unavailable [address] [facility] [place] [address] Insurance Providers: All historical and current Section Date Range: From patient's date of to the date document was created.This section includes the names of all active insurance providers for the patient. Insurance Type of Plan Start of End of Group Member Insurance Policy P atient's Provider Coverage Name Policy Policy Number ID Provider's Tanner's Relationship Coverage Coverage Telephone Name to Policy Number Tanner [facility] MEDICARE MEDIC Aug 13, [id number] VENESS,BECERRA P ATIENT [facility] (WNR) ADVANTAGE ARE 2020 5 [id number] [phone] [place] ADVAN 1 TAGE C [place] MEDICARE MCR Aug 13, [id number] VENESS,BECERRA P ATIENT [facility] (WNR) ADVANTAGE (WNR) 2020 7 [id number] [phone] [place] 1 [place] MED[place] M[place] Aug 13, [id number] [phone] VENESS ,BECERRA PATIENT MCR (WNR) ADVANTAGE (WNR) 2021 5 [id number] 2 ROLD 1 MEDICARE MEDICARE PART Sep 13, PART B [id number] 800 Jesusita CONKLIN (WNR) (M) B 2012 [id number] [phone] [facility] MEDICARE MEDICARE PART Mar 13, PART A 800 Jesusita CONKLIN (WNR) (M) A [phone] [facility] MEDICARE MEDICARE PART Mar 13, PART A [id number] 800 Jesusita CONKLIN (WNR) (Svetlana) Rosalinda 2008 [id number] [phone] [facility] Selected Encounter This section includes the information on record at [place] for the Encounter. Date/Time Encounter Type Encounter Reason Provider Source Description Feb 23, 2022 GROUP INTGRTD CARE ICD-10-CM F51.04 GILL PEREZ 10:00 AM PSYCHOTHERAPY GRP Psychophysiologic A insomnia with Provider Comments: Psychophysiologic insomnia IHE Encounter Template Text not used by [facility] Assessments - Encounter Diagnoses This section includes the primary and secondary diagnoses documented for the Encounter. Date/Time Primary/Secondary Diagnosis Name Provider Source Diagnosis Feb 23, 2022 PRIMARY Psychophysiologic LUZMASHERIE S [place] 12:18 PM insomnia SYEDA [place] [facility] Plan of Treatment: Future Appointments (+ [...] Appointment Type Appointment Facili ty Name Mar 02, 2022 10:00 AM AMBULATORY - PSYCHIATRY [facility] Mar 08, 2022 08:45 AM AMBULATORY - MEDICINE [facility] Mar 08, 2022 09:00 AM AMBULATORY - MEDICINE [facility] Mar 08, 2022 09:30 AM AMBULATORY - MEDICINE [facility] Mar 08, 2022 10:00 AM AMBULATORY - MEDICINE [facility] Mar 13, 2022 09:00 AM AMBULATORY - MEDICINE [facility] May 03, 2022 09:00 AM AMBULATORY - NONE [facility] Jun 16, 2022 09:30 AM AMBULATORY - MEDICINE [facility] Jun 16, 2022 10:00 AM AMBULATORY - MEDICINE [facility] Jun 16, 2022 10:30 AM AMBULATORY - MEDICINE [facility] Jul 10, 2022 02:00 PM AMBULATORY - NONE [facility] Jul 10, 2022 02:45 PM AMBULATORY - NONE [facility] Jul 10, 2022 03:00 PM AMBULATORY - MEDICINE [facility] Jul 24, 2022 09:30 AM AMBULATORY - MEDICINE [facility] Jul 25, 2022 11:00 AM AMBULATORY - REHAB MEDICINE [facility] Lab Results: +/- 30 days [...] Reference Range Comment Mar 08, 2022 09:00 [facility] BASIC METABOLIC Specimen Type: PLASMA AM PANEL+MG No comment enter ed. Ordering Provid er: ANNMARIE WALKER Report Released Date/Time: Nov 04, 2021 10:15 AM Reporting Lab: [facility] [address] [facility] [address] Performing Lab: [facility] [address] CREATININE 0.8 0.7-1.2 UREA NITROGEN 18 8-26 GLUCOSE 80 74-100 SODIUM 138 136-145 POTASSIUM 3.9 3.5-5.1 CHLORIDE 106 98-107 CO2 27 22-29 CALCIUM 9.1 8.4-10.2 MAGNESIUM 2.2 1.6-2.6 ANION GAP 5 5-15 CREAT EGFR(CKD-EPI) >90 >60 Mar 08, 2022 09:00 AM [facility] BNP Specim en Type: PLASMA No comment enter ed. Ordering Provid er: DRAKE MCNULTY Report Released Date/Time: December 16, 2021 10:37 AM Reporting Lab: [facility] [address] [facility] [address] Performing Lab: [facility] [address] [facility] [address] BNP 27 <99 Mar 08, 2022 [facility] COMPREHENSIVE Specimen Typ e: PLASMA 09:00 AM METABOLIC PANEL+MG No comment en tered. Ordering Provid er: DRAKE MCNULTY Report Released Date/Time: December 16, 2021 10:37 AM Reporting Lab: [facility] [address] [facility] [address] Performing Lab: [facility] [address] [facility] [address] CREATININE 0.8 0.7-1.2 UREA NITROGEN 18 8-26 [...] Comment Facility Apr 04, 2021 10:00 AM AR-TOBACCO NEVER USED RASHAUNKhari [facility] Encounter Notes: All associated encounter notes This section contains the clinical notes associated to the Encounter. Date/Time Encounter Note(s) Provider Source Feb 23, 2022 12:08 [facility] E [facility] M INTERDISCIPLINARY NO TE: SYEDA SEGAL [facility] LOCAL TITLE: PRIMARY CARE-MH INTEGRATION GROUP NOTE L STANDARD TITLE: MENTAL HEALTH E & M INTERDISCIPL INARY NOTE DATE OF NOTE: FEB 23, 2022@12:08 ENTRY DATE: FEB 23, 2022@12:08:53 AUTHOR: SYEDA SEGAL EXP COSIGNER: GILL PEREZ URGENCY: STATUS: COMPLETED PRIMARY CARE-MH INTEGRATION GROUP NOTE Has ADDENDA TITLE OF GROUP: Brief Behavioral Treatment for I nsomnia Group DATE: 02/23/22 SESSION: 11/15(week 3 of manual) Service: Group Psychotherapy ([id number]) TIME: 60 minutes NUMBER OF PARTICIPANTS: 2 TREATMENT MODALITY: [x] Video Visit [x]Address and e-contact verified. [x] [place] consented to videoconferencing forma [facility] Group telehealth agreement sent in advance of the group. Group rules were r eviewed. [place] verbally consented to group psychotherapy. Risks and bene fits of treatment were discussed. Visit conducted by synchronous telehealth. Veter an verbal consent obtained. Location/emergency number confirmed. Env ironment surveyed and all participants identified. Virtual conference room locked. Staff Present: Brenda Euceda, Ph.D., Curing Supervisor; Syeda Segal M.A. Photogrammetric Tech DESCRIPTION OF GROUP: This Brief Behavioral Kyleigh tmerobby for Insomnia Group is a cognitive-behavioral group [...] One complete d. 3) Used shared decision fe hightower to establish new sleep windows for Veterans based on sleep diary data. 4) Providers discussed safet y. Specifically, Veterans were advised not to drive or operate heavy machinery if sleepy. They were discouraged from excessive napping; however, were encouraged to priscila e a 20-30 minute nap if very sleepy or tired. RESPONSE AND BEHAVIORAL OBSERVATIONS: Carolyn was an active and en gaged participant. He completed his sleep diary this week, which was reviewed in session. Based on e results of his sleep data, set a goal to go to bed at 0030 and get out of bed by 0630. He identified some barriers (ca nnot awaken his spouse by setting an alarm), but was willing to attempt to stick to this schedule to the extent possible. Were threats to safety identified during this [...] Based on risk and protective factors, the gloria t is considered to be at LOW acute risk and LOW chronic risk for comm itting suicidal acts/self-harm at this time. PLAN: 1) RTC in one week for the weekly [facility] BBTI group if desired. 2) Track sleep using mailed sleep diary. 3) Veterans were provided w/ Crisis Line and are a aware of crisis resources should they find themselves in crisis. 4) Veterans expressed agreement with plan. DIAGNOSTIC IMPRESSIONS: PRIMARY (Focus of Treatment): Psychophysiologica l Insomnia /tanner/ SYEDA SEGAL Photogrammetric Tech Signed: 02/23/2022 13:38 /tanner/ GILL PEREZ Psy.D., STEVEN CLINICAL PSYCHOLOGIST Cosigned: 02/23/2022 14:20 02/23/2022 ADDENDUM STATUS: COMPLETED I have reviewed, edited, and concur with the trainee's note. I meet weekly with the trainee to review this a nd other patients' care. I was not present for this session, but I was available for immediate consu ltation. The patient was seen for group BBTI. The patient will return in [place]. /tanner/ GILL PEREZ Psy.D., LP CLINICAL PSYCHOLOGIST Signed: 02/23/2022 14:22
--- OUTSIDE RECORDS SUMMARY | 2022-07-24 21:37 | XMS_ITS | Encounter Summary ---
:1945 Author Organization [facility] Address [address] [place] [address] Support Name Relationship Address Phone BANG MANN MEENAKSHI Unavailable [phone] [facility] [place] [address] BANG MANN MEENAKSHI Unavailable [address] [facility] [place] [address] Insurance Providers: All historical and current Section [...] Tanner [place] MED[place] Aug 13, [id number] VENESS,BECERRA P ATIENT [facility] (WNR) ADVANTAGE ARE 2020 5 [id number] [phone] ROLD ADVAN 1 MOUSTAPHA C [place] MCR Aug 13, [id number] VENESS,BECERRA P ATIENT MCR (WNR) ADVANTAGE (WNR) 2020 7 [id number] [phone] R[place] 1 [place] Aug 13, [id number] [phone] VENESS ,BECERRA PATIENT MCR (WNR) ADVANTAGE (WNR) 2022 5 [id number] ROLD 1 MEDICARE MEDICARE PART Sep 13, PART B [id number] 800 Jesusita CONKLIN (WNR) (M) B 2012 [id number] [phone] [facility] MEDICARE MEDICARE PART Mar 13, PART A [id number] 800 Jessuita CONKLIN (WNR) (M) A 2008 [id number] [phone] [facility] MEDICARE MEDICARE PART Mar 13, PART A 800 Jseusita CONKLIN (WNR) (M) A [phone] [place] Selected Encounter This section includes the information on record at [place] for the Encounter. Date/Time Encounter Type Encounter Reason Provider Source Description Mar 08, 2022 ELECTROCARDIOGRAM EKG ICD-10-CM Z13.6 JOESPH TURK 09:00 AM COMPLETE Encounter for AN screening for cardiovascular disorders with Provider Comments: Encounter for Screening for Cardiovascular Disorders IHE Encounter Template Text not used by [place] Assessments - Encounter Diagnoses This section includes the primary and secondary diagnoses documented for the Encounter. Date/Time Primary/Secondary Diagnosis Name Provider Source Diagnosis Mar 08, 2022 PRIMARY Encounter for SKYLER JAVIER 02:49 PM screening for [facility] cardiovascular disorders Plan of Treatment: Future Appointments [...] Appointment Type Appointment Facili ty Name Mar 13, 2022 09:00 AM AMBULATORY - MEDICINE [facility] May 03, 2022 09:00 AM AMBULATORY - NONE [facility] Jun 16, 2022 09:30 AM AMBULATORY - MEDICINE [facility] Jun 16, 2022 10:00 AM AMBULATORY - MEDICINE [facility] Jun 16, 2022 10:30 AM AMBULATORY - MEDICINE [facility] Jul 10, 2022 02:00 PM AMBULATORY - NONE [facility] Jul 10, 2022 02:45 PM AMBULATORY [facility] Jul 10, 2022 03:00 PM AMBULATORY - MEDICINE [facility] Jul 24, 2022 09:30 AM AMBULATORY - MEDICINE [facility] Jul 25, 2022 11:00 AM AMBULATORY - REHAB MEDICINE [facility] Lab Results: +/- 30 days of the encounter This section includes the Chemistry and Hematology Lab Results on record with [place] for the patient. Radiology Reports and Pathology Reports are provided separately, in subsequent sections.Lab Results This section contains the Chemistry/Hematology Results that were resulted 30 days before or 30 daysafter the date of the Encounter. Date/Time Source Result Type Result - Unit Interpretation Reference Range Comment Mar 08, 2022 09:00 [facility] BASIC METABOLIC Specimen Type: PLASMA AM PANEL+MG No comment enter ed. Ordering Provid er: ANNMARIE WALKER Report Released Date/Time: Nov 04, 2021 10:15 AM Reporting Lab: [facility] [id number] Performing Lab: [facility] [address] CREATININE 0.8 0.7-1.2 UREA NITROGEN 18 8-26 GLUCOSE 80 74-100 SODIUM 138 136-145 POTASSIUM 3.9 3.5-5.1 CHLORIDE 106 98-107 CO2 27 22-29 CALCIUM 9.1 8.4-10.2 MAGNESIUM 2.2 1.6-2.6 ANION GAP 5 5-15 CREAT EGFR(CKD-EPI) >90 >60 Mar 08, 2022 09:00 AM [facility] BNP Specim en Type: PLASMA No comment enter ed. Ordering Provid er: DRAKE MCNULTY Report Released Date/Time: December 16, 2021 10:37 AM Reporting Lab: [facility] [id number] Performing Lab: [facility] [id number] BNP 27 <99 Mar 08, 2022 [facility] COMPREHENSIVE Specimen Typ e: PLASMA 09:00 AM METABOLIC PANEL+MG No comment en tered. Ordering Provid er: DRAKE MCNULTY Report Released Date/Time: December 16, 2021 10:37 AM Reporting Lab: [facility] [id number] Performing Lab: [facility] [address] CREATININE 0.8 0.7-1.2 UREA NITROGEN 18 8-26 [...] dy Source Pressure Rate Mass Index Mar 08, 96.8 F 58 124/74 16 /min 100 % 0 151.1 22 [place] 2021 09:08 /min mm[Hg] lb [facility] Social History: Smoking Status (Most current) and [...] 10:00 AM [place]-TOBACCO NEVER USED [facility]
--- OUTSIDE RECORDS SUMMARY | 2022-07-24 21:37 | XMS_ITS | Encounter Summary ---
:1945 Author Organization [facility] Address [address] [place] [address] Support Name Relationship Address Phone BANG MANN Unavailable [address] [facility] [place] [address] BANG MANN MEENAKSHI Unavailable [address] [place] [address] Insurance Providers: All historical and current Section [...] Tanner [place] Aug 13, [id number] VENESS,BECERRA P ATIENT [facility] (WNR) ADVANTAGE ARE 2020 5 [id number] [phone] [place] ADVAN 1 MOUST[place] C [place] M[place] Aug 13, [id number] VENESS,BECERRA P ATIENT [facility] (WNR) ADVANTAGE (WNR) 2020 7 [id number] [phone] [place] 1 [place] Aug 13, [id number] [phone] VENESS ,BECERRA PATIENT [facility] (WNR) ADVANTAGE (WNR) 2021 5 [id number] 2 ROLD 1 MEDICARE MEDICARE PART Sep 13, PART B [id number] 800 Jesusita CONKLIN (WNR) (M) B 2012 VN81 [phone] [facility] MEDICARE MEDICARE PART Mar 13, PART A 800 Jesusita CONKLIN (WNR) (M) A [phone] [facility] MEDICARE MEDICARE PART Mar 13, PART A [id number] 800 Jesusita CONKLIN (WNR) (M) Rosalinda 2008 VN81 [phone] [place] Selected Encounter This section includes the information on record at [place] for the Encounter. Date/Time Encounter Type Encounter Reason Provider Source Description Mar 08, 2022 OFFICE O/P EST CARDIOLOGY ICD-10-CM I50.20 ST Angela MCNULTY 09:30 AM MOD 30-39 MIN Unspecified PHANIE K systolic (congestive) heart failure with Provider Comments: Heart failure with reduced ejection fraction ([facility] [id number]) IHE Encounter Template Text not used by [place] Assessments - Encounter Diagnoses This section includes the primary and secondary diagnoses documented for the Encounter. Date/Time Primary/Secondary Diagnosis Name Provider Source Diagnosis Mar 08, [address] COTY MCNULTY [place] 12:33 PM systolic EPHANIE K [facility] (congestive) heart failure Mar 08, 2022 SECONDARY Hyperlipidemia, HAMLET,[facility] COTY [place] 12:33 PM unspecified EPHANIE K [facility] Mar 08, [address] [facility] [place] 12:33 PM apnea (adult) EPHANIE K [facility] (pediatric) Mar 08, 2022 SECONDARY Unspecified atrial [place] [place] 12:33 PM fibrillation EPHANIE K [facility] Plan of Treatment: Future Appointments (+ 6 months) and Future Tests (+/- 45 days) The Plan of Treatment section includes future care activities for the patient from all [place] treatmentfacilities. This section includes future appointments and future orders which are active, pending orscheduled.Future Appointments This section includes appointments that were scheduled to occur 6 months from the date of the Encounter, up to a maximum of 20 appointments. The data comes from all [place] treatment facilities. Appointment Date/Time Appointment Type Appointment Facili ty Name Mar 13, 2022 09:00 AM AMBULATORY - MEDICINE [facility] May 03, 2022 09:00 AM AMBULATORY - NONE [facility] Jun 16, 2022 09:30 AM AMBULATORY - MEDICINE [facility] Jun 16, 2022 10:00 AM AMBULATORY - MEDICINE [facility] Jun 16, 2022 10:30 AM AMBULATORY - MEDICINE [facility] Jul 10, 2022 02:00 PM AMBULATORY - NONE [facility] Jul 10, 2022 02:45 PM AMBULATORY - [facility] Jul 10, 2022 03:00 PM AMBULATORY - MEDICINE [facility] Jul 24, 2022 09:30 AM AMBULATORY - MEDICINE [facility] Jul 25, 2022 11:00 AM AMBULATORY - REHAB MEDICINE [facility] Lab Results: +/- 30 days of the encounter This section includes the Chemistry and Hematology Lab Results on record with [place] for the patient. Radiology Reports and Pathology Reports are provided separately, in subsequent sections.Lab Results This section contains the Chemistry/Hematology Results that were resulted 30 days before or 30 daysafter the date of the Encounter. Date/Time Source Result Type Result - Unit Interpretation Reference Range Comment Mar 08, 2022 09:00 [facility] BASIC METABOLIC Specimen Type: PLASMA AM PANEL+MG No comment enter ed. Ordering Provid er: ANNMARIE WALKER Report Released Date/Time: Nov 04, 2021 10:15 AM Reporting [facility] [id number] Performing Lab: [facility] [address] CREATININE 0.8 0.7-1.2 UREA NITROGEN 18 8-26 GLUCOSE 80 74-100 SODIUM 138 136-145 POTASSIUM 3.9 3.5-5.1 CHLORIDE 106 98-107 CO2 27 22-29 CALCIUM 9.1 8.4-10.2 MAGNESIUM 2.2 1.6-2.6 ANION GAP 5 5-15 CREAT EGFR(CKD-EPI) >90 >60 Mar 08, 2022 09:00 AM [facility] BNP Specim en Type: PLASMA No comment enter ed. Ordering Provid er: LILIANA MCNULTY Report Released Date/Time: December 16, 2021 10:37 AM Reporting Lab[facility] [address] Performing Lab: [facility] [address] BNP 27 <99 Mar 08, 2022 [facility] COMPREHENSIVE Specimen Typ e: PLASMA 09:00 AM METABOLIC PANEL+MG No comment en tered. Ordering Provid er: LILIANA MCNULTY Report Released Date/Time: December 16, 2021 10:37 AM Reporting Lab: [facility] [address] [facility] [address] Performing Lab: [facility] [address] CREATININE 0.8 0.7-1.2 UREA NITROGEN 18 8-26 [...] 22 [place] 2021 09:08 /min mm[Hg] lb [facility] Social History: Smoking Status (Most current) and Tobacco Use (All prior to encounter date) This section includes the most current, and the historical, smoking and tobacco-related health factors from the [place] facility where the Encounter took place.Current Smoking Status This section includes the most current smoking, or tobacco-related health factor, from the [place] facility where the Encounter took place. Date/Time Current Smoking Status Comment Facility Apr 04, 2021 10:00 AM [place]-TOBACCO NEVER USED [facility] Encounter Notes: All associated encounter notes This section contains the clinical notes associated to the Encounter. Date/Time Encounter Note(s) Provider Source Mar 08, 2022 09:30 CARDIOLOGY ATTENDING OUTPATIENT NOTE: ALANA ESCALANTE [facility] LOCAL TITLE: CARDIOLOGY CLINIC NOTE E K STANDARD TITLE: CARDIOLOGY ATTENDING OUTPATIENT NOTE DATE OF NOTE: MAR 08, 2022@09:30 ENTRY DATE: MAR 08, 2022@12:17:09 AUTHOR: ALANA MCNULTY EXP COSIGNER: URGENCY: STATUS: COMPLETED CHF Clinic Follow Up HPI:YOUSIF MANN 76y/o male w ith a past medical history significant for heart failure with reduced EF, NICM, chronic atrial fibrillation on anticoagulation, hearing loss, ROSA non-compliant with CPAP, HLD and ED who presents to the heart failure clinic today for c ontinued medication optimization. Since our last visit, he has had 2 ER visits at [place] due to afib with RVR and dehydration. Most recent visit was for which he underwent DCCV. 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 Since then, he states he has been doing well. He brings his log of blood pressures and w eights, both have which been stable. He remains active on his far m without limiting symptoms. He lives with his who is also [...] ACTIVE MOUTH AT BEDTIME FOR CHOLESTEROL 2) BANDAGE,FLEXIBLE FABRIC 1IN X 3IN USE 1 ALARCON GE ACTIVE TOPICALLY DIRECTED 3) CARVEDILOL 3.125MG TAB TAKE ONE TABLET BY OMER TH TWO ACTIVE TIMES A DAY WITH FOOD. FOR HEART. 4) CEPHALEXIN 500MG CAP TAKE ONE CAPSULE BY MOUT H THREE ACTIVE TIMES A DAY 5) DOFETILIDE 500MCG CAP TAKE ONE CAPSULE BY OMER TH TWO ACTIVE TIMES A DAY TO KEEP A NORMAL HEART BEAT 6) EMPAGLIFLOZIN 25MG TAB TAKE ONE-HALF TABLET B Y MOUTH ACTIVE EVERY MORNING 7) LISINOPRIL 5MG TAB TAKE ONE TABLET BY MOUTH T WO TIMES ACTIVE A DAY FOR HEART FAILURE. 8) PEG 400 0.4%/PROP GLYCOL 0.3% OPH SOLN INSTIL L 1 DROP ACTIVE IN BOTH EYES FOUR TIMES A DAY FOR EYE IRRITATION/DRYNESS 9) RIVAROXABAN 20MG TAB TAKE ONE TABLET BY MOUTH EVERY ACTIVE DAY WITH THE LARGEST MEAL OF THE DAY TO PREVENT BLOOD CLOTS & STROKE 10) SILDENAFIL CITRATE 100MG TAB TAKE ONE-HALF T ABLET BY ACTIVE MOUTH EVERY DAY NEEDED FOR ERECTIONS - TAKE 1 HOUR BEFORE ANTICIPATED SEXUAL ACTIVITY--MAXIMU M 4 DOSES FOR 30-DAY SUPPLY. 11) SILVER SULFADIAZINE 1% CREAM APPLY TO AFFECT ED AREA ACTIVE TOPICALLY TWICE A DAY EXTERNAL USE ONLY MEDICATION RECONCILIATION: The medication list above was reviewed with the patient/surrogate and if changes are indicated they are listed ab ove. Vitals: Temperature: 96.8 F [36.0 C] (03/08/2022 09:08) Pulse: 58 (03/08/2022 09:08) Respirations: 16 (03/08/2022 09:08) Blood Pressure: 124/74 (03/08/2022 09:08) Pain: 0 (03/08/2022 09:08) RR: unlabored at rest O2 Sat:100% (03/08/2022 09:08) Weight: 151.1 lb [68.54 kg] (03/08/2022 09:08) PERTINENT EXAM: General: NAD, A/Ox3 HEENT: Atraumatic and normocephalic. NECK: Supple. Neck veins flat. LUNGS: clear throughout, normal expansion HEART: s1, s2, no murmur, rub or gallop ABDOMEN: Soft and nontender. EXTREMITIES: no edema, pulses present bilaterall y PSYCHOLOGICAL: Normal affect. LABS: GLUCOSE: 80 UREA NITROGEN: 18 CREATININE: 0.8 SODIUM: 138 POTASSIUM: 3.9 CHLORIDE: 106 CO2: 27 CALCIUM: 9.1 MAGNESIUM: 2.2 ANION GAP: 5 CREATININE EGFR (CKD-EPI): >90 GLUCOSE: 77 UREA NITROGEN: 18 CREATININE: 0.8 SODIUM: 138 POTASSIUM: 3.9 CHLORIDE: 106 CO2: 27 CALCIUM: 9.0 PROTEIN,TOTAL: 6.6 ALBUMIN: 3.8 BILIRUBIN,TOTAL: 0.8 MAGNESIUM: 2.2 ANION GAP: 5 ALKALINE PHOSPHATASE(37C): 62 SGOT(37C): 25 SGPT(37C): 27 CREATININE EGFR (CKD-EPI): >90 B-TYPE NATRIURETIC PEPTIDE: 27 ------- Assessment/Plan: ------- # Heart failure: Currently stable without eviden ce of decompensation on exam. His blood pressure log today shows borderline hy potension will hold off on further medication titration at this time MRA not indicated with EF greater than 40 and NYHA class I symptoms . Repeat echocardiogram today shows reocvery of his EF 55-60%. He meets criteria to be discharged from CHF clinic. He will continue to follow with EP for afib management. - EF: 40-45% - Etiology: NICM, presumed tachy-mediated - Stage: C - NYHA class: II GDMT: -- ACEi/ARB/ARNI: Lisinopril 5 mg BID -- Hydal/ISDN: -- -- BB: Carvedilol 3.125 mg BID -- MRA: -- -- SGLT-2: empagliflozin 12.5 mg daily -- Diuretic: -- Medications Optimized: No Device: Not indicated with EF >35% Telehealth: -- Last hospitalization: 07/2021 for dofetilide start This patient has been evalua heydi and treated by the Heart Failure Program at the [facility] and has met criteria for graduating from the program. If there is a significant change in their conditi on, a new consult may be generated for further assessment by the heart failure team. In general, the criteria for graduation include one or more of the following: - No recent hospitalizations for heart failure - Relatively stable doses of diuretics - Optimized Guideline Directed Medical Therapy - Patient non-adherence Heart failure RN phone line for questions: [phone] There is a CHF class/support group available for interested patients for more information, call the nurse line above Recommendations for the ongoing management of he art failure include o Heart Failure medications should be continued whenever possible o Recommend a BMP every 3-6 months with a clinic al assessment depending on the patients clinical status o Routine surveillance echo imaging is not indic ated unless there is a significant change in signs or symptoms o Patients with implantable cardiac devices and those taking antiarrhythmic drugs other than amiodarone will be monitored by our EP service, no action is required o Diuretic dosing adjustments may be necessary a nd should be followed by a BMP in 1-2 weeks o There is no need to decrease drug doses for as ymptomatic hypotension if SBP is >=80mmHg o Continue low sodium diet (<2000mg per day) and refer to dairy nutritionist as needed for ongoing support Assessment and plan discussed with in fu ll detail with all questions answered. [facility] including chart review/diagnostic and testing review, patient interview/examination, counselin g and documentation was 35 minutes. Thank you for allowing me to participate in the care of YOUSIF MANN. Please contact me with any q uestions or concerns. Liliana Mcnulty NP Heart Failure Clinic /es/ LILIANA MCNULTY APRN NURSE PRACTITIONER Signed: 03/08/2022 12:33 Receipt Acknowledged By: * AWAITING SIGNATURE * JARRED GARCIA * AWAITING SIGNATURE * KECIA COTTO Mar 08, 2022 09:10 INTERNAL MEDICINE OUTPATIENT NOTE: KESHAV ALVAREZ [facility] AM LOCAL TITLE: MEDICINE CLINIC NURSING NOTE STANDARD TITLE: INTERNAL MEDICINE OUTPATIENT NOT E DATE OF NOTE: MAR 08, 2022@09:10 ENTRY DATE: MAR 08, 2022@09:10:14 AUTHOR: ANEUDY ALVAREZ EXP COSIGNER: URGENCY: STATUS: COMPLETED TYPE OF VISIT: Appointment Check In Type of appointment: In-person appointment REASON FOR VISIT: Scheduled ALLERGIES: Patient has answered NKA VITAL SIGNS: Blood Pressure: 124/74 (03/08/2022 09:08) Pulse: 58 (03/08/2022 09:08) Respiration: 16 (03/08/2022 09:08) Temperature: 96.8 F [36.0 C] (03/08/2022 09:08) Weight: 151.1 lb [68.54 kg] (03/08/2022 09:08) Height: 68.898 in [175.0 cm] (12/16/2021 10:03) BMI: 22.4 O2 Sat: 100% (03/08/2022 09:08) Pain: 0 (03/08/2022 09:08) PAIN SCREEN: Patient is not having significant pain that the y wish to discuss with their provider today. MEDICATION Over the Counter/Herbal Medications: The patient denies taking any outside medicatio ns or herbals. Congestive Heart Failture (CHF) Clinic Does have a home scale? Yes Comins's weight this mornin lbs Does weigh themselves every morning? Ye s Does Comins have shortness of breath? No How many pillows are under the 's head a t night? 1 Does Comins sleep in a recliner? No Does Comins use a wedge while sleeping? No Does wake up during the night due to sh ortness of breath? No Does Comins have a cough? No Does ever notice fluid in their legs? Yes When? When he does not wear support hose Does ever wear support hose? Yes Does Comins have chest pain? No Does Comins experience lightheadedness/dizzine ss? No Does Comins use a salt shaker at the table/whe n cooking? No Does Comins have Home Telehealth CHF monitorin g: No: Given Home Telehealth brochure to review an d discuss with provider /tanner/ ANEUDY ALVAREZ LPN, LPN Signed: 03/08/2022 09:13
--- OUTSIDE RECORDS SUMMARY | 2022-07-24 21:37 | XMS_ITS | Encounter Summary ---
:1945 Author Organization [facility] Address [address] [place] [address] Support Name Relationship Address Phone BANG MANN Unavailable [address] [facility] [place] [address] BANG MANN MEENAKSHI Unavailable [address] [facility] [place] [address] Insurance Providers: All historical and current Section [...] Tanner [place] Aug 13, [id number] VENESS,BECERRA P ATIENT [facility] (WNR) ADVANTAGE ARE 2020 5 [id number] [phone] ROLD ADVAN 1 MOUSTAPHA C [place] M[place] Aug 13, [id number] VENESS,BECERRA P ATIENT MCR (WNR) ADVANTAGE (WNR) 2020 7 [id number] [phone] [facility] MEDICARE [facility] Aug 13, [id number] [phone] VENESS ,BECERRA PATIENT MCR (WNR) ADVANTAGE (WNR) 2022 5 [id number] 2 ROLD 1 MEDICARE MEDICARE PART Sep 13, PART B [id number] 800 Jesusita CONKLIN (WNR) (M) B 2012 [id number] [phone] [facility] MEDICARE MEDICARE PART Mar 13, PART A [id number] 800 Jesusita CONKLIN (WNR) (M) A 2008 [id number] [phone] [facility] MEDICARE MEDICARE PART Mar 13, PART A 800 Jesusita CONKLIN (WNR) (M) A [phone] [place] Selected Encounter This section includes the information on record at [place] for the Encounter. Date/Time Encounter Type Encounter Reason Provider Source Description Mar 13, 2022 Outpatient TELEPHONE/MEDICIN ICD-10-CM I48.91 CHANTELLUSEVianneyNO RA 09:00 AM Encounter E Unspecified N atrial fibrillation with Provider Comments: Atrial fibrillation ([facility] [id number]) IHE Encounter Template Text not used by [place] Assessments - Encounter Diagnoses This section includes the primary and secondary diagnoses documented for the Encounter. Date/Time Primary/Secondary Diagnosis Name Provider Source Diagnosis Mar 13, 2022 PRIMARY Unspecified atrial GLAUSERANNMARIE IS [facility] 09:00 AM fibrillation N [facility] Plan of Treatment: Future Appointments (+ [...] Date/Time Appointment Type Appointment Facili ty Name May 03, 2022 09:00 AM AMBULATORY - NONE [facility] Jun 16, 2022 09:30 AM AMBULATORY - MEDICINE [facility] Jun 16, 2022 10:00 AM AMBULATORY - MED[facility]INE [facility] Jun 16, 2022 10:30 AM AMBULATORY - MEDICINE [facility] Jul 10, 2022 02:00 PM AMBULATORY - [facility] Jul 10, 2022 02:45 PM AMBULATORY [facility] Jul 10, 2022 03:00 PM AMBULATORY - MEDICINE [facility] Jul 24, 2022 09:30 AM AMBULATORY - MEDICINE [facility] Jul 25, 2022 11:00 AM AMBULATORY - REHAB MEDICINE [facility] Lab Results: +/- [...] Reference Range Comment Mar 08, 2022 09:00 [facility] BASIC METABOLIC Specimen Type: PLASMA AM PANEL+MG No comment enter ed. Ordering Provid er: ANNMARIE WALKER Report Released Date/Time: Nov 04, 2021 10:15 AM Reporting Lab: [facility] [address] Performing Lab: [facility] [address] CREATININE 0.8 0.7-1.2 UREA NITROGEN 18 8-26 GLUCOSE 80 74-100 SODIUM 138 136-145 POTASSIUM 3.9 3.5-5.1 CHLORIDE 106 98-107 CO2 27 22-29 CALCIUM 9.1 8.4-10.2 MAGNESIUM 2.2 1.6-2.6 ANION GAP 5 5-15 CREAT EGFR(CKD-EPI) >90 >60 Mar 08, 2022 09:00 AM [facility] BNP Specim en Type: PLASMA No comment enter ed. Ordering Provid er: DRAKE MCNULTY Report Released Date/Time: December 16, 2021 10:37 AM Reporting Lab: [facility] [id number] Performing Lab: [facility] [id number] BNP 27 <99 Mar 08, 2022 [facility] COMPREHENSIVE Specimen Typ e: PLASMA 09:00 AM METABOLIC PANEL+MG No comment en tered. Ordering Provid er: DRAKE MCNULTY Report Released Date/Time: December 16, 2021 10:37 AM Reporting Lab: [facility] [address] Performing Lab: [facility] [address] CREATININE 0.8 0.7-1.2 UREA NITROGEN 18 8-26 [...] 10:00 AM [place]-TOBACCO NEVER USED [facility] Encounter Notes: All associated encounter notes This section contains the clinical notes associated to the Encounter. Date/Time Encounter Note(s) Provider Source Mar 13, 2022 08:27 AM CARDIOLOGY DIAGNOSTIC STUDY NOTE: ANNMARIE WALKER [facility] LOCAL TITLE: CARDIOLOGY ELECTROPHYSIOLOGY NOTE STANDARD TITLE: CARDIOLOGY DIAGNOSTIC STUDY NOTE DATE OF NOTE: MAR 13, 2022@08:27 ENTRY DATE: MAR 13, 2022@08:27:42 AUTHOR: ANNMARIE WALKER EXP COSIGNER: URGENCY: STATUS: COMPLETED CARDIAC ELECTROPHYSIOLOGY TELEPHONE CLINIC NOTE This visit was completed via telephone CC: F/U persistent atrial fibrillation, cardiomy opathy, dofetilide HPI: Patient is a 76 year-old male with past med ical history including HFmrEF (TTE 05/2021 with LVEF 40-45%), h/o longs tanding persistent atrial fibrillation with no prior rhythm control attemp ts for years s/p dofetilide initiation 06/2021, mild ROSA not on CPAP, HLD, m acular degeneration, hearing loss and tinnitus. He was previously followed by a cardiolo gist through [facility] and had a known dx of initially paroxysmal and more recently persis tent atrial fibrillation for years. He denies any hx antiarrhythmic d rug use, cardioversions, or ablations. He has been on anticoagulation with rivaroxaban. He was having issues with shortness of breath fall 2020 and TTE was ordere d showing mild-moderately reduced LVEF. He was referred to EP for rhythm c ontrol and dofetilide was initiated during hospitalization 07/11-07/14/21. He converted to sinus rhythm after 1 dose of dofetilide and tolerated 500 mcg bid dosing. Patient was contacted over the phone today for f /u. He had recent TTE showing normalization of LV function with LVEF 55-60%. He reports some mild fatigue, but otherwise denies any cardiac concerns. Jesusita doan denies current palpitations, dyspnea on exertion, chest pain/pressure, lightheadednes s, dizziness, presyncope, syncope, orthopnea, PND, or LE edema. He does wake up in the mornings with some mild b/l hand numbness at times. PAST MEDICAL HISTORY Active problems - Computerized Problem List is t he source for the followin. Atrial fibrillation 2. Hyperlipidemia 3. Age related macular degeneration 4. Hearing loss 5. Tinnitus 6. Tremor 7. Obstructive sleep apnea - Non-compliant with CPAP. 8. Erectile dysfunction 9. Heart failure with reduced ejection fraction 10. Ingrown toenail -----PRIOR CARDIAC TESTING----- -- TTE (03/08/22): The left ventricular systolic function is normal . The visually estimated ejection fraction is 55-6 0%. There is mild aortic sclerosis without stenosis. Trivial aortic regurgitation Mild bi-atrial enlargement The right ventricle size is borderline enlarged. The right ventricular systolic function is lulú l. The IVC is moderately dilated with an abnormal r espiratory collapse, suggestive of increased right atrial pressure. -- TTE (06/10/21): 1. Normal left ventricular size with mildly redu olga systolic function. Estimated left ventricular ejection fraction 40- 45% with dzyq-ow-lonj variability due to atrial fibrillation. 2. Mild global hypokinesis. 3. Mild right ventricular enlargement with mildl y reduced systolic function. Estimated right ventricular systolic pressure 37 mm Hg. 4. Bi-atrial enlargement. 5. Mild mitral valve regurgitation. 6. Dilated inferior vena cava with reduced inspi ratory collapse. 7. Tiny posterior pericardial effusion. 8. No prior study for comparison. -- Echocardiogram OSH 2019: 1. Normal LV size, mildly increased wall thickne ss, mildly reduced global systolic function with an estimated EF of 45%. 2. Right ventricular cavity size is normal, glob al systolic RV function is borderline reduced. 3. Trivial pericardial effusion. -- PFTs OSH 2020: Normal spirometry. -- Latest EKG (03/08/22): Sinus rhythm 60 bpm, QTc 452 msecs ALLERGIES Patient has answered [facility] ALLERGY/ADR -------- No Remote Allergy/ADR Data available for this pa kaykay [facility] No Known Allergies MEDICATIONS Active and Recently [...] ACTIVITY--MAXIMU M 4 DOSES FOR 30-DAY SUPPLY. 9) SILVER SULFADIAZINE 1% CREAM APPLY TO AFFECTE D AREA ACTIVE TOPICALLY TWICE A DAY EXTERNAL USE ONLY Inactive Outpatient Medications Status 1) CEPHALEXIN 500MG CAP TAKE ONE CAPSULE BY MOUT H THREE TIMES A DAY 10 Total Medications No Active Remote Medications for this patient LABS SODIUM 138 (03/08/22) POTASSIUM 3.9 (03/08/22) MAGNESIUM 2.2 (03/08/22) UREA NITROGEN 18 (03/08/22) CREATININE 0.8 (03/08/22) GLUCOSE 80 (03/08/22) WBC 4.77 (11/08/21) HGB 13.7 (11/08/21) PLT 128 L (11/08/21) Collection DT Specimen Test Name Result Units Re f Range 07/27/2021 10:32 PLASMA TSH 0.50 uIU/mL 0.35 - 4 .94 Collection DT Specimen Test Name Result Units Re f Range 03/08/2022 09:00 PLASMA BILIRUBIN, TOTAL 0.8 mg/ dL 0.2 - 1.2 03/08/2022 09:00 PLASMA ALKALINE PHOSPHAT 62 U/L 40 - 150 03/08/2022 09:00 PLASMA AST/SGOT 25 U/L Ref: <=3 4 03/08/2022 09:00 PLASMA ALT/SGPT 27 U/L Ref: <=5 5 11/10/2020 13:21 PLASMA GAMMA GTP 40 U/L 4 - 64 04/04/2021 08:46 PLASMA DIR. BILIRUBIN 0.4 mg/dL Ref: <=0.5 ASSESSMENT/PLAN 1. H/O persistent atrial fibrillation: S/P dofet ilide loading during admit 07/11-07/14/21 - converted with 1 dose dofetilide , discharged on 500 mcg bid. -- He is maintaining sinus rhythm on dofetilide 500 mcg bid - recent EKG with stable QTc WNL, labs stable with CrCl > 60. Advised on importance of not missing doses and checking on drug interactions with any new medications -- His CHADSVASC score is 3 (age++, CHF) and he is anticoagulated with rivaroxaban. He denies bleeding concerns -- We again today discussed senior care treatment o ptions including ongoing dofetilide vs PVI - for now happy to continue on dofetilide -- We discussed risk factor modification for AFib including weight management, regular exercise, moderation of alcohol intake, control of blood pressure and treatment of any underlying ROSA - following w/ s [facility] medicine who is not advising CPAP due to mild ROSA 2. H/O HFmrEF, LV function normalized with rhyth m control: Suspect tachycardia/arrhythmia mediated given normalizat ion with uatsdin of sinus rhythm. He is on lisinopril, carvedilol and empa gliflozin. I did offer to D/C his carvedilol given mild fatigue and no clear i ndication, but he is fine staying on it. Follow up: 3 months or sooner as needed. Patient was given my contact information and encouraged to contact me if he h as questions or concerns that arise in the interim. Time spent: 24 minutes /tanner/ ANNMARIE WALKER PA-C PHYSICIAN [employer] L[employer] TEACHER Signed: 03/13/2022 09:18
--- OUTSIDE RECORDS SUMMARY | 2022-07-24 21:37 | XMS_ITS | Encounter Summary ---
:1945 Author Organization [facility] Address [address] [place] [address] Support Name Relationship Address Phone BANG MANN MEENAKSHI Unavailable [address] [facility] [place] [address] BANG MANN MEENAKSHI Unavailable [address] [facility] [place] [address] Insurance Providers: All historical and current Section [...] Tanner [place] Aug 13, [id number] VENESS,BECERRA P ATIENT [facility] (WNR) ADVANTAGE ARE 2020 5 [id number] [phone] [place] ADVAN 1 MOUST[place]HA C [place] Aug 13, [id number] VENESS,BECERRA P ATIENT MCR (WNR) ADVANTAGE (WNR) 2020 7 [id number] [phone] R[place] 1 [place] Aug 13, [id number] [phone] VENESS ,BECERRA PATIENT MCR (WNR) ADVANTAGE (WNR) 2022 5 [id number] ROLD 1 MEDICARE MEDICARE PART Sep 13, PART B [id number] 800 Jesusita CONKLIN (WNR) (M) B 2012 [id number] [phone] [facility] MEDICARE MEDICARE PART Mar 13, PART A 800 Jesusita CONKLIN (WNR) (M) A [phone] [facility] MEDICARE MEDICARE PART Mar 13, PART A [id number] 800 Jesusita CONKLIN (WNR) (M) A 2008 [id number] [phone] [place] Selected Encounter This section includes the information on record at [place] for the Encounter. Date/Time Encounter Type Encounter Description Reason Provider Source Apr 18, 2022 11:58 Outpatient Encounter TELEPHONE TRIAGE AM IHE Encounter Template Text not used by OR Plan of Treatment: Future Appointments (+ 6 months) and Future Tests (+/- 45 days) The Plan of Treatment section includes future care activities for the patient [facility]. This section includes future appointments and future orders which are active, pending orscheduled.Future Appointments This section includes appointments that were scheduled to occur 6 months from the date of the Encounter, up to a maximum of 20 appointments. The data comes from all OR treatment facilities. Appointment Date/Time Appointment Type Appointment Facili ty Name May 03, 2022 09:00 AM AMBULATORY - NONE [facility] Jun 16, 2022 09:30 AM AMBULATORY - MEDICINE [facility] Jun 16, 2022 10:00 AM AMBULATORY - MEDICINE [facility] Jun 16, 2022 10:30 AM AMBULATORY - MEDICINE [facility] Jul 10, 2022 02:00 PM AMBULATORY - NONE [facility] Jul 10, 2022 02:45 PM AMBULATORY [facility] Jul 10, 2022 03:00 PM AMBULATORY - MEDICINE [facility] Jul 24, 2022 09:30 AM AMBULATORY - MEDICINE [facility] Jul 25, 2022 11:00 AM AMBULATORY - REHAB MEDIC[facility] Social History: Smoking Status (Most [...] Comment Facility Apr 04, 2021 10:00 AM [place]-TOBACCO NEVER USED [facility] Encounter Notes: All associated encounter notes This section contains the clinical notes associated to the Encounter. Date/Time Encounter Note(s) Provider Source Apr 18, 2022 11:58 AM REPORT OF CONTACT: DIANRDA RIVERA [facility] LOCAL TITLE: PATIENT CONTACT NOTE STANDARD TITLE: REPORT OF CONTACT DATE OF NOTE: APR 18, 2022@11:58 ENTRY DATE: APR 18, 2022@11:58:28 AUTHOR: DIANDRA RIVERA EXP COSIGNER: URGENCY: STATUS: COMPLETED Primary Care Call Center Phone number verified as correct. [place] was scheduled beyond the [facility] Wait Time St andard: 07/10/2022. Please review to ensure appropriate clinical care and a n adequate supply of medications. /tanner/ DIANDRA R[facility]A [id number] [facility] Signed: 04/18/2022 12:00 Receipt Acknowledged By: * AWAITING SIGNATURE * JUSTA MONTGOMERY
--- OUTSIDE RECORDS SUMMARY | 2022-07-24 21:37 | XMS_ITS | Encounter Summary ---
:1945 Author Organization [facility] Address [address] [place] [address] Support Name Relationship Address Phone BANG MANN MEENAKSHI Unavailable [address] [facility] [place] [address] BANG MANN MEENAKSHI Unavailable [address] [place] [address] Insurance Providers: All historical and current Section [...] Tanner [place] Aug 13, [id number] VENESS,BECERRA P ATIENT [facility] (WNR) ADVANTAGE ARE 2020 5 [id number] [phone] ROLD ADVAN 1 MOUST[place]HA C [place] Aug 13, [id number] VENESS,BECERRA P ATIENT [facility] (WNR) ADVANTAGE (WNR) 2020 7 [id number] [phone] ROLD 1 [place] MED[place] M[place] Aug 13, [id number] [phone] VENESS ,BECERRA PATIENT MCR (WNR) ADVANTAGE (WNR) 2022 5 [id number] ROLD 1 MEDICARE MEDICARE PART Sep 13, PART B [id number] 800 Jesusita CONKLIN (WNR) (M) B 2012 VN81 [phone] [facility] MEDICARE MEDICARE PART Mar 13, PART A 800 Jesusita CONKLIN (WNR) (M) A [phone] [facility] MEDICARE MEDICARE PART Mar 13, PART A [id number] 800 Jesusita CONKLIN (WNR) (M) A 2008 VN81 [phone] [facility] Selected Encounter This section includes the information on record at [place] for the Encounter. Date/Time Encounter Type Encounter Reason Provider Source Description Mar 08, 2022 TTE W/DOPPLER CARDIAC ECHO ICD-10-CM I50.20 SHANAE KOROMA I 10:00 AM COMPLETE Unspecified systolic (congestive) heart failure with Provider Comments: Heart failure with reduced ejection fraction ([facility] [id number]) IHE Encounter Template Text not used by [facility] Assessments - Encounter Diagnoses This section includes the primary and secondary diagnoses documented for the Encounter. Date/Time Primary/Secondary Diagnosis Name Provider Source Diagnosis Mar 08, 2022 PRIMARY Unspecified [facility] 11:03 AM systolic HCS (congestive) heart failure Plan [...] 13, 2022 09:00 AM AMBULATORY - MEDICINE [facility] May 03, 2022 09:00 AM AMBULATORY - NONE [facility] Jun 16, 2022 09:30 AM AMBULATORY - MEDICINE [facility] Jun 16, 2022 10:00 AM AMBULATORY - MEDICINE [facility] Jun 16, 2022 10:30 AM AM[facility]UL[facility]ORY [facility] Jul 10, 2022 02:00 PM AMBULATORY - NONE [facility] Jul 10, 2022 02:45 PM AMBULATORY - NONE [facility] Jul 10, 2022 03:00 PM AMBULATORY - MEDICINE [facility] Jul 24, 2022 09:30 AM AMBULATORY - MEDICINE [facility] Jul 25, 2022 11:00 AM AMBULATORY - REHAB MEDICINE [facility] Lab Results: +/- 30 days of [...] Reference Range Comment Mar 08, 2022 09:00 [facility] BASIC METABOLIC Specimen Type: PLASMA AM PANEL+MG No comment enter ed. Ordering Provid er: ANNMARIE WALKER Report Released Date/Time: Nov 04, 2021 10:15 AM Reporting Lab: [facility] [id number] Performing Lab: [facility] [address] CREATININE 0.8 0.7-1.2 UREA NITROGEN 18 8-26 GLUCOSE 80 74-100 SODIUM 138 136-145 POTASSIUM 3.9 3.5-5.1 CHLORIDE 106 98-107 CO2 27 22-29 CALCIUM 9.1 8.4-10.2 MAGNESIUM 2.2 1.6-2.6 ANION GAP 5 5-15 CREAT EGFR(CKD-EPI) >90 >60 Mar 08, 2022 09:00 AM [facility] BNP Specim en Type: PLASMA No comment enter ed. Ordering Provid er: DRAKE MCNULTY Report Released Date/Time: December 16, 2021 10:37 AM Reporting Lab: [facility] [id number] Performing Lab: [facility] [id number] BNP 27 <99 Mar 08, 2022 [facility] COMPREHENSIVE Specimen Typ e: PLASMA 09:00 AM METABOLIC PANEL+MG No comment en tered. Ordering Provid er: DRAKE MCNULTY Report Released Date/Time: December 16, 2021 10:37 AM Reporting Lab: [facility] [id number] Performing Lab: [facility] [address] CREATININE 0.8 0.7-1.2 UREA NITROGEN 18 8-26 [...] Dionisio dy Source Pressure Rate Mass Index Feb 27, 96.8 F 58 124/74 16 /min 100 % 0 151.1 22 [place] 2021 09:08 /min mm[Hg] lb [facility] Social History: Smoking Status (Most [...] 10:00 AM [place]-TOBACCO NEVER USED [facility]
--- OUTSIDE RECORDS SUMMARY | 2022-07-24 21:37 | XMS_ITS | Encounter Summary ---
:1945 Author Organization [facility] Address [address] [place] [address] Support Name Relationship Address Phone BANG MANN MEENAKSHI Unavailable [address] [facility] [phone] 4 [place] [address] BANG MANN MEENAKSHI Unavailable [address] [place] [address] Insurance Providers: All historical and current Section [...] Tanner [place] Aug 13, [id number] VENESS,BECERRA P ATIENT [employer] (WNR) ADVANTAGE ARE 2020 5 [id number] [phone] ROLD ADVAN 1 MOUSTAPHA C [place] Aug 13, [id number] VENESS,BECERRA P ATIENT [employer] (WNR) ADVANTAGE (WNR) 2020 7 [id number] [phone] R[place] 1 [place] Aug 13, [id number] [phone] VENESS ,BECERRA PATIENT MCR (WNR) ADVANTAGE (WNR) 2022 5 [id number] 2 ROLD 1 MEDICARE MEDICARE PART Sep 13, PART B [id number] 800 Jesusita CONKLIN (WNR) (M) B 2012 [id number] [phone] [facility] MEDICARE MEDICARE PART Mar 13, PART A 800 Jesusita CONKLIN (WNR) (M) A [phone] [place] MEDICARE MEDICARE PART Mar 13, PART A [id number] 800 Jesusita CONKLIN (WNR) (M) A 2008 [id number] [phone] AROLD Selected Encounter This section includes the information on record at [place] for the Encounter. Date/Time Encounter Type Encounter Description Reason Provider Source Mar 08, 2022 10:00 Outpatient Encounter CARDIAC ECHO AM IHE Encounter Template Text not used [...] 13, 2022 09:00 AM AMBULATORY - MEDICINE [facility] May 03, 2022 09:00 AM AMBULATORY - NONE [facility] Jun 16, 2022 09:30 AM AMBULATORY - MEDICINE [facility] Jun 16, 2022 10:00 AM AMBULATORY - MEDICINE [facility] Jun 16, 2022 10:30 AM AMBULATORY - MEDICINE [facility] Jul 10, 2022 02:00 PM AMBULATORY - NONE [facility] Jul 10, 2022 02:45 PM AMBULATORY - NONE [facility] Jul 10, 2022 03:00 PM AMBULATORY - MEDICINE [facility] Jul 24, 2022 09:30 AM AMBULATORY - MEDICINE [facility] Jul 25, 2022 11:00 AM AMBULATORY - REHAB MEDICINE [facility] Lab Results: +/- 30 days of [...] Reference Range Comment Mar 08, 2022 09:00 [facility] BASIC METABOLIC Specimen Type: PLASMA AM PANEL+MG No comment enter ed. Ordering Provid er: ANNMARIE WALKER Report Released Date/Time: Nov 04, 2021 10:15 AM Reporting Lab: [facility] HERBIE ROBERTS [facility] [address] Performing Lab: [facility] I ARMANDO [facility] [address] CREATININE 0.8 0.7-1.2 UREA NITROGEN 18 8-26 GLUCOSE 80 74-100 SODIUM 138 136-145 POTASSIUM 3.9 3.5-5.1 CHLORIDE 106 98-107 CO2 27 22-29 CALCIUM 9.1 8.4-10.2 MAGNESIUM 2.2 1.6-2.6 ANION GAP 5 5-15 CREAT EGFR(CKD-EPI) >90 >60 Mar 08, 2022 09:00 AM [facility] BNP Specim en Type: PLASMA No comment enter ed. Ordering Provid er: DRAKE MCNULTY Report Released Date/Time: December 16, 2021 10:37 AM Reporting Lab: [facility] [address] [facility] [address] Performing Lab: [facility] [address] BNP 27 <99 Mar 08, 2022 [facility] COMPREHENSIVE Specimen Typ e: PLASMA 09:00 AM METABOLIC PANEL+MG No comment en tered. Ordering Provid er: DRAKE MCNULTY Report Released Date/Time: December 16, 2021 10:37 AM Reporting Lab: [facility] [address] [facility] [address] Performing Lab: [facility] [address] [facility] [address] CREATININE 0.8 0.7-1.2 UREA NITROGEN 18 8-26 [...] [place] 2021 09:08 /min mm[Hg] lb [facility] Social History: Smoking Status (Most current) and Tobacco Use (All prior to encounter date) This section includes the most current, and the historical, smoking and tobacco-related health factors from the [place] facility where the Encounter took place.Current Smoking Status This section includes the most current smoking, or tobacco-related health factor, from the [facility] where the Encounter took place. Date/Time Current Smoking Status Comment Facility Apr 04, 2021 10:00 AM [place]-TOBACCO NEVER USED RASHAUNKhari [facility] Encounter Notes: All associated encounter notes This section contains the clinical notes associated to the Encounter. Date/Time Encounter Note(s) Provider Source Mar 08, 2022 11:24 AM CARDIOLOGY PROCEDURE NOTE: [facility] LOCAL TITLE: ECHOCARDIOGRAM PROCEDURE STANDARD TITLE: CARDIOLOGY PROCEDURE NOTE DATE OF NOTE: MAR 08, 2022@11:24:23 ENTRY DATE: MAR 08, 2022@11:24:23 AUTHOR: CLINICAL,DEVICE PRO EXP COSIGNER: URGENCY: STATUS: COMPLETED PROCEDURE SUMMARY CODE: Machine Resulted DATE/TIME PERFORMED: MAR 08, 2022@10:10:2 DOCUMENT IN [facility] SEE FULL REPORT IN [facility] SIGNATURE NOT REQUIRED SEE SIGNATURE IN [facility] (LitehouseELERA ISCV TTE OUTPT) AUTO-INSTRUMENT DIAG NOSIS Procedure: M_TTE Adult Release Status: Released Off-Line Verified Date Verified: Mar 08, 2022@11:24 Study ID: [id number] + + [place], [place] + + [facility] [address] Epes Transthoracic Echocardiogram Report + :Name: YOUSIF MANN Study Date: 03/08/2022 H eight: 68 in : : Patient Location: [facility] 3JWeight: 145 lb: :: 1945 Gender: Male BSA: 1.8 m2 : :Age: 76 yrs : : Order Number: [id number] : :Reason For Study: Assess LVEF : + :Medication Nurse: Ti Jernigan RDCS : + :Referring Physician: ANNMARIE WALKER : + + Interpretation Summary A complete two-dimensional transthoracic echocar diogram (49576) was performed without contrast. Study quality is adequate. The left ventricular systolic function is normal . The visually estimated ejection fraction is 55-6 0%. There is mild aortic sclerosis without stenosis. Trivial aortic regurgitation Mild bi-atrial enlargement The right ventricle size is borderline enlarged. The right ventricular systolic function is lulú l. The IVC is moderately dilated with an abnormal r espiratory collapse, suggestive of increased right atrial pressure. Procedure A complete two-dimensional transthoracic echocar diogram (67752) was performed without contrast. Location: Department. Study qu vishnu is adequate. Left Ventricle The left ventricular systolic function is normal . The visually estimated ejection fraction is 55-60%. Right Ventricle The right ventricle size is borderline enlarged. The right ventricular systolic function is normal. Left Atrium/Right Atrium/Atrial Septum The left atrium is mildly dilated. The right atr ium is mildly dilated. Tricuspid Valve There is mild tricuspid regurgitation. Aortic Valve Trivial aortic regurgitation. There is m ild aortic sclerosis without stenosis. Aorta Aortic root size is upper normal. Inferior Vena Cava/Hepatic Veins The IVC is moderately dilated with an abnormal r espiratory collapse, suggestive of increased right atrial pressure. + + :Measurements : :LA dimension: 3.7 cm(2.7-4.0 cm) LVIDd: 4.8 cm( 3.9-5.9 cm) : : : : :LVIDs: 3.3 cm(2.0-4.0 cm) IVSd: 0.93 cm(0.6-1.1 cm) : : : : :LVPWd: 0.91 cm(0.6-1.1 cm) TAPSE: 2.5 cm(>1.7) : : : : :EF(Teich): 59.7 %(52-74%) : + + MMode/2D Measurements \T\ Calculations FS: 31.7 % Ao root diam: 3.6 cm EDV(Teich): 107.0 ml ESV(Teich): 43.2 ml Asc Aorta diam: 3.5 cm LVOT diam: 2.3 cm LVLd ap4: 7.8 cm LVLd ap2: 7.7 cm EDV(MOD-sp4): 89.8 ml EDV(MOD-sp2): 79.8 ml LVLs ap4: 6.8 cm LVLs ap2: 6.7 cm ESV(MOD-sp4): 39.6 ml ESV(MOD-sp2): 37.0 ml EF(MOD-sp4): 55.9 % EF (MOD-bp): 54.7 % SV(MOD-sp4): 50.2 ml LAV (MOD-bp): 61.5 ml LAV Index (MOD-bp): 34.5 ml/m2 IVC Diam: 2.8 cm LA Length: 5.4 cm RA A4Cs: 20.8 cm2 RV Base: 4.2 cm RV Length: 6.2 cm RV Mid: 2.8 cm Time Measurements Aortic R-R: 1.2 sec Aortic HR: 52.0 BPM Doppler Measurements \T\ Calculations MV E max jad: 70.7 cm/sec MV A max jad: 60.4 cm/sec MV dec slope: 326.0 cm /sec2 MV E/A: 1.2 MV dec time: 0.22 sec Lat Peak E' Jad: 8.5 cm/sec Ao V2 max: 114.0 cm/ sec Lat E/e': 8.3 Ao max P.2 mmHg Med E/e': 12.5 Ao V2 mean: 87.9 cm/sec Med Peak E' Jad: 5.7 cm/sec Ao mean P.0 mmHg Ao V2 VTI: 28.9 cm CONY(I,D): 2.9 cm2 CONY(V,D): 2.8 cm2 LV V1 max P.4 mmHg CO(LVOT): 4.3 l/min LV V1 mean P.0 mmHg SV(LVOT): 83.5 ml LV V1 max: 77.0 cm/sec LV V1 mean: 55.6 cm/sec LV V1 VTI: 20.1 cm TR max jad: 257.0 cm/sec Dimensionless Index (DI ): 0.68 TR max P.4 mmHg CONY(VTI)/BSA: 1.6 Ratio of MV Peak Velocity to L: 8.3 QLAB Heart Model EDV (): 125.0 ml EF (): 56.0 % ESV (): 55.0 ml HR (): 52.0 BPM LV Length ED (): 86.0 mm SV (): 70.0 ml LV Length ES (): 69.0 mm ED Current (HM): 60.0 % ES Current (HM): 30.0 % ED Default (HM): 60.0 % ES Default (HM): 30.0 % Reading Physician:11:24 AM Administrative Closure: 03/08/2022 by: CLINICAL,DEVICE PROXY SERVICE
--- OUTSIDE RECORDS SUMMARY | 2022-07-24 21:37 | XMS_ITS | Encounter Summary ---
:1945 Author Organization [facility] Address [address] [place] [address] Support Name Relationship Address Phone BANG MANN MEENAKSHI Unavailable [address] [facility] [place] [address] BANG MANN MEENAKSHI Unavailable [address] [facility] [place] [address] Insurance Providers: All historical and current Section [...] Tanner [place] Aug 13, [id number] VENESS,BECERRA P ATIENT [facility] (WNR) ADVANTAGE ARE 2020 5 [id number] [phone] R[place] ADVAN 1 MOUSTAPHA C [place] Aug 13, [id number] VENESS,BECERRA P ATIENT [facility] (WNR) ADVANTAGE (WNR) 2020 7 [id number] [phone] R[place] 1 [place] MED[place] Aug 13, [id number] [phone] VENESS ,BECERRA PATIENT MCR (WNR) ADVANTAGE (WNR) 2022 5 [id number] ROLD 1 MEDICARE MEDICARE PART Sep 13, PART B [id number] 800 Jesusita CONKLIN (WNR) (M) B 2012 VN81 [phone] [facility] MEDICARE MEDICARE PART Mar 13, PART A 800 Jesusita CONKLIN (WNR) (M) A [phone] [facility] MEDICARE MEDICARE PART Mar 13, PART A [id number] 800 Jesusita CONKLIN (WNR) (M) A 2008 VN81 [phone] AR[place] Selected Encounter This section includes the information on record at [place] for the Encounter. Date/Time Encounter Type Encounter Description Reason Provider Source Mar 09, 2022 10:02 Outpatient Encounter TELEPHONE MH AM IHE Encounter Template Text not used by [place] Plan of Treatment: Future Appointments (+ 6 months) and Future Tests (+/- 45 days) The Plan of Treatment section includes future care activities for the patient from all [place] treatmentfacilities. This section includes future appointments and future orders which are active, pending orscheduled.Future Appointments This section includes appointments that were scheduled to occur 6 months from the date of the Encounter, up to a maximum of 20 appointments. The data comes from all [place] treatment facilities. Appointment Date/Time Appointment Type Appointment Facili ty Name Mar 13, 2022 09:00 AM AMBULATORY - MEDICINE [facility] May 03, 2022 09:00 AM AMBULATORY - NONE [facility] Jun 16, 2022 09:30 AM AMBULATORY - MEDICINE [facility] Jun 16, 2022 10:00 AM AMBULATORY - MEDICINE [facility] Jun 16, 2022 10:30 AM AMBULATORY - MEDICINE [facility] Jul 10, 2022 02:00 PM AMBULATORY - NONE [facility] Jul 10, 2022 02:45 PM AMBULATORY - NONE [facility] Jul 10, 2022 03:00 PM AMBULATORY - MEDICINE [facility] Jul 24, 2022 09:30 AM AMBULATORY - MEDICINE [facility] Jul 25, 2022 11:00 AM AMBULATORY - REHAB MEDICINE [facility] Lab Results: +/- 30 days of the encounter This section includes the Chemistry and Hematology Lab Results on record with [place] for the patient. Radiology Reports and Pathology Reports are provided separately, in subsequent sections.Lab Results This section contains the Chemistry/Hematology Results that were resulted 30 days before or 30 daysafter the date of the Encounter. Date/Time Source Result Type Result - Unit Interpretation Reference Range Comment Mar 08, 2022 09:00 [facility] BASIC METABOLIC Specimen Type: PLASMA AM PANEL+MG No comment enter ed. Ordering Provid er: ANNMARIE WALKER Report Released Date/Time: Nov 04, 2021 10:15 AM Reporting Lab: [facility] HERBIE ROBERTS [facility] [address] Performing Lab: [facility] HERBIE ROBERTS [facility] [address] CREATININE 0.8 0.7-1.2 UREA NITROGEN 18 8-26 GLUCOSE 80 74-100 SODIUM 138 136-145 POTASSIUM 3.9 3.5-5.1 CHLORIDE 106 98-107 CO2 27 22-29 CALCIUM 9.1 8.4-10.2 MAGNESIUM 2.2 1.6-2.6 ANION GAP 5 5-15 CREAT EGFR(CKD-EPI) >90 >60 Mar 08, 2022 09:00 AM [facility] BNP Specim en Type: PLASMA No comment enter ed. Ordering Provid er: DRAKE MCNULTY Report Released Date/Time: December 16, 2021 10:37 AM Reporting Lab: [facility] [address] [facility] [address] Performing Lab: [facility] [address] [facility] [address] BNP 27 <99 Mar 08, 2022 [facility] COMPREHENSIVE Specimen Typ e: PLASMA 09:00 AM METABOLIC PANEL+MG No comment en tered. Ordering Provid er: DRAKE MCNULTY Report Released Date/Time: December 16, 2021 10:37 AM Reporting Lab: [facility] [address] [facility] [address] Performing Lab: [facility] [address] [facility] [address] CREATININE 0.8 0.7-1.2 UREA NITROGEN 18 8-26 [...] smoking and tobacco-related health factors from the [place] facility where the Encounter took place.Current Smoking Status This section includes the most current smoking, or tobacco-related health factor, from the [place] facility where the Encounter took place. Date/Time Current Smoking Status Comment Facility Apr 04, 2021 10:00 AM [place]-TOBACCO NEVER USED OLIVIER NELSON [facility] Encounter Notes: All associated encounter notes This section contains the clinical notes associated to the Encounter. Date/Time Encounter Note(s) Provider Source Mar 09, 2022 10:03 AM REPORT OF CONTACT: BRENDA EUCEDARosalinda GARCIA [facility] LOCAL TITLE: PATIENT CONTACT NOTE STANDARD TITLE: REPORT OF CONTACT DATE OF NOTE: MAR 09, 2022@10:03 ENTRY DATE: MAR 09, 2022@10:03:34 AUTHOR: BRENDA EUCEDA EXP COSIGNER: MICHAEL GUILLEN URGENCY: STATUS: COMPLETED PATIENT CONTACT NOTE Has ADDENDA Patient contact Name of : ARMANDO MANN Date & Time of Contact: Feb@10:06 Type of Contact: Telephone Reason for Contact: Spoke with on the phone to follow-up aft er [facility] group. He stated his sleep is pretty good and he continues to take care of his at night. Post-assessment measures were completed. No acute distress observed or reported. West[place] Sleepiness Scale: Chance of sleeping or dozin (would never doz e or sleep); 1 (slight chance of dozing or sleeping); 2 (moderate chanc e of dozing or sleeping); 3 (high chance of dozing or sleeping). Sitting and readin Watching TV: 1 Sitting inactive in a public place: 0 Being a passenger in a car for an hour: 0 Lying down in the afternoon: 1 Sitting and talking to someone: 0 Sitting quietly after lunch (no alcohol): 1 Stopping for a few minutes in traffic while driv in Total Westford score: 3 Insomnia Severity Index Date Given: 03/09/2022 Clinician: Brenda Euceda Location: [facility] Psychology [facility] 4F : Armando Mann SSN: [id number] : Mar ([birth year]) Gender: Male RICHARD score: 7 Score categories: 0 - 7 No clinically significant insomnia 8 - 14 Subthreshold insomnia 15 - 21 Clinical insomnia (moderate severity) 22 - 28 Clinical insomnia (severe) Questions and Answers 1. Difficulty falling asleep. Mild 2. Difficulty staying asleep. Mild 3. Problems waking up too early. Moderate 4. How SATISFIED/DISSATISFIED are you with your CURRENT sleep pattern? Moderately satisfied 5. How NOTICEABLE to others do you think your s leep problem is in terms of impairing the quality of your life? Not at all noticeable 6. How WORRIED/DISTRESSED are you about your cu rrent sleep problem? A little 7. To what extent do you consider your sleep pr oblem to INTERFERE with your daily functioning (e.g. daytime fatigue, mood, a bility to function at work/daily chores, concentration, memory, mood, etc.) CURRENTLY? Not at all interfering Information contained in this note is based on a self-report assessment and is not sufficient to use alone for diagnostic pu rposes. Assessment results should be verified for accuracy and used in conj unction with other diagnostic activities and procedures. /tanner/ Brenda Euceda, PhD Boring Machine Feeder Signed: 03/09/2022 10:15 /ken GUILLEN Psychologist Cosigned: 03/09/2022 13:13 03/09/2022 ADDENDUM STATUS: COMPLETED Provider was available consultation, but not pre sent for the above call. Provider agrees with the content of the above no te. /ken GUILLEN Psychologist Signed: 03/09/2022 13:14
--- OUTSIDE RECORDS SUMMARY | 2022-07-24 21:38 | XMS_ITS | Encounter Summary ---
:1945 Author Organization [facility] Address [address] [place] [address] Support Name Relationship Address Phone BANG MANN MEENAKSHI Unavailable [address] [place] [address] BANG MANN MEENAKSHI Unavailable [address] [place] [address] Insurance Providers: All historical and current Section [...] [place]anner [place] Aug 13, [id number] VENESS,BECERRA P ATIENT [facility] (WNR) ADVANTAGE ARE 2020 5 [id number] [phone] ROLD ADVAN 1 MOUSTAPHA C [place] Aug 13, [id number] VENESS,BECERRA P ATIENT [facility] (WNR) ADVANTAGE (WNR) 2020 7 [id number] [phone] [place] 1 [place] Aug 13, [id number] [phone] VENESS ,BECERRA PATIENT MCR (WNR) ADVANTAGE (WNR) 2022 5 [id number] ROLD 1 MEDICARE MEDICARE PART Sep 13, PART B [id number] 800 Jesusita CONKLIN (WNR) (M) B 2012 VN81 [phone] [facility] MEDICARE MEDICARE PART Mar 13, PART A 800 Jesusita CONKLIN (WNR) (M) A [phone] [facility] MEDICARE MEDICARE PART Mar 13, PART A [id number] 800 Jesusita CONKLIN (WNR) (M) A 2008 VN81 [phone] [place] Selected Encounter This section includes the information on record at [place] for the Encounter. Date/Time Encounter Type Encounter Description Reason Provider Source Nov 11, 2021 10:01 Outpatient Encounter EMERGENCY DEPT AM IHE Encounter Template Text not used by [place] Plan of Treatment: Future Appointments (+ 6 months) and Future Tests (+/- 45 days) The Plan of Treatment section includes future care activities for the patient from all [place] treatmentfacilities. This section includes future appointments and future orders which are active, pending orscheduled.Future Appointments This section includes appointments that were scheduled to occur 6 months from the date of the Encounter, up to a maximum of 20 appointments. The data comes from all [place] treatment facilities. Appointment Date/Time Appointment Type Appointment Facili ty Name Nov 14, 2021 09:00 PM AMBULATORY - MEDICINE [facility] Nov 28, 2021 03:30 PM AMBULATORY - MEDICINE [facility] Dec 06, 2021 10:00 AM AMBULATORY - MEDICINE [facility] December 16, 2021 09:00 AM AMBULATORY - REHAB MEDICINE [facility] December 16, 2021 09:45 AM AMBULATORY - MEDICINE [facility] December 16, 2021 10:30 AM AMBULATORY - MEDICINE [facility] December 23, 2021 12:15 PM AMBULATORY - NONE [facility] December 23, 2021 12:16 PM AMBULATORY - NONE [facility] December 26, 2021 01:30 PM AMBULATORY - MEDICINE [facility] January 02, 2022 05:00 PM AMBULATORY - REHAB MEDICINE [facility] January 10, 2022 08:30 AM AMBULATORY - MEDICINE [facility] Feb 02, 2022 10:00 AM AMBULATORY - PSYCHIATRY [facility] Feb 03, 2022 12:12 PM AMBULATORY - NONE [facility] Feb 09, 2022 10:00 AM AMBULATORY - PSYCHIATRY [facility] Feb 09, 2022 01:30 PM AMBULATORY - SURGERY [facility] Feb 16, 2022 10:00 AM AMBULATORY - PSYCHIATRY [facility] Feb 23, 2022 10:00 AM AMBULATORY - PSYCHIATRY [facility] Mar 02, 2022 10:00 AM AMBULATORY - PSYCHIATRY [facility] Mar 08, 2022 08:45 AM AMBULATORY - MEDICINE [facility] CS Mar 08, 2022 09:00 AM AMBULATORY - MEDICINE [facility] Lab Results: +/- 30 days of the encounter This section includes the Chemistry and Hematology Lab Results on record with [place] for the patient. Radiology Reports and Pathology [...] Nov 08, 2021 02:19 PM Reporting [facility] [address] Performing Lab: [facility] [address] COVID-19 (CEPHEID) Not Detected Not Dete cted [...] AM Reporting Lab: [facility] [address] [facility] [address] Performing Lab: [facility] [address] BNP 28 <99 Nov 08, 2021 10:11 AM [facility] CBC Specim en Type: BLOOD No comment enter ed. Ordering Provid er: DRAKE MCNULTY Report Released Date/Time: Sep 05, 2021 10:57 AM Reporting Lab: [facility] [address] [facility] [address] Per[facility] [address] WBC 4.77 4.0-11.0 RBC 4.33 L 4.6-6.2 [...] AM Reporting Lab: [facility] [address] [facility] [address] Performing Lab: [facility] [address] CREATININE 0.8 0.7-1.2 UREA NITROGEN 20 8-26 [...] 2021 08:27 AM Reporting Lab: [facility] [address] Performing Lab: [facility] [address] CREATININE 0.8 0.7-1.2 UREA NITROGEN 15 8-26 [...] smoking and tobacco-related health factors from the [place] facility where the Encounter took place.Current Smoking Status This section includes the most current smoking, or tobacco-related health factor, from the [place] facility where the Encounter took place. Date/Time Current Smoking Status Comment Facility Apr 04, 2021 10:00 AM [place]-TOBACCO NEVER USED OLIVIER NELSON [facility]
--- OUTSIDE RECORDS SUMMARY | 2022-07-24 21:38 | XMS_ITS | Encounter Summary ---
:1945 Author Organization [facility] Address [address] [place] [id number] Support Name Relationship Address Phone BANG MANN MEENAKSHI Unavailable [address] [facility] [place] [address] BANG MANN MEENAKSHI Unavailable [address] [place] [address] Insurance Providers: All historical and current Section [...] Tanner [place] MEDIC Aug 13, [id number] VENESS,BECERRA P ATIENT [facility] (WNR) ADVANTAGE ARE 2020 5 [id number] [phone] ROLD ADVAN 1 MOUSTAPHA C [place] MED[place]ARE MCR Aug 13, [id number] VENESS,BECERRA P ATIENT [facility] (WNR) ADVANTAGE (WNR) 2020 7 [id number] [phone] R[place] 1 [place] M[place] Aug 13, [id number] [phone] VENESS ,BECERRA PATIENT [facility] (WNR) ADVANTAGE (WNR) 2022 5 [id number] ROLD 1 MEDICARE MEDICARE PART Sep 13, PART B [id number] Jesusita CONKLIN (WNR) (M) B 2012 [id number] [phone] [facility] MEDICARE MEDICARE PART Mar 13, PART A 800 Jesusita CONKLIN (WNR) (M) A [phone] [facility] MEDICARE MEDICARE PART Mar 13, PART A [id number] Jesusita CONKLIN (WNR) (Svetlana) A 2008 [id number] [phone] [facility] Selected Encounter This section includes the information on record at ID for the Encounter. Date/Time Encounter Type Encounter Reason Provider Source Description May 03, 2022 IMG RTA OPHTHALMOLOGY ICD-10-CM Z01.00 AMADEO ROBINS 09:00 AM DETCJ/MNTR DS Encounter for L STAFF exam of eyes and vision w/o abnormal findings with Provider Comments: Encounter for Examination of Eyes and Vision without Abnormal Findings IHE Encounter Template Text not used by [facility] Assessments - Encounter Diagnoses This section includes the primary and secondary diagnoses documented for the Encounter. Date/Time Primary/Secondary Diagnosis Name Provider Source Diagnosis May 03, 2022 PRIMARY Encounter for AMADEO ROBINS V Rosalinda 09:51 AM exam of eyes L HCS and vision w/o abnormal findings Plan of Treatment: Future Appointments [...] AMBULATORY - MEDICINE [facility] Jul 10, 2022 02:00 PM AMBULATORY - NONE [facility] Jul 10, 2022 02:45 PM AMBULATORY - NONE [facility] Jul 10, 2022 03:00 PM AMBULATORY - MEDICINE [facility] Jul 24, 2022 09:30 AM AMBULATORY - MEDICINE [facility] Jul 25, 2022 11:00 AM AMBULATORY - REHAB MEDICINE [facility] Social History: Smoking Status (Most current) and [...] 2021 10:00 AM VA-TOBACCO NEVER USED OLIVIER KHANIS [facility] Encounter Notes: All associated encounter notes This section contains the clinical notes associated to the Encounter. Date/Time Encounter Note(s) Provider Source May 05, 2022 11:36 AM LETTERS: GEOFF SEN [facility] LOCAL TITLE: EYE TECS LETTERS STANDARD TITLE: LETTERS DATE OF NOTE: MAY 05, 2022@11:36 ENTRY DATE: MAY 05, 2022@11:36:19 AUTHOR: GEOFF SEN EXP COSIGNER: URGENCY: STATUS: COMPLETED Apr YOUSIF MANN [address] [place], [place] [address] Dear Sherrill, Thank you for your recent visit to the Technolog y-Based Eye Care Services (TECS) Program visit at your local [facility] facility. The main goal of the TECS program is to screen for visually si gnificant eye conditions. Based on the review of your eye informat ion and the photos that were taken, we recommend an in-person follo w-up evaluation by an eye care provider in about six months as discussed with Dr. Sen. (Please see TECS exam note for this visit for full exam details. You can access this on My [employer] at [email or web address] if you w ould like). You will receive a phone call from one of our [facility] members to schedule a follow-up evaluation at some point. If you notice any sudden changes in [...] other Veterans can receive access to e ye care services. Please contact [facility]: [phone] if you have questions or require changes to your appointment date. We appreciate the opportunity to serve you. May 03, 2022 09:17 AM TELEHEALTH CONSULT: AMADEO ROBINS [facility] LOCAL TITLE: EYE TECS PROFESSOR OF NURSING CONSULT STANDARD TITLE: TELEHEALTH CONSULT DATE OF NOTE: MAY 03, 2022@09:17 ENTRY DATE: MAY 03, 2022@09:17:10 AUTHOR: AMADEO ROBINS EXP COSIGNER: URGENCY: STATUS: COMPLETED EYE TECS PROFESSOR OF NURSING CONSULT Has ADDENDA Technology-based Eye Care Services (TECS) Technmichele knight Note PATIENT DEMOGRAPHICS: Patient Name: YOUSIF MANN SSN: [id number] Age: 77 TECH-UP AND VISION Chief Complaint: Sherrill here for yearly eye ex am. No new floaters/flashes, pain/discomfort or diplopia. brought in old records which will be scanned into the system. History of Present Illness: Date of last eye exam: Less than 1 year ago Location of last eye exam: [facility] TECS HISTORY AND REVIEW OF SYSTEMS No significant pain, decrease vision, sudden ch jana in flashes or floaters, or sudden onset double vision. 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 FOR HEART. 4) DOFETILIDE 500MCG CAP TAKE ONE CAPSULE BY OMER TH TWO ACTIVE TIMES A DAY TO KEEP A NORMAL HEART BEAT 5) EMPAGLIFLOZIN 25MG TAB TAKE ONE-HALF TABLET B Y MOUTH ACTIVE EVERY MORNING 6) LISINOPRIL 5MG TAB TAKE ONE TABLET BY MOUTH T WO TIMES ACTIVE A DAY FOR HEART FAILURE. 7) PEG 400 0.4%/PROP GLYCOL 0.3% OPH SOLN INSTIL L 1 DROP ACTIVE IN BOTH EYES FOUR TIMES A DAY FOR EYE IRRITATION/DRYNESS 8) RIVAROXABAN 20MG TAB TAKE ONE TABLET BY MOUTH EVERY ACTIVE DAY WITH THE LARGEST MEAL OF THE DAY TO PREVENT BLOOD CLOTS & STROKE 9) SILVER SULFADIAZINE 1% CREAM APPLY TO AFFECTE D AREA ACTIVE TOPICALLY TWICE A DAY EXTERNAL USE ONLY EYE MEDICATION(S): Other Eye Medication(s): AREDS 2 w/o zinc 1 PO BID (would like to have s ent to home) SOCIAL HISTORY No history of tobacco use Never REFRACTION AND VISION Wearing Rx (WRx): OD: -2.50+2.03a136 ADD:+2.50 OS: -2.25+2.58c880 ADD:+2.50 WRx VA: OD: 20/20 OS: 20/20 Auto Refraction (ARx): OD: -3.00+3.57u202 OS: -2.50+2.22s979 ARx VA: OD: 20/20 OS: 20/20 K Readings: K1 OD 40.25@096 K2 OD 42.25@006 K1 OS 39.75@077 K2 OS 42.00@167 Manifest Refraction (MRx): OD: -2.50+2.34s513 ADD:+2.50 OS: -2.50+2.39o000 ADD:+2.50 AMSLER OD:Normal OS:Normal Pachymetry Past Results: No data available Intraocular Pressure (IOP) Method: Date/Time: Apr@09:30 Rebound Tonometer OD: 12 OS: 12 PUPILS/ANTERIOR CHAMBER (AC) Penlight or slit lamp (if available) exam unrem arkable Pupils are equal, round, and reactive to light No afferent defect Pupils are dilated Dilation and driving precautions reviewed with patient and patient expresses understanding. Medication: 1% Tropicamide, 2.5% Phenylephrine, 0.5% Propar acaine Which Eye? OU Color Weigher Comment: CVF FULL OU & EOM Normal Cataract surgery evaluation is not applicable fo r this patient The patient does NOT desire community care if ne eded Per , okay to leave message regarding res ults and plan of care. Telephone number and address verified. Yes cell Sherrill is very frustrated with getting a letter that states Based on the review of your eye information and the photos that were taken, we recommend an in-person follow-up evaluation by a n eye care provider then when he calls the eye clinic he is told to come to TECS. would like to see a provider directly. requests a phone call regarding visit. AREDS 2 w/o zinc 1 PO BID (would like to have se nt to home) Sherrill was given an Amsler grid to take home wi th him. /tanner/ AMADEO ROBINS [facility]ENTER[facility]AM[facility] COLORING OPERATOR Signed: 05/03/2022 09:51 05/05/2022 ADDENDUM STATUS: COMPLETED Are pupils adequately dilated? Yes PHOTOGRAPHS Fundus photographs taken? Yes Are photos adequate for interpretation? Yes NERVE INTERPRETATION Cup-to-Disc ratio: OD: 0.15 OS: 0.15 Optic nerves appear unremarkable bilaterally. MACULA INTERPRETATION Findings: Macula shows drusen. OU Moderate without evidence of heme, fluid, or CN V RETINA INTERPRETATION Findings: Other retinal pathology: Some choroidal atrophic areas that could be nor mal variants VESSELS INTERPRETATION Vessels appear to be normal bilaterally. EXTERNAL PHOTOGRAPH INTERPRETATION Yes Findings: External photo shows intraocular lens. OU Well-positioned, centrally clear IOLs OU. OCT OCT done? Yes OCT Macula Abnormal: Drusen OU Stable from October,. No fluid, heme, eviden ce of CNVM. PHYSICIAN ASSESSMENT/PLAN Intraocular Pressure(past entry): No data available TECS Exam Shows: Patient evaluated in Technology-based Eye Care Services (TECS). This assessment is based on an extensive history, di agnostic technology, and imaging. The TECS exam does not replace a face- to-face exam. Greater than 5 minutes but less than 30 minutes of time spent in care of this patient. Cataract: Presence of Intraocular Lens-Pseudophakia. OU Well-positioned, centrally clear IOLs OU. Diabetes: No history of diabetes. Macular Degeneration: Intermediate OUAREDS 2 vitamins recommended Zinc free not necessary. Continue AMSLER checks . Follow Up: Follow up for in-person exam. Patient desires face to face and will place in clinic for 6 months or prn. Called patient and reviewed findings and treatm ent plan. All questions answered. Patient expresses understanding and c onsents to treatment plan. Letter sent. RTC order and /or consult placed a s needed for follow up. Appendix (abbreviations): AC (Anterior Chamber); AREDS (Age Related Eye Di sease Study); ARX (Auto Refraction); BID (Two Times Daily); C:D (Cup-to- Disc); CIC (Care In The Community); CARTON GLUING MACHINE OPERATOR (Cyclophotocoagulation); CSME (C linically Significant [...] (Nonproliferative Diabetic Retinopathy); OCT (Optical Coherence To mography); OD (Right Eye); OS (Left Eye); OU (Both Eyes); PDR (Proliferative D iabetic Retinopathy); PFATs (Preservative Free Artificial Tears); RK (Radial Keratotomy); RNFL (Retinal Nerve Fiber Layer); RTC (Return To Clinic); scVA (Visual Acuity Without Correction/Glasses); ISHMAEL (Taiwanese Interactive T hreshold Algorithm); TID (Three Times Daily); UV (Ultraviolet); VA (Visual Acuit y); WRx (Prescription glasses currently worn); WRx VA (Visual Acuity With Pres cription Glasses); YAG (Yttrium Aluminum [place]) /es/ GEOFF SEN MD, S Prepleater Signed: 05/05/2022 11:24 Receipt Acknowledged By: * AWAITING SIGNATURE * BELIA ROCHA * AWAITING SIGNATURE * AMADEO ROBINS
--- OUTSIDE RECORDS SUMMARY | 2022-07-24 21:38 | XMS_ITS | Encounter Summary ---
:1945 Author Organization [facility] Address [address] [place] [address] Support Name Relationship Address Phone BANG MANN Unavailable [address] [phone] [place] [address] BANG MANN MEENAKSHI Unavailable [address] [place] [address] Insurance Providers: All historical and current Section [...] Tanner [place] Aug 13, [id number] VENESS,BECERRA P ATIENT [facility] (WNR) ADVANTAGE ARE 2020 5 [id number] [phone] ROLD ADVAN 1 MOUSTAPHA C [place] MED[place] MCR Aug 13, [id number] VENESS,BECERRA P ATIENT [facility] (WNR) ADVANTAGE (WNR) 2020 7 [id number] [phone] R[place] 1 [place] M[place] Aug 13, [id number] [phone] VENESS ,BECERRA PATIENT [facility] (WNR) ADVANTAGE (WNR) 2021 5 [id number] ROLD 1 MEDICARE MEDICARE PART Sep 13, PART B [id number] 800 Jesusita CONKLIN (WNR) (M) B 2012 [id number] [phone] [facility] MEDICARE MEDICARE PART Mar 13, PART A 800 Jesusita CONKLIN (WNR) (M) A [phone] [place] MEDICARE MEDICARE PART Mar 13, PART A [id number] 800 Jesusita CONLKIN (WNR) (M) Rosalinda 2008 [id number] [phone] AROLD Selected Encounter This section includes the information on record at [place] for the Encounter. Date/Time Encounter Type Encounter Reason Provider Source Description Jun 16, 2022 OFFICE O/P EST CARDIOLOGY ICD-10-CM I48.91 ANNMARIE WALKER 10:30 AM HI 40-54 MIN Unspecified atrial N fibrillation with Provider Comments: Atrial fibrillation ([facility] [id number]) IHE Encounter Template Text not used by [place] Assessments - Encounter Diagnoses This section includes the primary and secondary diagnoses documented for the Encounter. Date/Time Primary/Secondary Diagnosis Name Provider Source Diagnosis Jun 16, 2022 PRIMARY Unspecified atrial ANNMARIE WALKER IS [place] 02:43 PM fibrillation N HCS Plan of Treatment: Future Appointments (+ 6 months) and Future Tests (+/- 45 days) The Plan of Treatment section includes future care activities for the patient from all [place] [facility] This section includes future appointments and future orders which are active, pending orscheduled.Future Appointments This section includes appointments that were scheduled to occur 6 months from the date of the Encounter, up to a maximum of 20 appointments. The data comes from all [facility]. Appointment Date/Time Appointment Type Appointment Facili ty Name Jul 10, 2022 02:00 PM AMBULATORY - NONE [facility] Jul 10, 2022 02:45 PM AMBULATORY [facility] Jul 10, 2022 03:00 PM AMBULATORY - MEDICINE [facility] Jul 24, 2022 09:30 AM AMBULATORY - MEDICINE [facility] Jul 25, 2022 11:00 AM AMBULATORY - REHAB MEDICINE [facility] Active, Pending, and Scheduled Orders This section includes a listing of several types of active, pending, and scheduled orders, including clinic medications orders, diagnostic test orders, procedure orders and consult orders; where the start date of the order is 45 days before the date of the Encounter or 45 days after the date of the Encounter. The data comes from all [place] treatment [facility]. Test Date/Time Test Type Test Details Facility Name Jul 10, 2022 02:12 PM Consult Order OT OCCUPATIONAL THERAPY OU TPT [facility] UPPER EXTREMITY HAND THERAPY Cons Aadc Plans Staff Officer's Choice Lab Results: +/- 30 days of the [...] Result - Unit Interpretation Reference Range Comment Jul 10, 2022 [facility] HEMOGLOBIN A1C Specimen Typ e: BLOOD 12:51 PM Comment: Values obtained from A1C measurements can vary. For typical A1C assays, a reported value of 7.0 could actually be between 6.7 and 7.3 if measured by a reference method. A reported value of 9.0 could actually be between 8.7 and 9.3. Ref: http://www.ngsp.org/CAPdata.asp Ordering Provid er: KECIA COTTO Report Released Date/Time: January 10, 2022 09:00 AM Reporting Lab: [facility] [id number] Performing Lab: [facility] [address] HEMOGLOBIN A1C 5.3 4.0-6.0 Jul 10, 2022 12:51 [facility] BASIC METABOLIC Specimen Type: PLASMA PM PANEL+MG No comment enter ed. Ordering Provid er: KECIA COTTO Report Released Date/Time: January 10, 2022 09:00 AM Reporting Lab: [facility] [address] Performing Lab: [facility] [address] CREATININE 1.0 0.7-1.2 UREA NITROGEN 18 8-26 GLUCOSE 86 70-100 SODIUM 135 L 136-145 POTASSIUM 4.2 3.5-5.1 CHLORIDE 102 98-107 CO2 30 H 22-29 CALCIUM 9.3 8.4-10.2 MAGNESIUM 2.1 1.6-2.6 ANION GAP 3 L 5-15 CREAT EGFR(CKD-EPI) 77 >60 Jul 10, 2022 12:51 [facility] LIPID PANEL,NON-FASTING S pecimen Type: PLASMA PM No comment enter ed. Ordering Provid er: KECIA COTTO Report Released Date/Time: January 10, 2022 09:00 AM Reporting Lab: [facility] [address] Performing Lab: [facility] [address] CHOLESTEROL 150 <199 .HDL 47 >40 LDL CALCULATION 74 <99 VLDL CALCULATION 29 <29 NON HDL CHOLESTEROL 103 <129 TRIG(NON FASTING) 145 <149 Jun 16, 2022 09:26 [facility] BASIC METABOLIC Specimen Type: PLASMA AM PANEL+MG No comment enter ed. Ordering Provid er: ANNMARIE WALKER Report Released Date/Time: Mar 13, 2022 09:19 AM Reporting Lab: [facility] [address] [facility] [address] Performing Lab: [facility] [address] [facility] [address] CREATININE 0.8 0.7-1.2 UREA NITROGEN 21 8-26 GLUCOSE 66 L 70-100 SODIUM 137 136-145 POTASSIUM 4.1 3.5-5.1 CHLORIDE 104 98-107 CO2 29 22-29 CALCIUM 9.5 8.4-10.2 MAGNESIUM 2.2 1.6-2.6 ANION GAP 4 L 5-15 CREAT EGFR(CKD-EPI) >90 >60 Vital Signs: All taken on the encounter date This section contains inpatient and outpatient Vital Signs collected on the date of the Encounter. Date/Time Temperature Pulse Blood Respiratory SP02 Pain Height Weight Dionisio dy Source Pressure Rate Mass Index Jun 16 97.6 F 56 113/68 16 /min 93 % 0 149.7 22 [place] 2021 09:53 /min mm[Hg] lb [facility] Social History: Smoking Status (Most current) [...] 04, 2021 10:00 AM [place]-TOBACCO NEVER USED OLIVIER [facility] Radiology Reports: +/- 30 days of the encounter Radiology Reports For cases when an order for radiology services may have been completed prior to the date of the Encounter, the report list includes the Radiology Reports that were completed up to 30 days before date of the Encounter. For cases when an order for radiology services may have been completed after the date of the Encounter, the report list also includes the Radiology Reports that were completed up to 30days after date of the Encounter. The data comes from all [place] treatment facilities. Date/Time Radiology Report Provider Source Jul 10, 2022 02:23 LUMBAR SPINE MIN 4 VIEWS: KARYE SILVER [facility] PM YOUSIF MANN [id number] -1945 M Exm Date: JUL 10, 2022@14:23 Req Phys: JUSTA MONTGOMERY Pat Loc: [facility] CT A RES 01 WH 4F (Req' Img Loc: MAIN X-RAY Service: Unknown (Case [id number] COMPLETE) LUMBAR SPINE MIN 4 VIEWS (RA D Detailed) CPT:43707 Reason for Study: Left lower and lateral abdomi nal pain Clinical History: IS NOT under investigation for COVID-19 or is COVID-19 negative 4-5 months of LLQ and left lateral abdominal pa in at night. Unintentional weight loss over the past year. Responsible provider name and phone number to n otify for critical findings if other than user placing the order a nd pager listed below: User placing orders pager: LAST CREATININE 1.0 (07/10/22) Report Status: Verified Date Reported: JUL 10, 2022 Date Verified: JUL 10, 2022 Eating Disorder Psychologist E-Sig:/ES/KAREY SILVER MD Report: LUMBAR SPINE MIN 4 VIEWS 07/10/2022 INDICATION: Left lower and lateral abdominal pa in COMPARISON: None. FINDINGS: Five lumbar vertebral bodies. Slightl y exaggerated lordosis. Slight left convex asymmetry. Vertebr al body heights are maintained. Expanded disc spaces from L1 th rough L5, possibly reflecting low bone mineral density. Interbody spurring throughout. Moderate disc height loss with some gas at L5-S1. Moderate lower lumbar facet arthropathy. No acu te superimposed bony finding. Patchy aortic calcification, normal caliber. Le ft lower quadrant herniorrhaphy clips. Impression: Degenerative disc change greatest at L5-S1. Mod est degree of degenerative change at other levels. Primary Interpreting Staff: KAREY SILVER MD, NEURORADIOLOGIST (Fausto peck) /Duy Jul 10, 2022 02:23 SACRUM COCCYX 2 OR MORE VIEWS: YANA SILVER [facility] PM YOUSIF MANN [id number] -1945 M Exm Date: JUL 10, 2022@14:23 Req Phys: JUSTA MONTGOMERY Pat Loc: [facility] CT A RES 01 WH 4F (Req' Img Loc: MAIN X-RAY Service: Unknown (Case [id number] COMPLETE) SACRUM COCCYX 2 OR MORE VIEW S (RAD Detailed) CPT:81644 Reason for Study: LLQ and Left lateral abdomina l pain Clinical History: [place] IS NOT under investigation for COVID-19 or is COVID-19 negative Left lower and lateral abdominal pain Responsib le provider name and phone number to notify for critical finding s if other than user placing the order and pager listed below: User placing orders pager: LAST CREATININE 1.0 (07/10/22) Report Status: Verified Date Reported: JUL 10, 2022 Date Verified: JUL 10, 2022 Eating Disorder Psychologist E-Sig:/ES/KAREY SILVER MD Report: SACRUM COCCYX 2 OR MORE VIEWS 07/10/2022 INDICATION: LLQ and Left lateral abdominal pain COMPARISON: None. Impression: Normal appearance of the sacrum and coccyx. No visible fracture. Mild SI joints spurring. Hips appear preserved. Primary Interpreting Staff: KAREY SILVER MD, NEURORADIOLOGIST (Fausto peck) /Duy Encounter Notes: All associated encounter notes This section contains the clinical notes associated to the Encounter. Date/Time Encounter Note(s) Provider Source Jun 16, 2022 09:58 AM CARDIOLOGY DIAGNOSTIC STUDY NOTE: ANNMARIE WALKER 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 He was previously followed by a cardiolo gist through [facility] and had a known dx of initially paroxysmal and more recently persis tent atrial fibrillation for years. He denied any hx antiarrhythmic d rug use, cardioversions, or ablations. He was having issues with shortness of breath fa ll 2020 and TTE was ordered showing mild-moderately reduced LVEF. He was referred to EP for rhythm control and dofetilide was initiated during hospitalization 07/11-07/14/21. He converted to sinus rhythm after 1 dose of dofetilide and t olerated 500 mcg bid dosing. He returns to EP clinic toda y for routine f/u. He did have OSH ED visits in December 2021 and January 2022 for recur rent AFib. He reports being cardioverted during the January 2022 visit. He attributes these breakthroug h episodes to working hard in the heat and getting dehydrated. He is doing wel l lately with no breakthrough symptoms of arrhythmia. He denies current palpit ations, dyspnea on exertion, chest pain/pressure, lighthe adedness, dizziness, presyncope, syncope, orthopnea, PND, or LE [...] left ventricular ejection fraction 40- 45% with xwol-ol-nbmf variability due to atrial fibrillation. 2. Mild [...] OSH 2020: Normal spirometry. -- Latest EKG (06/16/22): Sinus rhythm 62 bpm, QTc 440 msecs ALLERGIES Patient has answered NKA FACILITY ALLERGY/ADR -------- No Remote Allergy/ADR Data available for this pa kaykay [facility] No Known Allergies MEDICATIONS Active and Recently [...] ACTIVE A DAY FOR HEART FAILURE. 6) MULTIVIT/OPHTH AREDS2/LUTE/ZEAX CAP/TAB TAKE 1 ACTIVE CAP/TAB BY MOUTH TWICE A DAY 7) PEG 400 0.4%/PROP GLYCOL 0.3% OPH [...] TOPICALLY TWICE A DAY EXTERNAL USE ONLY No Active Remote Medications for this patient [...] PLASMA DIR. BILIRUBIN 0.4 mg/dL Ref: <=0.5 VITALS Temperature: 97.6 F [36.4 C] (06/16/2022 09:53) Blood Pressure: 113/68 (06/16/2022 09:53) Pulse: 56 (06/16/2022 09:53) Respiration: 16 (06/16/2022 09:53) Pain: 0 (06/16/2022 09:53) Pulse Oximetry: 93% (06/16/2022 09:53) EXAM GA: very pleasant, well-appearing, NAD; LUNGS: CTAB, no crackles, wheezes, or rhonchi CV: RRR; no murmurs, rubs, or gallops; no JVD EXT: no cyanosis, clubbing, or edema ASSESSMENT/PLAN 1. H/O longstanding persistent atrial fibrillati on on rhythm control w/ dofetilide: S/P dofetilide l oading during admit 07/11-07/14/21 - converted with 1 dose dofetilide, discharged on 500 mcg bid. -- He is maintaining sinus rhythm on dofetilide 500 mcg bid - EKG with stable QTc WNL, labs stable with Cr Cl > 60, electrolytes WNL. Advised on importance of not missing doses and checking on drug interacti ons with any new medications -- His CHADSVASC score is 3 (age++, CHF) and he is anticoagulated with rivaroxaban. He denies bleeding concerns -- We again today discussed chcf treatment o ptions including ongoing dofetilide vs PVI - for now happy to continue on dofetilide -- We discussed risk factor modification for AFib including weight management, regular exercise, moderation of alcohol intake, control of blood pressure and treatment of any underlying ROSA - following w/ s [facility] who is not advising CPAP due to mild ROSA 2. H/O HFmrEF, LV function normalized with rhyth m control: Suspect tachycardia/arrhythmia mediated given normalizat ion with anglican of sinus rhythm. He is on lisinopril, carvedilol and empa gliflozin. Follow up: 6 months or sooner as needed. Patient was given my contact information and encouraged to contact me if he h as questions or concerns that arise in the interim. I spent a total of 45 minutes between preparat ion, review of testing, discussion with patient and documentation of enc emily /tanner/ ANNMARIE WALKER PA-C PHYSICIAN MEDICAL CSR Signed: 06/16/2022 14:43 Jun 16, 2022 09:54 AM INTERNAL MEDICINE OUTPATIENT NOTE: SHERYL PERLA [facility] LOCAL TITLE: MEDICINE CLINIC NURSING NOTE STANDARD TITLE: INTERNAL MEDICINE OUTPATIENT NOT E DATE OF NOTE: JUN 16, 2022@09:54 ENTRY DATE: JUN 16, 2022@09:54:56 AUTHOR: SHERYL PERLA EXP COSIGNER: URGENCY: STATUS: COMPLETED TYPE OF VISIT: Appointment Check In Type of appointment: In-person appointment REASON FOR VISIT: Scheduled clinic visit ALLERGIES: Patient has answered NKA VITAL SIGNS: Blood Pressure: 113/68 (06/16/2022 09:53) Pulse: 56 (06/16/2022 09:53) Respiration: 16 (06/16/2022 09:53) Temperature: 97.6 F [36.4 C] (06/16/2022 09:53) Weight: 149.7 lb [67.90 kg] (06/16/2022 09:53) Height: 68.898 in [175.0 cm] (12/16/2021 10:03) BMI: 22.2 O2 Sat: 93% (06/16/2022 09:53) Pain: 0 (06/16/2022 09:53) PAIN SCREEN: Patient is not having significant pain that the y wish to discuss with their provider today. MEDICATION Over the Counter/Herbal Medications: The patient denies taking any outside medicatio ns or herbals. /tanner/ SHERYL PERLA LPN Licensed Practical Nurse Signed: 06/16/2022 09:55
--- OUTSIDE RECORDS SUMMARY | 2022-07-24 21:38 | XMS_ITS | Encounter Summary ---
:1945 Author Organization [facility] Address [address] [place] [address] Support Name Relationship Address Phone BANG MANN MEENAKSHI Unavailable [address] [facility] [phone] [place] [address] BANG MANN MEENAKSHI Unavailable [address] [facility] [phone] [place] [address] Insurance Providers: All historical and current Section [...] Tanner [place] MED[place] Aug 13, [id number] VENESS,BECERRA P ATIENT [facility] (WNR) ADVANTAGE ARE 2020 5 [id number] [phone] [place] ADVAN 1 MOUSTAPHA C [place] MCR Aug 13, [id number] VENESS,BECERRA P ATIENT [facility] (WNR) ADVANTAGE (WNR) 2020 7 [id number] [phone] [place] 1 [place] M[place] Aug 13, [id number] [phone] VENESS ,BECERRA PATIENT [facility] (WNR) ADVANTAGE (WNR) 2022 5 [id number] ROLD 1 MEDICARE MEDICARE PART Sep 13, PART B [id number] 800 Jesusita CONKLIN (WNR) (M) B 2012 [id number] [phone] [facility] MEDICARE MEDICARE PART Mar 13, PART A 800 Jesusita CONKLIN (WNR) (M) A [phone] [facility] MEDICARE MEDICARE PART Mar 13, PART A [id number] 800 Jesusita CONKLIN (WNR) (M) A 2008 VN81 [phone] [place] Selected Encounter This section includes the information on record at [place] for the Encounter. Date/Time Encounter Type Encounter Reason Provider Source Description Jun 16, 2022 ELECTROCARDIOGRAM EKG ICD-10-CM Z13.6 GUILLERMINA AGUILERA 10:00 AM COMPLETE Encounter for KINDRA Santana screening for cardiovascular disorders with Provider Comments: Encounter for Screening for Cardiovascular Disorders IHE Encounter Template Text not used by [facility] Assessments - Encounter Diagnoses This section includes the primary and secondary diagnoses documented for the Encounter. Date/Time Primary/Secondary Diagnosis Name Provider Source Diagnosis Jun 16, 2022 PRIMARY Encounter for SHANI GONZALEZ [facility] 12:27 PM screening for [facility] cardiovascular disorders Plan of Treatment: Future Appointments (+ 6 months) and Future Tests (+/- 45 days) The Plan of Treatment section includes future care activities for the patient from all [place] [facility]. This section includes future appointments and future orders which are active, pending orscheduled.Future Appointments This section includes appointments that were scheduled to occur 6 months from the date of the Encounter, up to a maximum of 20 appointments. The data comes from all [place] treatment [facility]. Appointment Date/Time Appointment Type Appointment Facili ty Name Jul 10, 2022 02:00 PM AMBULATORY - NONE [facility] Jul 10, 2022 02:45 PM AMBULATORY [facility] Jul 10, 2022 03:00 PM AMBULATORY - MEDICINE [facility] Jul 24, 2022 09:30 AM AMBULATORY - MEDICINE [facility] Jul 25, 2022 11:00 AM AMBULATORY - REHAB MEDICINE [facility] Active, Pending, and Scheduled Orders This section includes a listing of several types of active, pending, and scheduled orders, including clinic medications orders, diagnostic test orders, procedure orders and consult orders; where the start date of the order is 45 days before the date of the Encounter or 45 days after the date of the Encounter. The data comes from all [place] treatment [facility]. Test Date/Time Test Type Test Details Facility Name Jul 10, 2022 02:12 PM Consult Order OT OCCUPATIONAL THERAPY OU TPT [facility] UPPER EXTREMITY HAND THERAPY Cons Coarse Wire Drawer's Choice Lab Results: +/- 30 days of [...] Interpretation Reference Range Comment Jul 10, 2022 [facility] HEMOGLOBIN A1C Specimen Typ e: BLOOD 12:51 [...] January 10, 2022 09:00 AM Reporting Lab: [facility] [address] [facility] [address] Performing Lab: [facility] [address] HEMOGLOBIN A1C 5.3 4.0-6.0 Jul 10, 2022 12:51 [facility] LIPID PANEL,NON-FASTING S pecimen Type: PLASMA PM No comment enter ed. Ordering Provid er: KECIA COTTO Report Released Date/Time: January 10, 2022 09:00 AM Reporting Lab: [facility] [address] Performing Lab: [facility] [address] CHOLESTEROL 150 <199 .HDL 47 >40 LDL CALCULATION 74 <99 VLDL CALCULATION 29 <29 NON HDL CHOLESTEROL 103 <129 TRIG(NON FASTING) 145 <149 Jul 10, 2022 12:51 [facility] BASIC METABOLIC Specimen Type: PLASMA PM PANEL+MG No comment enter ed. Ordering Provid er: KECIA COTTO Report Released Date/Time: January 10, 2022 09:00 AM Reporting Lab: [facility] [address] Performing Lab: [facility] [address] CREATININE 1.0 0.7-1.2 UREA NITROGEN 18 8-26 GLUCOSE 86 70-100 SODIUM 135 L 136-145 POTASSIUM 4.2 3.5-5.1 CHLORIDE 102 98-107 CO2 30 H 22-29 CALCIUM 9.3 8.4-10.2 MAGNESIUM 2.1 1.6-2.6 ANION GAP 3 L 5-15 CREAT EGFR(CKD-EPI) 77 >60 Jun 16, 2022 09:26 [facility] BASIC METABOLIC Specimen Type: PLASMA AM PANEL+MG No comment enter ed. Ordering Provid er: ANNMARIE WALKER Report Released Date/Time: Mar 13, 2022 09:19 AM Reporting Lab: [facility] [address] [facility] [address] Performing Lab: [facility] [address] [facility] [address] CREATININE 0.8 0.7-1.2 UREA NITROGEN 21 8-26 [...] 22 [place] 2021 09:53 /min mm[Hg] lb IS [facility] Social History: Smoking Status (Most current) [...] Comment Facility Apr 04, 2021 10:00 AM [place]-TOBACCO [facility] USED [facility] Radiology Reports: +/- 30 days of the [...] the Encounter. The data comes from all [place] treatment facilities. Date/Time Radiology Report Provider Source Jul 10, 2022 02:23 LUMBAR SPINE MIN 4 VIEWS: ADRIANNE,[facility] YOUSIF MANN [id number] -1945 M Exm Date: JUL 10, 2022@14:23 Req Phys: JUSTA MONTGOMERY Pat Loc: [facility] CT A RES WH 4F (Req' Img Loc: MAIN X-RAY Service: Unknown (Case [id number] COMPLETE) LUMBAR SPINE MIN 4 VIEWS (RA D Detailed) CPT:86973 Reason for Study: Left lower and lateral abdomi nal pain Clinical History: [place] IS NOT under investigation for COVID-19 or [...] 10, 2022 Date Verified: JUL 10, 2022 Dental Financial Coordinator E-Sig:/ES/KAREY SILVER MD Report: LUMBAR SPINE MIN [...] COCCYX 2 OR MORE VIEWS: [facility] YOUSIF MANN [id number] -1945 M Exm Date: JUL 10, 2022@14:23 Req Phys: JUSTA MONTGOMERY Pat Loc: [facility] CT A RES WH 4F (Req' Img Loc: MAIN X-RAY Service: Unknown (Case [id number] COMPLETE) SACRUM COCCYX 2 OR MORE VIEW S (RAD Detailed) CPT:81528 Reason for Study: LLQ and Left lateral abdomina l pain Clinical History: IS NOT under investigation [...] 10, 2022 Date Verified: JUL 10, 2022 Dental Financial Coordinator E-Sig:/ES/KAREY SILVER MD Report: SACRUM COCCYX 2 OR MORE VIEWS 07/10/2022 INDICATION: LLQ and Left lateral abdominal pain COMPARISON: None. Impression: Normal appearance of the sacrum and coccyx. No visible fracture. Mild SI joints spurring. Hips appear preserved. Primary Interpreting Staff: KAREY SILVER MD, NEURORADIOLOGIST (Fausto peck) /Duy
--- OUTSIDE RECORDS SUMMARY | 2022-07-24 21:38 | XMS_ITS | Encounter Summary ---
:1945 Author Organization [facility] Address [address] [place] [address] Support Name Relationship Address Phone BANG MANN Unavailable [address] [phone] [place] [address] BANG MANN MEENAKSHI Unavailable [address] [phone] [place] [address] Insurance Providers: All historical and current Section Date Range: From patient's date of to the date document was created.This section includes the names of all active insurance providers for the patient. Insurance Type of Plan Start of End of Group Member Insurance Policy P atient's Provider Coverage Name Policy Policy Number ID Provider's Tanner's Relationship Coverage Coverage Telephone Name to Policy Number Tanner [facility] MEDICARE MEDIC Aug 13, [id number] VENESS,BECERRA P ATIENT [facility] (WNR) ADVANTAGE ARE 2020 5 [id number] [phone] ROLD ADVAN 1 MOUSTAPHA C BCBS [place] MEDICARE MCR Aug 13, [id number] VENESS,BECERRA P ATIENT [facility] (WNR) ADVANTAGE (WNR) 2020 7 [id number] [phone] ROLD 1 [facility] MEDICARE [facility] Aug 13, [id number] [phone] VENESS ,BECERRA PATIENT MCR (WNR) ADVANTAGE (WNR) 2 5 [id number] 2 ROLD 1 MEDICARE MEDICARE PART Sep 13, PART B [id number] 800 Jesusita CONKLIN (WNR) (M) B 2012 [id number] [phone] [facility] MEDICARE MEDICARE PART Mar 13, PART A 800 Jesusita CONKLIN (WNR) (M) A [phone] [facility] MEDIC[facility] MEDICARE PART Mar 13, PART A [id number] 800 Jesusita CONKLIN (WNR) (M) Rosalinda 2008 [id number] [phone] [place] Selected Encounter This section includes the information on record at [place] for the Encounter. Date/Time Encounter Type Encounter Description Reason Provider Source January 02, 2022 05:00 Outpatient Encounter ADMIN PAT ACTIVTIES PM (LUZ MARIA) IHE Encounter Template Text not used by [place] Plan of Treatment: Future Appointments (+ 6 [...] 10, 2022 08:30 AM AMBULATORY - MEDICINE [facility] Feb 02, 2022 10:00 AM AMBULATORY - PSYCHIATRY [facility] Feb 03, 2022 12:12 PM AMBULATORY - NONE [facility] Feb 09, 2022 10:00 AM AMBULATORY - PSYCHIATRY [facility] Feb 09, 2022 01:30 PM AMBULATORY - SURGERY [facility] Feb 16, 2022 10:00 AM AMBULATORY - PSYCHIATRY [facility] Feb 23, 2022 10:00 AM AMBULATORY - PSYCHIATRY [facility] Mar 02, 2022 10:00 AM AMBULATORY - PSYCHIATRY [facility] Mar 08, 2022 08:45 AM AMBULATORY - MEDICINE [facility] Mar 08, 2022 09:00 AM AMBULATORY - MEDICINE [facility] Mar 08, 2022 09:30 AM AMBULATORY - MEDICINE [facility] Mar 08, 2022 10:00 AM AMBULATORY - MEDICINE [facility] Mar 13, 2022 09:00 AM AMBULATORY - MEDICINE [facility] May 03, 2022 09:00 AM AMBULATORY - NONE [facility] Jun 16, 2022 09:30 AM AMBULATORY - MEDICINE [facility] Jun 16, 2022 10:00 AM AMBULATORY - MEDICINE [facility] Jun 16, 2022 10:30 AM AMBULATORY - MEDICINE [facility] Lab Results: +/- 30 days of [...] Range Comment December 16, 2021 09:56 AM [facility] BNP Specim en Type: PLASMA No comment enter ed. Ordering Provid er: DRAKE MCNULTY Report Released Date/Time: Nov 08, 2021 10:58 AM Reporting Lab: [facility] [address] [facility] [address] Performing Lab: [facility] [id number] BNP 35 <99 December 16, 2021 [facility] COMPREHENSIVE Specimen Typ e: PLASMA 09:56 AM METABOLIC PANEL+MG No comment en tered. Ordering Provid er: DRAKE MCNULTY Report Released Date/Time: Nov 08, 2021 10:58 AM Reporting Lab: [facility] [address] [facility] [address] Performing Lab: [facility] [address] CREATININE 0.8 0.7-1.2 UREA NITROGEN 14 8-26 [...] Comment Facility Apr 04, 2021 10:00 AM [place]-TOBACCO NEVER USED [facility]
--- OUTSIDE RECORDS SUMMARY | 2022-07-24 21:38 | XMS_ITS | Encounter Summary ---
:1945 Author Organization [facility] Address [address] [place] [address] Support Name Relationship Address Phone BANG MANN Unavailable [address] [phone] [place] [address] BANG MANN MEENAKSHI Unavailable [address] [phone] [place] [address] Insurance Providers: All historical and current Section Date Range: From patient's date of to the date document was created.This section includes the names of all active insurance providers for the patient. Insurance Type of Plan Start of End of Group Member Insurance Policy P atient's Provider Coverage Name Policy Policy Number ID Provider's Tanner's Relationship Coverage Coverage Telephone Name to Policy Number Tanner [facility] MEDICARE MEDIC Aug 13, [id number] VENESS,BECERRA P ATIENT [facility] (WNR) ADVANTAGE ARE 2020 5 [id number] [phone] [place] ADVAN 1 MOUST[place] C BC[place] MEDICARE MCR Aug 13, [id number] VENESS,BECERRA P ATIENT [facility] (WNR) ADVANTAGE (WNR) 2020 7 [id number] [phone] ROLD 1 [facility] MEDICARE [facility] Aug 13, [id number] [phone] VENESS ,BECERRA PATIENT MCR (WNR) ADVANTAGE (WNR) 2 5 [id number] 2 ROLD 1 MEDICARE MEDICARE PART Sep 13, PART B [id number] 800 Jesusita CONKLIN (WNR) (M) B 2012 [id number] [phone] [facility] MEDICARE MEDICARE PART Mar 13, PART A 800 Jesusita CONKLIN (WNR) (M) A [phone] [facility] MEDICARE MEDICARE PART Mar 13, PART A [id number] 800 Jesusita CONKLIN (WNR) (M) Rosalinda 2008 [id number] [phone] [facility] Selected Encounter This section includes the information on record at [place] for the Encounter. Date/Time Encounter Type Encounter Description Reason Provider Source May 11, 2022 06:48 Outpatient Encounter ADMIN PAT ACTIVTIES PM (MASNONCT) IHE Encounter Template Text not used by [place] Plan of Treatment: Future Appointments (+ 6 months) and Future Tests (+/- 45 days) The Plan of Treatment section includes future care activities for the patient from all [place] [facility] This section includes future appointments and future orders which are active, pending orscheduled.Future Appointments This section includes appointments that were scheduled to occur 6 months from the date of the Encounter, up to a maximum of 20 appointments. The data comes from all [place] treatment facilities. Appointment Date/Time Appointment Type Appointment Facili ty Name Jun 16, 2022 09:30 AM AMBULATORY - MEDICINE [facility] Jun 16, 2022 10:00 AM AMBULATORY - MEDICINE [facility] Jun 16, 2022 10:30 AM AMBULATORY MEDICINE [facility] Jul 10, 2022 02:00 PM AMBULATORY - NONE [facility] Jul 10, 2022 02:45 PM AMBULATORY - NONE [facility] Jul 10, 2022 03:00 PM AMBULATORY - MEDICINE [facility] Jul 24, 2022 09:30 AM AMBULATORY - MEDICINE [facility] Jul 25, 2022 11:00 AM AMBULATORY - REHAB MED[facility]INE [facility] Social History: Smoking Status (Most current) and Tobacco Use (All prior to encounter date) This section includes the most current, and the historical, smoking and tobacco-related health factors from the [place] facility where the Encounter took place.Current Smoking Status This section includes the most current smoking, or tobacco-related health factor, from the [place] facility where the Encounter took place. Date/Time Current Smoking Status Comment Facility Apr 04, 2021 10:00 AM [place]-TOBACCO NEVER USED [facility] Encounter Notes: All associated encounter notes This section contains the clinical notes associated to the Encounter. Date/Time Encounter Note(s) Provider Source Feb 24, 2021 11:59 PM NONVA NOTE: ALAINA PEREYRA IS [facility] LOCAL TITLE: OPHTHALMOLOGY NONVA NOTE STANDARD TITLE: NONVA NOTE DATE OF NOTE: FEB 24, 2021@23:59 ENTRY DATE: MAY 11, 2022@18:49:25 AUTHOR: ALAINA PEREYRA EXP COSIGNER: URGENCY: STATUS: COMPLETED This note contains attached OPTHALMOLOGY scanned document(s) received from an outside facility. Open [facility] to review the documen t(s). /tanner/ ALAINA PEREYRA Orthopedic Nurse Practitioner Signed: 05/11/2022 18:49
--- OUTSIDE RECORDS SUMMARY | 2022-07-24 21:39 | XMS_ITS | Encounter Summary ---
:1945 Author Organization [facility] Address [address] [place] [address] Support Name Relationship Address Phone BANG MANN MEENAKSHI Unavailable [address] [facility] [phone] [place] [address] BANG MANN MEENAKSHI Unavailable [address] [facility] [place] [address] Insurance Providers: All historical and current Section [...] Tanner [place] MED[place] Aug 13, [id number] VENESS,BECERRA P ATIENT [facility] (WNR) ADVANTAGE ARE 2020 5 [id number] [phone] ROLD ADVAN 1 MOUST[place]HA C [place] MEDICARE MCR Aug 13, [id number] 800 VENESS,BECERRA P ATIENT [facility] (WNR) ADVANTAGE (WNR) 2020 7 [id number] [phone] R[place] 1 [place] MEDIC[place] M[place] Aug 13, [id number] [phone] VENESS ,BECERRA PATIENT MCR (WNR) ADVANTAGE (WNR) 2022 5 [id number] 2 ROLD 1 MEDICARE MEDICARE PART Sep 13, PART B [id number] 800 Jesusita CONKLIN (WNR) (M) B 2012 VN81 [phone] [facility] MEDICARE MEDICARE PART Mar 13, PART A 800 Jesusita CONKLIN (WNR) (M) A [phone] [facility] MEDICARE MEDICARE PART Mar 13, PART A [id number] 800 Jesusita CONKLIN (WNR) (M) A 2008 VN81 [phone] [place] Selected Encounter This section includes the information on record at [place] for the Encounter. Date/Time Encounter Type Encounter Description Reason Provider Source Jul 24, 2022 09:30 Outpatient Encounter SLEEP MEDICINE IRF AN,LISANDRA AM IHE Encounter Template Text not used by [place] Plan of Treatment: Future Appointments (+ 6 months) and Future Tests (+/- 45 days) The Plan of Treatment section includes future care activities for the patient from all [place] [facility]. This section includes future appointments and future orders which are active, pending orscheduled.Future Appointments This section includes appointments that were scheduled to occur 6 months from the date of the Encounter, up to a maximum of 20 appointments. The data comes from all [facility]. Appointment Date/Time Appointment Type Appointment Facili ty Name Jul 25, 2022 11:00 AM AMBULATORY - REHAB MEDICINE [facility] December 20, 2022 11:00 AM AMBULATORY MEDICINE [facility] December 20, 2022 11:45 AM AMBULATORY MEDICINE [facility] December 20, 2022 12:00 PM AMBULATORY [facility] Active, Pending, and Scheduled Orders This section includes a listing of several types of active, pending, and scheduled orders, including clinic medications orders, diagnostic test orders, procedure orders and consult orders; where the start date of the order is 45 days before the date of the Encounter or 45 days after the date of the Encounter. The data comes from all [facility]. Test Date/Time Test Type Test Details Facility Name Jul 10, 2022 02:12 PM Consult Order OT OCCUPATIONAL THERAPY OU TPT [facility] UPPER EXTREMITY HAND THERAPY Cons [facility] Operator's Choice Lab Results: +/- 30 days of the encounter This section includes the Chemistry and Hematology Lab Results on record with [place] for the patient. Radiology Reports and Pathology Reports are provided separately, in subsequent sections.Lab Results This section contains the Chemistry/Hematology Results that were resulted 30 days before or 30 daysafter the date of the Encounter. Date/Time Source Result Type Result - Unit Interpretation Reference Range Comment Jul 10, 2022 [facility] HEMOGLOBIN A1C Specimen Typ e: [...] 10, 2022 09:00 AM Reporting Lab: [facility] [address] Performing Lab: [facility] [address] HEMOGLOBIN A1C 5.3 4.0-6.0 Jul 10, 2022 12:51 [facility] BASIC METABOLIC Specimen Type: PLASMA PM PANEL+MG No comment enter ed. Ordering Provid er: KECIA COTTO Report Released Date/Time: January 10, 2022 09:00 AM Reporting Lab: [facility] [id number] Performing Lab: [facility] [address] CREATININE 1.0 0.7-1.2 UREA NITROGEN 18 8-26 GLUCOSE 86 70-100 SODIUM 135 L 136-145 POTASSIUM 4.2 3.5-5.1 CHLORIDE 102 98-107 CO2 30 H 22-29 CALCIUM 9.3 8.4-10.2 MAGNESIUM 2.1 1.6-2.6 ANION GAP 3 L 5-15 CREAT EGFR(CKD-EPI) 77 >60 Jul 10, 2022 12:51 [facility] LIPID PANEL,NON-FASTING S pecimen Type: PLASMA PM No comment enter ed. Ordering Provid er: KECIA COTTO Report Released Date/Time: January 10, 2022 09:00 AM Reporting Lab: [facility] [id number] Performing Lab: [facility] [address] CHOLESTEROL 150 <199 .HDL 47 >40 LDL CALCULATION 74 <99 VLDL CALCULATION 29 <29 NON HDL CHOLESTEROL 103 <129 TRIG(NON FASTING) 145 <149 Social History: Smoking Status (Most current) and Tobacco Use (All prior to encounter date) This section includes the most current, and the historical, smoking and tobacco-related health factors from the [facility] where the Encounter took place.Current Smoking Status This section includes the most current smoking, or tobacco-related health factor, from the [place] facility where the Encounter took place. Date/Time Current Smoking Status Comment Facility Jul 10, 2022 03:00 PM [place]-TOBACCO NEVER USED [facility] Tobacco Use History This section includes a history of the smoking, or tobacco- related health factors, that were collected on or before the date of the Encounter. The data comes from the [place] facility where the Encounter took place. Date/Time Smoking Status/Tobacco Use Comment Pop potter Apr 04, 2021 10:00 AM [place]-TOBACCO NEVER USED [facility] Radiology Reports: +/- 30 days of the [...] the Encounter. The data comes from all [place] treatment facilities. Date/Time Radiology Report Provider Source Jul 10, 2022 02:23 LUMBAR SPINE MIN 4 VIEWS: KAREY SILVER [facility] PM YOUSIF MANN [id number] -1945 M Exm Date: JUL 10, 2022@14:23 Req Phys: VALENTINAJUSTA PIEDRA Pat Loc: [facility] CT A RES 01 WH 4F (Req' Img Loc: MAIN X-RAY Service: Unknown (Case [id number] COMPLETE) LUMBAR SPINE MIN 4 VIEWS (RA D Detailed) CPT:41608 Reason for Study: Left lower and lateral abdomi nal pain Clinical History: [place] IS NOT under investigation for COVID-19 or [...] 10, 2022 Date Verified: JUL 10, 2022 Solar Installation Supervisor E-Sig:/ES/KAREY SILVER MD Report: LUMBAR SPINE MIN [...] 2 OR MORE VIEWS: YANA SILVER [facility] PM YOUSIF MANN [id number] -1945 M Exm Date: JUL 10, 2022@14:23 Req Phys: JUSTA MONTGOMERY Loc: [facility] CT A RES 01 WH 4F (Req' Img Loc: MAIN X-RAY Service: Unknown (Case [id number] COMPLETE) SACRUM COCCYX 2 OR MORE VIEW S (RAD Detailed) CPT:51233 Reason for Study: LLQ and Left lateral [...] 10, 2022 Date Verified: JUL 10, 2022 Solar Installation Supervisor E-Sig:/ES/KAREY SILVER MD Report: SACRUM COCCYX 2 OR MORE VIEWS 07/10/2022 INDICATION: LLQ and Left lateral abdominal pain COMPARISON: None. Impression: Normal appearance of the sacrum and coccyx. No visible fracture. Mild SI joints spurring. Hips appear preserved. Primary Interpreting Staff: KAREY SIVLER MD, NEURORADIOLOGIST (Fausto peck) /Duy Encounter Notes: All associated encounter notes This section contains the clinical notes associated to the Encounter. Date/Time Encounter Note(s) Provider Source Jul 24, 2022 09:53 AM SLEEP MEDICINE NOTE: KRISTEN ARIAS [facility] LOCAL TITLE: SLEEP MEDICINE NOTE STANDARD TITLE: SLEEP MEDICINE NOTE DATE OF NOTE: JUL 24, 2022@09:53 ENTRY DATE: JUL 24, 2022@09:53:37 AUTHOR: KRISTEN ARIAS COSIGNER: URGENCY: STATUS: COMPLETED SLEEP CLINIC ESTABLISHED PATIENT HISTORY OF PRESENT ILLNESS: YOUSIF MANN is a 77 MALE with PMH of ROSA, HL D and Afib, and BMI 22.0, being evaluated in Sleep Clinic for mild O SA and sleep maintanance insomnia follow up. Pt goes to bed at 10 30 pm and wakes up at 5 am. He reports,that at this time he is only getting 1-2 hours of sleep. Pt denies any need to nap during the day, he is very active as he lives [place] farm, sometimes he feels tired, but h e is able to perform all his daily duties. Pt tried CPAP as well as positional kapil ce for mild ROSA in a past, but was not able to tolerate it. He also was referred to [facility]BTI during last appt, however pt doesn't believe that it was beneficial. At this time pt is not interested in any treatem ent for insomnia and reports. He has teeth, but doens' t believe that he is wi lling to persue referral to sleep dentistry as he is not interested in oral appliance currently. ESS: 2 RICHARD:2 A. SLEEP APNEA 11/15/2021: Sleep architectur e is significant for decreased sleep efficiency and increased wake [...] cycling between N1 and N2 seen in [id number] to 802 along with sleep fragmentation and duration of these events is suggestive of period ic breathing/Alex-Oconnell. Clinical correlation is advised. - Sleep-related hypoxemia and/or hypoventilation was not present REVIEW OF SYSTEMS (RoS): 14 point RoS was negati ve other than listed in the HPI. PAST MEDICAL HISTORY: Active problems - Computerized Problem List is t he source for the followin. Atrial fibrillation 2. Hyperlipidemia 3. Age related macular degeneration 4. Hearing loss 5. Tinnitus 6. Tremor 7. Obstructive sleep apnea - Non-compliant with CPAP. 8. Erectile dysfunction 9. Heart failure with reduced ejection fraction 10. Ingrown toenail MEDICATIONS: Active Outpatient Medications (including Supplie s): Active [...] ACTIVE A DAY FOR HEART FAILURE. 7) MULTIVIT/OPHTH AREDS2/LUTE/ZEAX CAP/TAB TAKE 1 ACTIVE CAP/TAB BY MOUTH TWICE A DAY 8) PEG 400 0.4%/PROP GLYCOL 0.3% OPH SOLN INSTIL L 1 DROP ACTIVE IN BOTH EYES FOUR TIMES A DAY FOR EYE IRRITATION/DRYNESS 9) RIVAROXABAN 20MG TAB TAKE ONE TABLET BY MOUTH EVERY ACTIVE DAY WITH THE LARGEST MEAL OF THE DAY TO PREVENT BLOOD CLOTS & STROKE 10) SILVER SULFADIAZINE 1% CREAM APPLY TO AFFECT ED AREA ACTIVE TOPICALLY TWICE A DAY EXTERNAL USE ONLY PHYSICAL EXAM: Height: 68.8 in [174.8 cm] (07/10/2022 13:08) Weight: 148 lb [67.13 kg] (07/10/2022 13:08) Body Mass Index: 22.0 Temperature: 97.6 F [36.4 C] (06/16/2022 09:53) Blood Pressure: 115/66 (07/10/2022 13:08) Pulse: 63 (07/10/2022 13:08) Respiration: 16 (07/10/2022 13:08) Pain: 0 (07/10/2022 13:08) General: NAD Neuro: alert, language fluent with intact compre hension, normal speech Psych: cooperative, appropriate mood and affect INVESTIGATIONS: IMPRESSION/PLAN YOUSIF MANN is a 77 MALE with PMH ROSA, HLD a nd Afib, and BMI 22.0, being evaluated in Sleep Clinic for mild O SA and sleep maintanance insomnia follow up. 1. ROSA: -Mild sleep apnea, at this time pt denies worsen ing symtposm inclding EDS, snoring or apnea. -He is not interested in CPAP or oral appliance, and is not a candidate for hypoglossal nerve stimulation due to mil d sleep apnea with significant present central component, [facility] -Discussed consequences of untreated sleep apnea 2.Insomnia, chronic, sleep maintanance, most likely related to untreated sleep apnea with central component. -Discussed treatmetn options in details, refused by pt -Sujectively pr reports no ESS and states, that insomina and lack of sleep doesn't intrefere with his q uality of life, therefore he is willing to continue sleep on his side due to positional component, b ut deferred sleep apnea treatement modalities inclduign CPAP, oral appli ance among others . He tried CBTI in a past, which was not beneficia l for insomnia -Will recommend to follow up in sleep clinic as needed as it this point patiend deferred therapuetic options available for treatemetn of his undrlying condition Return to clinic in as neded. Plan given to beverly ent as above. Patient was reviewed with supervising physician Dr. Sanchez. /tanner/ KRISTEN ARIAS SLEEP MEDICINE FELLOW Signed: 07/24/2022 19:15 Receipt Acknowledged By: * AWAITING SIGNATURE * LISANDRA SANCHEZ
--- OUTSIDE RECORDS SUMMARY | 2022-07-24 21:39 | XMS_ITS | Encounter Summary ---
:1945 Author Organization [facility] Address [address] [place] [id number] Support Name Relationship Address Phone BANG MANN Unavailable [id number] [facility] [place] [address] BANG MANN MEENAKSHI Unavailable [address] [phone] [place] [address] Insurance Providers: All historical and current Section [...] Tanner [place] Aug 13, [id number] VENESS,BECERRA P ATIENT [facility] (WNR) ADVANTAGE ARE 2020 5 [id number] [phone] ROLD ADVAN 1 MOUSTAPHA C [place] M[place] Aug 13, [id number] VENESS,BECERRA P ATIENT [facility] (WNR) ADVANTAGE (WNR) 2020 7 [id number] [phone] R[place] 1 [place] Aug 13, [id number] [phone] VENESS ,BECERRA PATIENT [facility] (WNR) ADVANTAGE (WNR) 2021 5 [id number] ROLD 1 MEDICARE MEDICARE PART Sep 13, PART B [id number] Jesusita CONKLIN (WNR) (M) B 2012 [id number] [phone] [facility] MEDICARE MEDICARE PART Mar 13, PART A 800 Jesusita CONKLIN (WNR) (M) A [phone] [facility] MEDICARE MEDICARE PART Mar 13, PART A [id number] 800 Jesusita CONKLIN (WNR) (M) Rosalinda 2008 [id number] [phone] AROLD Selected Encounter This section includes the information on record at ME for the Encounter. Date/Time Encounter Type Encounter Reason Provider Source Description Jul 10, 2022 OFFICE O/P EST PRIMARY ICD-10-CM I48.91 VAELNTINA, 03:00 PM SF 10-19 MIN CARE/MEDICINE Unspecified atrial JUSTA fibrillation with Provider Comments: Atrial fibrillation ([facility] [id number]) IHE Encounter Template Text not used by ME Assessments - Encounter Diagnoses This section includes the primary and secondary diagnoses documented for the Encounter. Date/Time Primary/Secondary Diagnosis Name Provider Source Diagnosis Jul 10, 2022 PRIMARY Unspecified atrial VALENTINA, CHARLY [facility] 02:24 PM fibrillation JUSTA H[facility] Jul 10, 2022 SECONDARY Hyperlipidemia, VALENTINA, [facility] 02:24 PM unspecified JUSTA HCS Plan of Treatment: Future Appointments (+ 6 months) and Future Tests (+/- 45 days) The Plan of Treatment section includes future care activities for the [facility] This section includes future appointments and future orders which are active, pending orscheduled.Future Appointments This section includes appointments that were scheduled to occur 6 months from the date of the Encounter, up to a maximum of 20 appointments. The data comes from all ME treatment [facility]. Appointment Date/Time Appointment Type Appointment Facili ty Name Jul 24, 2022 09:30 AM AMBULATORY - MEDICINE [facility] Jul 25, 2022 11:00 AM AMBULATORY - REHAB [facility]ICINE [facility] December 20, 2022 11:00 AM AMBULATORY - MEDICINE [facility] December 20, 2022 11:45 AM AMBULATORY - MEDICINE [facility] December 20, 2022 12:00 PM AMBULATORY [facility] Active, Pending, and Scheduled Orders This section includes a listing of several types of active, pending, and scheduled orders, including clinic medications orders, diagnostic test orders, procedure orders and consult orders; where the start date of the order is 45 days before the date of the Encounter or 45 days after the date of the Encounter. The data comes from all ME treatment [facility]. Test Date/Time Test Type Test Details Facility Name Jul 10, 2022 02:12 PM Consult Order OT OCCUPATIONAL THERAPY OU TPT [facility] UPPER EXTREMITY HAND THERAPY Cons Management Trainee's Choice Lab Results: +/- 30 days of [...] Interpretation Reference Range Comment Jul 10, 2022 [facility] HEMOGLOBIN A1C Specimen Typ e: [...] 10, 2022 09:00 AM Reporting Lab: [facility] [id number] Performing Lab: [facility] [id number] HEMOGLOBIN A1C 5.3 4.0-6.0 Jul 10, 2022 12:51 [facility] BASIC METABOLIC Specimen Type: PLASMA PM PANEL+MG No comment enter ed. Ordering Provid er: KECIA COTTO Report Released Date/Time: January 10, 2022 09:00 AM Reporting Lab: [facility] [address] Performing Lab: [facility] [address] CREATININE 1.0 0.7-1.2 UREA NITROGEN 18 8-26 GLUCOSE 86 70-100 SODIUM 135 L 136-145 POTASSIUM 4.2 3.5-5.1 CHLORIDE 102 98-107 CO2 30 H 22-29 CALCIUM 9.3 8.4-10.2 MAGNESIUM 2.1 1.6-2.6 ANION GAP 3 L 5-15 CREAT EGFR(CKD-EPI) 77 >60 Jul 10, 2022 12:51 [facility] LIPID PANEL,NON-FASTING S pecimen Type: PLASMA PM No comment enter ed. Ordering Provid er: KECIA COTTO Report Released Date/Time: January 10, 2022 09:00 AM Reporting Lab: [facility] [id number] Performing Lab: [facility] [address] [facility] [address] CHOLESTEROL 150 <199 .HDL 47 >40 LDL CALCULATION 74 <99 VLDL CALCULATION 29 <29 NON HDL CHOLESTEROL 103 <129 TRIG(NON FASTING) 145 <149 Jun 16, 2022 09:26 [facility] BASIC METABOLIC Specimen Type: PLASMA AM PANEL+MG No comment enter ed. Ordering Provid er: ANNMARIE WALKER Report Released Date/Time: Mar 13, 2022 09:19 AM Reporting Lab: [facility] [address] [facility] [address] Performing Lab: [facility] [address] CREATININE 0.8 0.7-1.2 UREA NITROGEN 21 8-26 [...] Dionisio dy Source Pressure Rate Mass Index Jul 10 115/66 16 /min 96 % 0 68.8 in 148 lb 22 [place] P 2021 01:08 /min mm[Hg] IS [facility] Social History: Smoking Status [...] Comment Facility Jul 10, 2022 03:00 PM ME-TOBACCO NEVER USED [employer] [facility] Tobacco Use History This section includes a history of the smoking, or tobacco- related health factors, that were collected on or before the date of the Encounter. The data comes from the ME facility where the Encounter took place. Date/Time Smoking Status/Tobacco Use Comment [facility] Apr 04, 2021 10:00 AM ME-TOBACCO [facility] USED [facility] Rad[facility] Reports: +/- 30 days of the [...] the Encounter. The data comes from all ME treatment facilities. Date/Time Radiology Report Provider Source Jul 10, 2022 02:23 LUMBAR SPINE MIN 4 VIEWS: KAREY SILVER [facility] PM YOUSIF MANN [id number] -1945 M Exm Date: JUL 10, 2022@14:23 Req Phys: JUSTA [facility]TGOM[facility] Loc: [facility] A RES 01 WH 4F (Req' Img Loc: MAIN X-RAY Service: Unknown (Case [id number] COMPLETE) LUMBAR SPINE MIN 4 VIEWS (RA D Detailed) CPT:38317 Reason for Study: Left lower and lateral [...] 10, 2022 Date Verified: JUL 10, 2022 Felt Cementer E-Sig:/ES/KAREY SILVER MD Report: LUMBAR SPINE MIN [...] COCCYX 2 OR MORE VIEWS: YANA SILVER [facility] PM YOUSIF MANN [id number] -1945 M Exm Date: JUL 10, 2022@14:23 Req Phys: VALENTINAJUSTA Pat Loc: [facility] A RES 01 WH 4F (Req' Img Loc: MAIN X-RAY Service: Unknown (Case [id number] COMPLETE) SACRUM COCCYX 2 OR MORE VIEW S (RAD Detailed) CPT:94750 Reason for Study: LLQ and Left lateral [...] 10, 2022 Date Verified: JUL 10, 2022 Felt Cementer E-Sig:/ES/KAREY SILVER MD Report: SACRUM COCCYX 2 [...] Encounter. Date/Time Encounter Note(s) Provider Source Jul 10, 2022 02:08 INTERNAL MEDICINE NOTE: JUANA FARMER [facility] PM LOCAL TITLE: MEDICINE CLINIC NOTE STANDARD TITLE: INTERNAL MEDICINE NOTE DATE OF NOTE: JUL 10, 2022@14:08 ENTRY DATE: JUL 10, 2022@14:08:18 AUTHOR: JUANA FARMER EXP COSIGNER: URGENCY: STATUS: COMPLETED I have reviewed this patient's history, pertinen t physical examination, laboratory, and (when obtained) radiologic or ot her diagnostic tests with the Internal Medicine Resident evaluating this p atient. I agree with the treatment plan as outlined. This plan was review ed with the resident on the date of this note. 77 YO M here today to discuss issues of hand pain and hi p and L lower quadrant pain. hand and L sided pain are not constant happen at times but then they all resolve with m ovement. For the L lower quadrant beena n: he will awaken; shift and the pain will go away. this is the second time he m entions this hip pain: will evaluate x-ray but as it is so infrequent at this tomy e do not feel that surgical evaluation in warranted it + for OA> Likely PT would be a better option. LLQ pain: as above, does not happen frequently o r last for prolonged time. No changes in bowel or bladder, no systemic concerns. Did have some weight loss but his weight fluctuated and becerra s decreased by 5 lbs over the past 6 months with no other noted change; and of note was started on e mapagliflozin 10/2021. If the pain increases or worsens will re-assess; likely with CT. /tanner/ JUANA FARMER MD Staff Physician Signed: 07/10/2022 14:17 Jul 10, 2022 01:09 INTERNAL MEDICINE OUTPATIENT NOTE: LO PITT [facility] LOCAL TITLE: MEDICINE CLINIC NURSING NOTE STANDARD TITLE: INTERNAL MEDICINE OUTPATIENT NOT E DATE OF NOTE: JUL 10, 2022@13:09 ENTRY DATE: JUL 10, 2022@13:09:21 AUTHOR: LO PITT EXP COSIGNER: URGENCY: STATUS: COMPLETED TYPE OF VISIT: Appointment Check In Type of appointment: In-person appointment REASON FOR VISIT: Check up. ALLERGIES: Patient has answered NKA VITAL SIGNS: Blood Pressure: 115/66 (07/10/2022 13:08) Pulse: 63 (07/10/2022 13:08) Respiration: 16 (07/10/2022 13:08) Temperature: 97.6 F [36.4 C] (06/16/2022 09:53) Weight: 148 lb [67.13 kg] (07/10/2022 13:08) Height: 68.8 in [174.8 cm] (07/10/2022 13:08) BMI: 22.0 O2 Sat: 96% (07/10/2022 13:08) Pain: 0 (07/10/2022 13:08) PAIN SCREEN: Patient is not having significant pain that the y wish to discuss with their provider today. MEDICATION Over the Counter/Herbal Medications: The patient states that they take some outside medications and/or herbals. Depression Screening: Perform PHQ-2 A PHQ-2 screen was performed. The score was 0 w hich is a negative screen for depression. Over the past two weeks, how often have you bee n bothered by the following problems? 1. Little interest or pleasure in doing things Not at all 2. Feeling down, depressed, or hopeless Not at all Nursing Annual Screening: Fall History Screen During the past 12 months, have you had any fal ls? Patient reports having one fall without injury requiring treatment. MEDICATIONS: Patient is on one of the following medication c lasses: Antihypertensives, Antidepressants, Antipsychot ics, Diuretics, or Controlled substance medication used for pain. FALL RISK ADVICE: Fall Risk Advice provided. Handout entitled Fa ll Prevention At Home reviewed and given to patient and/or significan t other. Alcohol Use Screen Alcohol Screen: SCREEN FOR ALCOHOL (AUDIT-C) An alcohol screening test (AUDIT-C) was negativ e (score=2). 1. How often did you have a drink containing al cohol in the past year? Two to four times a month 2. How many drinks containing alcohol did you h ave on a typical day when you were drinking in the past year? One or two drinks 3. How often did you have six or more drinks on one occasion in the past year? Never Script Talk Screen Are you able to read your prescription bottles with your glasses, magnifiers or other aids? Yes or patient not taking any prescriptions. Skin Screen Patient reports any current pressure ulcers, a history of pressure ulcers, or a wound from a medical massage therapist or Patient is bed-confined or a wheelchair-user or Patient requires assistance to transfer/change position No, Skin Screen is Negative Home Abuse/Violence Screen Is your home free of abuse and violence? Yes MOVE! Program Screen Body Mass Index (BMI)= 22.0 [place]: No data available [place] Hgb A1C: No data available [place] Hgb A1C: No data available Point of Care Hgb A1C: POC HGB A1C____ Outpatient Nutrition Screen Body Mass Index (BMI)= 22.0 [place]: No data available [place] Hgb A1C: No data available [place] Hgb A1C: No data available Point of Care Hgb A1C: POC HGB A1C____ Is patient's BMI less than 18.5? No Does patient have swallowing, coughing, or chew ing problems affecting oral intake? No Has patient experienced unplanned weight loss o r gain greater than 10 pounds over the last 2 months? No Is patient's Hgb A1C (Glycosylated Hemoglobin) greater than 9.5? Information not available Is patient receiving Total Parenteral Nutrition (TPN) or Tube Feedings? No Patient Health Education Screen BARRIERS/SPECIAL NEEDS: No barriers identified PREFERRED STYLE OF LEARNING: No preference stated Client Assistive Service (ROBERTO) Screen Does the patient require assistance with outpat ient visit? No Tobacco Use Screening: The patient has never used tobacco. Homelessness/Food Insecurity Screen: In the past 2 months, have you been living in s table housing that you own, rent, or stay in as part of a household? Y es - Living in stable housing. Are you worried or concerned that in the next 2 months you may NOT have stable housing that you own, rent, or stay in a s part of a household? No - Not worried about housing near future The [place] reports the following: Within the past 12 months, you worried whether your food would run out before you got money to buy more. Never true Within the past 12 months, the food you bought just didn't last and you didn't have money to get more. Never true Toxic Exposure Screening: The [place]/caregiver was asked if they believe the experienced any toxic exposure(s), such as Open Burn Pits/Airbo rne Hazards, [place] [employer] related exposures, Agent [place], Radiation, con taminated water at [place] or other such exposures, while serving in the [employer]. 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 Printed information wa s offered and provided if desired. /caregiver does not have questions at th is time. /caregiver was informed of local points of contact. Contact information for local resources: - https://www.publichealth.[place].gov/exposures/burnp its/index.asp#presumptive - Veterans Benefits for claims submission: Have the call or have them visit the [employer] web address for online scheduling: [email or web address] - [facility] Enrollment: [phone] ([phone]) - Find a Oven Builder (VSO): Have e call 6-321-KJRGNID or look up their VSO at: https://www.[employer].org/find-a-cvso.html Influenza Immunization: The patient has received the seasonal influenza vaccine for the current season at another location. Date: May 29, 2022 Location: [id number] Address 1: [address] [place] [address] Pneumococcal Conjugate Vaccine (PCV15/PCV20): Prior pneumococcal vaccination The patient has previously received the pneumoc occal polysaccharide vaccine PPSV23 (Pneumovax). Date: October 16, 2016 Location: [facility] Address 1: [address] The patient has previously received the pneumoc occal conjugate vaccine PCV13 (Prevnar 13). Date: September 03, 2015 Location: [facility] Address 1: [address] Written documentation: rosalinda jackson/ LO PITT LPN STAFF EMS DIRECTOR Signed: 07/10/2022 13:21 Jul 10, 2022 11:44 INTERNAL MEDICINE NOTE: [facility] LOCAL TITLE: MEDICINE CLINIC NOTE HRA STANDARD TITLE: INTERNAL MEDICINE NOTE DATE OF NOTE: JUL 10, 2022@11:44 ENTRY DATE: JUL 10, 2022@11:44:55 AUTHOR: TANYA MONTGOMERY EXP COSIGNER: URGENCY: STATUS: COMPLETED MEDICINE CLINIC NOTE Has ADDENDA YOUSIF MANN is a 77 year old MALE with the following chief complaint: Annual wellness visit Nurse's Note Reviewed. HPI/ROS: 04 or 12/2021 - hx for Afib with RVR accompanied by hypotension 12/06/2021 - seen at clinic for L hip pain and L LQ pain. 06/16/2022 - Seen by ME cardiology for A fib and HF follow up R>L UE finger pain. Reports 40 years of pain. Reports pain in digit 1-4 or 2-5 radiation to elbow, denies any specific triggers of pain. Reports worsening of pain over the months. 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 LLQ pain 910. Reports pain onset after COVID sh ot in 2021. Started out bilaterally now L>R. Pain only while laying in b ed. especially on L side. Resolves with time. Does not do anything for it. reports left sided abdominal lesion. 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 denies chest pain or SOB. Never smoker. Rare and occasional alcohol consum ption. 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 Past medical history/Active Problems: Active problems - [...] TWICE A DAY EXTERNAL USE ONLY MEDICATION RECONCILIATION Outpatient At this visit I have reviewed the medication li st, and discussed relevant medications with the patient/surrogate . An updated patient medication list was given to the participant(s). ( ) No Change ( ) Change/New: I have noted this on the glroia paul's copy of the medication list. Education on NEW Medication: I have reviewed the medication list for possible drug:drug interactions or contraindicat ions prior to ordering NEW medications during this visit. ( )Patient instructed. I noted new medication o n patient's copy of the medication list. Patient sent to Pharmacist for education on new medication. ( )Patient ( )Family Member ( )Caregiver indica heydi readiness to learn and has been instructed on action, dose, frequency and side effects of the new medication and I noted new medication on kristopher madison's copy of the medication list. ( ) Verbalizes understanding of instructions. ( ) Needs additional reinforcement of instructi ons(sent to Pharmacist). ( )Patient unable to participate in learning/in struction. 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 soft and sharp touch sensorium intact. No numbness or tingling. elbow and sholder strength symmetri c jessica. No joint redness or swelling notable. Data/Labs: A1c, lipid panel and electrolytes WNL. Assessment and Plan: # Bilateral Finger pain Considered dequervain and carpel tunnel syndrome . Also consider OA or epicondylytis or other wear and tear related beena n. All above seem unlikely considering the Chronic purely nocturnal nature of pain which occurs and desipates without triggers or intervention. - Bilateral wrist braces - Follow up at clinic if pain does not resolve. # LLQ and L lateral abdominal pain. This pain is nocturnal too and resolves with pos ition change. Reports usually needs to wake up to void bladder when noticing t his pain and it ususally resolved with the act of getting up. Patient is a never smoker. denies any bleeding with BM, constipati on or diarrhea. Denies any urinary symptoms either. - Lumbar and sacral x ray to rule out fracture o r radicular processes # aFib with RVR on AC # HF recovered EF ( Most recent echo 03/08/22 55- 60%) No new CP, SOB or reduced activity tolerance. [facility] - Afib Dofetilide 500 mg. AC on Rivaroxiban 20 m g q daily - HF mgmt - Continue Carvedilol 3.125mg BID, Emp agliflozin 25 mg q daily and Lisinopril 5 mg. ( renewed Lisinopril and Rivaro xiban) Patient staffed with Dr. Ho Education on Treatment Plan: Patient indicates readiness to learn, verbalizes understanding, agreement and satisfaction with the treatment plan. Denies fur ther questions. Patient indicates readiness to learn and has bee n instructed on action, dose, frequency, and side effects of medications. Nola ent verbalizes understanding. The medication list above was reviewed with the patient at today's visit. I have indicated discrepancies under each medica tion that is not being taken as prescribed. I have updated the medicine s under the med tab as appropriate. /tanner/ JUSTA MONTGOMERY Resident Signed: 07/10/2022 14:24 Receipt Acknowledged By: 07/10/2022 14:34 /tanner/ JUANA FARMER MD Staff Physician 07/18/2022 ADDENDUM STATUS: COMPLETED Patient reported LLQ and L l ateral abdominal pain. Nocturnal pain. Patient also has had a 10 pound unintenti onal weight loss this year. Lumbar and sacral x ray to rule out fracture or radicular processes. Imp ression from x ray below. Lumbar: Degenerative disc change greatest at L5-S1. Mod est degree of degenerative change at other levels. Sacral: Normal appearance of the sacrum and cocc yx. No visible fracture. Mild SI joints spurring. Hips appear preserved. In the absence of fracture or dislocation patien t counselled to try physical therapy for 2 weeks. If worsening pain couselled to make a appt with pact. /tanner/ JUSTA MONTGOMERY Resident Signed: 07/18/2022 15:08
--- OUTSIDE RECORDS SUMMARY | 2022-07-24 21:39 | XMS_ITS | Encounter Summary ---
:1945 Author Organization [facility] Address [address] [place] [id number] Support Name Relationship Address Phone BANG MANN Unavailable [address] [facility] [place] [address] BANG MANN MEENAKSHI Unavailable [address] [facility] [place] [address] Insurance Providers: All historical and current Section [...] Tanner [place] MED[place] Aug 13, [id number] VENESS,BECERRA P ATIENT [facility] (WNR) ADVANTAGE ARE 2020 5 [id number] [phone] [place] ADVAN 1 TAGE C [place] MED[place]ARE MCR Aug 13, [id number] VENESS,BECERRA P ATIENT MCR (WNR) ADVANTAGE (WNR) 2020 7 [id number] [phone] ROLD 1 [facility] MEDICARE [facility] Aug 13, [id number] [phone] VENESS ,BECERRA PATIENT MCR (WNR) ADVANTAGE (WNR) 2022 5 [id number] ROLD 1 MEDICARE MEDICARE PART Sep 13, PART B [id number] 800 Jesusita CONKLIN (WNR) (M) B 2012 [id number] [phone] [facility] MEDICARE MEDICARE PART Mar 13, PART A 800 Jesusita CONKLIN (WNR) (M) A [phone] [facility] MEDICARE MEDICARE PART Mar 13, PART A [id number] VENNESS,H P ATIENT (WNR) (M) Rosalinda 2008 [id number] [phone] [place] Selected Encounter This section includes the information on record at [place] for the Encounter. Date/Time Encounter Type Encounter Description Reason Provider Source May 29, 2022 12:00 Outpatient Encounter EVENT (HISTORICAL) AM IHE Encounter Template Text not used by [place] Plan of Treatment: Future Appointments (+ 6 months) and Future Tests (+/- 45 days) The Plan of Treatment section includes future care activities for the patient from [facility] [place] [facility] This section includes future appointments and future orders which are active, pending orscheduled.Future Appointments This section includes appointments that were scheduled to occur 6 months from the date of the Encounter, up to a maximum of 20 appointments. The data comes from all [facility]. Appointment Date/Time Appointment Type Appointment Facili ty Name Jun 16, 2022 09:30 AM AMBULATORY - MEDICINE [facility] Jun 16, 2022 10:00 AM AMBULATORY - MEDICINE [facility] Jun 16, 2022 10:[address] [facility] Jul 10, 2022 02:00 PM AMBULATORY - NONE [facility] Jul 10, 2022 02:[address] [facility] Jul 10, 2022 03:00 PM AMBULATORY - MEDICINE [facility] Jul 24, 2022 09:30 AM AMBULATORY - MEDICINE [facility] Jul 25, 2022 11:00 AM AMBULATORY - REHAB MEDICINE [facility] Active, Pending, and Scheduled Orders This section includes a listing of several types of active, pending, and scheduled orders, including clinic medications orders, diagnostic test orders, procedure orders and consult orders; where the start date of the order is 45 days before the date of the Encounter or 45 days after the date of the Encounter. The data comes from all [facility]. Test Date/Time Test Type Test Details Facility Name Jul 10, 2022 02:12 PM Consult Order OT OCCUPATIONAL THERAPY OU TPT [facility] UPPER EXTREMITY HAND THERAPY Cons Crop Consultant's Choice Lab Results: +/- 30 days of the encounter This section includes the Chemistry and Hematology Lab Results on record with [place] for the patient. Radiology Reports and Pathology Reports are provided separately, in subsequent sections.Lab Results This section contains the Chemistry/Hematology Results that were resulted 30 days before or 30 daysafter the date of the Encounter. Date/Time Source Result Type Result - Unit Interpretation Reference Range Comment Jun 16, 2022 09:26 [facility] BASIC METABOLIC Specimen Type: PLASMA AM PANEL+MG No comment enter ed. Ordering Provid er: ANNMARIE WALKER Report Released Date/Time: Mar 13, 2022 09:19 AM Reporting Lab: [facility] [address] [facility] [id number] Performing Lab: [facility] [address] [facility] [id number] CREATININE 0.8 0.7-1.2 UREA NITROGEN 21 8-26 GLUCOSE 66 L 70-100 SODIUM 137 136-145 POTASSIUM 4.1 3.5-5.1 CHLORIDE 104 98-107 CO2 29 22-29 CALCIUM 9.5 8.4-10.2 MAGNESIUM 2.2 1.6-2.6 ANION GAP 4 L 5-15 CREAT EGFR(CKD-EPI) >90 >60 Immunizations: All administered on the encounter date This section contains immunizations associated to the Encounter. Immunization Series Date Issued Reaction Comments INFLUENZA, UNSPECIFIED FORMULATION May 29, 2022 Social History: Smoking Status (Most current) and Tobacco Use (All prior to encounter date) This section includes the most current, and the historical, smoking and tobacco-related health factors from the [place] facility where the Encounter took place.Current Smoking Status This section includes the most current smoking, or tobacco-related health factor, from the [place] facility where the Encounter took place. Date/Time Current Smoking Status Comment Facility Apr 04, 2021 10:00 AM VA-TOBACCO NEVER USED [facility]
--- OUTSIDE RECORDS SUMMARY | 2022-07-24 21:39 | XMS_ITS | Encounter Summary ---
:1945 Author Organization [facility] Address [address] [place] [address] Support Name Relationship Address Phone BANG MANN MEENAKSHI Unavailable [address] [facility] [address] BANG MANN MEENAKSHI Unavailable [address] [facility] [address] Insurance Providers: All historical and current Section [...] Tanner [place] Aug 13, [id number] VENESS,BECERRA P ATIENT [facility] (WNR) ADVANTAGE ARE 2020 5 [id number] [phone] [place] ADVAN 1 MOUST[place]HA C [place] MED[place] M[place] Aug 13, [id number] VENESS,BECERRA P ATIENT MCR (WNR) ADVANTAGE (WNR) 2020 7 [id number] [phone] [place] 1 [place] Aug 13, [id number] [phone] VENESS ,BECERRA PATIENT MCR (WNR) ADVANTAGE (WNR) 2022 5 [id number] ROLD 1 MEDICARE MEDICARE PART Sep 13, PART B [id number] 800 Jesusita CONKLIN (WNR) (M) B 2012 [id number] [phone] [facility] MEDICARE MEDICARE PART Mar 13, PART A 800 Jesusita CONKLIN (WNR) (M) A [phone] [facility] MEDICARE MEDICARE PART Mar 13, PART A [id number] 800 Jesusita CONKLIN (WNR) (M) A 2008 VN81 [phone] [facility] Selected Encounter This section includes the information on record at [place] for the Encounter. Date/Time Encounter Type Encounter Reason Provider Source Description Jul 24, 2022 07:13 Outpatient TELEPHONE TRIAGE RA CECELIA CARMELO PM Encounter R IHE Encounter Template Text not used by [place] Plan of Treatment: Future Appointments (+ 6 months) and Future Tests (+/- 45 days) The Plan of Treatment section includes future care activities for the patient from all [place] [facility]. This section includes future appointments and future orders which are active, pending orscheduled.Future Appointments This section includes appointments that were scheduled to occur 6 months from the date of the Encounter, up to a maximum of 20 appointments. The data comes from all [facility]. Appointment Date/Time Appointment Type Appointment Facili ty Name Jul 25, 2022 11:00 AM AMBULATORY - REHAB [facility]ICINE [facility] December 20, 2022 11:[address] [facility] December 20, 2022 11:[address] [facility] December 20, 2022 12:[address] [facility] Active, Pending, and Scheduled Orders This section includes a listing of several types of active, pending, and scheduled orders, including clinic medications orders, diagnostic test orders, procedure orders and consult orders; where the start date of the order is 45 days before the date of the Encounter or 45 days after the date of the Encounter. The data comes from all [facility]. Test Date/Time Test Type Test Details Facility Name Jul 10, 2022 02:12 PM Consult Order OT OCCUPATIONAL THERAPY OU TPT [facility] UPPER EXTREMITY HAND THERAPY Cons Blindstitch Lapel Padder's Choice Lab Results: +/- 30 days of [...] Interpretation Reference Range Comment Jul 10, 2022 [facility] HEMOGLOBIN A1C Specimen Typ e: [...] January 10, 2022 09:00 AM Reporting Lab: [facility] [id number] Performing Lab: [facility] [address] HEMOGLOBIN A1C 5.3 4.0-6.0 Jul 10, 2022 12:51 [facility] BASIC METABOLIC Specimen Type: PLASMA PM PANEL+MG No comment enter ed. Ordering Provid er: KECIA COTTO Report Released Date/Time: January 10, 2022 09:00 AM Reporting Lab: [facility] [id number] Performing Lab: [facility] [address] CREATININE 1.0 0.7-1.2 UREA NITROGEN 18 8-26 GLUCOSE 86 70-100 SODIUM 135 L 136-145 POTASSIUM 4.2 3.5-5.1 CHLORIDE 102 98-107 CO2 30 H 22-29 CALCIUM 9.3 8.4-10.2 MAGNESIUM 2.1 1.6-2.6 ANION GAP 3 L 5-15 CREAT EGFR(CKD-EPI) 77 >60 Jul 10, 2022 12:51 [facility] LIPID PANEL,NON-FASTING S pecimen Type: PLASMA PM No comment enter ed. Ordering Provid er: KECIA COTTO Report Released Date/Time: January 10, 2022 09:00 AM Reporting Lab: [facility] [address] Performing Lab: [facility] [address] CHOLESTEROL 150 <199 .HDL 47 >40 LDL [...] 10, 2022 03:00 PM VA-TOBACCO NEVER USED [facility] Tobacco Use History This section includes a history of the smoking, or tobacco- related health factors, that were collected on or before the date of the Encounter. The data comes from the [place] facility where the Encounter took place. Date/Time Smoking Status/Tobacco Use Comment Facil ity Apr 04, 2021 10:00 AM VA-TOBACCO NEVER USED [facility] Radiology Reports: +/- 30 days of [...] the Encounter. The data comes from all [place] treatment facilities. Date/Time Radiology Report Provider Source Jul 10, 2022 02:23 LUMBAR SPINE MIN 4 VIEWS: KAREY SILVER [facility] PM YOUSIF MANN [id number] -1945 M Exm Date: JUL 10, 2022@14:23 Req Phys: JUSTA MONTGOMERY Pat Loc: [facility] CT A RES 01 WH 4F (Req' Img Loc: MAIN X-RAY Service: Unknown (Case [id number] COMPLETE) LUMBAR SPINE MIN 4 VIEWS (RA D Detailed) CPT:13622 Reason for Study: Left lower and lateral abdomi nal pain Clinical History: Ermine IS NOT under investigation for COVID-19 or [...] 10, 2022 Date Verified: JUL 10, 2022 Shake Cutter E-Sig:/ES/KAREY SILVER MD Report: LUMBAR SPINE MIN [...] COCCYX 2 OR MORE VIEWS: YANA SILVER [facility] PM YOUSIF MANN [id number] -1945 M Exm Date: JUL 10, 2022@14:23 Req Phys: JUSTA MONTGOMERY Loc: [facility] CT A RES 01 WH 4F (Req' Img Loc: MAIN X-RAY Service: Unknown (Case [id number] COMPLETE) SACRUM COCCYX 2 OR MORE VIEW S (RAD Detailed) CPT:73824 Reason for Study: LLQ and Left lateral abdomina l pain Clinical History: [place] IS NOT under investigation for COVID-19 or is COVID-19 negative Left lower and lateral abdominal pain Responsib le provider name and phone number to notify for critical finding s if other than user placing the order and pager listed below: User placing orders pager: LAST CREATININE 1.0 (07/10/22) Report Status: Verified Date Reported: JUL 10, 2022 Date Verified: JUL 10, 2022 Shake Cutter E-Sig:/ES/KAREY SILVER MD Report: SACRUM COCCYX 2 [...] Encounter Note(s) Provider Source Jul 24, 2022 07:13 PM RN PROGRESS NOTE: MARLON RAI [facility] TITLE: CCC: CLINICAL TRIAGE STANDARD TITLE: RN PROGRESS NOTE DATE OF NOTE: JUL 24, 2022@19:13:58 ENTRY DATE: JUL 24, 2022@19:13:58 AUTHOR: MARLON RAI COSIGNER: URGENCY: STATUS: COMPLETED Patient Demographics Patient Name: YOUSIF MANN Patient Primary Address: [address] [place] [address] [place] [address] Patient : 1945 SSN: [id number] Patient Age: 77 Caller/Recipient Relation to Patient: Self Emergency Contactx: BANG MANN Triage Summary Nurse Summary: ############################ ################################################### # NURSES NOTES PATIENT CONCERN/DURATION/ONSET: Vet has been in afib x 4 hours. BP initially was 100/68 - 114 HR@1540. Recheck at 1611, BP 80/49 with 109 HR; Recheck at 1845 BP 103/70 HR 119. Vet endorses v masha mild chest pain (1/10), difficulty getting a full breath of air; DENIES: palpitations, left arm pain, diaphoresis ; WHAT HAS PATIENT TRIED TO TREAT THE SYMPTOMS: NA HISTORY/PREVIOUS TREATMENT: afib, heart failure; WHAT IS PATIENT GOAL FOR THE CALL: Evaluation of afib, tachycardia DID YOU CONSIDER USING 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 Will document 's concerns as per [place] Virus Pandemic SOP. Vet declines 911, will drive to local ER which i s 5 miles away. 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 Best contact for is (Verif ied). (Caller could accurately sum marize the agreed upon plan of care as discussed in the education log portion of this note.) Per policy, automated recommendations for an ?ap pointment? indicates an interaction (virtual or in-person) with the care team. ############################ ################################################### # Pain Score: 1 Conducted triage/discussed symptoms Utilized the Triage Tool: Yes Conducted COVID Screening COVID Screening Results: Negative Chief Complaint: Chest Pain System WHEN: Now, 911 Nurse's Recommendation / WHEN: 911 System WHERE: Emergency department Nurse's Recommendation / WHERE: ED [facility] Patient Disposition Patient/Caregiver agrees to plan of care: No Patient WHERE: ED Other Patient WHEN: Now Patient is Urgent or Emergent Summary of Actions Referred patient to emergency services Other - Emergency Services Referred Other - Referred to Emergenc y Services: Instructed vet to call 911. He declined and will drive to the local ER. Clinical Contact Center Codes Clinic/Location: 3 [facility] PHONE CCC RN TXCC Triage Complete Triage Note: Phone Triage 25 Jul 2022 01:04:33 +0000 [facility] Demographics 77 y/o Male Results CC: Chest Pain Software suggested: Now, 911 Software suggested follow-up location: Emergenc y department Values and Measures SBP: 103 mmHg Pulse: 119 bpm Duration of CC: 4 Hours Alerts 1) This patient's tachycardia may have clinical significance and should be compared with prior pulse readings. 2) This is a HIGHER COMPLEXITY patient. 3) If this patient is in the clinic, consider t ransferring care to the ED. Positive Responses HPI: dyspnea, with chest pain Negative Responses Denies: HPI: chest pain, crushing quality Denies: HPI: chest pain, severe Denies: HPI: chest pain, squeezing quality Denies: HPI: chest pain, tightness quality Denies: HPI: chest pressure, heavy quality Denies: HPI: cough, new or worsening Denies: HPI: diaphoresis, with chest pain Denies: HPI: syncope Denies: PMH: angina Denies: PMH: heart attack /es/ MARLON R. FAFINSKI, ADZING AND BORING MACHINE HELPER VISN 23 DAYTIME CANDY DEPARTMENT MANAGER Signed: 07/24/2022 19:14 Receipt Acknowledged By: * AWAITING SIGNATURE * NUNO BARNHART * AWAITING SIGNATURE * JUSTA MONTGOMERY
[2022-07-24 21:43] LABS: Troponin I* < 0.01 ng/mL (0.01-0.04)
--- NOTE | 2022-07-24 22:04 | ED.GENADULT ---
HPI - General Adult General Chief complaint: Chest Pain Stated complaint: pressure in chest Time Seen by Provider: 07/24/22 20:42 History of Present Illness HPI narrative: Pt is a 77 year old gentleman who presents with palpitations. Pt has a history of paroxysmal atrial fibrillation and was cardioverted 4 months ago and did well. Pt is on Rivaroxaban and has been compliant with his medications. Symptoms began 6 hours ago. No chest pain or shortness of breath but the patient has a pulse of 118 upon arrival in the emergency room which is consistent with previous pulse prior to cardioversion. Pt has no other symptoms but does feel weaker with his pulse elevated. EKG upon arrival shows atrial fibrillation with a rate of 123. Pt has no other concerns tonight. Related Data Home Medications Medication Instructions Recorded Confirmed atorvastatin 20 mg tablet 20 mg PO DAILY 07/24/22 07/24/22 carvedilol 3.125 mg tablet 3.125 mg PO BID 07/24/22 07/24/22 dofetilide 500 mcg capsule 500 mcg PO BID 07/24/22 07/24/22 empagliflozin 12.5 mg 07/24/22 lisinopril 5 mg tablet 5 mg PO DAILY 07/24/22 07/24/22 rivaroxaban 20 mg tablet (Xarelto) 20 mg PO DAILY 07/24/22 07/24/22 Allergies Allergy/AdvReac Type Severity Reaction Status Date / Time No Known Drug Allergies Allergy Verified 07/24/22 20:32 Review of Systems Status of ROS: Reports: 10 or more systems reviewed and unremarkable except as noted in History and below [facility] Medical History Afib Social History Smoking Status: Never smoker Do you use any of these nicotine containing products: None How often do you have a drink containing alcohol: never AUDIT-C Alcohol total score: 0 Non-prescribed substance use: denies use Exam Narrative: Exam Narrative: EXAM GENERAL: Patient appears comfortable and well. EYES: No scleral icterus. ENT: Tympanic membranes and oropharynx normal. THYROID: no thyroid nodules or thyromegaly. LYMPH: No supraclavicular or cervical lymphadenopathy. SKIN: Visible skin seen during exam normal or with benign process only. EXT: No dependent lower extremity pedal edema. HEART: Tachycardia with irregular rhythm LUNGS: Clear to auscultation bilaterally with no crackles or wheezes. ABD: Soft, non tender, non distended. PSYCH: Good eye contact, speech is not pressured. Const: Vital Signs, click to edit/add: Vital Signs - 24 hr 07/24/22 20:27 07/24/22 20:50 07/24/22 21:00 Pulse Rate 92 100 Pulse Rate [Left P ulse Oximeter] 117 H Blood Pressure Blood Pressure [Ri ght Upper Arm] 120/84 Pulse Oximetry 98 98 98 Oxygen Delivery Me thod Room Air 07/24/22 21:15 07/24/22 21:30 07/24/22 21:45 Pulse Rate 108 H 93 110 H Pulse Rate [Left P ulse Oximeter] Blood Pressure Blood Pressure [Ri ght Upper Arm] Pulse Oximetry 98 95 96 Oxygen Delivery Me thod 07/24/22 21:57 Pulse Rate 114 H Pulse Rate [Left P ulse Oximeter] Blood Pressure 90/67 Blood Pressure [Ri ght Upper Arm] Pulse Oximetry 95 Oxygen Delivery Me thod Course Course Hospital Course: Pt seen and examined. Cardiovascularly stable with atrial fibrillation tachycardic on the monitor and EKG. Case discussed with Cardiology who agree with Cardioversion due to symptoms and tachycardia. Labs reviewed and are stable. Reevaluation(s) Reevaluation #1: Pt successfully cardioverted back to sinus rhythm using 200 Joules Synchronized cardioversion. Pt resting comfortably. Labs reviewed and are unremarkable. Time: 22:22 Vital Signs Vital signs: Initial Vital Signs Temperature Source Temporal Artery Scan 07/24/22 20:27 Pulse Rate 117 H 07/24/22 20:27 Blood Pressure 120/84 07/24/22 20:27 Blood Pressure Mean 96 07/24/22 20:27 Blood Pressure Position Supine 07/24/22 20:27 Pulse Oximetry 98 07/24/22 20:27 Oxygen Delivery Method 07/24/22 20:27 Vital Signs Pulse Rate 117 H 07/24/22 20:27 Blood Pressure 120/84 07/24/22 20:27 Pulse Oximetry 98 07/24/22 20:27 Oxygen Delivery Method 07/24/22 20:27 Pulse Rate 114 H 07/24/22 21:57 Blood Pressure 90/67 07/24/22 21:57 Pulse Oximetry 95 07/24/22 21:57 Oxygen Delivery Method 07/24/22 20:27 Medical Decision Making MDM Narrative Medical decision making narrative: Pt is a 77 year old anticoagulated patient who presents with palpitations and tachycardia who has a history of atrial fibrillation cardioverted several months ago. Pts labs and chest x ray unremarkable. Pt's case discussed with cardiology who recommended repeat cardioversion for symptomatic tachycardic atrial fibrillation. Pt sedated with versed and fentanyl and cardioverted with 200 joules synchronized cardioversion. Pt now feeling fine. Cardiology recommended continued current medications with outpt follow up with Cardiology in the clinic. Differential Diagnosis Differential Diagnosis: Atrial fibrillation, Atrial flutter, acute mi, ventricular tachycardia, pac Lab Data Labs: Lab Results 07/24/22 07/24/22 Range/Units 21:07 21:07 WBC 5.69 (4.50-11.00) K/uL RBC 5.05 (4.30-5.90) m/uL Hgb 15.6 (13.5-17.5) gm/dL Hct 46.2 (37.0-53.0) % MCV 92 (80-100) fL MCH 31 (26-34) pg MCHC 34 (32-36) gm/dL RDW Coeff of Yessica 12.1 (11.5-15.5) % Plt Count 108 L (140-440) K/uL Neut % (Auto) 56.7 (42.0-72.0) % Lymph % (Auto) 31.3 (20-44) % [place] % (Auto) 10.2 (0.0-11.0) % Eos % (Auto) 1.6 (0.0-7.0) % Baso % (Auto) 0.2 (0.0-3.0) % Neut # (Auto) 3.23 (1.7-7.0) K/uL Lymph # (Auto) 1.78 (0.90-2.90) K/uL [place] # (Auto) 0.60 (0.00-0.90) K/UL Eos # (Auto) 0.09 (0.00-0.50) K/uL Baso # (Auto) 0.01 (0.00-0.30) K/uL Abs Immat Gran (auto) 0.00 (0.00-0.30) K/uL Imm/Tot Granulo (auto) 0.0 % Sodium 136 (135-149) mmol/L Potassium 4.2 (3.6-5.1) mmol/L Chloride 106 (96-114) mmol/L Carbon Dioxide 27 (20-32) mmol/L BUN 23 (7-30) mg/dL Creatinine 0.8 (0.5-1.5) mg/dL Estimated Creat Clear 54.68 Estimated GFR 91 ml/min Glucose 101 (60-115) mg/dL Calcium 8.8 (8.4-10.6) mg/dL Troponin I < 0.01 L (0.01-0.04) ng/mL Discharge Plan Discharge Clinical Impression: Atrial fibrillation Condition: Stable Instructions: A-fib (Atrial Fibrillation) (ED) Additional Instructions: Follow up with Cardiology Activity Level: No Restrictions Discharge Diet: Regular Prescriptions: No Action Xarelto 20 mg tablet 20 mg PO DAILY Rx Instructions: must administer with evening meal atorvastatin 20 mg tablet 20 mg PO DAILY empagliflozin 12.5 mg lisinopril 5 mg tablet 5 mg PO DAILY carvedilol 3.125 mg tablet 3.125 mg PO BID Rx Instructions: must administer with a meal/food dofetilide 500 mcg capsule 500 mcg PO BID Follow Up/Referrals: Provider,Not a Local [Primary Care Provider] - Stand Alone Forms: MyHealth Info Instructions
[2022-07-24] MEDS: MIDAZOLAM HCL 1 MG/ML inj 4 MG IVP (22:15)
[2022-07-24] MEDS: fentaNYL 100 MCG/2 ML inj IVP (22:15)
--- NOTE | 2022-07-24 22:30 | ED.NURSE ---
Versed 2mg and Fentanyl 100mcg given for sedation for cardioversion.
--- NOTE | 2022-07-24 23:33 | ED.NURSE ---
patient up walking in room, tolerating fluids, no nausea or vomiting, denies pain, denies any dizziness. pt states he feels ready to go, family member at bedside that will stay with patient throughout the night, IV removed with tip intact. all belongings returned to pt.
== END 2022-07-24 23:53 | disposition home or self-care (01) ==
PROVIDERS: Emergency Provider Internal Medicine
DX: I48.91 Unspecified atrial fibrillation (principal)
CPT/HCPCS: 36415; 71045; 80048; 84484; 85025; 92960; 99284; 99291; J2250

== ENCOUNTER 2022-08-12 10:22 | Emergency (ER) | payer OTHER, MEDICARE, SELFPAY ==
[2022-08-12] VITALS (11 sets, daily range): BP systolic 95–115; BP diastolic 59–77; PULSE 53–62; RESP 16; TEMP 35.7; O2SAT 96–99; BMI 21.3
--- NOTE | 2022-08-12 10:37 | ED.GENADULT ---
HPI - General Adult General Time Seen by Provider: 10:37 Date Seen: 08/12/22 Chief complaint: Chest Pain Stated complaint: heart is racing, low blood pressure Time Seen by Provider: 08/12/22 10:37 Source: patient and RN notes reviewed Mode of arrival: ambulatory Limitations: no limitations History of Present Illness HPI narrative: This 77-year-old male comes in accompanied by his with a low blood pressure with systolic around 85 at home and pulse on his monitor initially at 1:07 a.m. and then into the 120s. He has atrial fibrillation, was cardioverted here earlier this month with similarly presenting symptoms of low blood pressure and elevated pulse. His states they have not gotten into a needle loom operator but she really needs to get him into a needle loom operator. [facility]. She states it is very difficult to get in to Cardiology. They are leaving the of this month and will be gone to [facility] and will be coming back in October. He states he just felt off this morning. He states he checks his blood pressure in the morning and at night. It is not particularly clear to me whether not he would have known that he was in atrial fibrillation unless he was checking his vitals. On arrival here, his blood pressure is back to baseline and he is in a sinus rhythm. He states he maybe felt a little short of breath with this this morning, no chest pain. He has had no edema. Patient is on Tikosyn and is chronically anticoagulated. Patient was just in our ER on July 24, was cardioverted for atrial fibrillation with RVR. Related Data Home Medications Medication Instructions Recorded Confirmed atorvastatin 20 mg tablet 20 mg PO DAILY 07/24/22 07/24/22 carvedilol 3.125 mg tablet 3.125 mg PO BID 07/24/22 07/24/22 dofetilide 500 mcg capsule 500 mcg PO BID 07/24/22 07/24/22 empagliflozin 12.5 mg 07/24/22 lisinopril 5 mg tablet 5 mg PO DAILY 07/24/22 07/24/22 rivaroxaban 20 mg tablet (Xarelto) 20 mg PO DAILY 07/24/22 07/24/22 Allergies Allergy/AdvReac Type Severity Reaction Status Date / Time No Known Drug Allergies Allergy Verified 07/24/22 20:32 Review of Systems Status of ROS: Reports: 10 or more systems reviewed and unremarkable except as noted in History and below [facility] Medical History Afib Social History Smoking Status: Never smoker Do you use any of these nicotine containing products: None How often do you have a drink containing alcohol: never AUDIT-C Alcohol total score: 0 Non-prescribed substance use: denies use service: No Exam Const: Vital Signs, click to edit/add: Vital Signs - 24 hr 08/12/22 10:27 08/12/22 10:51 Temperature 96.2 F L Pulse Rate [Left P ulse Oximeter] 62 Respiratory Rate 16 Blood Pressure [Le ft Upper Arm] 115/77 Pulse Oximetry 98 99 Oxygen Delivery Me thod Room Air Documenting provider has reviewed patient's vital signs: yes Common normals: no apparent distress, oriented x3, no limitations, healthy appearing, alert and well nourished General appearance: cooperative, comfortable, well kempt and well developed Nutritional appearance: thin HENMT: Common normals: normocephalic, head/scalp atraumatic and hearing grossly normal bilaterally Head and scalp: normocephalic and atraumatic Eye: Common normals: PERRL, EOMs intact bilaterally, conjunctivae normal and no scleral icterus Conjunctiva: conjunctiva(e) normal Pupil: PERRL Neck & C-Spine: Common normals: full ROM, no lymphadenopathy, supple, no meningeal signs, no JVD and thyroid normal Thyroid: thyroid normal Resp: Common normals: normal respiratory effort, no retractions, no use of accessory muscles and clear to auscultation bilaterally Auscultation: clear to auscultation bilaterally Cardio: Common normals: no JVD, regular rate, regular rhythm, S1 normal heart sound, S2 normal heart sound, no gallops, no clicks and no murmurs Rate: regular rate Rhythm: regular rhythm Heart sounds: S1 normal and S2 normal GI: Common normals: Normal to inspection, nondistended, normoactive bowel sounds present, soft to palpation, non-tender, no hepatosplenomegaly and no masses Palpation: soft and no hepatosplenomegaly Extremity: Other: No lower extremity edema. Neuro: Common normals: oriented x3, CN's II-XII intact bilaterally, moves all extremities, no focal motor deficits and gait normal Sensorium/orientation: alert Meningeal signs: no meningeal signs Speech: speech normal Psych: Appearance: well kempt Course Course Hospital Course: Will check some baseline labs, make sure his kidney function is stable, check a magnesium as well as a troponin. We will get a portable chest x-ray to ensure no pulmonary edema, clinically has no congestive heart failure. Well we are monitoring him, will have him on cardiac monitoring and pulse oximetry to ensure no development of arrhythmia. Sounds if he is going into paroxysmal atrial fibrillation. Will need to see Cardiology outpatient, have outpatient cardiac monitoring done. Reevaluation(s) Reevaluation #1: Reviewed with patient and his that his labs are reassuring. His kidney function is still normal. His QT interval is not concerning. He is safe to stand tikosyn based on these indices. He is already chronically anticoagulated. His blood pressure at rest a systolic 95. Reviewed his medicines. He is on the lowest dose of Coreg 3.125 mg. He is on lisinopril 5 mg daily. It is likely that his physicians will want him to maintain on some dose of lisinopril but with his blood pressure being on the low side, perhaps maybe he should go down to 2.5 mg or half tablet daily and follow up in clinic. His states she has been telling him to follow-up with the ID to get into Cardiology and he still has not done so from the last visit. Stressed to both of them that some of the responsibility lies within ourself for maintenance of our own health. He will likely need some type of longer-term monitoring such as a ZIO patch. If he has not had a recent echo, this may need to be updated. These are all things that will need to be done outpatient. They can try to contact our clinic for [facility] or get back in touch with the ID. at this time, he is not in atrial fibrillation, does not require any other interventions. Will discharge to home for further outpatient management. Time: 11:49 Vital Signs Vital signs: Initial Vital Signs Temperature 96.2 F L 08/12/22 10:27 Temperature Source Temporal Artery Scan 08/12/22 10:27 Pulse Rate 62 08/12/22 10:27 Pulse Rhythm 08/12/22 10:27 Respiratory Rate 16 08/12/22 10:27 Blood Pressure 115/77 08/12/22 10:27 Blood Pressure Mean 89 08/12/22 10:27 Blood Pressure Position Sitting 08/12/22 10:27 Pulse Oximetry 98 08/12/22 10:27 Oxygen Delivery Method 08/12/22 10:27 Vital Signs Temperature 96.2 F L 08/12/22 10:27 Pulse Rate 62 08/12/22 10:27 Respiratory Rate 16 08/12/22 10:27 Blood Pressure 115/77 08/12/22 10:27 Pulse Oximetry 98 08/12/22 10:27 Oxygen Delivery Method 08/12/22 10:27 Temperature 96.2 F L 08/12/22 10:27 Pulse Rate 62 08/12/22 10:27 Respiratory Rate 16 08/12/22 10:27 Blood Pressure 115/77 08/12/22 10:27 Pulse Oximetry 99 08/12/22 10:51 Oxygen Delivery Method 08/12/22 10:27 Medical Decision Making Lab Data Lab results reviewed: Yes I reviewed the patient's lab results Labs: Lab Results 08/12/22 08/12/22 08/12/22 Range/Units 10:47 10:47 10:47 WBC 3.86 L (4.50-11.00) K/uL RBC 4.94 (4.30-5.90) m/uL Hgb 15.4 (13.5-17.5) gm/dL Hct 45.7 (37.0-53.0) % MCV 93 (80-100) fL MCH 31 (26-34) pg MCHC 34 (32-36) gm/dL RDW Coeff of Yessica 12.4 (11.5-15.5) % Plt Count 111 L (140-440) K/uL Neut % (Auto) 59.8 (42.0-72.0) % Lymph % (Auto) 28.2 (20-44) % [place] % (Auto) 9.8 (0.0-11.0) % Eos % (Auto) 1.6 (0.0-7.0) % Baso % (Auto) 0.3 (0.0-3.0) % Neut # (Auto) 2.30 (1.7-7.0) K/uL Lymph # (Auto) 1.10 (0.90-2.90) K/uL [place] # (Auto) 0.40 (0.00-0.90) K/UL Eos # (Auto) 0.10 (0.00-0.50) K/uL Baso # (Auto) 0.00 (0.00-0.30) K/uL Sodium 137 (135-149) mmol/L Potassium 4.7 (3.6-5.1) mmol/L Chloride 106 (96-114) mmol/L Carbon Dioxide 26 (20-32) mmol/L BUN 21 (7-30) mg/dL Creatinine 0.8 (0.5-1.5) mg/dL Estimated Creat Clear 54.68 Estimated GFR 91 ml/min Glucose 118 H (60-115) mg/dL Calcium 9.0 (8.4-10.6) mg/dL Magnesium 2.1 (1.5-2.6) mg/dL POC Troponin I 0.00 L (0.01-0.04) ng/ml Imaging Data Chest x-ray: Attestation: I have reviewed the pertinent imaging results. My impression: I see no acute cardiopulmonary change on this image. Radiologist's impression: Patient: [facility] Facility:?[facility] Patient ID:?[id number] Site Patient ID:?[id number]. Site :?[id number] Study:?XRay Chest PORTABLE-08/12/2022 11:15:13 AM Ordering Physician:Lindsay Hammonds Final Report: INDICATION: Atrial fibrillation Comparison : 07/24/2022. FINDINGS: There are cardiac leads on the chest. The cardiomediastinal silhouette, lung parenchyma, pulmonary vasculature and pleural surfaces are all normal appearance. The bony thorax appears intact. IMPRESSION: Negative study. Dictated by Rob Quintana MD @ 08/12/2022 11:32:59 AM (Electronic Signature) ECG Data Attestation: I personally reviewed and interpreted this ECG as follows: (Sinus bradycardia with sinus arrhythmia, 57 beats per minute. Q-waves V1 V2. No acute ischemic change on my reading. QT corrected 402 milliseconds.) Critical Care Time Critical Care Time Critical Care Time: No Discharge Plan Discharge Clinical Impression: AF (paroxysmal atrial fibrillation) Patient Disposition: Home, Self-Care Condition: Stable Instructions: A-fib (Atrial Fibrillation) (ED) Additional Instructions: Please call [phone] to schedule an appointment with a Security Alarm Technician at the [facility] ([facility] here) or [facility] to get [facility] with [facility]. Do recommend getting set up with some sort of outpatient longer heart monitoring, like Grecia patch, to give an idea of the underlying time that you may be in atrial fibrillation (or possibly other rhythms as well). I recommend dropping your lisinopril to 2.5 mg daily for now; this is based on your blood pressure being on the lower side here. Need to be rechecked in clinic within the next 1-2 weeks. Seek medical evaluation if further concerns with your heart rhythm. Activity Level: Activity as Tolerated Discharge Diet: Regular Prescriptions: No Action Xarelto 20 mg tablet 20 mg PO DAILY Rx Instructions: must administer with evening meal atorvastatin 20 mg tablet 20 mg PO DAILY empagliflozin 12.5 mg lisinopril 5 mg tablet 5 mg PO DAILY carvedilol 3.125 mg tablet 3.125 mg PO BID Rx Instructions: must administer with a meal/food dofetilide 500 mcg capsule 500 mcg PO BID Follow Up/Referrals: Provider,Not a Local [Primary Care Provider] - Stand Alone Forms: Addepar Info Instructions
--- NOTE | 2022-08-12 10:47 | CRLHL7_ITS ---
For Patients: As a result of the Century Cures Act, medical imaging exams and procedure reports are released immediately into your electronic medical record. You may view this report before your referring provider. If you have questions, please contact your health care provider. INDICATION: Atrial fibrillation Comparison : 07/24/2022. FINDINGS: There are cardiac leads on the chest. The cardiomediastinal silhouette, lung parenchyma, pulmonary vasculature and pleural surfaces are all normal appearance. The bony thorax appears intact. IMPRESSION: Negative study. Dictated by Rob Quintana MD @ 08/12/2022 11:32:59 AM (Electronically Signed)
[2022-08-12 11:02] LABS: Basophils Percent Auto 0.3 % (0.0-3.0); Eosinophils Percent Auto 1.6 % (0.0-7.0); Hematocrit 45.7 % (37.0-53.0); Hemoglobin* 15.4 gm/dL (13.5-17.5); Immature Granulocytes Pct Auto 0.3 %; Lymphocytes Percent Auto 28.2 % (20-44); Mean Corpuscular HGB Conc 34 gm/dL (32-36); Mean Corpuscular Hemoglobin 31 pg (26-34); Mean Corpuscular Volume 93 fL (80-100); Monocytes Percent Auto 9.8 % (0.0-11.0); Neutrophils Percent Auto 59.8 % (42.0-72.0); Platelet Count* 111 K/uL (140-440); RDW Coefficient of Variation % 12.4 % (11.5-15.5); Red Blood Count 4.94 m/uL (4.30-5.90); White Blood Count* 3.86 K/uL (4.50-11.00)
[2022-08-12 11:13] LABS: Slide Review Reflex No
[2022-08-12 11:15] LABS: Chloride* 106 mmol/L (96-114); Potassium* 4.7 mmol/L (3.6-5.1); Sodium* 137 mmol/L (135-149)
[2022-08-12 11:17] LABS: Creatinine* 0.8 mg/dL (0.5-1.5); Est. Creatinine Clearance* 54.68; Estimated Glomerular Filt Rate 91 ml/min
[2022-08-12 11:18] LABS: Blood Urea Nitrogen* 21 mg/dL (7-30); Carbon Dioxide* 26 mmol/L (20-32); Glucose* 118 mg/dL (60-115); Magnesium* 2.1 mg/dL (1.5-2.6)
== END 2022-08-12 12:13 | disposition home or self-care (01) ==
PROVIDERS: Emergency Provider Family Medicine
DX: I48.20 Chronic atrial fibrillation, unspecified (principal)
CPT/HCPCS: 36415; 71045; 80048; 83735; 84484; 85025; 93005; 94761; 99284; 99285

== ENCOUNTER 2022-10-27 10:00 | Outpatient (CLI) | payer MEDICARE, OTHER, SELFPAY | END 2022-10-27 10:01 | disposition home or self-care (01) | PROVIDERS: Visit Provider Internal Medicine | DX: I48.91 Unspecified atrial fibrillation (principal); I35.1 Nonrheumatic aortic (valve) insufficiency | CPT/HCPCS: 80076; 84443 ==

== ENCOUNTER 2022-11-09 14:48 | Outpatient (CLI) | payer MEDICARE, SELFPAY | END 2022-11-09 14:49 | disposition home or self-care (01) | LOC: RAD 14:49 | PROVIDERS: PCP Family Medicine; Visit Provider Internal Medicine | DX: I48.91 Unspecified atrial fibrillation (principal); I35.1 Nonrheumatic aortic (valve) insufficiency | CPT/HCPCS: 93306 ==

== ENCOUNTER 2023-03-23 11:16 | Outpatient (CLI) | payer MEDICARE, SELFPAY | END 2023-03-23 11:17 | disposition home or self-care (01) | PROVIDERS: PCP Family Medicine; Visit Provider Internal Medicine Cardiovascular Disease | DX: R07.9 Chest pain, unspecified (principal); I10 Essential (primary) hypertension; I48.91 Unspecified atrial fibrillation | CPT/HCPCS: 80048; 80076; 84443 ==

== ENCOUNTER 2025-03-22 12:37 | Outpatient (CLI) | payer MEDICARE, SELFPAY | END 2025-03-22 12:38 | disposition home or self-care (01) | PROVIDERS: PCP Family Medicine | DX: R58 Hemorrhage, not elsewhere classified (principal); R53.83 Other fatigue; Z11.9 Encounter for screening for infectious and parasitic diseases, unspecified | CPT/HCPCS: 86618 ==

== ENCOUNTER 2025-07-06 09:56 | Emergency (ER) | payer MEDICARE, OTHER, SELFPAY ==
[2025-07-06] VITALS (22 sets, daily range): BP systolic 101–121; BP diastolic 68–77; PULSE 71–97; RESP 6–23; TEMP 35.9; O2SAT 93–100; BMI 21.7
--- OUTSIDE RECORDS SUMMARY | 2025-07-06 10:05 | XMS_ITS | Clinical Summary ---
Author Organization [facility] Address [address] [place] [id number] Care Team Providers Care Botany Teacher Name Role Phone Zachary Solano MD Primary Care Provider [phone] Allergies No known active allergies Medications rivaroxaban (XARELTO) 20 mg tabletIndications :Paroxysmal atrial fibrillation (HC),Anticoagulat ion monitoring, INR range 2-3 Take 1 tablet by mouth once daily with evening meal. 90 tablet 3 0 Active vit C,C-Ec-wqdqa-lute in-zeaxan (PRESERVISION AREDS-2) capsule Take 1 capsule by mouth 2 times daily. 0 0 Active empagliflozin (JARDIANCE) 25 mg tablet Take 0.5 Tablets by mouth once daily. 2 Active metoprolol tartrate (LOPRESSOR) 25 mg tabletIndications :Persistent atrial fibrillation (HC) Take 1 Tablet (25 mg) by mouth 2 times daily if needed (heart rate greater than 110). 0 3 Active amiodarone (CORDARONE) 200 mg tablet Take 1 Tablet (200 mg) by mouth once daily. 0 3 Active propranoloL 10 mg tablet Take 10 mg by mouth. 5 Active gabapentin (NEURONTIN) 300 mg capsule Take 300 mg by mouth. 5 Active Active Problems Problem Noted Date Diagnosed Date Age-related cognitive decline 03/31/2025 Overview (03/31/2025): Memory symptoms that were evaluated by neuropsychological testing 04/26/2023, some attention and executive changes with mild cognitive impairment, but no neurodegenerative process evident. Atrial flutter with rapid ventricular response 0 03/31/2025 Chronic sinusitis 03/31/2025 Essential tremor 03/31/2025 Heart failure with reduced ejection fraction 05/2023 Overview (03/31/2025): HFimpEF (TTE 05/2021 with LVEF 40-45%, with normalization of LV function with mormon of sinus rhythm - LVEF 55-60% 02/2022) Agent orange exposure 10/27/2019 Overview (10/27/2019): He had minimal exposure to Agent Troy. [facility] stated the following diseases are more likely with Agent Troy exposure: Amyloidosis, Chronic B-cell Leukemia, Chloracne, Type 2 Diabetes, Hogkin's Disease, Ischemic Heart Disease, Multiple Myeloma, Non-Hodgkin's Lymphoma, Parkinson's Disease, Peripheral Neuropathy, Porphyria Cutanea Tarda, Prostate Cancer, Respiratory Cancers, Soft Tissue Sarcomas (other than osteosarcoma, chondrosarcoma, Kaposi's sarcoma or Mesothelioma). 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 Referral to sleep specialist generated. Hyperlipidemia 09/03/2015 Paroxysmal atrial fibrillation 08/27/2015 Overview (03/31/2025): Armando reports he can tell when he is in atrial fibrillation and as of 10/27/2019 this happens 1-3 times per week and each episode lasts for a few seconds. 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 of right knee 07/28/2013 Family history of colonic polyps 11/10/2010 Overview (12/16/2015): Colonoscopy 10/2010 normal repeat in 5 years Colonoscopy 12/2015 normal, no follow up needed Erectile dysfunction 10/15/2009 Resolved Problems Problem Noted Date Diagnosed Date Resolved Date Anticoagulation monitoring, INR range 2-3 10/27/2019 03/31/2025 Other chest pain 10/14/2008 Encounters Date Type Department Care Team Description 04/14/2025 Telephone [facility] [address] [place] [address] Leah Rangel MD Care Coordination 04/07/2025 Telephone [facility] [address] [place] [address] Leah Rangel MD Results from Last 3 Months Immunizations Immunization Administration Dates Next Due COVID-19 vaccine ([employer] 30mcg/0.3mL) PFMDV 11/10/2020,10/18/2020 HepA-HepB (Twinrix) 12/11/2012,07/12/2012,2009 Hepatitis A (Adult) 10/16/2016,11/04/2003 Influenza A (H1N1), Inactivated 08/25/2009 Influenza RIV4 (Age 18+ Year s) PRESERV FREE 05/23/2019 Influenza Virus, Unspecified 05/29/2022, 06/01/2021,04/22/2020,07/10,06/15/2017,06/20/2016 Influenza, High-dose Inactivated 024,05/27/2019,05/27/2018,06/13,05/28/2015 Influenza, High-dose Quadriv alent Inactivated 05/29/2023,05/29/2022,06/01/2021,06/04 Influenza, IIV3 (Age >=3 years) 07/14/20 13,04/23/2012,05/24/2011,04/25,07/29/2004 Meningococcal Vaccine (Menomune) 06/13/2008 Meningococcal, Unspecified 06/13/2008 Pneumococcal Poly,23-Valent (Pneumovax) 10/16/2016,08/13/2003 Pneumococcal conj 13-Valent (Prevnar 13) 09/03/2015 Td (Age >=7 Years) 08/13/2005 Tdap 11/08/2021,07/12/2012 Zoster (Shingrix-RZV, recombinant) 12/04/2018,,09/26/2018 Zoster (Zostavax-ZVL, live) 03/04/2012 Family History Medical History Relation Name Comments Heart Disease Brother 1 Hank Other Father embolism after fracture/ of Pneumonia at 88 Other Mother Aneurysm/ a t 80 of weakness and old age Relation Name Status Comments Brother 1 Hank Alive Brother 2 Alive Father Mother Sister Alive Social History Tobacco Use Types Packs/Day Years Used Date Smoking Tobacco: Never Smokeless Tobacco: Never Tobacco Cessation:Counseling Given: Yes Alcohol Use Standard Drinks/Week Comments Yes 1.7 (1 standard drink = 0.6 oz p ure alcohol) 2 drinks a month PHQ-2 Answer Date Recorded PHQ-2 TOTAL SCORE 0 03/31/2025 Social Connections Answer Date Recorded Do you often feel lonely or isolated from those around you? 0 03/31/2025 Financial Resource Strain Answer Date R ecorded Difficulty of Paying Living Expenses 3 03/31/2025 Difficulty of Paying Living Expenses Not on file 03/31/2025 Food Insecurity Answer Date Recorded Do you worry your food will run out before you are able to buy more? 1 03/31/2025 Transportation Needs Answer Date Record ed Does lack of transportation keep you from medica l appointments? 1 03/31/2025 Does lack of transportation keep you from work, meetings or getting things that you need? 1 03/31/2025 Housing Stability Answer Date Recorded What is your housing situation today? 1 03/31/2025 Utilities Answer Date Recorded Do you have trouble paying f or utilities (for example, heat, electricity, water, phone)? 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 Not on file Not on file Not on file [employer] Not on file Not on file Not on file Obstetrics History Last Filed Vital Signs Vital Sign Reading Time Taken Comments Blood Pressure 122/70 04/02/2025 10:57 AM CDT yunior gonzalez Pulse 53 04/02/2025 10:52 AM CDT Temperature 36.8 C (98.2 F) 05/12/2020 2:37 PM CDT Respiratory Rate 14 03/23/2023 11:16 AM CDT Oxygen Saturation 98% 04/02/2025 10:47 AM CDT Inhaled Oxygen Concentration - - Weight 68.3 kg (150 lb 8 oz) 03/31/2025 8:21 AM CDT Height 172 cm (5' 7.72) 03/31/2025 8:21 AM CDT Body Mass Index 23.08 03/31/2025 8:21 AM CDT Plan of Treatment Health Maintenance Due Date Last Done Comments RSV vaccine for adults or (1 - 1-dose 75+ series) 2019 Influenza Vaccine (#1) 2025 , 05/29/2022, 06/01/2021, Additional history exists BMI (ht and wt on same day) for age 18+ 03/31/2026 03/31/2025, 08/22/2022, 06/16/2021, Additional history exists Medicare Wellness for age 65+ 04/01/2026, 10/27/2019, 11/16/2017, Additional history exists Depression screening for age 12+ 04/02/2026 04/02/2025, 03/31/2025, 10/30/2019, Additional history exists Tetanus booster 11/09/2031 11/08/2021, 06/15, 08/13/2005 Hepatitis B series for 19+ Completed 12/11, 07/12/2012, 07/05/2010 Pneumococcal series for age 50+ Completed 10/16/2016, 09/03/2015, 08/13/2003 Zoster (shingles) series for age 50+ Completed 12/04/2018, 10/07/2018, 09/26/2018, Additional history exists Insurance MEDICARE PART B HB ONLY MEDICARE PART A HB ONLY BLUE CROSS MEDICARE ADVANTAGE MR WORKERS COMP WORKERS COMP Advance Directives * Full Code (Latest Code Status on File) Date Activated Date Inactivated Comments 10/15/2014 9:14 AM 10/15/2014 3:07 PM * Full Code Date Activated Date Inactivated Comments 10/15/2014 6:33 AM 10/15/2014 9:14 AM Care Teams Botany Teacher Relationship Specialty Start Date End Date Zachary Solano [place] [address] PCP - General Family Practice 10/26/10
--- NOTE | 2025-07-06 10:38 | ED.ARRPALP ---
HPI - Arrhythmia/Palpitations General Time Seen by Provider: 10:38 Date Seen: 07/06/25 Chief Complaint: Arrhythmia/Palpitations Stated Complaint: Afib Time Seen by Provider: 07/06/25 10:17 Source: patient and RN notes reviewed Mode of arrival: ambulatory Limitations: no limitations History of Present Illness HPI narrative: This 80-year-old male with known history of atrial fibrillation on Xarelto is coming in stating he is feeling more weak, his blood pressure is lower than usual. He noted pain in his armpits last night. He has felt more short of breath and having difficulty taking a deep breath. Symptoms have been present since last night. Does have a history of AFib with RVR. He normally doctors at [facility]. He states he is worried about blood poisoning. He dropped a bar on his left foot over the weekend, has a blood blister on his toe. He has not had any fevers or chills. He does note last night he felt a little achy on the backside of his armpits bilaterally, some shortness of breath. He did feel little lightheaded this morning and started checking his blood pressures, this was before eating or drinking. At 7:45 a.m. his blood pressure was 100/61 with a pulse 93, at 7:53 a.m. his blood pressure was 107/62 with a pulse of 94, at 8:23 a.m. blood pressure 110/68 with a pulse of 88, at 8:44 a.m. blood pressure 108/72 with pulse of 95, at 9:12 a.m., blood pressure 82 or 72 with pulse 96, 935 blood pressure 110/75 with a pulse of 93. He feels his blood pressure usually is 120 over 60s or so. He takes 10 mg propranolol daily and 25 mg of extended release metoprolol. He is not on any other antihypertensives. He has not felt any rapid heartbeat or fast heart beat. He has been taking his anticoagulant, no missed doses. Related Data Home Medications ?Medication ?Instructions ?Recorded ?Confirmed atorvastatin 20 mg tablet 20 mg PO DAILY 07/24/22 03/22/25 empagliflozin 12.5 mg 07/24/22 03/22/25 rivaroxaban 20 mg tablet 20 mg PO QPM 10/27/22 07/06/25 gabapentin 300 mg capsule 300 mg PO QHS 03/23/23 07/06/25 metoprolol succinate 25 mg 25 mg PO QDAY PRN 03/23/23 07/06/25 tablet,extended release 24 hr vitamins A,C,R-gezi-pgpocv 4,296 1 cap PO BID 02/11/24 07/06/25 mcg-226 mg-90 mg capsule (ICaps AREDS) propranolol 10 mg tablet 10 mg PO DAILY 07/06/25 07/06/25 Previous Rx's ?Medication ?Instructions ?Recorded amiodarone 200 mg tablet 200 mg PO QDAY #90 tabs 10/27/22 Allergies Allergy/AdvReac Type Severity Reaction Status Date / Time No Known Drug Allergies Allergy Verified 02/11/24 14:39 Review of Systems Status of ROS: Reports: 6 or more systems reviewed and unremarkable except as noted in History and below [facility] Medical History Afib ?I48.91 - Unspecified atrial fibrillation (ICD-10) Social History Smoking Status: Never smoker Do you use any of these nicotine containing products: None Second hand tobacco smoke exposure: No How often do you have a drink containing alcohol: never AUDIT-C Alcohol total score: 0 Non-prescribed substance use: denies use service: No Exam Const: Vital Signs, click to edit/add: Vital Signs - 24 hr 07/06/25 10:07 07/06/25 11:32 07/06/25 11:39 Temperature 96.6 F L Pulse Rate [Pulse Oximeter] 97 Pulse Rate [orthos tatic lying] 86 Pulse Rate [orthos tatic sitting] 78 Pulse Rate [orthos tatic standing] 86 Respiratory Rate 20 Blood Pressure [Ri ght Upper Arm] 111/73 Blood Pressure [or thostatic lying] 111/77 Blood Pressure [or thostatic sitting] 107/68 Blood Pressure [or thostatic standing ] 114/70 Pulse Oximetry 98 94 Oxygen Delivery Me thod Room Air This 80-year-old male is alert, interactive, lying in the exam bed in exam 8. He seems mildly anxious about his symptoms, somewhat flat affect. Speech is normal, symmetrical facial function, sclera clear. Neck supple, no jugular venous distension. Lungs are clear, good air entry, no wheezing or crackles, no tachypnea, no accessory muscle use. Heart rate is irregular but not fast, no significant murmur, normal S1-S2, no S3-S4. Palpation along shoulders and posterior shoulders reveal no palpable tenderness. Abdomen is soft, nontender, nondistended, no organomegaly, no rebound or guarding, no masses. He has no lower extremity edema. Patient's blood pressure is 121 systolic when I am in there, monitor showing atrial fibrillation. His shoe and soccer removed, he has bruising and ecchymosis of the 4th and 5th toes, has hemorrhagic blister along the base of the nail fold of his 5th digit. Toes appear to be in alignment, he is tender over the 5th digit along the blister in the distal portion. Some mild tenderness in the 4th digit. Other toes unaffected, pain does not seem to go into the 4th or 5th metatarsalphalangeal joints or into the foot itself. Documenting provider has reviewed patient's vital signs: yes Course Course ED Course: Patient will be on pulse oximetry and cardiac monitoring looking for any change in rate but not tachycardic at this point. Will also look for hypoxia. Will have nursing staff do orthostatic blood pressures. Will check electrolytes, troponin, portable chest x-ray. He does not clinically seem like he is in congestive heart failure. Patient was worried about blood poisoning, we have discussed sepsis further, he really has no clinical indication of this. Reviewed with him that he has a traumatic blister of his toe and would leave this intact, this will resolve or open on its own but leaving this closed helps prevent infection. We will x-ray this foot to see if there is underlying fracture. Reevaluation(s) Time of Reevaluation #1: 11:51 Reevaluation #1: Nursing staff reports negative blood pressure changes with orthostatics, no significant pulse changes either. Time of Reevaluation #2: 13:22 Reevaluation #2: Have reviewed with patient and his that his orthostatics were reassuring, labs are reassuring. There is no tachycardia noted, he does maintain his baseline rhythm of controlled atrial fibrillation. He has had no hypoxia. Did review his x-ray reports, chest x-ray showed no congestive heart failure or pneumonia on. There are no fractures in his toes, we talked about traumatic hematoma/blister in the 5th digit. He is to let that just resolve on its own. If it does pop, would use bandages and keep the wound clean. There is no evidence of infection at this time. Vital Signs Vital signs: Initial Vital Signs Temperature 96.6 F L 07/06/25 10:07 Temperature Source Temporal Artery Scan 07/06/25 10:07 Pulse Rate 97 07/06/25 10:07 Respiratory Rate 20 07/06/25 10:07 Blood Pressure 111/73 07/06/25 10:07 Blood Pressure Mean 85 07/06/25 10:07 Blood Pressure Position Sitting 07/06/25 10:07 Pulse Oximetry 98 07/06/25 10:07 Oxygen Delivery Method Room Air 07/06/25 10:07 Vital Signs Temperature 96.6 F L 07/06/25 10:07 Pulse Rate 97 07/06/25 10:07 Respiratory Rate 20 07/06/25 10:07 Blood Pressure 111/73 07/06/25 10:07 Pulse Oximetry 98 07/06/25 10:07 Oxygen Delivery Method Room Air 07/06/25 10:07 Temperature 96.6 F L 07/06/25 10:07 Pulse Rate 86 07/06/25 11:32 Respiratory Rate 20 07/06/25 10:07 Blood Pressure 111/77 07/06/25 11:32 Pulse Oximetry 94 07/06/25 11:39 Oxygen Delivery Method Room Air 07/06/25 10:07 Medications Administered Medications: Discontinued Medications Generic Name Dose Route Start Last Admin Trade Name Freq PRN Reason Stop Dose Admin Sodium Chloride 500 mls @ 500 mls/hr 07/06/25 10:49 07/06/25 12:17 0.9 % Sodium Chloride 500 Ml IV 07/06/25 11:48 Infused .Q1H ONE Infusion MDM - Arrhythmia/Palpitations Lab Data Attestation: I reviewed the patient's lab results. Labs: Lab Results 07/06/25 Range/Units 10:27 WBC 3.28 L (4.50-11.00) K/uL RBC 5.09 (4.30-5.90) m/uL Hgb 15.8 (13.5-17.5) gm/dL Hct 48.2 (37.0-53.0) % MCV 95 (80-100) fL MCH 31 (26-34) pg MCHC 33 (32-36) gm/dL RDW Coeff of Yessica 13.2 (11.5-15.5) % Plt Count 96 L (140-440) K/uL Neut % (Auto) 66.8 (42.0-72.0) % Lymph % (Auto) 20.4 (20-44) % [place] % (Auto) 10.4 (0.0-11.0) % Eos % (Auto) 1.8 (0.0-7.0) % Baso % (Auto) 0.3 (0.0-3.0) % Neut # (Auto) 2.20 (1.7-7.0) K/uL Lymph # (Auto) 0.70 L (0.90-2.90) K/uL [place] # (Auto) 0.30 (0.00-0.90) K/UL Eos # (Auto) 0.10 (0.00-0.50) K/uL Baso # (Auto) 0.00 (0.00-0.30) K/uL Abs Immat Gran (auto) 0.00 (0.00-0.30) K/uL Imm/Tot Granulo (auto) 0.3 % VBG pH 7.381 (7.32-7.43) VBG pCO2 46 (40-50) mmHG VBG pO2 45.7 (25-47) mmHG VBG HCO3 27 (21-28) mmol/L Sodium 137 (135-149) mmol/L Potassium 4.0 (3.6-5.1) mmol/L Chloride 106 (96-114) mmol/L Carbon Dioxide 25 (20-32) mmol/L Anion Gap 6 L (7-15) mEq/L BUN 24 (7-30) mg/dL Creatinine 1.2 (0.5-1.5) mg/dL Estimated Creat Clear 44.29 Estimated GFR 61 ml/min Glucose 121 H (60-115) mg/dL Lactate 1.9 (0.5-1.9) mmol/L Calcium 9.1 (8.4-10.6) mg/dL Magnesium 2.1 (1.5-2.6) mg/dL Total Bilirubin 0.9 (0.1-1.5) mg/dL AST 39 H (12-35) U/L ALT 33 (4-50) U/L Alkaline Phosphatase 78 (40-150) U/L Troponin I < 0.01 (0.01-0.04) ng/mL NT-Pro-B Natriuret Pep 3900 H (See Note) pg/mL Total Protein 6.7 (6.0-8.3) g/dL Albumin 3.7 (3.3-5.0) g/dL Imaging Data XR left foot: Attestation: I have reviewed the pertinent imaging results. My impression: I do not appreciate any fracture on my preliminary review, wait radiology over read. Radiologist's impression: Patient: [facility] Facility:?[facility] Patient ID:?[id number] Site Patient ID:?[id number]. Site :?[id number] Study:?XRay-Extremity Left Foot-07/06/2025 11:21:32 AM Ordering Physician:?Elvin Hammonds Final Report: Indication: foot injury from falling object Technique: Three views of the left foot. Comparison: None. Findings: No acute displaced fracture or malalignment. Mild degenerative changes of the 1st interphalangeal joint. Impression: No acute displaced fracture or malalignment. Dictated by Boom Finch MD @ 07/06/2025 11:36:45 AM (Electronic Signature) Chest x-ray: Attestation: I have reviewed the pertinent imaging results. My impression: Chest x-ray visualize it and I do not see any evidence any fluid overload, no CHF, no infiltrate on my preliminary review, wait radiology over read. Radiologist's impression: Patient: [facility] Facility:?[facility] Patient ID:?[id number] Site Patient ID:?[id number]. Site :?[id number] Study:?XRay-Chest -07/06/2025 11:22:25 AM Ordering Physician:Lindsay Hammonds Final Report: Indication: afib, sob Technique: AP view of the chest. Comparison: 08/12/2022. Findings: Normal cardiomediastinal silhouette. No focal consolidation, pleural effusions, or visualized pneumothorax. Impression: No acute cardiopulmonary disease. Dictated by Boom Finch MD @ 07/06/2025 11:38:55 AM (Electronic Signature) ECG Data Attestation: I personally reviewed and interpreted this ECG as follows: (Atrial fibrillation, 91 beats per minute no active ischemic change noted, QT 501 milliseconds.) ECG interpretation date: 07/06/25 ECG interpretation time: 10:39 Prior ECG tracings: available for review (Last EKG we have here from 2022 showing sinus bradycardia.) Discharge Plan Discharge Clinical Impression: Atrial fibrillation, chronic Traumatic ecchymosis of toe of left foot Qualifiers: Encounter type: initial encounter Qualified Code(s): S90.122A - Contusion of left lesser toe(s) without damage to nail, initial encounter Patient Disposition: Home, Self-Care Condition: Stable Instructions: A-fib (Atrial Fibrillation) (ED), Crush Injury (ED) Additional Instructions: If the blister does open on the 5th toe, recommend using bandages, keeping clean with washing with soap and water daily. Can use bacitracin or triple antibiotic ointment with bandages. Otherwise, the bruising and traumatic changes of the toes should improve over the next couple of weeks. If you have further concerns, seek re-evaluation. Your white blood count and platelet count levels are provided to you, [facility]. You are in chronic atrial fibrillation which was rate controlled today. There are no concerning changes found. If you continue to note problems with blood pressure, you may need to [facility] with [facility] for [facility]. Activity Level: Activity as Tolerated Prescriptions: No Action ICaps AREDS 4,296 mcg-226 mg-90 mg capsule 1 cap PO BID rivaroxaban 20 mg tablet 20 mg PO QPM Rx Instructions: must administer with evening meal amiodarone 200 mg tablet 200 mg PO QDAY Qty: 90 0RF metoprolol succinate 25 mg tablet extended release 24 hr 25 mg PO QDAY PRN gabapentin 300 mg capsule 300 mg PO QHS atorvastatin 20 mg tablet 20 mg PO DAILY empagliflozin 12.5 mg propranolol 10 mg tablet 10 mg PO DAILY Follow Up/Referrals: Zachary Solano MD [Primary Care Provider, Family Practice] [facility] Alone [facility]: [facility] Info Instructions Procedures ABG Interpretation ABG Results: 07/06/25 10:27 VBG pH 7.381 VBG pCO2 46 VBG pO2 45.7 VBG HCO3 27
--- NOTE | 2025-07-06 10:49 | CRLHL7_ITS ---
For Patients: As a result of the Century Cures Act, medical imaging exams and procedure reports are released immediately into your electronic medical record. You may view this report before your referring provider. If you have questions, please contact your health care provider. Indication: afib, sob Technique: AP view of the chest. Comparison: 08/12/2022. Findings: Normal cardiomediastinal silhouette. No focal consolidation, pleural effusions, or visualized pneumothorax. Impression: No acute cardiopulmonary disease. Dictated by Boom Finch MD @ 07/06/2025 11:38:55 AM (Electronically Signed)
--- NOTE | 2025-07-06 10:49 | CRLHL7_ITS ---
For Patients: As a result of the Cures Act, medical imaging exams and procedure reports are released immediately into your electronic medical record. You may view this report before your referring provider. If you have questions, please contact your health care provider. Indication: foot injury from falling object Technique: Three views of the left foot. Comparison: None. Findings: No acute displaced fracture or malalignment. Mild degenerative changes of the 1st interphalangeal joint. Impression: No acute displaced fracture or malalignment. Dictated by Boom Finch MD @ 07/06/2025 11:36:45 AM (Electronically Signed)
[2025-07-06 10:56] LABS: HCO3 VBG 27 mmol/L (21-28); Lactate* 1.9 mmol/L (0.5-1.9); PCO2 VBG 46 mmHG (40-50); PO2 VBG 45.7 mmHG (25-47); pH VBG 7.381 (7.32-7.43)
[2025-07-06 11:13] LABS: Hematocrit* 48.2 % (37.0-53.0); Hemoglobin* 15.8 gm/dL (13.5-17.5); Immature Granulocytes Pct Auto 0.3 %; Mean Corpuscular HGB Conc 33 gm/dL (32-36); Mean Corpuscular Hemoglobin 31 pg (26-34); Mean Corpuscular Volume 95 fL (80-100); RDW Coefficient of Variation % 13.2 % (11.5-15.5); Red Blood Count* 5.09 m/uL (4.30-5.90); White Blood Count* 3.28 K/uL (4.50-11.00)
[2025-07-06 11:45] LABS: Immature Granulocytes Abs Auto 0.00 K/uL (0.00-0.30); Lymphocytes Absolute Auto 0.70 K/uL (0.90-2.90); Slide Review Reflex No
[2025-07-06 11:47] LABS: Chloride* 106 mmol/L (96-114)
[2025-07-06 11:48] LABS: Albumin* 3.7 g/dL (3.3-5.0); Potassium* 4.0 mmol/L (3.6-5.1); Sodium* 137 mmol/L (135-149)
[2025-07-06] MEDS: 0.9 % SODIUM CHLORIDE 500 ML 500 ML IV (11:49)
[2025-07-06 11:51] LABS: Alkaline Phosphatase* 78 U/L (40-150); Anion Gap 6 mEq/L (7-15); Bilirubin Total* 0.9 mg/dL (0.1-1.5); Blood Urea Nitrogen* 24 mg/dL (7-30); Carbon Dioxide* 25 mmol/L (20-32); Creatinine* 1.2 mg/dL (0.5-1.5); Est. Creatinine Clearance* 44.29; Estimated Glomerular Filt Rate 61 ml/min; Total Protein* 6.7 g/dL (6.0-8.3)
[2025-07-06 12:22] LABS: Alanine Aminotransferase* 33 U/L (4-50); Aspartate Amino Transferase* 39 U/L (12-35); Calcium* 9.1 mg/dL (8.4-10.6); Glucose* 121 mg/dL (60-115)
[2025-07-06 12:34] LABS: NT Pro B Type NatriureticPept* 3900 pg/mL (See Note)
== END 2025-07-06 13:42 | disposition home or self-care (01) ==
PROVIDERS: Emergency Provider Family Medicine; PCP Family Medicine
DX: I48.20 Chronic atrial fibrillation, unspecified (principal); S90.122A Contusion of left lesser toe(s) without damage to nail, initial encounter
CPT/HCPCS: 36415; 71045; 73630; 80053; 82803; 83605; 83735; 83880; 84484; 85025; 93005; 94761; 96360; 99284; J7030